=== PATIENT | male | born 1930 | race Caucasian/White ===

== ENCOUNTER 2017-12-04 09:45 | Inpatient (IN) | payer MEDICARE ==
[2017-12-04] VITALS (13 sets, daily range): BP systolic 158–207; BP diastolic 64–88; PULSE 46–77; RESP 16–20; TEMP 97.3–97.8; O2SAT 95–100
[~2017-12-04] VITALS: Ht 172.7 cm; Wt 60.1 kg
[~2017-12-04 09:45] MED LIST: AMLO5TAB96 PO; ASPI81 PO; IMDU30TA PO; LANTUSP SQ; LEVO50TA4 PO; PROT40TA PO; ROSU20 PO; TOPR50TA PO
[2017-12-04 11:45] LABS: AUTOMATED NEUTROPHIL # 4.8 TH/MM3 (1.8-7.7); BASOPHIL # 0.1 TH/MM3 (0-0.2); EOSINOPHIL # 0.3 TH/MM3 (0-0.4); HEMATOCRIT 46.1 % (39.0-51.0); HEMOGLOBIN 15.1 GM/DL (13.0-17.0); LYMPH % 19.4 % (9.0-44.0); LYMPHOCYTE # 1.3 TH/MM3 (1.0-4.8); MEAN CELL VOLUME 82.2 FL (80.0-100.0); MEAN CORPUSCULAR HEMOGLOBIN 26.8 PG (27.0-34.0); MEAN CORPUSCULAR HGB CONC 32.7 % (32.0-36.0); MEAN PLATELET VOLUME 8.8 FL (7.0-11.0); MONO % 5.3 % (0.0-8.0); MONOCYTE # 0.4 TH/MM3 (0-0.9); NEUT % 69.3 % (16.0-70.0); PLATELET COUNT 157 TH/MM3 (150-450); RED BLOOD COUNT 5.61 MIL/MM3 (4.50-5.90); RED CELL DISTRIBUTION WIDTH 15.3 % (11.6-17.2); WHITE BLOOD COUNT 6.9 TH/MM3 (4.0-11.0)
--- NOTE | 2017-12-04 11:46 | PD ---
HPI Chief Complaint: Neuro Symptoms/ Deficits Time Seen by Provider: 10:38 Travel History International Travel<30 days: No Contact w/Intl Traveler<30days: No Traveled to known affect area: No History of Present Illness HPI Patient presents to the emergency department complaining of trouble with "my feet in my legs and cannot control my bowel and bladder times 2 weeks." He denies trauma, back pain, chest pain, shortness of breath, fever, chills, nausea , vomiting, or abdominal pain. PFSH Past Medical History Autoimmune Disease: No Heart Rhythm Problems: No Cancer: No Cardiac Catheterization: Yes (STENTS) Cardiovascular Problems: Yes High Cholesterol: Yes Chemotherapy: No Chest Pain: Yes Congestive Heart Failure: No Diabetes: Yes Patient Takes Glucophage: No Diminished Hearing: No Endocrine: Yes GERD: Yes Genitourinary: Yes (bilateral renal stent) Hiatal Hernia: Yes Hypertension: Yes Immune Disorder: No Musculoskeletal: No Neurologic: No Psychiatric: No Reproductive: No Respiratory: No Immunizations Current: Yes Myocardial Infarction: Yes Radiation Therapy: No Sickle Cell Disease: No Thyroid Disease: Yes Ulcer: No Past Surgical History Abdominal Surgery: Yes (HERNIA) Cardiac Surgery: Yes ( left carotid 2006) Coronary Artery Bypass Graft: Yes Coronary Stent: Yes Ear Surgery: No Endocrine Surgery: No Eye Surgery: Yes (cataract bilateral) Genitourinary Surgery: Yes (VASECTOMY;KIDNEY STENTS) Oral Surgery: No Thoracic Surgery: No Tonsillectomy: Yes Other Surgery: Yes Family History Family Myocardial Infarction: Yes Social History Alcohol Use: No Tobacco Use: No Substance Use: No Allergies-Medications (Allergen,Severity, Reaction): Coded Allergies: No Known Allergies (Unverified Allergy, Unknown, 12/04/17) Reported Meds & Prescriptions Reported Meds & Active Scripts Active Reported Lantus Inj (Insulin Glargine) 1,000 Unit/10 Ml Vial 4 Units SQ HS Lisinopril 40 Mg Tab 40 Mg PO DAILY Amlodipine (Amlodipine Besylate) 10 Mg Tab 10 Mg PO DAILY Isosorbide Mononitrate ER (Isosorbide Mononitrate) 30 Mg Fco 30 Mg PO DAILY Folic Acid 0.8 Mg Tab 800 Mcg PO DAILY Crestor (Rosuvastatin Calcium) 20 Mg Tab 20 Mg PO DAILY Aspirin 81 Mg Chew 81 Mg CHEW DAILY Pantoprazole (Pantoprazole Sodium) 40 Mg Tab 40 Mg PO DAILY Metoprolol Tartrate 50 Mg Tab 50 Mg PO DAILY Glimepiride 4 Mg Tab 4 Mg PO DAILY Take with breakfast or first main meal Glimepiride 1 Mg Tab 1 Mg PO DAILY Take with breakfast or first main meal Levothyroxine (Levothyroxine Sodium) 75 Mcg Tab 75 Mcg PO DAILY Review of Systems Except as stated in HPI: all other systems reviewed are Neg Physical Exam Narrative GENERAL: No acute distress. SKIN: Focused skin assessment warm/dry. HEAD: Atraumatic. Normocephalic. EYES: Pupils equal and round. No scleral icterus. No injection or drainage. ENT: No nasal bleeding or discharge. Mucous membranes pink and moist. NECK: Trachea midline. No JVD. No focal C-spine tenderness. CARDIOVASCULAR: Regular rate and rhythm. No murmur appreciated. RESPIRATORY: No accessory muscle use. Clear to auscultation. Breath sounds equal bilaterally. GASTROINTESTINAL: Abdomen soft, non-tender, nondistended. Hepatic and splenic margins not palpable. Rectal: Normal rectal tone, brown stool MUSCULOSKELETAL: No obvious deformities. No clubbing. No cyanosis. No edema. No focal T or L-spine tenderness. NEUROLOGICAL: Awake and alert. No obvious cranial nerve deficits. Right lower extremity weakness (4 out of 5), normal speech. PSYCHIATRIC: Appropriate mood and affect; insight and judgment normal. Data Data Last Documented VS Vital Signs Date Time Temp Pulse Resp B/P (MAP) Pulse Ox O2 Delivery O2 Flow Rate FiO2 12/04/17 14:04 56 16 196/86 (122) 98 Room Air 12/04/17 10:28 97.5 Orders Orders Complete Blood Count With Diff (12/04/17 10:42) Comprehensive Metabolic Panel (12/04/17 10:42) Prothrombin Time / Inr (Pt) (12/04/17 10:42) Act Partial Throm Time (Ptt) (12/04/17 10:42) Ua Includes Microscopic (12/04/17 10:42) Mri C Spine W/O Contrast (12/04/17 11:46) Mri T Spine W/O Contrast (12/04/17 11:46) Mri L Spine W/O Contrast (12/04/17 11:46) Metoprolol Succinate Er (Toprol Xl) (12/04/17 12:00) Hydralazine Inj (Apresoline Inj) (12/04/17 12:45) Amlodipine (Norvasc) (12/04/17 13:00) Magnesium (Mg) (12/04/17 14:09) Electrocardiogram (12/04/17 14:09) Insulin Human Regular Inj (Novolin R Inj (12/04/17 14:15) Dextrose 50% In Kari (Vial) Inj (D50w (Vi (12/04/17 14:15) Albuterol Concentrated Neb (Albuterol Co (12/04/17 14:15) Admit Order (Ed Use Only) (12/04/17 14:22) Labs Laboratory Tests Test 12/04/17 11:15 12/04/17 11:25 White Blood Count 6.9 TH/MM3 Red Blood Count 5.61 MIL/MM3 Hemoglobin 15.1 GM/DL Hematocrit 46.1 % Mean Corpuscular Volume 82.2 FL Mean Corpuscular Hemoglobin 26.8 PG Mean Corpuscular Hemoglobin Concent 32.7 % Red Cell Distribution Width 15.3 % Platelet Count 157 TH/MM3 Mean Platelet Volume 8.8 FL Neutrophils (%) (Auto) 69.3 % Lymphocytes (%) (Auto) 19.4 % Monocytes (%) (Auto) 5.3 % Eosinophils (%) (Auto) 5.0 % Basophils (%) (Auto) 1.0 % Neutrophils # (Auto) 4.8 TH/MM3 Lymphocytes # (Auto) 1.3 TH/MM3 Monocytes # (Auto) 0.4 TH/MM3 Eosinophils # (Auto) 0.3 TH/MM3 Basophils # (Auto) 0.1 TH/MM3 CBC Comment DIFF FINAL Differential Comment Prothrombin Time 10.2 SEC Prothromb Time International Ratio 1.0 RATIO Activated Partial Thromboplast Time 30.8 SEC Blood Urea Nitrogen 28 MG/DL Creatinine 2.42 MG/DL Random Glucose 152 MG/DL Total Protein 8.0 GM/DL Albumin 3.6 GM/DL Calcium Level 9.6 MG/DL Alkaline Phosphatase 94 U/L Aspartate Amino Transf (AST/SGOT) 25 U/L Alanine Aminotransferase (ALT/SGPT) 25 U/L Total Bilirubin 0.4 MG/DL Sodium Level 138 MEQ/L Potassium Level 6.0 MEQ/L Chloride Level 107 MEQ/L Carbon Dioxide Level 24.8 MEQ/L Anion Gap 6 MEQ/L Estimat Glomerular Filtration Rate 25 ML/MIN Magnesium Level 2.1 MG/DL Urine Color Straw Urine Turbidity CLEAR Urine pH 7.0 Urine Specific [place] 1.011 Urine Protein >=500 mg/dL Urine Glucose (UA) 50 mg/dL Urine Ketones NEG mg/dL Urine Occult Blood NEG Urine Nitrite NEG Urine Bilirubin NEG Urine Urobilinogen LESS THAN 2 mg/dL Urine Leukocyte Esterase NEG Urine RBC 1 /hpf Urine WBC 1 /hpf Urine Bacteria RARE /hpf Urine Mucus FEW /lpf MDM Medical Decision Making Medical Screen Exam Complete: Yes Emergency Medical Condition: Yes Interpretation(s) Labs: Normal CBC, elevated BUN/creatinine/glucose/potassium; UA rare bacteria ECG: Sinus brook, rate 56, RBBB (similar to prior EKG) Last Impressions Thoracic Spine MRI 12/04/17 1146 Signed Impressions: CONCLUSION: 1. No acute bony abnormality is seen. The thoracic vertebral bodies are normal in height and normally aligned. 2. Mild disc changes in the mid thoracic spine without stenosis. Lumbar Spine MRI 12/04/17 114 Signed Impressions: CONCLUSION: 1. Mild disc bulge at the L4-L5 level. 2. Mild disc bulge and osteophytic ridging at the L5-S1 level. These changes d o abut the left S1 nerve root at the lateral recess level. 3. Neural foraminal narrowing on the right at the L4-L5 level and bilaterally at the L5-S1 level being worse on the left. 4. Facet hypertrophy seen throughout. Cervical Spine MRI 12/04/17 114 Signed Impressions: CONCLUSION: 1. Multilevel degenerative spondylosis with significant abnormalities at C3/4, C4/5, C5/6 and C6/7. 2. No abnormal signal identified within the cervical cord. 3. Individual levels are dictated in detail above. Differential Diagnosis Cauda equina, spinal fracture/dislocation, UTI, Narrative Course Patient presents to the emergency department complaining of inability to control his bowel and bladder times 2 weeks as well as weakness in his bilateral lower extremities. Patient placed on satellite project site monitor, IV access obtained, labs sent. MRI ordered. 1250: Patient given dose of amlodipine 10 mg p.o. for hypertension. 1414: Patient back from MRI. EKG ordered for hyperkalemia as well as 10 mg albuterol neb and amp of D50 and 10 units regular insulin. Diagnosis Primary Impression: Renal failure Qualified Codes: N17.9 - Acute kidney failure, unspecified; N18.9 - Chronic kidney disease, unspecified Additional Impression: Hyperkalemia Admitting Information Admitting Physician Requests: Admit Condition: Stable Mamta Aranda MD Dec 04, 2017 11:46
[2017-12-04] MEDS ORDERED: GLIM4TAB PO (11:49)
[2017-12-04] MEDS ORDERED: FOLI800T PO (11:49)
[2017-12-04] MEDS ORDERED: LEVO75TA3 PO (11:49)
[2017-12-04] MEDS ORDERED: LANTUS2P SQ (11:49)
[2017-12-04] MEDS ORDERED: PANT40TA3 PO (11:49)
[2017-12-04] MEDS ORDERED: LISI40TA PO (11:49)
[2017-12-04] MEDS ORDERED: ROSU20 PO (11:49)
[2017-12-04] MEDS ORDERED: ASPI-516 CHEW (11:49)
[2017-12-04] MEDS ORDERED: AMLO10TA2 PO (11:49)
[2017-12-04] MEDS ORDERED: METO50TA PO (11:49)
[2017-12-04] MEDS ORDERED: GLIM1TAB PO (11:49)
[2017-12-04] MEDS ORDERED: ISOS30TA3 PO (11:49)
[2017-12-04 11:51] LABS: BACTERIA, URINE RARE /hpf; BILIRUBIN, URINE NEG (NEG); BLOOD, URINE NEG (NEG); GLUCOSE,URINE 50 mg/dL (NEG); KETONE, URINE NEG (NEG); MUCUS URINE FEW /lpf (OCC); NITRITE,URINE NEG (NEG); URINE COLOR Straw (YELLW/STRAW); URINE LEUKOCYTE ESTERASE NEG (NEG)
[2017-12-04 11:58] LABS: PROTHROMBIN TIME - PATIENT 10.2 SEC (9.8-11.6)
[2017-12-04] MEDS ORDERED: METOPROLOL SUCCINATE 50 MG EXTENDED RELEASE TAB PO ONE (12:00)
[2017-12-04 12:04] LABS: ALBUMIN 3.6 GM/DL (3.4-5.0); ALT (GPT) 25 U/L (12-78); AST (GOT) 25 U/L (15-37); BICARBONATE 24.8 MEQ/L (21.0-32.0); BLOOD UREA NITROGEN 28 MG/DL (7-18); CALCIUM 9.6 MG/DL (8.5-10.1); CHLORIDE 107 MEQ/L (98-107); CREATININE 2.42 MG/DL (0.60-1.30); GLOMERULAR FILTRATION RATE 25 ML/MIN (>89); GLUCOSE,RANDOM 152 MG/DL (74-106); SODIUM (NA) 138 MEQ/L (136-145)
[2017-12-04 12:06] LABS: ALKALINE PHOSPHATASE 94 U/L (45-117); TOTAL BILIRUBIN ADULT 0.4 MG/DL (0.2-1.0)
[2017-12-04] MEDS ORDERED: hydrALAZINE HCL 20 MG/ML VIAL IV PUSH ONE (12:45)
--- NOTE | 2017-12-04 14:14 | RADRPT ---
EXAM DATE: 12/04/2017 1:58 PM EDT AGE/SEX: 87 years / Male INDICATIONS: Weakness. CLINICAL DATA: This is the patient's initial encounter. Patient reports that signs and symptoms have been present for 1 day and indicates a pain score of 0/10. MEDICAL/SURGICAL HISTORY: Hypertension. Diabetes mellitus type II. CABG. Coronary artery sten t. COMPARISON: No prior exams available for comparison. TECHNIQUE: Multiplanar, multisequence MRI examination of the cervical spine was performed without co ntrast. FINDINGS: Sagittal T1 and T2-weighted imaging demonstrates mild straightening of the normal cervical curve. The re are desiccated, degenerated discs throughout the cervical spine. No abnormal marrow signal seen wi thin the vertebral bodies. No abnormal signal is seen within the cord. The cerebellar tonsils are in their appropriate location. Axial imaging: C2-C3: The thecal sac has a normal configuration. There is no evidence of disc herniation or spinal canal stenosis. The neural foramina are patent bilaterally. There is moderate facet arthritis on th e left. C3-C4: There is a desiccated, degenerated disc with a broad-based disc bulge and osteophytic ridging . This effaces the ventral thecal sac. There is facet arthritis bilaterally with degenerative facet h ypertrophy. These changes combine and result in moderate bilateral foraminal narrowing. The residual thecal space is narrowed but adequate. C4-C5: There is a desiccated, degenerated disc. There is minimal disc bulge. There is osteophytic ri dging from the vertebral endplates. There is mild facet arthritis bilaterally. There is uncovertebral osteophyte encroaching upon the base of the foramina and the lateral recess bilaterally. This is mor e significant on the right than the left. C5-C6: There is a desiccated, degenerated disc. There is broad-based disc bulge and diffuse osteophy tic ridging. This effaces the ventral thecal sac and abuts the ventral aspect of the cord. There is m ild flattening of the ventral aspect of the cord. There is facet arthritis bilaterally. There is mode rate bony foraminal narrowing bilaterally. C6-C7: There is a desiccated, degenerated disc. There is broad-based disc bulge and osteophytic ridg ing. This effaces the ventral thecal sac and abuts the ventral aspect of the cord. There is encroachm ent of disc bulge and uncovertebral osteophyte on the lateral recess and foraminal on the left. The f oramina on the right is adequate. C7-T1: No epidural impressions seen. CONCLUSION: 1. Multilevel degenerative spondylosis with significant abnormalities at C3/4, C4/5, C5/6 and C6/7. 2. No abnormal signal identified within the cervical cord. 3. Individual levels are dictated in detail above. Electronically signed by: Fidencio Gray MD 12/04/2017 2:13 PM EDT
[2017-12-04] MEDS ORDERED: RESP: ALBUTEROL CONC 2.5 MG/0.5 ML NEB INH ONE (14:15)
[2017-12-04] MEDS ORDERED: INSULIN HUMAN REGULAR 1,000 UNITS/10 ML VIAL IV PUSH ONE (14:15)
[2017-12-04] MEDS ORDERED: DEXTROSE 50% IN WATER 50 ML VIAL(D50) IV PUSH ONE (14:15)
--- NOTE | 2017-12-04 14:16 | RADRPT ---
EXAM DATE: 12/04/2017 1:59 PM EDT AGE/SEX: 87 years / Male INDICATIONS: Weakness. CLINICAL DATA: This is the patient's initial encounter. Patient reports that signs and symptoms have been present for 1 day and indicates a pain score of 0/10. MEDICAL/SURGICAL HISTORY: Diabetes mellitus type II. Hypertension. CABG. Coronary artery sten t. COMPARISON: No prior exams available for comparison. TECHNIQUE: Multiplanar, multisequence MRI of the thoracic spine was performed. FINDINGS: Vertebrae: The thoracic vertebral bodies demonstrate normal signal and are normal in height. There i s prominent concavity to the superior and to lesser degree inferior aspect of L1 without edema. Alignment: Normal. Cord: Normal position and configuration. T1-T2: The thecal sac has a normal diameter. No evidence of disc bulge or protrusion. T2-T3: The thecal sac has a normal diameter. No evidence of disc bulge or protrusion. T3-T4: The thecal sac has a normal diameter. No evidence of disc bulge or protrusion. T4-T5: The thecal sac has a normal diameter. No evidence of disc bulge or protrusion. T5-T6: The thecal sac has a normal diameter. No evidence of disc bulge or protrusion. T6-T7: There is a minimal central disc protrusion without significant stenosis. T7-T8: There is a minimal right paracentral disc protrusion without significant stenosis. T8-T9: There is a mild left paracentral disc protrusion without significant stenosis. T9-T10: The thecal sac has a normal diameter. No evidence of disc bulge or protrusion. T10-T11: The thecal sac has a normal diameter. No evidence of disc bulge or protrusion. T11-T12: The thecal sac has a normal diameter. No evidence of disc bulge or protrusion. T12-L1: The thecal sac has a normal diameter. No evidence of disc bulge or protrusion. CONCLUSION: 1. No acute bony abnormality is seen. The thoracic vertebral bodies are normal in height and normall y aligned. 2. Mild disc changes in the mid thoracic spine without stenosis. Electronically signed by: Lupillo Yeh MD 12/04/2017 2:15 PM EDT
--- NOTE | 2017-12-04 14:31 | RADRPT ---
EXAM DATE: 12/04/2017 1:58 PM EDT AGE/SEX: 87 years / Male INDICATIONS: Weakness. CLINICAL DATA: This is the patient's initial encounter. Patient reports that signs and symptoms have been present for 2 days and indicates a pain score of 0/10. MEDICAL/SURGICAL HISTORY: Hypertension. Diabetes mellitus type II. CABG. Coronary artery sten t. COMPARISON: No prior exams available for comparison. TECHNIQUE: Multiplanar, multisequence MRI of the lumbar spine was performed without contrast. Patie nt was scanned in a sitting position; neutral, flexion, and extension scans were performed in the sa gittal plane. FINDINGS: Vertebra: There is some concavity to the superior aspect of L1 and to a lesser degree the inferior a spect of L1. Overall, the L1 vertebral body demonstrates normal height. No acute edema is seen. This is thought to be secondary to chronic change. The remaining lumbar vertebral bodies are normal in hei ght and signal. Conus: Normal level and configuration. T12-L1: The thecal sac has a normal diameter. No evidence of disc bulge or protrusion. The neural foramina are patent bilaterally. L1-L2: The disc demonstrates decreased signal. The thecal sac has a normal diameter. No evidence o f disc bulge or protrusion. The neural foramina are patent bilaterally. There is mild facet hypertro phy. L2-L3: The thecal sac has a normal diameter. No evidence of disc bulge or protrusion. The neural foramina are patent bilaterally. There is mild facet hypertrophy. L3-L4: The disc demonstrates decreased signal. There is slight bulging of the disc without signific ant stenosis. There is mild facet hypertrophy. The neural foramina are patent bilaterally. L4-L5: The disc demonstrates decreased signal and mild decrease height. There is mild diffuse disc bulge. There is moderate facet and ligament flavum hypertrophy. These changes cause mild narrowing of the thecal sac. The continues be CSF around the nerve roots. There is narrowing of the neural forami na on the right. The left neural foramina are grossly patent. L5-S1: The disc demonstrates decreased height and decreased signal. There is mild bulging. There is posterior osteophytic ridging. The disc bulge and osteophytic ridging do abut the left S1 nerve root at the lateral recess level. Significant narrowing of the thecal sac is not seen. There is moderate facet hypertrophy. There is narrowing of the neural foramina bilaterally being worse on the left. CONCLUSION: 1. Mild disc bulge at the L4-L5 level. 2. Mild disc bulge and osteophytic ridging at the L5-S1 level. These changes do abut the left S1 ner ve root at the lateral recess level. 3. Neural foraminal narrowing on the right at the L4-L5 level and bilaterally at the L5-S1 level cody ng worse on the left. 4. Facet hypertrophy seen throughout. Electronically signed by: Lupillo Yeh MD 12/04/2017 2:30 PM EDT
[2017-12-04] MEDS ORDERED: ACETAMINOPHEN 325 MG TAB PO PRN (14:45)
[2017-12-04] MEDS ORDERED: MAGNESIUM HYDROXIDE SUSP 30 ML CUP PO PRN (14:45)
[2017-12-04] MEDS ORDERED: NALOXONE HCL 0.4 MG/ML AMP IV PUSH PRN (14:45)
[2017-12-04] MEDS ORDERED: ONDANSETRON ODT 4 MG TAB PO PRN (14:45)
[2017-12-04] MEDS ORDERED: BISACODYL 10 MG SUPP RECTAL PRN (14:45)
[2017-12-04] MEDS ORDERED: SENNOSIDES 8.6 MG TAB PO PRN (14:45)
[2017-12-04] MEDS ORDERED: LACTULOSE SYRUP 20 GM/30 ML CUP PO PRN (14:45)
[2017-12-04] MEDS ORDERED: SODIUM CHLORIDE 0.9% FLUSH 10 ML FLUSH IV FLUSH PRN (14:45)
[2017-12-04] MEDS: SODIUM CHLOR 0.9% 1000 ML INJ 1,000 ML IV SCH ×2 (15:35→21:44)
[2017-12-04] MEDS: HEPARIN SODIUM - SQ 10,000 UNITS/ML VIAL SQ SCH (15:35)
--- NOTE | 2017-12-04 16:04 | PD.CONS ---
(Joseph Arce) [facility] Service Neurosurgery Consult Requested By Dr Navarro Reason for Consult Lower extremity weakness Primary Care Physician Nadeem Cross, DO History of Present Illness The patient reports that he started to fall approximately two weeks ago and is now having difficulty with ambulation. He reports that prior to the falls he was able to ambulate using a walker without any difficulty. Now he reports that he doesn't seem able to get his feet to do what he wants when he is ambulating. The patient does report bowel and bladder difficulty but upon asking further it is difficulty to obtain a clear picture of his difficulty. At one point he says yes then he will say "not really." He reports that he does have urinary incontinence but does endorse that he had it prior to the fall for a while. He does endorse constipation occasionally. As to incontinence of bowel he reports that there are times when he feels he needs to have a bowel movement and doesn' t have one. Then there are other times that he will be incontinent of stool. The patient does seem to have some confusion and states that he is "babbling" because he is not able to express what he wants to. He has no headache or dizziness and he denied any pain, numbness or tingling to the extremities. He did say he has a right drop foot for which he wears and ASO brace. The patient is noted to have tremors to the upper extremities at rest. (Joseph Arce) Review of Systems CONSTITUTIONAL: Negative. INTEGUMENTARY: Some abrasions to the extremities. HEENT: Occasionally will wear earing aids. NECK: Negative. RESPIRATORY: Negative. CARDIOVASCULAR: Negative. GASTROINTESTINAL: Constipation, incontinence of bowel. GENITOURINARY: Urinary incontinence, decreased renal function. MUSCULOSKELETAL: Difficulty walking, right drop foot. HAEMATOLOGIC/LYMPHATIC: None. PSYCHIATRIC: None. NEUROLOGICAL: "Babbling." Incontinence of urine and stool. Difficulty walking. Tremors to the arms. (Joseph Arce) Past Family Social History Allergies: Coded Allergies: No Known Allergies (Unverified Allergy, Unknown, 12/04/17) Past Medical History Myocardial infarction Hypertension Diabetes mellitus Glaucoma Decreased renal function Inguinal hernia Intermittent use of hearing aids Gastroesophageal reflux disease Hypothyroidism Hyperlipidemia Past Surgical History Coronary artery bypass graft x4 Cardiac catherisation w/stenting Herniorrhaphy Bilateral renal stents Left carotid endarterectomy Bilateral cataract excision Tonsillectomy Vasectomy Reported Medications Lantus Inj (Insulin Glargine) 1,000 Unit/10 Ml Vial 4 Units SQ HS Lisinopril 40 Mg Tab 40 Mg PO DAILY Amlodipine (Amlodipine Besylate) 10 Mg Tab 10 Mg PO DAILY Isosorbide Mononitrate ER (Isosorbide Mononitrate) 30 Mg Fco 30 Mg PO DAILY Folic Acid 0.8 Mg Tab 800 Mcg PO DAILY Crestor (Rosuvastatin Calcium) 20 Mg Tab 20 Mg PO DAILY Aspirin 81 Mg Chew 81 Mg CHEW DAILY Pantoprazole (Pantoprazole Sodium) 40 Mg Tab 40 Mg PO DAILY Metoprolol Tartrate 50 Mg Tab 50 Mg PO DAILY Glimepiride 4 Mg Tab 4 Mg PO DAILY Take with breakfast or first main meal Glimepiride 1 Mg Tab 1 Mg PO DAILY Take with breakfast or first main meal Levothyroxine (Levothyroxine Sodium) 75 Mcg Tab 75 Mcg PO DAILY Family History Myocardial infarction Social History Denies any alcohol, tobacco or illicit drug use. (Joseph Arce) Physical Exam Vital Signs 12/02/17 12/02/17 12/03/17 12/03/17 12/04/17 12/04/17 06:00 18:00 06:00 18:00 06:00 18:00 Output Total 125 ml Balance -125 ml Output Urine Total 125 ml # Voids 1 Vital Signs Date Time Temp Pulse Resp B/P (MAP) Pulse Ox O2 Delivery O2 Flow Rate FiO2 12/04/17 14:04 56 16 196/86 (122) 98 Room Air 12/04/17 12:55 46 202/88 (126) 12/04/17 10:28 56 18 99 Room Air 12/04/17 10:28 97.5 63 16 195/88 (123) 100 Room Air 12/04/17 10:00 97.5 63 20 207/86 (126) 100 Physical Exam GENERAL: Well developed male who appears his stated age. SKIN: Warm & dry, scattered lower extremity abrasions healing w/o complication. HEENT: Normocephalic, atraumatic. PERRLA 3 mm, brisk, EOMI. TMs pearly kidd, no external ear canal, no otorrhea or haemotypanum bilaterally. Nares moist & pink w/o rhinorrhea bilaterally. MMM & pink, airway patent, tongue midline to protrusion. NECK: Midline cervical spine NTTP. Neck supple. No JVD. Trachea midline. RESPIRATORY: CTAB w/o W/R/R, equal excursion, non-laboured, on RA. Well healed midline sternotomy incision. CARDIOVASCULAR: S1S2 w/RRR w/o M/G/R, radial & pedal pulses 2+ bilaterally, no pedal edema. Monitor is sinus rhythm w/o any ectopy noted. GASTROINTESTINAL: Abdomen soft, non-tender, no palpable masses or organomegaly, bowel sounds present to all quadrants. GENITOURINARY: Normal male genitalia. MUSCULOSKELETAL: PERLA spontaneously & purposefully. Extremities NTTP. Some deformities noted to the interphalangeal joints of both hands. Tremors noted to both hands at rest. Tremors noted to lower extremities when he lifts them off the bed. Thoracolumbar spine NTTP. PSYCHIATRIC: Normal affect. Readily interacts & smiles. NEUROLOGICAL: AAOx3. Speech clear, hesitant at times, slow to respond, some expressive aphasia. Follows simple commands w/o difficulty. CN II through XII appear grossly intact. Motor strength: LUE: 4 to 4+/5 to hand intrinsics, o/w 5/5 to all major flexion & extension muscle groups to include wrist flexors & extensors. RUE: 4 to 4+/5 to hand intrinsics, 5/5 to wrist flexors & extensors, o/w 4+/ 5 to all major flexion & extension muscle groups. LLE: 4+/5 to extensor hallucis longus, o/w 5/5 to all major flexion & extension muscle groups. RLE: 0/5 to extensor hallucis longus & gastrocnemius, 3 to 3+/5 to tibialis anterior, 5/5 to iliopsoas, quadriceps & hamstring. Tremors noted to both hands at rest. Tremors noted to lower extremities when he lifts them off the bed. Laboratory Laboratory Tests Test 12/04/17 11:15 12/04/17 11:25 White Blood Count 6.9 Red Blood Count 5.61 Hemoglobin 15.1 Hematocrit 46.1 Mean Corpuscular Volume 82.2 Mean Corpuscular Hemoglobin 26.8 Mean Corpuscular Hemoglobin Concent 32.7 Red Cell Distribution Width 15.3 Platelet Count 157 Mean Platelet Volume 8.8 Neutrophils (%) (Auto) 69.3 Lymphocytes (%) (Auto) 19.4 Monocytes (%) (Auto) 5.3 Eosinophils (%) (Auto) 5.0 Basophils (%) (Auto) 1.0 Neutrophils # (Auto) 4.8 Lymphocytes # (Auto) 1.3 Monocytes # (Auto) 0.4 Eosinophils # (Auto) 0.3 Basophils # (Auto) 0.1 CBC Comment DIFF FINAL Differential Comment Prothrombin Time 10.2 Prothromb Time International Ratio 1.0 Activated Partial Thromboplast Time 30.8 Blood Urea Nitrogen 28 Creatinine 2.42 Random Glucose 152 Total Protein 8.0 Albumin 3.6 Calcium Level 9.6 Alkaline Phosphatase 94 Aspartate Amino Transf (AST/SGOT) 25 Alanine Aminotransferase (ALT/SGPT) 25 Total Bilirubin 0.4 Sodium Level 138 Potassium Level 6.0 Chloride Level 107 Carbon Dioxide Level 24.8 Anion Gap 6 Estimat Glomerular Filtration Rate 25 Magnesium Level 2.1 Urine Color Straw Urine Turbidity CLEAR Urine pH 7.0 Urine Specific [place] 1.011 Urine Protein >=500 Urine Glucose (UA) 50 Urine Ketones NEG Urine Occult Blood NEG Urine Nitrite NEG Urine Bilirubin NEG Urine Urobilinogen LESS THAN 2 Urine Leukocyte Esterase NEG Urine RBC 1 Urine WBC 1 Urine Bacteria RARE Urine Mucus FEW (Joseph Arce) Result Diagram: 12/04/17 1115 12/04/17 1115 Imaging Recent Impressions Thoracic Spine MRI 12/04/17 1146 Signed Impressions: CONCLUSION: 1. No acute bony abnormality is seen. The thoracic vertebral bodies are normal in height and normally aligned. 2. Mild disc changes in the mid thoracic spine without stenosis. Lumbar Spine MRI 12/04/17 1146 Signed Impressions: CONCLUSION: 1. Mild disc bulge at the L4-L5 level. 2. Mild disc bulge and osteophytic ridging at the L5-S1 level. These changes d o abut the left S1 nerve root at the lateral recess level. 3. Neural foraminal narrowing on the right at the L4-L5 level and bilaterally at the L5-S1 level being worse on the left. 4. Facet hypertrophy seen throughout. Cervical Spine MRI 12/04/17 1146 Signed Impressions: CONCLUSION: 1. Multilevel degenerative spondylosis with significant abnormalities at C3/4, C4/5, C5/6 and C6/7. 2. No abnormal signal identified within the cervical cord. 3. Individual levels are dictated in detail above. (Joseph Arce) Assessment and Plan Assessment and Plan Impression: Distal RLE weakness Difficulty ambulating Right drop foot, chronic Possible cauda equina syndrome Expressive aphasia Reviewed labs for today. INR 1.0 and aPTT 30.8. Hyperkalemia. Poor renal function. MRI cervical spine demonstrated multilevel degenerative spondylosis, significant from C3-4 to C6-7; no abnormal cervical cord signal. MRI thoracic spine demonstrated mild disc changes mid thoracic spine w/o stenosis. MRI lumbar spine demonstrated mild disc bulge at L4-5 level; mild disc bulge & osteophytic ridging at L5-S1 level abutting the left S1 nerve root at the lateral recess level; neural foraminal narrowing of right L4-L5 level and bilaterally at the L5-S1 L>R; facet hypertrophy throughout. Plan: Primary management per Hospitalist. Neuro checks. Mobilise patient w/assistance. Physical Therapy eval & tx. Consider MRI brain. (Joseph Arce) Attending Statement The exam, history, and the medical decision-making described in the above note were completed with the assistance of the mid-level provider. I reviewed and agree with the findings presented. I attest that I had a [id number] encounter with the patient on the same day, and personally performed and documented my assessment and findings in the medical record. Patient's history reviewed. Neurologic exam with moderate upper and lower extremity weakness, chronic right foot drop. MRI imaging of the entire spine reveals mostly moderate degenerative changes. Mild to moderate cervical mild lumbar canal stenosis. No evidence of myelopathy or cauda equina syndrome on basis of imaging study or exam. Probable fatigue related to metabolic abnormalities, acute kidney injury, hyperkalemia. Physical therapy Mobilize out of bed as tolerated No neurosurgical intervention anticipated (Luis Magdaleno MD) Joseph Arce Dec 04, 2017 16:04 Luis Magdaleno MD Dec 06, 2017 21:22
--- NOTE | 2017-12-04 16:24 | PD.CONS ---
HPI Service Nephrology Consult Requested By Heather VIEIRA Reason for Consult Acute kidney injury with history of chronic kidney disease Primary Care Physician Nadeem Cross, DO History of Present Illness Patient is a 87 year old gentlemen with a past medical history of chronic kidney disease, hypertension, hypothyroidism, hyperlipidemia, hx of bilateral renal stents, and CAD with stent placement. Presented to the emergency with increasing weakness and not able to walk independently anymore which started about 2 weeks ago and has progressed. Numerous falls. He also reports incontinence of urine and stool which is also new. He denies any shortness of breath, chest pain, or abdominal pain. He reports some loose stools but no nausea. Nephrology is consulted for acute kidney injury with a creatinine of 2.42 and potassium level of 6.0. Hyperkalemia was treated with D50, insulin, and albuterol neb. Has past medical history of chronic kidney disease with a creatinine noted in 08/25/14 of 1.49. Also has significant proteinuria. (Marycarmen Zepeda) Review of Systems Constitutional: COMPLAINS OF: Fatigue Respiratory: DENIES: Sputum production, Shortness of breath Cardiovascular: DENIES: Chest pain, Palpitations Gastrointestinal: COMPLAINS OF: Diarrhea, DENIES: Abdominal pain, Constipation Musculoskeletal: COMPLAINS OF: Muscle aches Psychiatric: COMPLAINS OF: Anxiety (Marycarmen Zepeda) Past Family Social History Allergies: Coded Allergies: No Known Allergies (Unverified Allergy, Unknown, 12/04/17) Past Medical History 1. Chronic kidney disease 2. Hypertension 3. Hypothyroidism 4. Hyperlipidemia 5. Hx of bilateral renal stents 6. CAD with stent placement Past Surgical History 1. Hernia repair 2. Left carotid artery 3. CABG 4. Stent placement 5. Cataract 6. Ureteral stents 7. Vasectomy Active Ordered Medications Current Medications Medications (Trade) Dose Ordered Sig/Rubio Route Start Time Stop Time Status Last Admin Sodium Chloride 1,000 ml @ 100 mls/hr Q10H IV 12/04/17 15:00 12/04/17 15:35 (NS Flush) 2 ml UNSCH PRN IV FLUSH 12/04/17 14:45 (NS Flush) 2 ml BID IV FLUSH 12/04/17 21:00 (Tylenol) 650 mg Q4H PRN PO 12/04/17 14:45 (Zofran Odt) 4 mg Q6H PRN PO 12/04/17 14:45 (Heparin Inj) 5,000 units Q12H SQ 12/04/17 16:00 12/04/17 15:35 (Narcan Inj) 0.4 mg UNSCH PRN IV PUSH 12/04/17 14:45 (Natali-Colace) 1 tab BID PO 12/04/17 21:00 (Milk Of Magnesia Liq) 30 ml Q12H PRN PO 12/04/17 14:45 (Senokot) 17.2 mg Q12H PRN PO 12/04/17 14:45 (Dulcolax Supp) 10 mg DAILY PRN RECTAL 12/04/17 14:45 (Lactulose Liq) 30 ml DAILY PRN PO 12/04/17 14:45 (Norvasc) 10 mg DAILY PO 12/05/17 09:00 (Aspirin Chew) 81 mg DAILY CHEW 12/05/17 09:00 (Folate) 1 mg DAILY PO 12/05/17 09:00 (Amaryl) 1 mg DAILY PO 12/05/17 09:00 (Amaryl) 4 mg DAILY PO 12/05/17 09:00 (Imdur) 30 mg DAILY PO 12/05/17 09:00 (Synthroid) 75 mcg DAILY@0600 PO 12/05/17 06:00 (Lopressor) 50 mg DAILY PO 12/05/17 09:00 (Protonix) 40 mg DAILY PO 12/05/17 09:00 (Levemir Inj) 4 units HS SQ 12/04/17 21:00 (Lipitor) 40 mg DAILY PO 12/05/17 09:00 Family History Family history of heart disease Social History Quit smoking smoking over 40 years ago as well as ETOH Lives alone (Marycarmen Zepeda) Physical Exam Vital Signs Vital Signs Date Time Temp Pulse Resp B/P (MAP) Pulse Ox O2 Delivery O2 Flow Rate FiO2 12/04/17 15:47 77 18 160/70 (100) 100 Room Air 12/04/17 14:04 56 16 196/86 (122) 98 Room Air 12/04/17 12:55 46 202/88 (126) 12/04/17 10:28 56 18 99 Room Air 12/04/17 10:28 97.5 63 16 195/88 (123) 100 Room Air 12/04/17 10:00 97.5 63 20 207/86 (126) 100 Physical Exam GENERAL: Alert and oriented, forgetful SKIN: Warm and dry. HEAD: Normocephalic. EYES: No scleral icterus. No injection or drainage. NECK: Supple, trachea midline. No JVD or lymphadenopathy. CARDIOVASCULAR: Regular rate and rhythm without murmurs, gallops, or rubs. RESPIRATORY: Breath sounds equal bilaterally. No accessory muscle use. GASTROINTESTINAL: Abdomen soft, non-tender, nondistended. MUSCULOSKELETAL: No cyanosis, or edema. BACK: Nontender without obvious deformity. No CVA tenderness. Laboratory Laboratory Tests Test 12/04/17 11:15 12/04/17 11:25 White Blood Count 6.9 Red Blood Count 5.61 Hemoglobin 15.1 Hematocrit 46.1 Mean Corpuscular Volume 82.2 Mean Corpuscular Hemoglobin 26.8 Mean Corpuscular Hemoglobin Concent 32.7 Red Cell Distribution Width 15.3 Platelet Count 157 Mean Platelet Volume 8.8 Neutrophils (%) (Auto) 69.3 Lymphocytes (%) (Auto) 19.4 Monocytes (%) (Auto) 5.3 Eosinophils (%) (Auto) 5.0 Basophils (%) (Auto) 1.0 Neutrophils # (Auto) 4.8 Lymphocytes # (Auto) 1.3 Monocytes # (Auto) 0.4 Eosinophils # (Auto) 0.3 Basophils # (Auto) 0.1 CBC Comment DIFF FINAL Differential Comment Prothrombin Time 10.2 Prothromb Time International Ratio 1.0 Activated Partial Thromboplast Time 30.8 Blood Urea Nitrogen 28 Creatinine 2.42 Random Glucose 152 Total Protein 8.0 Albumin 3.6 Calcium Level 9.6 Alkaline Phosphatase 94 Aspartate Amino Transf (AST/SGOT) 25 Alanine Aminotransferase (ALT/SGPT) 25 Total Bilirubin 0.4 Sodium Level 138 Potassium Level 6.0 Chloride Level 107 Carbon Dioxide Level 24.8 Anion Gap 6 Estimat Glomerular Filtration Rate 25 Magnesium Level 2.1 Urine Color Straw Urine Turbidity CLEAR Urine pH 7.0 Urine Specific [place] 1.011 Urine Protein >=500 Urine Glucose (UA) 50 Urine Ketones NEG Urine Occult Blood NEG Urine Nitrite NEG Urine Bilirubin NEG Urine Urobilinogen LESS THAN 2 Urine Leukocyte Esterase NEG Urine RBC 1 Urine WBC 1 Urine Bacteria RARE Urine Mucus FEW (Marycarmen Zepeda) Result Diagram: 12/04/17 1115 12/04/17 1115 Imaging Last Impressions Thoracic Spine MRI 12/04/17 1146 Signed Impressions: CONCLUSION: 1. No acute bony abnormality is seen. The thoracic vertebral bodies are normal in height and normally aligned. 2. Mild disc changes in the mid thoracic spine without stenosis. Lumbar Spine MRI 12/04/17 1146 Signed Impressions: CONCLUSION: 1. Mild disc bulge at the L4-L5 level. 2. Mild disc bulge and osteophytic ridging at the L5-S1 level. These changes d o abut the left S1 nerve root at the lateral recess level. 3. Neural foraminal narrowing on the right at the L4-L5 level and bilaterally at the L5-S1 level being worse on the left. 4. Facet hypertrophy seen throughout. Cervical Spine MRI 12/04/17 1146 Signed Impressions: CONCLUSION: 1. Multilevel degenerative spondylosis with significant abnormalities at C3/4, C4/5, C5/6 and C6/7. 2. No abnormal signal identified within the cervical cord. 3. Individual levels are dictated in detail above. (Marycarmen Zepeda) Assessment and Plan Problem List: (1) Acute kidney injury ICD Codes: N17.9 - Acute kidney failure, unspecified Plan: Acute kidney injury with a creatinine of 2.42 and potassium level of 6.0. Hyperkalemia was treated with D50, insulin, and albuterol neb. Acute kidney injury possibly prerenal from poor intake and loose stools. History of chronic kidney disease with a creatinine noted in 08/25/14 of 1.49. Most likely chronic kidney disease from Hypertension vs renovascular disease vs diabetes Plan Continue IVF's Renal US Urine sodium, osmolarity, and creatinine Continue to hold lisinopril Avoid nephrotoxins including NSAIDS, IV contrast, and aminoglycoside Will monitor urinary output and BMP Labs in AM (2) Hyperkalemia ICD Codes: E87.5 - Hyperkalemia Status: Acute Plan: Treated with D50, insulin, and albuterol Neb Recheck is ordered Continue to hold lisinopril (3) Hypertension ICD Codes: I10 - Essential (primary) hypertension Plan: Amlodipine and metoprolol continued and PRN available Will monitor (4) Diabetes ICD Codes: E11.9 - Type 2 diabetes mellitus without complications Status: Chronic Plan: Maintain blood sugars between 140 mg/dl to 180mg/dl (Marycarmen Zepeda) Problem List: (1) Acute kidney injury ICD Codes: N17.9 - Acute kidney failure, unspecified Plan: Acute kidney injury with a creatinine of 2.42 and potassium level of 6.0. Hyperkalemia was treated with D50, insulin, and albuterol neb. Acute kidney injury possibly prerenal from poor intake and loose stools. History of chronic kidney disease with a creatinine noted in 08/25/14 of 1.49. Most likely chronic kidney disease from Hypertension vs renovascular disease vs diabetes Plan Continue IVF's Renal US Urine sodium, osmolarity, and creatinine Continue to hold lisinopril Avoid nephrotoxins including NSAIDS, IV contrast, and aminoglycoside Will monitor urinary output and BMP Labs in AM. Patient seen and examined, agree with above. Patient most likely has chronic kidney disease, develop DAVID, due to pre renal. Continue IVF. (2) Hyperkalemia ICD Codes: E87.5 - Hyperkalemia Status: Acute Plan: Treated with D50, insulin, and albuterol Neb Recheck is ordered Continue to hold lisinopril (3) Hypertension ICD Codes: I10 - Essential (primary) hypertension Plan: Amlodipine and metoprolol continued and PRN available Will monitor (4) Diabetes ICD Codes: E11.9 - Type 2 diabetes mellitus without complications Status: Chronic Plan: Maintain blood sugars between 140 mg/dl to 180mg/dl (Aranza Crawford MD) Marycarmen Zepeda Dec 04, 2017 16:24 Aranza Crawford MD Dec 05, 2017 21:41
--- NOTE | 2017-12-04 20:10 | RADRPT ---
EXAM DATE: 12/04/2017 7:14 PM EDT AGE/SEX: 87 years / Male INDICATIONS: Tumor. CLINICAL DATA: This is the patient's initial encounter. Patient reports that signs and symptoms have been present for 2 weeks and indicates a pain score of 7/10. MEDICAL/SURGICAL HISTORY: Hypertension. Diabetes mellitus type II. CABG. Carotid stent. COMPARISON: No prior exams available for comparison. TECHNIQUE: Multiplanar, multisequence examination of the brain was performed without contrast. FINDINGS: There is marked cortical atrophy and severe chronic white matter ischemic changes with with ventricul omegaly. There is no recent infarct on the diffusion-weighted images. No mass effect or shift. No julio lar abnormality. CONCLUSION: 1. No acute findings. No recent infarct. Chronic white matter ischemic changes with atrophy. Electronically signed by: Wing Moise MD 12/04/2017 8:09 PM EDT
[2017-12-04] MEDS: DOCUSATE SODIUM 50 MG/SENNA 8.6 MG TAB PO SCH (21:00)
[2017-12-04] MEDS ORDERED: INSULIN GLARGINE 1,000 UNITS/10 ML VIAL SQ SCH (21:00)
[2017-12-04] MEDS: INSULIN DETEMIR 100 UNITS/ML VIAL SQ SCH (21:43)
[2017-12-04] MEDS: SODIUM CHLORIDE 0.9% FLUSH 10 ML FLUSH IV FLUSH SCH (21:43)
[2017-12-05] VITALS (10 sets, daily range): BP systolic 151–169; BP diastolic 66–73; PULSE 49–88; RESP 16–18; TEMP 97.7–98.6; O2SAT 93–98
[2017-12-05] MEDS: HEPARIN SODIUM - SQ 10,000 UNITS/ML VIAL SQ SCH ×2 (05:41→16:28)
[2017-12-05] MEDS: LEVOTHYROXINE SODIUM 75 MCG TAB PO SCH (05:41)
[2017-12-05 06:36] LABS: AUTOMATED NEUTROPHIL # 3.8 TH/MM3 (1.8-7.7); BASOPHIL # 0.1 TH/MM3 (0-0.2); BASOPHIL % 1.1 % (0.0-2.0); EOSINOPHIL # 0.6 TH/MM3 (0-0.4); EOSINOPHIL % 8.8 % (0.0-4.0); HEMATOCRIT 41.8 % (39.0-51.0); HEMOGLOBIN 13.4 GM/DL (13.0-17.0); LYMPH % 25.1 % (9.0-44.0); LYMPHOCYTE # 1.7 TH/MM3 (1.0-4.8); MEAN CELL VOLUME 83.3 FL (80.0-100.0); MEAN CORPUSCULAR HEMOGLOBIN 26.7 PG (27.0-34.0); MEAN CORPUSCULAR HGB CONC 32.1 % (32.0-36.0); MEAN PLATELET VOLUME 9.6 FL (7.0-11.0); MONO % 7.2 % (0.0-8.0); MONOCYTE # 0.5 TH/MM3 (0-0.9); NEUT % 57.8 % (16.0-70.0); PLATELET COUNT 132 TH/MM3 (150-450); RED BLOOD COUNT 5.02 MIL/MM3 (4.50-5.90); RED CELL DISTRIBUTION WIDTH 15.5 % (11.6-17.2); WHITE BLOOD COUNT 6.6 TH/MM3 (4.0-11.0)
[2017-12-05 07:15] LABS: ALBUMIN 2.8 GM/DL (3.4-5.0); ALKALINE PHOSPHATASE 77 U/L (45-117); ALT (GPT) 17 U/L (12-78); AST (GOT) 24 U/L (15-37); BICARBONATE 18.7 MEQ/L (21.0-32.0); BLOOD UREA NITROGEN 31 MG/DL (7-18); CALCIUM 8.4 MG/DL (8.5-10.1); CHLORIDE 113 MEQ/L (98-107); CREATININE 2.49 MG/DL (0.60-1.30); GLOMERULAR FILTRATION RATE 25 ML/MIN (>89); GLUCOSE,RANDOM 80 MG/DL (74-106); MAGNESIUM 1.9 MG/DL (1.5-2.5); SODIUM (NA) 142 MEQ/L (136-145); TOTAL BILIRUBIN ADULT 0.2 MG/DL (0.2-1.0); TOTAL PROTEIN 6.7 GM/DL (6.4-8.2)
[2017-12-05] MEDS: GLIMEPIRIDE 1 MG TAB PO SCH (08:24)
[2017-12-05] MEDS: ISOSORBIDE MONONITRATE 30 MG CR TAB (IMDUR) PO SCH (08:24)
[2017-12-05] MEDS: GLIMEPIRIDE 4 MG TAB PO SCH (08:24)
[2017-12-05] MEDS: ATORVASTATIN 40 MG TAB PO SCH (08:25)
[2017-12-05] MEDS: DOCUSATE SODIUM 50 MG/SENNA 8.6 MG TAB PO SCH ×2 (08:25→21:00)
[2017-12-05] MEDS: ASPIRIN 81 MG CHEW TAB CHEW SCH (08:25)
[2017-12-05] MEDS: FOLIC ACID 1 MG TAB PO SCH (08:25)
[2017-12-05] MEDS: PANTOPRAZOLE SOD 40 MG DELAYED RELEASE TAB PO SCH (08:25)
[2017-12-05] MEDS: METOPROLOL TARTRATE 50 MG TAB PO SCH (08:25)
[2017-12-05] MEDS: SODIUM CHLORIDE 0.9% FLUSH 10 ML FLUSH IV FLUSH SCH ×2 (08:26→21:31)
[2017-12-05] MEDS ORDERED: NON-FORMULARY DRUG (Rosuvastatin (Crestor) 20 MG) PO SCH (09:00)
[2017-12-05 09:09] LABS: CREATININE, RANDOM URINE 33.9 MG/DL
--- NOTE | 2017-12-05 10:11 | HHI.HP ---
History of Present Illness Primary Care Physician Nadeem Cross, DO Admission Diagnosis renal failure, hyperkalemia, weakness Diagnoses: History of Present Illness Patient is a 87 year old gentlemen with a past medical history of chronic kidney disease, hypertension, hypothyroidism, hyperlipidemia, hx of bilateral renal stents, and CAD with stent placement. Presented to the emergency with increasing weakness and not able to walk independently anymore which started about 2 weeks ago and has progressed. Numerous falls. He also reports incontinence of urine and stool which is also new. Review of Systems Except as stated in HPI: all other systems reviewed are Neg Past Family Social History Allergies: Coded Allergies: No Known Allergies (Unverified Allergy, Unknown, 12/04/17) Past Medical History 1. Chronic kidney disease 2. Hypertension 3. Hypothyroidism 4. Hyperlipidemia 5. Hx of bilateral renal stents 6. CAD with stent placement Past Surgical History 1. Hernia repair 2. Left carotid artery 3. CABG 4. Stent placement 5. Cataract 6. Ureteral stents 7. Vasectomy Reported Medications Lantus Inj (Insulin Glargine) 1,000 Unit/10 Ml Vial 4 Units SQ HS Lisinopril 40 Mg Tab 40 Mg PO DAILY Amlodipine (Amlodipine Besylate) 10 Mg Tab 10 Mg PO DAILY Isosorbide Mononitrate ER (Isosorbide Mononitrate) 30 Mg Fco 30 Mg PO DAILY Folic Acid 0.8 Mg Tab 800 Mcg PO DAILY Crestor (Rosuvastatin Calcium) 20 Mg Tab 20 Mg PO DAILY Aspirin 81 Mg Chew 81 Mg CHEW DAILY Pantoprazole (Pantoprazole Sodium) 40 Mg Tab 40 Mg PO DAILY Metoprolol Tartrate 50 Mg Tab 50 Mg PO DAILY Glimepiride 4 Mg Tab 4 Mg PO DAILY Take with breakfast or first main meal Glimepiride 1 Mg Tab 1 Mg PO DAILY Take with breakfast or first main meal Levothyroxine (Levothyroxine Sodium) 75 Mcg Tab 75 Mcg PO DAILY Active Ordered Medications Current Medications Medications (Trade) Dose Ordered Sig/Rubio Route Start Time Stop Time Status Last Admin Sodium Chloride 1,000 ml @ 100 mls/hr Q10H IV 12/04/17 15:00 12/04/17 21:44 (NS Flush) 2 ml UNSCH PRN IV FLUSH 12/04/17 14:45 (NS Flush) 2 ml BID IV FLUSH 12/04/17 21:00 12/04/17 21:43 (Tylenol) 650 mg Q4H PRN PO 12/04/17 14:45 (Zofran Odt) 4 mg Q6H PRN PO 12/04/17 14:45 (Heparin Inj) 5,000 units Q12H SQ 12/04/17 16:00 12/05/17 05:41 (Narcan Inj) 0.4 mg UNSCH PRN IV PUSH 12/04/17 14:45 (Natali-Colace) 1 tab BID PO 12/04/17 21:00 (Milk Of Magnesia Liq) 30 ml Q12H PRN PO 12/04/17 14:45 (Senokot) 17.2 mg Q12H PRN PO 12/04/17 14:45 (Dulcolax Supp) 10 mg DAILY PRN RECTAL 12/04/17 14:45 (Lactulose Liq) 30 ml DAILY PRN PO 12/04/17 14:45 (Norvasc) 10 mg DAILY PO 12/05/17 09:00 12/05/17 08:24 (Aspirin Chew) 81 mg DAILY CHEW 12/05/17 09:00 12/05/17 08:25 (Folate) 1 mg DAILY PO 12/05/17 09:00 12/05/17 08:25 (Amaryl) 1 mg DAILY PO 12/05/17 09:00 12/05/17 08:24 (Amaryl) 4 mg DAILY PO 12/05/17 09:00 12/05/17 08:24 (Imdur) 30 mg DAILY PO 12/05/17 09:00 12/05/17 08:24 (Synthroid) 75 mcg DAILY@0600 PO 12/05/17 06:00 12/05/17 05:41 (Lopressor) 50 mg DAILY PO 12/05/17 09:00 12/05/17 08:25 (Protonix) 40 mg DAILY PO 12/05/17 09:00 12/05/17 08:25 (Levemir Inj) 4 units HS SQ 12/04/17 21:00 12/04/17 21:43 (Lipitor) 40 mg DAILY PO 12/05/17 09:00 12/05/17 08:25 Social History Denies ETOH, Tobacco, substance abuse Physical Exam Vital Signs Vital Signs Date Time Temp Pulse Resp B/P (MAP) Pulse Ox O2 Delivery O2 Flow Rate FiO2 12/05/17 08:00 52 12/05/17 04:00 49 12/05/17 03:51 97.7 59 16 158/70 (99) 96 12/05/17 00:36 88 12/04/17 23:30 158/64 (95) 12/04/17 23:21 97.6 59 16 173/79 (110) 96 12/04/17 21:59 166/64 (98) 12/04/17 20:34 63 12/04/17 19:45 97.8 71 18 193/87 (122) 95 12/04/17 18:46 175/75 (108) 12/04/17 17:26 97.3 59 18 185/74 (111) 99 12/04/17 16:53 72 16 160/70 (100) 98 21 12/04/17 15:47 77 18 160/70 (100) 100 Room Air 12/04/17 14:04 56 16 196/86 (122) 98 Room Air 12/04/17 12:55 46 202/88 (126) 12/04/17 10:28 56 18 99 Room Air 12/04/17 10:28 97.5 63 16 195/88 (123) 100 Room Air 12/04/17 10:00 97.5 63 20 207/86 (126) 100 Physical Exam GENERAL: This is a well-nourished, well-developed patient, in no apparent distress. SKIN: . Cool and dry. HEAD: Atraumatic. Normocephalic. . EYES: Pupils equal round and reactive. No injection or drainage. ENT: Nose without bleeding, purulent drainage or septal hematoma. Throat without erythema, Airway patent. NECK: Trachea midline. No JVD or lymphadenopathy CARDIOVASCULAR: Regular rate and rhythm without murmurs, gallops, or rubs. RESPIRATORY: Clear to auscultation. Breath sounds equal bilaterally. No wheezes , rales, or rhonchi. GASTROINTESTINAL: Abdomen soft, non-tender, nondistended. MUSCULOSKELETAL: Extremities without clubbing, cyanosis, or edema. NEUROLOGICAL: Awake and alert. PERLA LE weakness R>l, Right Motor and sensory grossly within normal limits. Five out of 5 muscle strength in all muscle groups. Speech clear some delay follows commands Laboratory Laboratory Tests Test 12/04/17 11:15 12/04/17 11:25 12/04/17 16:00 12/05/17 05:15 White Blood Count 6.9 6.6 Red Blood Count 5.61 5.02 Hemoglobin 15.1 13.4 Hematocrit 46.1 41.8 Mean Corpuscular Volume 82.2 83.3 Mean Corpuscular Hemoglobin 26.8 26.7 Mean Corpuscular Hemoglobin Concent 32.7 32.1 Red Cell Distribution Width 15.3 15.5 Platelet Count 157 132 Mean Platelet Volume 8.8 9.6 Neutrophils (%) (Auto) 69.3 57.8 Lymphocytes (%) (Auto) 19.4 25.1 Monocytes (%) (Auto) 5.3 7.2 Eosinophils (%) (Auto) 5.0 8.8 Basophils (%) (Auto) 1.0 1.1 Neutrophils # (Auto) 4.8 3.8 Lymphocytes # (Auto) 1.3 1.7 Monocytes # (Auto) 0.4 0.5 Eosinophils # (Auto) 0.3 0.6 Basophils # (Auto) 0.1 0.1 CBC Comment DIFF FINAL DIFF FINAL Differential Comment Prothrombin Time 10.2 Prothromb Time International Ratio 1.0 Activated Partial Thromboplast Time 30.8 Blood Urea Nitrogen 28 31 Creatinine 2.42 2.49 Random Glucose 152 80 Total Protein 8.0 6.7 Albumin 3.6 2.8 Calcium Level 9.6 8.4 Alkaline Phosphatase 94 77 Aspartate Amino Transf (AST/SGOT) 25 24 Alanine Aminotransferase (ALT/SGPT) 25 17 Total Bilirubin 0.4 0.2 Sodium Level 138 142 Potassium Level 6.0 4.5 5.2 Chloride Level 107 113 Carbon Dioxide Level 24.8 18.7 Anion Gap 6 10 Estimat Glomerular Filtration Rate 25 25 Magnesium Level 2.1 1.9 Urine Color Straw Urine Turbidity CLEAR Urine pH 7.0 Urine Specific [place] 1.011 Urine Protein >=500 Urine Glucose (UA) 50 Urine Ketones NEG Urine Occult Blood NEG Urine Nitrite NEG Urine Bilirubin NEG Urine Urobilinogen LESS THAN 2 Urine Leukocyte Esterase NEG Urine RBC 1 Urine WBC 1 Urine Bacteria RARE Urine Mucus FEW Phosphorus Level 4.0 Test 12/05/17 08:29 Urine Random Creatinine 33.9 Urine Random Sodium 128 Result Diagram: 12/05/17 0515 12/05/17 0515 Imaging Last 72 hours Impressions Thoracic Spine MRI 12/04/17 1146 Signed Impressions: CONCLUSION: 1. No acute bony abnormality is seen. The thoracic vertebral bodies are normal in height and normally aligned. 2. Mild disc changes in the mid thoracic spine without stenosis. Lumbar Spine MRI 12/04/17 1146 Signed Impressions: CONCLUSION: 1. Mild disc bulge at the L4-L5 level. 2. Mild disc bulge and osteophytic ridging at the L5-S1 level. These changes d o abut the left S1 nerve root at the lateral recess level. 3. Neural foraminal narrowing on the right at the L4-L5 level and bilaterally at the L5-S1 level being worse on the left. 4. Facet hypertrophy seen throughout. Cervical Spine MRI 12/04/17 1146 Signed Impressions: CONCLUSION: 1. Multilevel degenerative spondylosis with significant abnormalities at C3/4, C4/5, C5/6 and C6/7. 2. No abnormal signal identified within the cervical cord. 3. Individual levels are dictated in detail above. Brain MRI 12/04/17 0000 Signed Impressions: CONCLUSION: 1. No acute findings. No recent infarct. Chronic white matter ischemic changes with atrophy. Caprini VTE Risk Assessment Caprini VTE Risk Assessment: Mod/High Risk (score >= 2) Caprini Risk Assessment Model Point Value = 1 Point Value = 2 Point Value = 3 Point Value = 5 Age 41-60 Minor surgery BMI > 25 kg/m2 Swollen legs Varicose veins or History of unexplained or recurrent spontaneous Oral contraceptives or hormone replacement Sepsis (< 1 month) Serious lung disease, including pneumonia (< 1 month) Abnormal pulmonary function Acute myocardial infarction Congestive heart failure (< 1 month) History of inflammatory bowel disease Medical patient at bed rest Age 61-74 Arthroscopic surgery Major open surgery (> 45 min) Laparoscopic surgery (> 45 min) Malignancy Confined to bed (> 72 hours) Immobilizing plaster cast Central venous access Age >= 75 History of VTE Family history of VTE Factor V Leiden Prothrombin [id number] Lupus anticoagulant Anticardiolipin antibodies Elevated serum homocysteine Heparin-induced thrombocytopenia Other congenital or acquired thrombophilia Stroke (< 1 month) Elective arthroplasty Hip, pelvis, or leg fracture Acute spinal cord injury (< 1 month) Prophylaxis Regimen Total Risk Factor Score Risk Level Prophylaxis Regimen 0-1 Low Early ambulation 2 Moderate Order ONE of the following: *Sequential Compression Device (SCD) *Heparin 5000 units SQ BID 3-4 Higher Order ONE of the following medications: *Heparin 5000 units SQ TID *Enoxaparin/Lovenox 40 mg SQ daily (WT < 150 kg, CrCl > 30 mL/min) *Enoxaparin/Lovenox 30 mg SQ daily (WT < 150 kg, CrCl > 10-29 mL/min) *Enoxaparin/Lovenox 30 mg SQ BID (WT < 150 kg, CrCl > 30 mL/min) AND/OR *Sequential Compression Device (SCD) 5 or more Highest Order ONE of the following medications: *Heparin 5000 units SQ TID (Preferred with Epidurals) *Enoxaparin/Lovenox 40 mg SQ daily (WT < 150 kg, CrCl > 30 mL/min) *Enoxaparin/Lovenox 30 mg SQ daily (WT < 150 kg, CrCl > 10-29 mL/min) *Enoxaparin/Lovenox 30 mg SQ BID (WT < 150 kg, CrCl > 30 mL/min) AND *Sequential Compression Device (SCD) Assessment and Plan Problem List: (1) Weakness of both lower extremities ICD Codes: R29.898 - Other symptoms and signs involving the musculoskeletal system Plan: Patient complain of Bowel control Imaging show, MRI cervical spine demonstrated multilevel degenerative spondylosis, significant from C3-4 to C6-7; no abnormal cervical cord signal. MRI thoracic spine demonstrated mild disc changes mid thoracic spine w/o stenosis. MRI lumbar spine demonstrated mild disc bulge at L4-5 level; mild disc bulge & osteophytic ridging at L5-S1 level abutting the left S1 nerve root at the lateral recess level; neural foraminal narrowing of right L4-L5 level and bilaterally at the L5-S1 L>R; facet hypertrophy throughout. NS consult, Will consult neurology (2) Acute kidney injury ICD Codes: N17.9 - Acute kidney failure, unspecified Plan: IVF, renal consult. work up pending. (3) Hypertension ICD Codes: I10 - Essential (primary) hypertension Plan: Lisinopril held /t renal function and hyperkalemia BP running high will add Cardura, will monitor, (4) Diabetes ICD Codes: E11.9 - Type 2 diabetes mellitus without complications Plan: Cont home medication, Carla Navarro Dec 05, 2017 10:11
[2017-12-05] MEDS: SODIUM CHLOR 0.9% 1000 ML INJ 1,000 ML IV SCH ×2 (11:03→21:30)
[2017-12-05] MEDS: DOXAZOSIN MESYLATE 1 MG TAB PO SCH (11:39)
--- NOTE | 2017-12-05 12:00 | RADRPT ---
EXAM DATE: 12/05/2017 11:10 AM EDT AGE/SEX: 87 years / Male INDICATIONS: Increased BUN/Creatinine. CLINICAL DATA: This is the patient's initial encounter. Patient reports that signs and symptoms have been present for 2 days and indicates a pain score of 0/10. MEDICAL/SURGICAL HISTORY: Hypercholesterolemia. Diabetes. Myocardial infarction. Hypertension. Blood transfusion. Tonsillectomy. CABG. Carotid endarterectomy. Bilateral cataract extraction. C ardiac catheterization with stents. Bilateral renal stent. Vasectomy. Nephrectomy. COMPARISON: [facility] [place], KIDNEY/RENAL/BLADDER, 06/28/2011. . MEASUREMENTS: Right Kidney:__9.1 x 4.4 x 5.1 cm Left Kidney:__10.5 x 5.1 x 5.8 cm FINDINGS: Right Kidney: There continues to be cortical thinning of the renal parenchyma. There is no hydronephr osis. No significant change compared to the prior examination. Left Kidney: There continues to be cortical thinning of the renal parenchyma. There is no evidence of hydronephrosis. No significant change compared to the prior study. Bladder: Within normal limits given the degree of distension. CONCLUSION: 1. Stable bilateral cortical thinning of both kidneys. No evidence of hydronephrosis. These findings suggest chronic medical renal disease. 2. Stable examination. Electronically signed by: Emile Su MD 12/05/2017 11:59 AM EDT
--- NOTE | 2017-12-05 15:31 | HHI.NPPN ---
Subjective General Problems: Anemia Renal Failure: Chronic, Acute, Stage III History of Present Illness Patient is a 87 year old gentlemen with a past medical history of chronic kidney disease, hypertension, hypothyroidism, hyperlipidemia, hx of bilateral renal stents, and CAD with stent placement. Presented to the emergency with increasing weakness and not able to walk independently anymore which started about 2 weeks ago and has progressed. Numerous falls. He also reports incontinence of urine and stool which is also new. He denies any shortness of breath, chest pain, or abdominal pain. He reports some loose stools but no nausea. Nephrology is consulted for acute kidney injury with a creatinine of 2.42 and potassium level of 6.0. Hyperkalemia was treated with D50, insulin, and albuterol neb. Has past medical history of chronic kidney disease with a creatinine noted in 08/25/14 of 1.49. Also has significant proteinuria. Additional Remarks Seen in AM. Resting comfortably without complaints. No shortness of breath or swelling. (Marycarmen Zepeda) Review of Systems Respiratory Respiratory Remarks denies SOB (Marycarmen Zepeda) Cardiovascular Cardiac Remarks Denies CP (Marycarmen Zepeda) Gastrointestinal GI Remarks Denies abdominal pain (Marycarmen Zepeda) Objective Data Data Vital Signs Date Time Temp Pulse Resp B/P (MAP) Pulse Ox O2 Delivery O2 Flow Rate FiO2 12/05/17 12:05 98.4 52 18 151/66 (94) 98 12/05/17 12:00 57 12/05/17 08:00 52 12/05/17 04:00 49 12/05/17 03:51 97.7 59 16 158/70 (99) 96 12/05/17 00:36 88 12/04/17 23:30 158/64 (95) 12/04/17 23:21 97.6 59 16 173/79 (110) 96 12/04/17 21:59 166/64 (98) 12/04/17 20:34 63 12/04/17 19:45 97.8 71 18 193/87 (122) 95 12/04/17 18:46 175/75 (108) 12/04/17 17:26 97.3 59 18 185/74 (111) 99 12/04/17 16:53 72 16 160/70 (100) 98 21 12/04/17 15:47 77 18 160/70 (100) 100 Room Air (Marycarmen Zepeda) -: 12/05/17 0515 12/05/17 0515 Imaging Last Impressions Renal Ultrasound 12/05/17 0000 Signed Impressions: CONCLUSION: 1. Stable bilateral cortical thinning of both kidneys. No evidence of hydronep hrosis. These findings suggest chronic medical renal disease. 2. Stable examination. Thoracic Spine MRI 12/04/17 1146 Signed Impressions: CONCLUSION: 1. No acute bony abnormality is seen. The thoracic vertebral bodies are normal in height and normally aligned. 2. Mild disc changes in the mid thoracic spine without stenosis. Lumbar Spine MRI 12/04/17 1146 Signed Impressions: CONCLUSION: 1. Mild disc bulge at the L4-L5 level. 2. Mild disc bulge and osteophytic ridging at the L5-S1 level. These changes d o abut the left S1 nerve root at the lateral recess level. 3. Neural foraminal narrowing on the right at the L4-L5 level and bilaterally at the L5-S1 level being worse on the left. 4. Facet hypertrophy seen throughout. Cervical Spine MRI 12/04/17 1146 Signed Impressions: CONCLUSION: 1. Multilevel degenerative spondylosis with significant abnormalities at C3/4, C4/5, C5/6 and C6/7. 2. No abnormal signal identified within the cervical cord. 3. Individual levels are dictated in detail above. Brain MRI 12/04/17 0000 Signed Impressions: CONCLUSION: 1. No acute findings. No recent infarct. Chronic white matter ischemic changes with atrophy. (Marycarmen Zepeda) Physical Exam General Appearance: No Acute Distress, Comfortable (Marycarmen Zepeda) Throat Throat Exam: Oral Mucosa [place] & Moist (Marycarmen Zepeda) Pulmonary Resp Exam: Breath Sounds Equal, No Distress (Marycarmen Zepeda) Cardiology CV Exam: Regular, Normal Sinus Rhythm (Marycarmen Zepeda) Gastrointestinal/Abdomen GI Exam: Soft, Non-Tender, Bowel Sounds Present (Marycarmen Zepeda) Genitourinary Exam: Clear Urine, Flank Non-Tender (Marycarmen Zepeda) Integumentary Skin Exam: Clear, Warm (Marycarmen Zepeda) Extremeties Extremities Exam: No Edema (Marycarmen Zepeda) Neurologic Neuro Exam: Alert, Awake, Oriented (Marycarmen Zepeda) Psychiatric Psych Exam: Appropriate Responses (Marycarmen Zepeda) Assessment/Plan Problem List: (1) Acute kidney injury ICD Codes: N17.9 - Acute kidney failure, unspecified Plan: Acute kidney injury with a creatinine of 2.42 and potassium level of 6.0 on day of consult. Acute kidney injury possible prerenal vs ATN. FENa of 6.6 % suggestive of ATN from intravascular volume depletion or medication side effect History of chronic kidney disease with a creatinine noted in 08/25/14 of 1.49. Most likely chronic kidney disease from Hypertension vs renovascular disease vs diabetes Renal US noted. Plan Continue IVF's HCO3 low will add sodium bicarbonate Continue to hold lisinopril Avoid nephrotoxins including NSAIDS, IV contrast, and aminoglycoside Will monitor urinary output and BMP Labs in AM (2) Hyperkalemia ICD Codes: E87.5 - Hyperkalemia Status: Acute Plan: Improved with Potassium at 5.2 Low potassium diet ordered Recheck in AM (3) Hypertension ICD Codes: I10 - Essential (primary) hypertension Plan: Amlodipine and metoprolol continued and PRN available Will monitor (4) Diabetes ICD Codes: E11.9 - Type 2 diabetes mellitus without complications Status: Chronic Plan: Maintain blood sugars between 140 mg/dl to 180mg/dl (Marycarmen Zepeda) Problem List: (1) Acute kidney injury ICD Codes: N17.9 - Acute kidney failure, unspecified Plan: Acute kidney injury with a creatinine of 2.42 and potassium level of 6.0 on day of consult. Acute kidney injury possible prerenal vs ATN. FENa of 6.6 % suggestive of ATN from intravascular volume depletion or medication side effect History of chronic kidney disease with a creatinine noted in 08/25/14 of 1.49. Most likely chronic kidney disease from Hypertension vs renovascular disease vs diabetes Renal US noted. Plan Continue IVF's HCO3 low will add sodium bicarbonate Continue to hold lisinopril Avoid nephrotoxins including NSAIDS, IV contrast, and aminoglycoside Will monitor urinary output and BMP Labs in AM. Patient seen and examined, agree with above. NaHco3 added, follow the urine out put and BMP. (2) Hyperkalemia ICD Codes: E87.5 - Hyperkalemia Status: Acute Plan: Improved with Potassium at 5.2 Low potassium diet ordered Recheck in AM (3) Hypertension ICD Codes: I10 - Essential (primary) hypertension Plan: Amlodipine and metoprolol continued and PRN available Will monitor (4) Diabetes ICD Codes: E11.9 - Type 2 diabetes mellitus without complications Status: Chronic Plan: Maintain blood sugars between 140 mg/dl to 180mg/dl (Aranza Crawford MD) Marycarmen Zepeda Dec 05, 2017 15:30 Aranza Crawford MD Dec 05, 2017 22:23
--- NOTE | 2017-12-05 15:59 | PD.CONS ---
History of Present Illness Service Neurology Consult Requested By Primary Care Physician Nadeem Cross DO History of Present Illness 87 year old gentlemen admitted for lower extremity weakness difficulty walking. States she has had a couple falls over the past 2-3 weeks. He uses a walker at baseline. In addition has chronic right foot weakness. Denies any spinal pain any paresthesias numbness or sensory loss. He lives alone. He had an MRI of the brain and imaging of his entire neural axis performed. No acute stroke noted. Denies any headache or trauma. Review of Systems As noted above and admission H&P Past Family Social History Allergies: Coded Allergies: No Known Allergies (Unverified Allergy, Unknown, 12/04/17) Past Medical History Chronic kidney disease, hypertension, hypothyroidism, dyslipidemia Past Surgical History CABG coronary disease with stents hernia repair cataract surgery vasectomy Family History Family history of heart disease Social History Quit smoking smoking over 40 years ago as well as ETOH Lives alone Review of Systems All other ROS: ROS reviewed as documented in chart Past Family Social History Allergies: Coded Allergies: No Known Allergies (Unverified Allergy, Unknown, 12/04/17) Active Ordered Medications Current Medications Medications (Trade) Dose Ordered Sig/Rubio Route Start Time Stop Time Status Last Admin Sodium Chloride 1,000 ml @ 100 mls/hr Q10H IV 12/04/17 15:00 12/05/17 11:03 (NS Flush) 2 ml UNSCH PRN IV FLUSH 12/04/17 14:45 (NS Flush) 2 ml BID IV FLUSH 12/04/17 21:00 12/04/17 21:43 (Tylenol) 650 mg Q4H PRN PO 12/04/17 14:45 (Zofran Odt) 4 mg Q6H PRN PO 12/04/17 14:45 (Heparin Inj) 5,000 units Q12H SQ 12/04/17 16:00 12/05/17 05:41 (Narcan Inj) 0.4 mg UNSCH PRN IV PUSH 12/04/17 14:45 (Natali-Colace) 1 tab BID PO 12/04/17 21:00 (Milk Of Magnesia Liq) 30 ml Q12H PRN PO 12/04/17 14:45 (Senokot) 17.2 mg Q12H PRN PO 12/04/17 14:45 (Dulcolax Supp) 10 mg DAILY PRN RECTAL 12/04/17 14:45 (Lactulose Liq) 30 ml DAILY PRN PO 12/04/17 14:45 (Norvasc) 10 mg DAILY PO 12/05/17 09:00 12/05/17 08:24 (Aspirin Chew) 81 mg DAILY CHEW 12/05/17 09:00 12/05/17 08:25 (Folate) 1 mg DAILY PO 12/05/17 09:00 12/05/17 08:25 (Amaryl) 1 mg DAILY PO 12/05/17 09:00 12/05/17 08:24 (Amaryl) 4 mg DAILY PO 12/05/17 09:00 12/05/17 08:24 (Imdur) 30 mg DAILY PO 12/05/17 09:00 12/05/17 08:24 (Synthroid) 75 mcg DAILY@0600 PO 12/05/17 06:00 12/05/17 05:41 (Lopressor) 50 mg DAILY PO 12/05/17 09:00 12/05/17 08:25 (Protonix) 40 mg DAILY PO 12/05/17 09:00 12/05/17 08:25 (Levemir Inj) 4 units HS SQ 12/04/17 21:00 12/04/17 21:43 (Lipitor) 40 mg DAILY PO 12/05/17 09:00 12/05/17 08:25 (Cardura) 1 mg DAILY PO 12/05/17 10:45 12/05/17 11:39 (Sodium Bicarbonate) 650 mg Q12HR PO 12/05/17 21:00 Exam I&O / VS Vital Signs Date Time Temp Pulse Resp B/P (MAP) Pulse Ox O2 Delivery O2 Flow Rate FiO2 12/05/17 12:05 98.4 52 18 151/66 (94) 98 12/05/17 12:00 57 12/05/17 08:00 52 12/05/17 04:00 49 12/05/17 03:51 97.7 59 16 158/70 (99) 96 12/05/17 00:36 88 12/04/17 23:30 158/64 (95) 12/04/17 23:21 97.6 59 16 173/79 (110) 96 12/04/17 21:59 166/64 (98) 12/04/17 20:34 63 12/04/17 19:45 97.8 71 18 193/87 (122) 95 12/04/17 18:46 175/75 (108) 12/04/17 17:26 97.3 59 18 185/74 (111) 99 12/04/17 16:53 72 16 160/70 (100) 98 21 General: Alert and Oriented Eye: EOMI Respiratory: Non-labored respirations, Symmetrical expansion Cardiology: Normal rate, No edema Neurologic: Alert, Oriented, Normal sensory, CN II-XII intact, Normal DTR's Psychiatric: Cooperative, Appropriate mood & affect, Normal judgement Exam Comments Pleasant 87-year-old gentleman awake alert oriented 2-3 fluent articulate no aphasia. Extraocular movements intact no facial asymmetry tongue midline. Able to raise all 4 extremity to gravity. Right dorsiflexion weakness strength 3 out of 5 states it is chronic. Reflexes 1-2+ in the upper extremities knee jerks 2++ ankle jerk 1+. Plantar flexor 1-2 beat clonus at the right ankle. Pinprick intact no sensory level elicited. Slightly increased tone in the lower limbs. Gait not assessed secondary fall risk. No dystaxia no neglect. 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 He has been using a walker for the past 5 years. Had more falls and felt dyscontrol over his lower limbs. He has mild lower extremity hyperreflexia which could suggest upper motor neuron lesion. MRI C-spine demonstrates some areas of stenosis C5-C6 region. On axial sections there is slight increased signal in that region. It is possible this could be related to mild chronic compressive myelopathy. In addition dehydration advanced a spinal arthritis could be contributing factors. Recommendations Neurosurgeon to eval PT Follow precautions Check a creatinine kinase TSH B12 ESR Follow exam (2) Cervical stenosis of spine ICD Codes: M48.02 - Spinal stenosis, cervical region Status: Chronic Plan: Neurosurgery following (3) Renal failure ICD Codes: N19 - Unspecified kidney failure Status: Acute Plan: Renal following (4) Diabetes ICD Codes: E11.9 - Type 2 diabetes mellitus without complications Status: Chronic Plan: Per medical Problem Qualifiers (1) Renal failure: Qualified Codes: N17.9 - Acute kidney failure, unspecified; N18.9 - Chronic kidney disease, unspecified Sly Mauricio MD Dec 05, 2017 15:59
--- NOTE | 2017-12-05 17:11 | EKG ---
Date Performed: 12/04/2017 Time Performed: 14:17:59 PTAGE: 87 years EKG: SINUS BRADYCARDIA MARKED RIGHT AXIS DEVIATION RIGHT BUNDLE BRANCH BLOCK ABNORMAL ECG PREVIOUS TRACING : 05/23/2014 18.56 Since the previous tracing, no significant change noted DOCTOR: Quin Ramos Interpretating Date/Time 12/05/2017 17:08:32
--- NOTE | 2017-12-05 17:28 | HHI.NSPN ---
(Joseph Arce) History Chief Complaint: Difficulty walking. (YazminJoseph) Interval History 12/04: The patient reports that he started to fall approximately two weeks ago and is now having difficulty with ambulation. He reports that prior to the falls he was able to ambulate using a walker without any difficulty. Now he reports that he doesn't seem able to get his feet to do what he wants when he is ambulating. The patient does report bowel and bladder difficulty but upon asking further it is difficulty to obtain a clear picture of his difficulty. At one point he says yes then he will say "not really." He reports that he does have urinary incontinence but does endorse that he had it prior to the fall for a while. He does endorse constipation occasionally. As to incontinence of bowel he reports that there are times when he feels he needs to have a bowel movement and doesn't have one. Then there are other times that he will be incontinent of stool. The patient does seem to have some confusion and states that he is "babbling" because he is not able to express what he wants to. He has no headache or dizziness and he denied any pain, numbness or tingling to the extremities. He did say he has a right drop foot for which he wears and ASO brace. The patient is noted to have tremors to the upper extremities at rest. 12/05: This afternoon the patient is sitting on the side of the bed. He denied any headache or dizziness. He also denied any pain, numbness or tingling to the extremities. He states he has difficulty with ambulating and that his right lower is really weak. He does say he hasn't been up ambulating yet since admission. Upon evaluation the patient continues to have hesitant speech. He has no sensory deficits and his motor exam is essentially unchanged. (Joseph Arce) Exam Results 12/03/17 12/03/17 12/04/17 12/04/17 12/05/17 12/05/17 06:00 18:00 06:00 18:00 06:00 18:00 Intake Total 0 ml Output Total 125 ml 150 ml Balance -125 ml -150 ml Intake Oral 0 ml Output Urine Total 125 ml 150 ml # Voids 1 # Bowel Movements 0 Vital Signs Date Time Temp Pulse Resp B/P (MAP) Pulse Ox O2 Delivery O2 Flow Rate FiO2 12/05/17 16:00 54 12/05/17 12:05 98.4 52 18 151/66 (94) 98 12/05/17 12:00 57 12/05/17 08:00 52 12/05/17 04:00 49 12/05/17 03:51 97.7 59 16 158/70 (99) 96 12/05/17 00:36 88 12/04/17 23:30 158/64 (95) 12/04/17 23:21 97.6 59 16 173/79 (110) 96 12/04/17 21:59 166/64 (98) 12/04/17 20:34 63 12/04/17 19:45 97.8 71 18 193/87 (122) 95 12/04/17 18:46 175/75 (108) 12/04/17 17:26 97.3 59 18 185/74 (111) 99 12/04/17 16:53 72 16 160/70 (100) 98 21 12/04/17 15:47 77 18 160/70 (100) 100 Room Air 12/04/17 14:04 56 16 196/86 (122) 98 Room Air 12/04/17 12:55 46 202/88 (126) 12/04/17 10:28 56 18 99 Room Air 12/04/17 10:28 97.5 63 16 195/88 (123) 100 Room Air 12/04/17 10:00 97.5 63 20 207/86 (126) 100 (Joseph Arce) Physical Examination GENERAL: Awake & alert, sitting on the edge of the bed. Affect essentially normal, readily interacts. No apparent distress. HEENT: Normocephalic, atraumatic. PERRLA 2 mm, brisk, EOMI. MMM & pink, airway patent, tongue midline to protrusion. MUSCULOSKELETAL: PERLA spontaneously & purposefully. Extremities NTTP. Some deformities noted to the interphalangeal joints of both hands. Tremors noted to both hands at rest. Tremors noted to lower extremities when he lifts them off the bed. Cervical & thoracolumbar spines NTTP. NEUROLOGICAL: AAOx3. Speech clear, hesitant at times, slow to respond, some expressive aphasia. Follows simple commands w/o difficulty. CN II through XII appear grossly intact. Motor strength: LUE: 4+/5 hand dispensing optician, o/w 5/5 to all major flexion & extension muscle groups. RUE: 4/5 hand dispensing optician, o/w 4+/5 to all major flexion & extension muscle groups. LLE: 4+/5 to extensor hallucis longus, o/w 5/5 to all major flexion & extension muscle groups. RLE: 0/5 to extensor hallucis longus & gastrocnemius, 2/5 to tibialis anterior, 5/5 to iliopsoas, quadriceps & hamstring. Tremors noted to both hands at rest. Tremors noted to lower extremities when he lifts them off the bed. (Joseph Arce) Lab, Micro, Other Results Recent Impressions Renal Ultrasound 12/05/17 0000 Signed Impressions: CONCLUSION: 1. Stable bilateral cortical thinning of both kidneys. No evidence of hydronep hrosis. These findings suggest chronic medical renal disease. 2. Stable examination. Thoracic Spine MRI 12/04/17 1146 Signed Impressions: CONCLUSION: 1. No acute bony abnormality is seen. The thoracic vertebral bodies are normal in height and normally aligned. 2. Mild disc changes in the mid thoracic spine without stenosis. Lumbar Spine MRI 12/04/17 1146 Signed Impressions: CONCLUSION: 1. Mild disc bulge at the L4-L5 level. 2. Mild disc bulge and osteophytic ridging at the L5-S1 level. These changes d o abut the left S1 nerve root at the lateral recess level. 3. Neural foraminal narrowing on the right at the L4-L5 level and bilaterally at the L5-S1 level being worse on the left. 4. Facet hypertrophy seen throughout. Cervical Spine MRI 12/04/17 1146 Signed Impressions: CONCLUSION: 1. Multilevel degenerative spondylosis with significant abnormalities at C3/4, C4/5, C5/6 and C6/7. 2. No abnormal signal identified within the cervical cord. 3. Individual levels are dictated in detail above. Brain MRI 12/04/17 0000 Signed Impressions: CONCLUSION: 1. No acute findings. No recent infarct. Chronic white matter ischemic changes with atrophy. Laboratory Tests Test 12/04/17 11:15 12/04/17 11:25 12/04/17 16:00 12/05/17 05:15 White Blood Count 6.9 TH/MM3 6.6 TH/MM3 Red Blood Count 5.61 MIL/MM3 5.02 MIL/MM3 Hemoglobin 15.1 GM/DL 13.4 GM/DL Hematocrit 46.1 % 41.8 % Mean Corpuscular Volume 82.2 FL 83.3 FL Mean Corpuscular Hemoglobin 26.8 PG 26.7 PG Mean Corpuscular Hemoglobin Concent 32.7 % 32.1 % Red Cell Distribution Width 15.3 % 15.5 % Platelet Count 157 TH/MM3 132 TH/MM3 Mean Platelet Volume 8.8 FL 9.6 FL Neutrophils (%) (Auto) 69.3 % 57.8 % Lymphocytes (%) (Auto) 19.4 % 25.1 % Monocytes (%) (Auto) 5.3 % 7.2 % Eosinophils (%) (Auto) 5.0 % 8.8 % Basophils (%) (Auto) 1.0 % 1.1 % Neutrophils # (Auto) 4.8 TH/MM3 3.8 TH/MM3 Lymphocytes # (Auto) 1.3 TH/MM3 1.7 TH/MM3 Monocytes # (Auto) 0.4 TH/MM3 0.5 TH/MM3 Eosinophils # (Auto) 0.3 TH/MM3 0.6 TH/MM3 Basophils # (Auto) 0.1 TH/MM3 0.1 TH/MM3 CBC Comment DIFF FINAL DIFF FINAL Differential Comment Prothrombin Time 10.2 SEC Prothromb Time International Ratio 1.0 RATIO Activated Partial Thromboplast Time 30.8 SEC Blood Urea Nitrogen 28 MG/DL 31 MG/DL Creatinine 2.42 MG/DL 2.49 MG/DL Random Glucose 152 MG/DL 80 MG/DL Total Protein 8.0 GM/DL 6.7 GM/DL Albumin 3.6 GM/DL 2.8 GM/DL Calcium Level 9.6 MG/DL 8.4 MG/DL Alkaline Phosphatase 94 U/L 77 U/L Aspartate Amino Transf (AST/SGOT) 25 U/L 24 U/L Alanine Aminotransferase (ALT/SGPT) 25 U/L 17 U/L Total Bilirubin 0.4 MG/DL 0.2 MG/DL Sodium Level 138 MEQ/L 142 MEQ/L Potassium Level 6.0 MEQ/L 4.5 MEQ/L 5.2 MEQ/L Chloride Level 107 MEQ/L 113 MEQ/L Carbon Dioxide Level 24.8 MEQ/L 18.7 MEQ/L Anion Gap 6 MEQ/L 10 MEQ/L Estimat Glomerular Filtration Rate 25 ML/MIN 25 ML/MIN Magnesium Level 2.1 MG/DL 1.9 MG/DL Urine Color Straw Urine Turbidity CLEAR Urine pH 7.0 Urine Specific [place] 1.011 Urine Protein >=500 mg/dL Urine Glucose (UA) 50 mg/dL Urine Ketones NEG mg/dL Urine Occult Blood NEG Urine Nitrite NEG Urine Bilirubin NEG Urine Urobilinogen LESS THAN 2 mg/dL Urine Leukocyte Esterase NEG Urine RBC 1 /hpf Urine WBC 1 /hpf Urine Bacteria RARE /hpf Urine Mucus FEW /lpf Phosphorus Level 4.0 MG/DL Test 12/05/17 08:29 Urine Osmolality 403 MOSM/KG Urine Random Creatinine 33.9 MG/DL Urine Random Sodium 128 MEQ/L (Joseph Arce) Medical Decision Making Impression and Plan Impression: Distal RLE weakness Difficulty ambulating Right drop foot, chronic Possible cauda equina syndrome Expressive aphasia Patient is doing well w/o any significant change in his exam. Past 24 hrs: Afebrile. Intermittent bradycardia. Intermittent hypertension. Reviewed labs for today. Thrombocytopenia. INR 1.0 and aPTT 30.8. Hyperkalemia. Poor renal function. Sodium 142. Hyperkalemia. Essentially stable renal function. MRI brain w/o any acute findings, chronic white matter ischemic changes w/atrophy noted. MRI cervical spine demonstrated multilevel degenerative spondylosis, significant from C3-4 to C6-7; no abnormal cervical cord signal. MRI thoracic spine demonstrated mild disc changes mid thoracic spine w/o stenosis. MRI lumbar spine demonstrated mild disc bulge at L4-5 level; mild disc bulge & osteophytic ridging at L5-S1 level abutting the left S1 nerve root at the lateral recess level; neural foraminal narrowing of right L4-L5 level and bilaterally at the L5-S1 L>R; facet hypertrophy throughout. Plan: Primary management per Hospitalist. Neuro checks. Mobilise patient w/assistance. Physical Therapy eval & tx. (Joseph Arce) Attending Statement The exam, history, and the medical decision-making described in the above note were completed with the assistance of the mid-level provider. I reviewed and agree with the findings presented. I attest that I had a [id number] encounter with the patient on the same day, and personally performed and documented my assessment and findings in the medical record. Patient's medical record reviewed. Examination reveals mostly mild weakness upper and lower extremities. MRI images reviewed. No evidence of significant cord compression, abnormal signal intensity within the cord or cauda equina compression. Probable metabolic etiology for generalized fatigue, myopathy. Possible MRI brain of he does not improve. (Luis Magdaleno MD) Joseph Arce Dec 05, 2017 17:28 Luis Magdaleno MD Dec 06, 2017 21:18
[2017-12-05] MEDS: SODIUM BICARBONATE 325 MG TAB PO SCH (21:30)
[2017-12-05] MEDS: INSULIN DETEMIR 100 UNITS/ML VIAL SQ SCH (21:31)
[2017-12-06] VITALS (12 sets, daily range): BP systolic 118–183; BP diastolic 56–84; PULSE 52–65; RESP 16–20; TEMP 97.2–97.9; O2SAT 96–99
[2017-12-06] MEDS: LEVOTHYROXINE SODIUM 75 MCG TAB PO SCH (06:00)
[2017-12-06] MEDS: SODIUM CHLOR 0.9% 1000 ML INJ 1,000 ML IV SCH ×2 (06:49→16:09)
[2017-12-06] MEDS: HEPARIN SODIUM - SQ 10,000 UNITS/ML VIAL SQ SCH ×2 (06:49→16:08)
[2017-12-06 07:17] LABS: AUTOMATED NEUTROPHIL # 2.9 TH/MM3 (1.8-7.7); BASOPHIL # 0.1 TH/MM3 (0-0.2); BASOPHIL % 1.1 % (0.0-2.0); EOSINOPHIL # 0.6 TH/MM3 (0-0.4); EOSINOPHIL % 11.6 % (0.0-4.0); HEMATOCRIT 39.3 % (39.0-51.0); HEMOGLOBIN 12.6 GM/DL (13.0-17.0); LYMPH % 24.6 % (9.0-44.0); LYMPHOCYTE # 1.3 TH/MM3 (1.0-4.8); MEAN CELL VOLUME 82.6 FL (80.0-100.0); MEAN CORPUSCULAR HEMOGLOBIN 26.6 PG (27.0-34.0); MEAN CORPUSCULAR HGB CONC 32.2 % (32.0-36.0); MONO % 7.1 % (0.0-8.0); MONOCYTE # 0.4 TH/MM3 (0-0.9); NEUT % 55.6 % (16.0-70.0); PLATELET COUNT 122 TH/MM3 (150-450); RED BLOOD COUNT 4.76 MIL/MM3 (4.50-5.90); RED CELL DISTRIBUTION WIDTH 15.5 % (11.6-17.2); WHITE BLOOD COUNT 5.2 TH/MM3 (4.0-11.0)
--- NOTE | 2017-12-06 07:24 | HHI.PR ---
Subjective Remarks Uneventful night, Denies CP, SOB Objective Vital Signs Date Time Temp Pulse Resp B/P (MAP) Pulse Ox O2 Delivery O2 Flow Rate FiO2 12/06/17 04:00 156/70 (98) 12/06/17 04:00 56 12/06/17 04:00 97.9 65 16 183/84 (117) 98 12/06/17 00:00 54 12/05/17 23:57 98.6 65 18 153/71 (98) 93 12/05/17 20:00 97.7 55 16 155/72 (99) 98 12/05/17 20:00 56 12/05/17 16:15 97.9 59 18 169/73 (105) 95 12/05/17 16:00 54 12/05/17 12:05 98.4 52 18 151/66 (94) 98 12/05/17 12:00 57 12/05/17 08:00 52 I/O 12/05/17 12/05/17 12/05/17 12/06/17 12/06/17 12/06/17 07:00 15:00 23:00 07:00 15:00 23:00 Intake Total 0 ml 1000 ml 720 ml 999 ml Output Total 150 ml 400 ml 300 ml Balance -150 ml 1000 ml 320 ml 699 ml Intake Oral 0 ml 720 ml IV Total 1000 ml 999 ml Output Urine Total 150 ml 400 ml 300 ml # Voids 2 # Bowel Movements 0 Result Diagram: 12/05/17 0515 12/05/17 0515 Imaging Last 72 hours Impressions Renal Ultrasound 12/05/17 0000 Signed Impressions: CONCLUSION: 1. Stable bilateral cortical thinning of both kidneys. No evidence of hydronep hrosis. These findings suggest chronic medical renal disease. 2. Stable examination. Thoracic Spine MRI 12/04/17 1146 Signed Impressions: CONCLUSION: 1. No acute bony abnormality is seen. The thoracic vertebral bodies are normal in height and normally aligned. 2. Mild disc changes in the mid thoracic spine without stenosis. Lumbar Spine MRI 12/04/17 1146 Signed Impressions: CONCLUSION: 1. Mild disc bulge at the L4-L5 level. 2. Mild disc bulge and osteophytic ridging at the L5-S1 level. These changes d o abut the left S1 nerve root at the lateral recess level. 3. Neural foraminal narrowing on the right at the L4-L5 level and bilaterally at the L5-S1 level being worse on the left. 4. Facet hypertrophy seen throughout. Cervical Spine MRI 12/04/17 1146 Signed Impressions: CONCLUSION: 1. Multilevel degenerative spondylosis with significant abnormalities at C3/4, C4/5, C5/6 and C6/7. 2. No abnormal signal identified within the cervical cord. 3. Individual levels are dictated in detail above. Brain MRI 12/04/17 0000 Signed Impressions: CONCLUSION: 1. No acute findings. No recent infarct. Chronic white matter ischemic changes with atrophy. Objective Remarks GENERAL: This is a well-nourished, well-developed patient, in no apparent distress. SKIN: . warm and dry. EYES: Pupils equal round and reactive. No injection or drainage. ENT-Airway patent. CARDIOVASCULAR: RRR without murmurs, gallops, or rubs. RESPIRATORY: Clear,Breath sounds equal bilaterally. No wheezes, rales, or rhonchi. GASTROINTESTINAL: Abdomen soft, nt, nondistended. MUSCULOSKELETAL: Extremities, cyanosis, or edema NEUROLOGICAL: Awake and alert. PERLA , RLE weakness Speech clear some delay follows commands Medications and IVs Current Medications Medications (Trade) Dose Ordered Sig/Rubio Route Start Time Stop Time Status Last Admin Sodium Chloride 1,000 ml @ 100 mls/hr Q10H IV 12/04/17 15:00 12/06/17 06:49 (NS Flush) 2 ml UNSCH PRN IV FLUSH 12/04/17 14:45 (NS Flush) 2 ml BID IV FLUSH 12/04/17 21:00 12/05/17 21:31 (Tylenol) 650 mg Q4H PRN PO 12/04/17 14:45 (Zofran Odt) 4 mg Q6H PRN PO 12/04/17 14:45 (Heparin Inj) 5,000 units Q12H SQ 12/04/17 16:00 12/06/17 06:49 (Narcan Inj) 0.4 mg UNSCH PRN IV PUSH 12/04/17 14:45 (Natali-Colace) 1 tab BID PO 12/04/17 21:00 (Milk Of Magnesia Liq) 30 ml Q12H PRN PO 12/04/17 14:45 (Senokot) 17.2 mg Q12H PRN PO 12/04/17 14:45 (Dulcolax Supp) 10 mg DAILY PRN RECTAL 12/04/17 14:45 (Lactulose Liq) 30 ml DAILY PRN PO 12/04/17 14:45 (Norvasc) 10 mg DAILY PO 12/05/17 09:00 12/05/17 08:24 (Aspirin Chew) 81 mg DAILY CHEW 12/05/17 09:00 12/05/17 08:25 (Folate) 1 mg DAILY PO 12/05/17 09:00 12/05/17 08:25 (Amaryl) 1 mg DAILY PO 12/05/17 09:00 12/05/17 08:24 (Amaryl) 4 mg DAILY PO 12/05/17 09:00 12/05/17 08:24 (Imdur) 30 mg DAILY PO 12/05/17 09:00 12/05/17 08:24 (Synthroid) 75 mcg DAILY@0600 PO 12/05/17 06:00 12/06/17 06:00 (Lopressor) 50 mg DAILY PO 12/05/17 09:00 12/05/17 08:25 (Protonix) 40 mg DAILY PO 12/05/17 09:00 12/05/17 08:25 (Levemir Inj) 4 units HS SQ 12/04/17 21:00 12/05/17 21:31 (Lipitor) 40 mg DAILY PO 12/05/17 09:00 12/05/17 08:25 (Cardura) 1 mg DAILY PO 12/05/17 10:45 12/05/17 11:39 (Sodium Bicarbonate) 650 mg Q12HR PO 12/05/17 21:00 12/05/17 21:30 Assessment and Plan Problem List: (1) Weakness of both lower extremities ICD Codes: R29.898 - Other symptoms and signs involving the musculoskeletal system Status: Chronic Plan: Patient complain of Bowel control Imaging show, MRI cervical spine demonstrated multilevel degenerative spondylosis, significant from C3-4 to C6-7; no abnormal cervical cord signal. MRI thoracic spine demonstrated mild disc changes mid thoracic spine w/o stenosis. MRI lumbar spine demonstrated mild disc bulge at L4-5 level; mild disc bulge & osteophytic ridging at L5-S1 level abutting the left S1 nerve root at the lateral recess level; neural foraminal narrowing of right L4-L5 level and bilaterally at the L5-S1 L>R; facet hypertrophy throughout. NS consult, Will consult neurology (2) Acute kidney injury ICD Codes: N17.9 - Acute kidney failure, unspecified Plan: IVF, renal consult. work up pending. (3) Hypertension ICD Codes: I10 - Essential (primary) hypertension Plan: Lisinopril held /t renal function and hyperkalemia BP running high will add Cardura, will monitor, (4) Diabetes ICD Codes: E11.9 - Type 2 diabetes mellitus without complications Status: Chronic Plan: Cont home medication, Assessment and Plan 12/06/17- No reported complaints throughout night. VSS afebrile, Seen by Neurology, workup in progress for B/L Le weakness. IVF continued, labs pending this am. Renal us completed finding suggest chronic medical renal disease, renal following. BP elevated, Meds adjusted yesterday will add PRN. PT/OT eval. this am. Referral to Carla Reid Dec 06, 2017 07:24
[2017-12-06 07:43] LABS: BICARBONATE 19.9 MEQ/L (21.0-32.0); BLOOD UREA NITROGEN 26 MG/DL (7-18); CALCIUM 8.1 MG/DL (8.5-10.1); CHLORIDE 115 MEQ/L (98-107); CREATININE 2.14 MG/DL (0.60-1.30); GLOMERULAR FILTRATION RATE 29 ML/MIN (>89); GLUCOSE,RANDOM 77 MG/DL (74-106); SODIUM (NA) 144 MEQ/L (136-145)
[2017-12-06] MEDS: PANTOPRAZOLE SOD 40 MG DELAYED RELEASE TAB PO SCH (08:03)
[2017-12-06] MEDS: DOXAZOSIN MESYLATE 1 MG TAB PO SCH (08:03)
[2017-12-06] MEDS: ATORVASTATIN 40 MG TAB PO SCH (08:03)
[2017-12-06] MEDS: METOPROLOL TARTRATE 50 MG TAB PO SCH (08:04)
[2017-12-06] MEDS: SODIUM BICARBONATE 325 MG TAB PO SCH ×2 (08:04→21:55)
[2017-12-06] MEDS: DOCUSATE SODIUM 50 MG/SENNA 8.6 MG TAB PO SCH ×2 (08:04→21:55)
[2017-12-06] MEDS: GLIMEPIRIDE 4 MG TAB PO SCH (08:04)
[2017-12-06] MEDS: ISOSORBIDE MONONITRATE 30 MG CR TAB (IMDUR) PO SCH (08:04)
[2017-12-06] MEDS: ASPIRIN 81 MG CHEW TAB CHEW SCH (08:04)
[2017-12-06] MEDS: FOLIC ACID 1 MG TAB PO SCH (08:04)
[2017-12-06] MEDS: GLIMEPIRIDE 1 MG TAB PO SCH (08:05)
[2017-12-06] MEDS: SODIUM CHLORIDE 0.9% FLUSH 10 ML FLUSH IV FLUSH SCH ×2 (08:07→21:00)
--- NOTE | 2017-12-06 09:22 | HHI.PR ---
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 He has been using a walker for the past 5 years. Had more falls and felt dyscontrol over his lower limbs. He has mild lower extremity hyperreflexia which could suggest upper motor neuron lesion. MRI C-spine demonstrates some areas of stenosis C5-C6 region. On axial sections there is slight increased signal in that region. It is possible this could be related to mild chronic compressive myelopathy. In addition dehydration advanced a spinal arthritis could be contributing factors. Chronic right lower semi-foot drop use of brace for Recommendations Neuro exam unchanged Neurosurgeon to eval PT Follow precautions Check a creatinine kinase TSH B12 ESR; slightly elevated TSH B12 CK normal May benefit from inpatient rehab Follow exam (2) Cervical stenosis of spine ICD Codes: M48.02 - Spinal stenosis, cervical region Status: Chronic Plan: Neurosurgery following (3) Renal failure ICD Codes: N19 - Unspecified kidney failure Status: Acute Plan: Renal following (4) Diabetes ICD Codes: E11.9 - Type 2 diabetes mellitus without complications Status: Chronic Plan: Per medical Subjective Subjective Comments No acute events reported No headache No chest pain No dyspnea Active Medications Current Medications Medications (Trade) Dose Ordered Sig/Rubio Route Start Time Stop Time Status Last Admin Sodium Chloride 1,000 ml @ 100 mls/hr Q10H IV 12/04/17 15:00 12/06/17 06:49 (NS Flush) 2 ml UNSCH PRN IV FLUSH 12/04/17 14:45 (NS Flush) 2 ml BID IV FLUSH 12/04/17 21:00 12/05/17 21:31 (Tylenol) 650 mg Q4H PRN PO 12/04/17 14:45 (Zofran Odt) 4 mg Q6H PRN PO 12/04/17 14:45 (Heparin Inj) 5,000 units Q12H SQ 12/04/17 16:00 12/06/17 06:49 (Narcan Inj) 0.4 mg UNSCH PRN IV PUSH 12/04/17 14:45 (Natali-Colace) 1 tab BID PO 12/04/17 21:00 12/06/17 08:04 (Milk Of Magnesia Liq) 30 ml Q12H PRN PO 12/04/17 14:45 (Senokot) 17.2 mg Q12H PRN PO 12/04/17 14:45 (Dulcolax Supp) 10 mg DAILY PRN RECTAL 12/04/17 14:45 (Lactulose Liq) 30 ml DAILY PRN PO 12/04/17 14:45 (Norvasc) 10 mg DAILY PO 12/05/17 09:00 12/06/17 08:02 (Aspirin Chew) 81 mg DAILY CHEW 12/05/17 09:00 12/06/17 08:04 (Folate) 1 mg DAILY PO 12/05/17 09:00 12/06/17 08:04 (Amaryl) 1 mg DAILY PO 12/05/17 09:00 12/06/17 08:05 (Amaryl) 4 mg DAILY PO 12/05/17 09:00 12/06/17 08:04 (Imdur) 30 mg DAILY PO 12/05/17 09:00 12/06/17 08:04 (Synthroid) 75 mcg DAILY@0600 PO 12/05/17 06:00 12/06/17 06:00 (Lopressor) 50 mg DAILY PO 12/05/17 09:00 12/06/17 08:04 (Protonix) 40 mg DAILY PO 12/05/17 09:00 12/06/17 08:03 (Levemir Inj) 4 units HS SQ 12/04/17 21:00 12/05/17 21:31 (Lipitor) 40 mg DAILY PO 12/05/17 09:00 12/06/17 08:03 (Cardura) 1 mg DAILY PO 12/05/17 10:45 12/06/17 08:03 (Sodium Bicarbonate) 650 mg Q12HR PO 12/05/17 21:00 12/06/17 08:04 Allergies Allergies Coded Allergies No Known Allergies (Unverified Allergy, Unknown, 12/04/17) Review of Systems All other ROS: ROS reviewed as documented in chart Exam I&O / VS Vital Signs Date Time Temp Pulse Resp B/P (MAP) Pulse Ox O2 Delivery O2 Flow Rate FiO2 12/06/17 04:00 156/70 (98) 12/06/17 04:00 56 12/06/17 04:00 97.9 65 16 183/84 (117) 98 12/06/17 00:00 54 12/05/17 23:57 98.6 65 18 153/71 (98) 93 12/05/17 20:00 97.7 55 16 155/72 (99) 98 12/05/17 20:00 56 12/05/17 16:15 97.9 59 18 169/73 (105) 95 12/05/17 16:00 54 12/05/17 12:05 98.4 52 18 151/66 (94) 98 12/05/17 12:00 57 General: Alert and Oriented Eye: EOMI Respiratory: Non-labored respirations, Symmetrical expansion Cardiology: Normal rate, No edema Neurologic: Alert, Oriented, Normal sensory, CN II-XII intact, Normal DTR's Psychiatric: Cooperative, Appropriate mood & affect, Normal judgement Exam Comments Pleasant 87-year-old gentleman awake alert oriented 2-3 fluent articulate no aphasia. Extraocular movements intact no facial asymmetry tongue midline. Able to raise all 4 extremity to gravity. Right dorsiflexion weakness strength 3 out of 5 states it is chronic. Reflexes 1-2+ in the upper extremities knee jerks 2++ ankle jerk 1+. Plantar flexor 1-2 beat clonus at the right ankle. Pinprick intact no sensory level elicited. Slightly increased tone in the lower limbs. Gait not assessed secondary fall risk. No dystaxia no neglect. Objective Micro and Labs Laboratory Tests Test 12/05/17 19:39 12/06/17 06:00 12/06/17 06:20 Erythrocyte Sedimentation Rate 29 Total Creatine Kinase 111 Vitamin B12 Level 601 Thyroid Stimulating Hormone 3rd Gen 5.590 White Blood Count 5.2 Red Blood Count 4.76 Hemoglobin 12.6 Hematocrit 39.3 Mean Corpuscular Volume 82.6 Mean Corpuscular Hemoglobin 26.6 Mean Corpuscular Hemoglobin Concent 32.2 Red Cell Distribution Width 15.5 Platelet Count 122 Mean Platelet Volume 9.0 Neutrophils (%) (Auto) 55.6 Lymphocytes (%) (Auto) 24.6 Monocytes (%) (Auto) 7.1 Eosinophils (%) (Auto) 11.6 Basophils (%) (Auto) 1.1 Neutrophils # (Auto) 2.9 Lymphocytes # (Auto) 1.3 Monocytes # (Auto) 0.4 Eosinophils # (Auto) 0.6 Basophils # (Auto) 0.1 CBC Comment DIFF FINAL Differential Comment Blood Urea Nitrogen 26 Creatinine 2.14 Random Glucose 77 Calcium Level 8.1 Sodium Level 144 Potassium Level 4.4 Chloride Level 115 Carbon Dioxide Level 19.9 Anion Gap 9 Estimat Glomerular Filtration Rate 29 Problem Qualifiers (1) Renal failure: Qualified Codes: N17.9 - Acute kidney failure, unspecified; N18.9 - Chronic kidney disease, unspecified Sly Mauricio MD Dec 06, 2017 09:22
--- NOTE | 2017-12-06 10:41 | HHI.NPPN ---
Subjective General Problems: Anemia Renal Failure: Chronic, Acute, Stage III History of Present Illness Patient is a 87 year old gentlemen with a past medical history of chronic kidney disease, hypertension, hypothyroidism, hyperlipidemia, hx of bilateral renal stents, and CAD with stent placement. Presented to the emergency with increasing weakness and not able to walk independently anymore which started about 2 weeks ago and has progressed. Numerous falls. He also reports incontinence of urine and stool which is also new. He denies any shortness of breath, chest pain, or abdominal pain. He reports some loose stools but no nausea. Nephrology is consulted for acute kidney injury with a creatinine of 2.42 and potassium level of 6.0. Hyperkalemia was treated with D50, insulin, and albuterol neb. Has past medical history of chronic kidney disease with a creatinine noted in 08/25/14 of 1.49. Also has significant proteinuria. Additional Remarks No shortness of breath or swelling. Creatinine is improving at 2.14 today. Patient reports he is not drinking very much fluid. (Marycarmen Zepeda) Review of Systems Respiratory Respiratory Remarks denies SOB (Marycarmen Zepeda) Cardiovascular Cardiac Remarks Denies CP (Marycarmen Zepeda) Gastrointestinal GI Remarks Denies abdominal pain (Marycarmen Zepeda) Objective Data Data Vital Signs Date Time Temp Pulse Resp B/P (MAP) Pulse Ox O2 Delivery O2 Flow Rate FiO2 12/06/17 08:15 97.3 60 20 162/70 (100) 98 12/06/17 08:00 52 12/06/17 04:00 156/70 (98) 12/06/17 04:00 56 12/06/17 04:00 97.9 65 16 183/84 (117) 98 12/06/17 00:00 54 12/05/17 23:57 98.6 65 18 153/71 (98) 93 12/05/17 20:00 97.7 55 16 155/72 (99) 98 12/05/17 20:00 56 12/05/17 16:15 97.9 59 18 169/73 (105) 95 12/05/17 16:00 54 12/05/17 12:05 98.4 52 18 151/66 (94) 98 12/05/17 12:00 57 (Marycarmen Zepeda) -: 12/06/17 0600 12/06/17 0620 Imaging Last Impressions Renal Ultrasound 12/05/17 0000 Signed Impressions: CONCLUSION: 1. Stable bilateral cortical thinning of both kidneys. No evidence of hydronep hrosis. These findings suggest chronic medical renal disease. 2. Stable examination. Thoracic Spine MRI 12/04/17 1146 Signed Impressions: CONCLUSION: 1. No acute bony abnormality is seen. The thoracic vertebral bodies are normal in height and normally aligned. 2. Mild disc changes in the mid thoracic spine without stenosis. Lumbar Spine MRI 12/04/17 1146 Signed Impressions: CONCLUSION: 1. Mild disc bulge at the L4-L5 level. 2. Mild disc bulge and osteophytic ridging at the L5-S1 level. These changes d o abut the left S1 nerve root at the lateral recess level. 3. Neural foraminal narrowing on the right at the L4-L5 level and bilaterally at the L5-S1 level being worse on the left. 4. Facet hypertrophy seen throughout. Cervical Spine MRI 12/04/17 1146 Signed Impressions: CONCLUSION: 1. Multilevel degenerative spondylosis with significant abnormalities at C3/4, C4/5, C5/6 and C6/7. 2. No abnormal signal identified within the cervical cord. 3. Individual levels are dictated in detail above. Brain MRI 12/04/17 0000 Signed Impressions: CONCLUSION: 1. No acute findings. No recent infarct. Chronic white matter ischemic changes with atrophy. (Marycarmen Zepeda) Physical Exam General Appearance: No Acute Distress, Comfortable (Marycarmen Zepeda) Throat Throat Exam: Oral Mucosa [place] & Moist (Marycarmen Zepeda) Pulmonary Resp Exam: Breath Sounds Equal, No Distress (Marycarmen Zepeda) Cardiology CV Exam: Regular, Normal Sinus Rhythm (Marycarmen Zepeda) Gastrointestinal/Abdomen GI Exam: Soft, Non-Tender, Bowel Sounds Present (Marycarmen Zepeda) Genitourinary Exam: Clear Urine, Flank Non-Tender (Marycarmen Zepeda) Integumentary Skin Exam: Clear, Warm (Marycarmen Zepeda) Extremeties Extremities Exam: No Edema (Marycarmen Zepeda) Neurologic Neuro Exam: Alert, Awake, Oriented (Marycarmen Zepeda) Psychiatric Psych Exam: Appropriate Responses (Marycarmen Zepeda) Assessment/Plan Problem List: (1) Acute kidney injury ICD Codes: N17.9 - Acute kidney failure, unspecified Plan: Acute kidney injury with a creatinine of 2.42 and potassium level of 6.0 on day of consult. Acute kidney injury possible prerenal vs ATN. FENa of 6.6 % suggestive of ATN from intravascular volume depletion or medication side effect History of chronic kidney disease with a creatinine noted in 08/25/14 of 1.49. Most likely chronic kidney disease from Hypertension vs renovascular disease vs diabetes Renal US noted. Plan Continue IVF's when taking oral fluids better recommend to discontinue HCO3 improving on sodium bicarbonate Continue to hold lisinopril Avoid nephrotoxins including NSAIDS, IV contrast, and aminoglycoside Will monitor urinary output and BMP Labs in AM. (2) Hyperkalemia ICD Codes: E87.5 - Hyperkalemia Status: Acute Plan: Improved with Potassium at 5.2 Low potassium diet ordered Recheck in AM (3) Hypertension ICD Codes: I10 - Essential (primary) hypertension Plan: On Amlodipine, metoprolol, and cardura Will increase cardura (4) Diabetes ICD Codes: E11.9 - Type 2 diabetes mellitus without complications Status: Chronic Plan: Maintain blood sugars between 140 mg/dl to 180mg/dl (Marycarmen Zepeda) Problem List: (1) Acute kidney injury ICD Codes: N17.9 - Acute kidney failure, unspecified Plan: Acute kidney injury with a creatinine of 2.42 and potassium level of 6.0 on day of consult. Acute kidney injury possible prerenal vs ATN. FENa of 6.6 % suggestive of ATN from intravascular volume depletion or medication side effect History of chronic kidney disease with a creatinine noted in 08/25/14 of 1.49. Most likely chronic kidney disease from Hypertension vs renovascular disease vs diabetes Renal US noted. Plan Continue IVF's when taking oral fluids better recommend to discontinue HCO3 improving on sodium bicarbonate Continue to hold lisinopril Avoid nephrotoxins including NSAIDS, IV contrast, and aminoglycoside Will monitor urinary output and BMP Labs in AM. Patient seen and examined, agree with above. Creatinine is better and K is normal. Lisinopril is on hold. (2) Hyperkalemia ICD Codes: E87.5 - Hyperkalemia Status: Acute Plan: Improved with Potassium at 5.2 Low potassium diet ordered Recheck in AM (3) Hypertension ICD Codes: I10 - Essential (primary) hypertension Plan: On Amlodipine, metoprolol, and cardura Will increase cardura (4) Diabetes ICD Codes: E11.9 - Type 2 diabetes mellitus without complications Status: Chronic Plan: Maintain blood sugars between 140 mg/dl to 180mg/dl (Aranza Crawford MD) Marycarmen Zepeda Dec 06, 2017 10:41 Aranza Crawford MD Dec 06, 2017 21:51
[2017-12-06] MEDS ORDERED: GLUCAGON 1 MG/ML VIAL OTHER PRN (19:15)
[2017-12-06] MEDS ORDERED: DEXTROSE 50% IN WATER 50 ML VIAL(D50) IV PUSH PRN (19:15)
[2017-12-06] MEDS: INSULIN DETEMIR 100 UNITS/ML VIAL SQ SCH (23:29)
[2017-12-06] MEDS: LOW DOSE INSULIN NOVOLOG SUPPLEMENTAL SCALE SQ SCH (23:29)
[2017-12-07] VITALS (7 sets, daily range): BP systolic 130–166; BP diastolic 68–78; PULSE 52–67; RESP 16–18; TEMP 97.3–97.5; O2SAT 95–97
[2017-12-07] MEDS: LEVOTHYROXINE SODIUM 75 MCG TAB PO SCH (06:28)
[2017-12-07] MEDS: SODIUM CHLOR 0.9% 1000 ML INJ 1,000 ML IV SCH (06:29)
[2017-12-07] MEDS: HEPARIN SODIUM - SQ 10,000 UNITS/ML VIAL SQ SCH (06:29)
[2017-12-07] MEDS: LOW DOSE INSULIN NOVOLOG SUPPLEMENTAL SCALE SQ SCH ×2 (08:00→12:42)
--- NOTE | 2017-12-07 08:01 | HHI.PR ---
Subjective Remarks Uneventful night, Denies CP, SOB Up with therapy yesterday Objective Vital Signs Date Time Temp Pulse Resp B/P (MAP) Pulse Ox O2 Delivery O2 Flow Rate FiO2 12/07/17 03:45 53 12/07/17 03:40 Room Air 12/07/17 03:40 97.4 52 16 166/78 (107) 97 12/07/17 00:00 166/74 (104) 12/06/17 23:43 59 12/06/17 23:15 97.2 58 16 171/79 (109) 96 12/06/17 23:15 Room Air 12/06/17 20:30 97.2 65 16 161/70 (100) 97 12/06/17 20:30 Room Air 12/06/17 19:46 60 12/06/17 16:10 97.9 58 20 123/60 (81) 98 12/06/17 16:00 60 12/06/17 12:10 97.7 54 20 118/56 (76) 99 12/06/17 12:00 52 12/06/17 08:15 97.3 60 20 162/70 (100) 98 12/06/17 08:00 52 I/O 12/06/17 12/06/17 12/06/17 12/07/17 12/07/17 12/07/17 07:00 15:00 23:00 07:00 15:00 23:00 Intake Total 999 ml 1720 ml 1699 ml Output Total 300 ml 500 ml 400 ml Balance 699 ml 1220 ml 1299 ml Intake Oral 720 ml 570 ml IV Total 999 ml 1000 ml 1129 ml Output Urine Total 300 ml 500 ml 400 ml # Voids 2 # Bowel Movements 0 Result Diagram: 12/06/17 0600 12/06/17 0620 Imaging Last 72 hours Impressions Renal Ultrasound 12/05/17 0000 Signed Impressions: CONCLUSION: 1. Stable bilateral cortical thinning of both kidneys. No evidence of hydronep hrosis. These findings suggest chronic medical renal disease. 2. Stable examination. Thoracic Spine MRI 12/04/17 1146 Signed Impressions: CONCLUSION: 1. No acute bony abnormality is seen. The thoracic vertebral bodies are normal in height and normally aligned. 2. Mild disc changes in the mid thoracic spine without stenosis. Lumbar Spine MRI 12/04/17 1146 Signed Impressions: CONCLUSION: 1. Mild disc bulge at the L4-L5 level. 2. Mild disc bulge and osteophytic ridging at the L5-S1 level. These changes d o abut the left S1 nerve root at the lateral recess level. 3. Neural foraminal narrowing on the right at the L4-L5 level and bilaterally at the L5-S1 level being worse on the left. 4. Facet hypertrophy seen throughout. Cervical Spine MRI 12/04/17 1146 Signed Impressions: CONCLUSION: 1. Multilevel degenerative spondylosis with significant abnormalities at C3/4, C4/5, C5/6 and C6/7. 2. No abnormal signal identified within the cervical cord. 3. Individual levels are dictated in detail above. Objective Remarks GENERAL: This is a well-nourished, well-developed patient, in no apparent distress. SKIN: . warm and dry. EYES: Pupils equal round and reactive. No injection or drainage. ENT-Airway patent. CARDIOVASCULAR: RRR without murmurs, gallops, or rubs. RESPIRATORY: Clear,Breath sounds equal bilaterally. No wheezes, rales, or rhonchi. GASTROINTESTINAL: Abdomen soft, nt, nondistended. MUSCULOSKELETAL: Extremities, cyanosis, or edema NEUROLOGICAL: Awake and alert. PERLA , RLE weakness Speech clear some delay follows commands Medications and IVs Current Medications Medications (Trade) Dose Ordered Sig/Rubio Route Start Time Stop Time Status Last Admin Sodium Chloride 1,000 ml @ 100 mls/hr Q10H IV 12/04/17 15:00 12/07/17 06:29 (NS Flush) 2 ml UNSCH PRN IV FLUSH 12/04/17 14:45 (NS Flush) 2 ml BID IV FLUSH 12/04/17 21:00 12/05/17 21:31 (Tylenol) 650 mg Q4H PRN PO 12/04/17 14:45 (Zofran Odt) 4 mg Q6H PRN PO 12/04/17 14:45 (Heparin Inj) 5,000 units Q12H SQ 12/04/17 16:00 12/07/17 06:29 (Narcan Inj) 0.4 mg UNSCH PRN IV PUSH 12/04/17 14:45 (Natali-Colace) 1 tab BID PO 12/04/17 21:00 12/06/17 21:55 (Milk Of Magnesia Liq) 30 ml Q12H PRN PO 12/04/17 14:45 (Senokot) 17.2 mg Q12H PRN PO 12/04/17 14:45 (Dulcolax Supp) 10 mg DAILY PRN RECTAL 12/04/17 14:45 (Lactulose Liq) 30 ml DAILY PRN PO 12/04/17 14:45 (Norvasc) 10 mg DAILY PO 12/05/17 09:00 12/06/17 08:02 (Aspirin Chew) 81 mg DAILY CHEW 12/05/17 09:00 12/06/17 08:04 (Folate) 1 mg DAILY PO 12/05/17 09:00 12/06/17 08:04 (Amaryl) 1 mg DAILY PO 12/05/17 09:00 12/06/17 08:05 (Amaryl) 4 mg DAILY PO 12/05/17 09:00 12/06/17 08:04 (Imdur) 30 mg DAILY PO 12/05/17 09:00 12/06/17 08:04 (Synthroid) 75 mcg DAILY@0600 PO 12/05/17 06:00 12/07/17 06:28 (Lopressor) 50 mg DAILY PO 12/05/17 09:00 12/06/17 08:04 (Protonix) 40 mg DAILY PO 12/05/17 09:00 12/06/17 08:03 (Levemir Inj) 4 units HS SQ 12/04/17 21:00 12/06/17 23:29 (Lipitor) 40 mg DAILY PO 12/05/17 09:00 12/06/17 08:03 (Sodium Bicarbonate) 650 mg Q12HR PO 12/05/17 21:00 12/06/17 21:55 (Cardura) 2 mg DAILY PO 12/07/17 09:00 (D50w (Vial) Inj) 50 ml UNSCH PRN IV PUSH 12/06/17 19:15 (Glucagon Inj) 1 mg UNSCH PRN OTHER 12/06/17 19:15 (NovoLOG SUPPLEMENTAL SCALE) 1 ACHS SLIDING SCALE SQ 12/06/17 21:00 12/06/17 23:29 Assessment and Plan Problem List: (1) Weakness of both lower extremities ICD Codes: R29.898 - Other symptoms and signs involving the musculoskeletal system Status: Chronic Plan: Patient complain of Bowel control Imaging show, MRI cervical spine demonstrated multilevel degenerative spondylosis, significant from C3-4 to C6-7; no abnormal cervical cord signal. MRI thoracic spine demonstrated mild disc changes mid thoracic spine w/o stenosis. MRI lumbar spine demonstrated mild disc bulge at L4-5 level; mild disc bulge & osteophytic ridging at L5-S1 level abutting the left S1 nerve root at the lateral recess level; neural foraminal narrowing of right L4-L5 level and bilaterally at the L5-S1 L>R; facet hypertrophy throughout. NS consult, Will consult neurology (2) Acute kidney injury ICD Codes: N17.9 - Acute kidney failure, unspecified Plan: IVF, renal consult. work up pending. (3) Hypertension ICD Codes: I10 - Essential (primary) hypertension Plan: Lisinopril held /t renal function and hyperkalemia BP running high will add Cardura, will monitor, (4) Diabetes ICD Codes: E11.9 - Type 2 diabetes mellitus without complications Status: Chronic Plan: Cont home medication, Assessment and Plan 12/06/17- No reported complaints throughout night. VSS afebrile, Seen by Neurology, workup in progress for B/L Le weakness. IVF continued, labs pending this am. Renal us completed finding suggest chronic medical renal disease, renal following. BP elevated, Meds adjusted yesterday will add PRN. PT/OT eval. this am. Referral to CIR 12/07/17- Uneventful night, VSS afebrile. Renal functions pending this am, IVF continue.Cardura increased by Renal, BP slight improvement, cont to monitor. Will need therapy rehab at [facility]. [facility] would like to Try Inpatient. CIR following. Likely DC to rehab in am if cleared by Consults. Carla Navarro Dec 07, 2017 08:01
[2017-12-07] MEDS: SODIUM CHLORIDE 0.9% FLUSH 10 ML FLUSH IV FLUSH SCH (09:00)
[2017-12-07] MEDS ORDERED: DOXAZOSIN MESYLATE 1 MG TAB PO SCH (09:00)
[2017-12-07] MEDS: METOPROLOL TARTRATE 50 MG TAB PO SCH (09:18)
[2017-12-07] MEDS: ISOSORBIDE MONONITRATE 30 MG CR TAB (IMDUR) PO SCH (09:18)
[2017-12-07] MEDS: GLIMEPIRIDE 1 MG TAB PO SCH (09:18)
[2017-12-07] MEDS: ATORVASTATIN 40 MG TAB PO SCH (09:18)
[2017-12-07] MEDS: PANTOPRAZOLE SOD 40 MG DELAYED RELEASE TAB PO SCH (09:19)
[2017-12-07] MEDS: SODIUM BICARBONATE 325 MG TAB PO SCH (09:20)
[2017-12-07] MEDS: DOCUSATE SODIUM 50 MG/SENNA 8.6 MG TAB PO SCH (09:20)
[2017-12-07] MEDS: ASPIRIN 81 MG CHEW TAB CHEW SCH (09:20)
[2017-12-07] MEDS: FOLIC ACID 1 MG TAB PO SCH (09:20)
[2017-12-07] MEDS: GLIMEPIRIDE 4 MG TAB PO SCH (09:21)
--- NOTE | 2017-12-07 09:53 | HHI.PR ---
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 He has been using a walker for the past 5 years. Had more falls and felt dyscontrol over his lower limbs. He has mild lower extremity hyperreflexia which could suggest upper motor neuron lesion. MRI C-spine demonstrates some areas of stenosis C5-C6 region. On axial sections there is slight increased signal in that region. It is possible this could be related to mild chronic compressive myelopathy. In addition dehydration advanced a spinal arthritis could be contributing factors. Chronic right lower semi-foot drop use of brace for Recommendations Neuro exam unchanged Neurosurgeon to marley brown; however, pt states he would decline surgery. wants to go to rehab cleared for rehab from neurology PT (2) Cervical stenosis of spine ICD Codes: M48.02 - Spinal stenosis, cervical region Status: Chronic Plan: Neurosurgery following (3) Renal failure ICD Codes: N19 - Unspecified kidney failure Status: Acute Plan: Renal following (4) Diabetes ICD Codes: E11.9 - Type 2 diabetes mellitus without complications Status: Chronic Plan: Per medical Subjective Subjective Comments No acute events reported No headache No chest pain No dyspnea Active Medications Current Medications Medications (Trade) Dose Ordered Sig/Rubio Route Start Time Stop Time Status Last Admin Sodium Chloride 1,000 ml @ 100 mls/hr Q10H IV 12/04/17 15:00 12/07/17 06:29 (NS Flush) 2 ml UNSCH PRN IV FLUSH 12/04/17 14:45 (NS Flush) 2 ml BID IV FLUSH 12/04/17 21:00 12/05/17 21:31 (Tylenol) 650 mg Q4H PRN PO 12/04/17 14:45 (Zofran Odt) 4 mg Q6H PRN PO 12/04/17 14:45 (Heparin Inj) 5,000 units Q12H SQ 12/04/17 16:00 12/07/17 06:29 (Narcan Inj) 0.4 mg UNSCH PRN IV PUSH 12/04/17 14:45 (Natali-Colace) 1 tab BID PO 12/04/17 21:00 12/07/17 09:20 (Milk Of Magnesia Liq) 30 ml Q12H PRN PO 12/04/17 14:45 (Senokot) 17.2 mg Q12H PRN PO 12/04/17 14:45 (Dulcolax Supp) 10 mg DAILY PRN RECTAL 12/04/17 14:45 (Lactulose Liq) 30 ml DAILY PRN PO 12/04/17 14:45 (Norvasc) 10 mg DAILY PO 12/05/17 09:00 12/07/17 09:20 (Aspirin Chew) 81 mg DAILY CHEW 12/05/17 09:00 12/07/17 09:20 (Folate) 1 mg DAILY PO 12/05/17 09:00 12/07/17 09:20 (Amaryl) 1 mg DAILY PO 12/05/17 09:00 12/07/17 09:18 (Amaryl) 4 mg DAILY PO 12/05/17 09:00 12/07/17 09:21 (Imdur) 30 mg DAILY PO 12/05/17 09:00 12/07/17 09:18 (Synthroid) 75 mcg DAILY@0600 PO 12/05/17 06:00 12/07/17 06:28 (Lopressor) 50 mg DAILY PO 12/05/17 09:00 12/07/17 09:18 (Protonix) 40 mg DAILY PO 12/05/17 09:00 12/07/17 09:19 (Levemir Inj) 4 units HS SQ 12/04/17 21:00 12/06/17 23:29 (Lipitor) 40 mg DAILY PO 12/05/17 09:00 12/07/17 09:18 (Sodium Bicarbonate) 650 mg Q12HR PO 12/05/17 21:00 12/07/17 09:20 (Cardura) 2 mg DAILY PO 12/07/17 09:00 12/07/17 09:19 (D50w (Vial) Inj) 50 ml UNSCH PRN IV PUSH 12/06/17 19:15 (Glucagon Inj) 1 mg UNSCH PRN OTHER 12/06/17 19:15 (NovoLOG SUPPLEMENTAL SCALE) 1 ACHS SLIDING SCALE SQ 12/06/17 21:00 12/06/17 23:29 Allergies Allergies Coded Allergies No Known Allergies (Unverified Allergy, Unknown, 12/04/17) Review of Systems All other ROS: ROS reviewed as documented in chart Exam I&O / VS Vital Signs Date Time Temp Pulse Resp B/P (MAP) Pulse Ox O2 Delivery O2 Flow Rate FiO2 12/07/17 03:45 53 12/07/17 03:40 Room Air 12/07/17 03:40 97.4 52 16 166/78 (107) 97 12/07/17 00:00 166/74 (104) 12/06/17 23:43 59 12/06/17 23:15 97.2 58 16 171/79 (109) 96 12/06/17 23:15 Room Air 12/06/17 20:30 97.2 65 16 161/70 (100) 97 12/06/17 20:30 Room Air 12/06/17 19:46 60 12/06/17 16:10 97.9 58 20 123/60 (81) 98 12/06/17 16:00 60 12/06/17 12:10 97.7 54 20 118/56 (76) 99 12/06/17 12:00 52 General: Alert and Oriented Eye: EOMI Respiratory: Non-labored respirations, Symmetrical expansion Cardiology: Normal rate, No edema Neurologic: Alert, Oriented, Normal sensory, CN II-XII intact, Normal DTR's Psychiatric: Cooperative, Appropriate mood & affect, Normal judgement Exam Comments Pleasant 87-year-old gentleman awake alert oriented 2-3 fluent articulate no aphasia. Extraocular movements intact no facial asymmetry tongue midline. Able to raise all 4 extremity to gravity. Right dorsiflexion weakness strength 3 out of 5 states it is chronic. Reflexes 1-2+ in the upper extremities knee jerks 2++ ankle jerk 1+. Plantar flexor 1-2 beat clonus at the right ankle. Pinprick intact no sensory level elicited. Slightly increased tone in the lower limbs. Gait not assessed secondary fall risk. No dystaxia no neglect. Problem Qualifiers (1) Renal failure: Qualified Codes: N17.9 - Acute kidney failure, unspecified; N18.9 - Chronic kidney disease, unspecified Sly Mauricio MD Dec 07, 2017 09:53
--- NOTE | 2017-12-07 11:15 | HHI.NPPN ---
Subjective General Problems: Anemia Renal Failure: Chronic, Acute, Stage III History of Present Illness Patient is a 87 year old gentlemen with a past medical history of chronic kidney disease, hypertension, hypothyroidism, hyperlipidemia, hx of bilateral renal stents, and CAD with stent placement. Presented to the emergency with increasing weakness and not able to walk independently anymore which started about 2 weeks ago and has progressed. Numerous falls. He also reports incontinence of urine and stool which is also new. He denies any shortness of breath, chest pain, or abdominal pain. He reports some loose stools but no nausea. Nephrology is consulted for acute kidney injury with a creatinine of 2.42 and potassium level of 6.0. Hyperkalemia was treated with D50, insulin, and albuterol neb. Has past medical history of chronic kidney disease with a creatinine noted in 08/25/14 of 1.49. Also has significant proteinuria. Additional Remarks No shortness of breath or swelling. BMP is pending for today. (Marycarmen Zepeda) Review of Systems Respiratory Respiratory Remarks denies SOB (Marycarmen Zepeda) Cardiovascular Cardiac Remarks Denies CP (Marycarmen Zepeda) Gastrointestinal GI Remarks Denies abdominal pain (Marycarmen Zepeda) Objective Data Data Vital Signs Date Time Temp Pulse Resp B/P (MAP) Pulse Ox O2 Delivery O2 Flow Rate FiO2 12/07/17 03:45 53 12/07/17 03:40 Room Air 12/07/17 03:40 97.4 52 16 166/78 (107) 97 12/07/17 00:00 166/74 (104) 12/06/17 23:43 59 12/06/17 23:15 97.2 58 16 171/79 (109) 96 12/06/17 23:15 Room Air 12/06/17 20:30 97.2 65 16 161/70 (100) 97 12/06/17 20:30 Room Air 12/06/17 19:46 60 12/06/17 16:10 97.9 58 20 123/60 (81) 98 12/06/17 16:00 60 12/06/17 12:10 97.7 54 20 118/56 (76) 99 12/06/17 12:00 52 (Marycarmen Zepeda) -: 12/06/17 0600 12/06/17 0620 Physical Exam General Appearance: No Acute Distress, Comfortable (Marycarmen Zepeda) Throat Throat Exam: Oral Mucosa Home & Moist (Marycarmen Zepeda) Pulmonary Resp Exam: Breath Sounds Equal, No Distress (Marycarmen Zepeda) Cardiology CV Exam: Regular, Normal Sinus Rhythm (Marycarmen Zepeda) Gastrointestinal/Abdomen GI Exam: Soft, Non-Tender, Bowel Sounds Present (Marycarmen Zepeda) Genitourinary Exam: Clear Urine, Flank Non-Tender (Marycarmen Zepeda) Integumentary Skin Exam: Clear, Warm (Marycarmen Zepeda) Extremeties Extremities Exam: No Edema (Marycarmen Zepeda) Neurologic Neuro Exam: Alert, Awake, Oriented (Marycarmen Zepeda) Psychiatric Psych Exam: Appropriate Responses (Marycarmen Zepeda) Assessment/Plan Problem List: (1) Acute kidney injury ICD Codes: N17.9 - Acute kidney failure, unspecified Plan: Acute kidney injury with a creatinine of 2.42 and potassium level of 6.0 on day of consult. Acute kidney injury possible prerenal vs ATN. FENa of 6.6 % suggestive of ATN from intravascular volume depletion or medication side effect History of chronic kidney disease with a creatinine noted in 08/25/14 of 1.49. Most likely chronic kidney disease from Hypertension vs renovascular disease vs diabetes Renal US noted. Plan IVF discontinued Continue sodium bicarbonate Continue to hold lisinopril Avoid nephrotoxins including NSAIDS, IV contrast, and aminoglycoside Will monitor urinary output and BMP BMP pending Cleared for discharge from a Nephrology standpoint if creatinine continues to improve. (2) Hyperkalemia ICD Codes: E87.5 - Hyperkalemia Status: Acute Plan: Labs pending (3) Hypertension ICD Codes: I10 - Essential (primary) hypertension Status: Chronic Plan: On Amlodipine, metoprolol, and cardura Hydralazine added (4) Diabetes ICD Codes: E11.9 - Type 2 diabetes mellitus without complications Status: Chronic Plan: Maintain blood sugars between 140 mg/dl to 180mg/dl (Marycarmen Zepeda) Problem List: (1) Acute kidney injury ICD Codes: N17.9 - Acute kidney failure, unspecified Plan: Acute kidney injury with a creatinine of 2.42 and potassium level of 6.0 on day of consult. Acute kidney injury possible prerenal vs ATN. FENa of 6.6 % suggestive of ATN from intravascular volume depletion or medication side effect History of chronic kidney disease with a creatinine noted in 08/25/14 of 1.49. Most likely chronic kidney disease from Hypertension vs renovascular disease vs diabetes Renal US noted. Plan IVF discontinued Continue sodium bicarbonate Continue to hold lisinopril Avoid nephrotoxins including NSAIDS, IV contrast, and aminoglycoside Will monitor urinary output and BMP BMP pending Cleared for discharge from a Nephrology standpoint if creatinine continues to improve. Patient seen and examined, agree with above. Creatinine is still elevated, he has chronic kidney disease, will need out patient follow up. (2) Hyperkalemia ICD Codes: E87.5 - Hyperkalemia Status: Acute Plan: Labs pending (3) Hypertension ICD Codes: I10 - Essential (primary) hypertension Status: Chronic Plan: On Amlodipine, metoprolol, and cardura Hydralazine added (4) Diabetes ICD Codes: E11.9 - Type 2 diabetes mellitus without complications Status: Chronic Plan: Maintain blood sugars between 140 mg/dl to 180mg/dl (Aranza Crawford MD) Marycarmen Zepeda Dec 07, 2017 11:15 Aranza Crawford MD Dec 07, 2017 18:21
--- NOTE | 2017-12-07 12:44 | HHI.NSPN ---
History Chief Complaint: Weakness to the legs. Interval History 12/04: The patient reports that he started to fall approximately two weeks ago and is now having difficulty with ambulation. He reports that prior to the falls he was able to ambulate using a walker without any difficulty. Now he reports that he doesn't seem able to get his feet to do what he wants when he is ambulating. The patient does report bowel and bladder difficulty but upon asking further it is difficulty to obtain a clear picture of his difficulty. At one point he says yes then he will say "not really." He reports that he does have urinary incontinence but does endorse that he had it prior to the fall for a while. He does endorse constipation occasionally. As to incontinence of bowel he reports that there are times when he feels he needs to have a bowel movement and doesn't have one. Then there are other times that he will be incontinent of stool. The patient does seem to have some confusion and states that he is "babbling" because he is not able to express what he wants to. He has no headache or dizziness and he denied any pain, numbness or tingling to the extremities. He did say he has a right drop foot for which he wears and ASO brace. The patient is noted to have tremors to the upper extremities at rest. 12/05: This afternoon the patient is sitting on the side of the bed. He denied any headache or dizziness. He also denied any pain, numbness or tingling to the extremities. He states he has difficulty with ambulating and that his right lower is really weak. He does say he hasn't been up ambulating yet since admission. Upon evaluation the patient continues to have hesitant speech. He has no sensory deficits and his motor exam is essentially unchanged. 12/07: When seen this afternoon the patient is awake and alert in bed watching TV. He had no complaints other than weakness to the lower extremities. There was no change in his neuro exam. Physical and Occupational Therapy recommend continued therapy at an inpatient facility. Exam Results 12/05/17 12/05/17 12/06/17 12/06/17 12/07/1721/18 06:00 18:00 06:00 18:00 06:00 18:00 Intake Total 0 ml 1000 ml 1719 ml 1000 ml 2419 ml Output Total 150 ml 700 ml 900 ml Balance -150 ml 1000 ml 1019 ml 1000 ml 1519 ml Intake Oral 0 ml 720 ml 1290 ml IV Total 1000 ml 999 ml 1000 ml 1129 ml Output Urine Total 150 ml 700 ml 900 ml # Voids 2 # Bowel Movements 0 0 Vital Signs Date Time Temp Pulse Resp B/P (MAP) Pulse Ox O2 Delivery O2 Flow Rate FiO2 12/07/17 08:45 Room Air 12/07/17 03:45 53 12/07/17 03:40 Room Air 12/07/17 03:40 97.4 52 16 166/78 (107) 97 12/07/17 00:00 166/74 (104) 12/06/17 23:43 59 12/06/17 23:15 97.2 58 16 171/79 (109) 96 12/06/17 23:15 Room Air 12/06/17 20:30 97.2 65 16 161/70 (100) 97 12/06/17 20:30 Room Air 12/06/17 19:46 60 12/06/17 16:10 97.9 58 20 123/60 (81) 98 12/06/17 16:00 60 12/06/17 12:10 97.7 54 20 118/56 (76) 99 12/06/17 12:00 52 12/06/17 08:15 97.3 60 20 162/70 (100) 98 12/06/17 08:00 52 12/06/17 04:00 156/70 (98) 12/06/17 04:00 56 12/06/17 04:00 97.9 65 16 183/84 (117) 98 12/06/17 00:00 54 12/05/17 23:57 98.6 65 18 153/71 (98) 93 12/05/17 20:00 97.7 55 16 155/72 (99) 98 12/05/17 20:00 56 12/05/17 16:15 97.9 59 18 169/73 (105) 95 12/05/17 16:00 54 12/05/17 12:05 98.4 52 18 151/66 (94) 98 12/05/17 12:00 57 12/05/17 08:00 52 12/05/17 04:00 49 12/05/17 03:51 97.7 59 16 158/70 (99) 96 12/05/17 00:36 88 12/04/17 23:30 158/64 (95) 12/04/17 23:21 97.6 59 16 173/79 (110) 96 12/04/17 21:59 166/64 (98) 12/04/17 20:34 63 12/04/17 19:45 97.8 71 18 193/87 (122) 95 12/04/17 18:46 175/75 (108) 12/04/17 17:26 97.3 59 18 185/74 (111) 99 12/04/17 16:53 72 16 160/70 (100) 98 21 12/04/17 15:47 77 18 160/70 (100) 100 Room Air 12/04/17 14:04 56 16 196/86 (122) 98 Room Air 12/04/17 12:55 46 202/88 (126) Physical Examination GENERAL: Awake & alert, sitting in bed watching TV. Affect normal, readily interacts. No apparent distress. HEENT: Normocephalic, atraumatic. PERRLA 2 mm, brisk, EOMI. MMM & pink, airway patent, tongue midline to protrusion. MUSCULOSKELETAL: PERLA spontaneously & purposefully. Extremities NTTP. Some deformities noted to the interphalangeal joints of both hands. Tremors noted to both hands at rest. Tremors noted to lower extremities when he lifts them off the bed. NEUROLOGICAL: AAOx3. Speech clear, hesitant at times, slow to respond, some expressive aphasia. Follows simple commands w/o difficulty. CN II through XII appear grossly intact. Motor strength: LUE: 4+/5 hand digital manager, o/w 5/5 to all major flexion & extension muscle groups. RUE: 4/5 hand digital manager, o/w 4+/5 to all major flexion & extension muscle groups. LLE: 4+/5 to extensor hallucis longus, o/w 5/5 to all major flexion & extension muscle groups. RLE: 0/5 to extensor hallucis longus & gastrocnemius, 2/5 to tibialis anterior, 5/5 to iliopsoas, quadriceps & hamstring. Tremors noted to both hands at rest. Tremors noted to lower extremities when he lifts them off the bed. Lab, Micro, Other Results Recent Impressions Renal Ultrasound 12/05/17 0000 Signed Impressions: CONCLUSION: 1. Stable bilateral cortical thinning of both kidneys. No evidence of hydronep hrosis. These findings suggest chronic medical renal disease. 2. Stable examination. Laboratory Tests Test 12/04/17 16:00 12/05/17 05:15 12/05/17 08:29 12/05/17 19:39 Potassium Level 4.5 MEQ/L 5.2 MEQ/L White Blood Count 6.6 TH/MM3 Red Blood Count 5.02 MIL/MM3 Hemoglobin 13.4 GM/DL Hematocrit 41.8 % Mean Corpuscular Volume 83.3 FL Mean Corpuscular Hemoglobin 26.7 PG Mean Corpuscular Hemoglobin Concent 32.1 % Red Cell Distribution Width 15.5 % Platelet Count 132 TH/MM3 Mean Platelet Volume 9.6 FL Neutrophils (%) (Auto) 57.8 % Lymphocytes (%) (Auto) 25.1 % Monocytes (%) (Auto) 7.2 % Eosinophils (%) (Auto) 8.8 % Basophils (%) (Auto) 1.1 % Neutrophils # (Auto) 3.8 TH/MM3 Lymphocytes # (Auto) 1.7 TH/MM3 Monocytes # (Auto) 0.5 TH/MM3 Eosinophils # (Auto) 0.6 TH/MM3 Basophils # (Auto) 0.1 TH/MM3 CBC Comment DIFF FINAL Differential Comment Blood Urea Nitrogen 31 MG/DL Creatinine 2.49 MG/DL Random Glucose 80 MG/DL Total Protein 6.7 GM/DL Albumin 2.8 GM/DL Calcium Level 8.4 MG/DL Phosphorus Level 4.0 MG/DL Magnesium Level 1.9 MG/DL Alkaline Phosphatase 77 U/L Aspartate Amino Transf (AST/SGOT) 24 U/L Alanine Aminotransferase (ALT/SGPT) 17 U/L Total Bilirubin 0.2 MG/DL Sodium Level 142 MEQ/L Chloride Level 113 MEQ/L Carbon Dioxide Level 18.7 MEQ/L Anion Gap 10 MEQ/L Estimat Glomerular Filtration Rate 25 ML/MIN Urine Osmolality 403 MOSM/KG Urine Random Creatinine 33.9 MG/DL Urine Random Sodium 128 MEQ/L Erythrocyte Sedimentation Rate 29 mm/hr Total Creatine Kinase 111 U/L Vitamin B12 Level 601 PG/ML Thyroid Stimulating Hormone 3rd Gen 5.590 uIU/ML Test 12/06/17 06:00 12/06/17 06:20 12/07/17 11:54 White Blood Count 5.2 TH/MM3 Red Blood Count 4.76 MIL/MM3 Hemoglobin 12.6 GM/DL Hematocrit 39.3 % Mean Corpuscular Volume 82.6 FL Mean Corpuscular Hemoglobin 26.6 PG Mean Corpuscular Hemoglobin Concent 32.2 % Red Cell Distribution Width 15.5 % Platelet Count 122 TH/MM3 Mean Platelet Volume 9.0 FL Neutrophils (%) (Auto) 55.6 % Lymphocytes (%) (Auto) 24.6 % Monocytes (%) (Auto) 7.1 % Eosinophils (%) (Auto) 11.6 % Basophils (%) (Auto) 1.1 % Neutrophils # (Auto) 2.9 TH/MM3 Lymphocytes # (Auto) 1.3 TH/MM3 Monocytes # (Auto) 0.4 TH/MM3 Eosinophils # (Auto) 0.6 TH/MM3 Basophils # (Auto) 0.1 TH/MM3 CBC Comment DIFF FINAL Differential Comment Blood Urea Nitrogen 26 MG/DL Creatinine 2.14 MG/DL Random Glucose 77 MG/DL Calcium Level 8.1 MG/DL Sodium Level 144 MEQ/L Potassium Level 4.4 MEQ/L Chloride Level 115 MEQ/L Carbon Dioxide Level 19.9 MEQ/L Anion Gap 9 MEQ/L Estimat Glomerular Filtration Rate 29 ML/MIN Hemoglobin A1c 7.0 % Medical Decision Making Impression and Plan Impression: Distal RLE weakness Difficulty ambulating Right drop foot, chronic Expressive aphasia Per Dr Magdaleno at 2128: "MRI images reviewed. No evidence of significant cord compression, abnormal signal intensity within the cord or cauda equina compression." Patient continues to do well w/o any significant change in his exam. Past 24 hrs: Afebrile. Intermittent bradycardia. Intermittent hypertension. Physical and Occupational Therapy recommend continued therapy at an inpatient facility. Labs pending for today. MRI brain w/o any acute findings, chronic white matter ischemic changes w/atrophy noted. MRI cervical spine demonstrated multilevel degenerative spondylosis, significant from C3-4 to C6-7; no abnormal cervical cord signal. MRI thoracic spine demonstrated mild disc changes mid thoracic spine w/o stenosis. MRI lumbar spine demonstrated mild disc bulge at L4-5 level; mild disc bulge & osteophytic ridging at L5-S1 level abutting the left S1 nerve root at the lateral recess level; neural foraminal narrowing of right L4-L5 level and bilaterally at the L5-S1 L>R; facet hypertrophy throughout. Plan: Primary management per Hospitalist. Neuro checks. Mobilise patient w/assistance. Physical Therapy eval & tx. No indication for Neurosurgery intervention. Will sign off. Patient is able to be discharged to [facility]. Joseph Arce Dec 07, 2017 12:44
[2017-12-07 12:50] LABS: BICARBONATE 19.9 MEQ/L (21.0-32.0); CREATININE 2.12 MG/DL (0.60-1.30)
[2017-12-07] MEDS ORDERED: hydrALAZINE HCL 25 MG TAB PO SCH (14:00)
== END 2017-12-07 15:51 | DRG 683 ==
LOC: NEPE 09:45 → NEDA 14:24 → N04B 17:02
PROVIDERS: ADMIT Family Medicine; ATTEND Family Medicine
DX: N17.9 Acute kidney failure, unspecified (principal); R47.01 Aphasia; I12.9 Hypertensive chronic kidney disease with stage 1 through stage 4 chronic kidney disease, or unspecified chronic kidney disease; N18.9 Chronic kidney disease, unspecified; E11.22 Type 2 diabetes mellitus with diabetic chronic kidney disease; Z79.4 Long term (current) use of insulin; E87.5 Hyperkalemia; R15.9 Full incontinence of feces; R29.898 Other symptoms and signs involving the musculoskeletal system; M47.9 Spondylosis, unspecified; M21.371 Foot drop, right foot; R32 Unspecified urinary incontinence; R26.2 Difficulty in walking, not elsewhere classified; Z91.81 History of falling; I25.10 Atherosclerotic heart disease of native coronary artery without angina pectoris; Z95.5 Presence of coronary angioplasty implant and graft; Z95.1 Presence of aortocoronary bypass graft; I25.2 Old myocardial infarction; E78.5 Hyperlipidemia, unspecified; E03.9 Hypothyroidism, unspecified; Z79.82 Long term (current) use of aspirin; K21.9 Gastro-esophageal reflux disease without esophagitis
CPT/HCPCS: 70551; 72141; 72146; 72148; 76775; 80048; 80053; 81001; 82550; 82570; 82607; 82948; 83036; 83735; 83935; 84100; 84132; 84300; 84443; 85025; 85610; 85652; 85730; 93005; 94664; J1644; J1815; J7030; J7611

== ENCOUNTER 2017-12-15 11:52 | Inpatient (IN) ==
[2017-12-17] MEDS ORDERED: Heparin Drip 25,000 UNIT/250 ML BAG IV.CONT PRN (00:01)
[2017-12-17] MEDS ORDERED: Heparin 10,000 UNITS/10 ML Vial (for IV use) IV.PUSH PRN ×2 (00:01)
[2017-12-17] MEDS ORDERED: Naloxone Inj 0.4 MG/ML Vial IV.PUSH PRN (00:01)
[2017-12-17] MEDS ORDERED: Bisacodyl 10 MG Supp RECTAL PRN (00:01)
[2017-12-17] MEDS ORDERED: Dextrose 50% in Water 50 ML Vial IV.PUSH PRN (00:01)
[2017-12-17 05:12] LABS: Carbon Dioxide 18.4 meq/L (21.0-32.0)
[2017-12-17] MEDS: hydrALAZINE 25 MG Tablet PO SCH ×3 (06:26→21:16)
[2017-12-17] MEDS: Levothyroxine 75 MCG Tablet PO SCH (06:27)
[2017-12-17] MEDS: Sodium Bicarbonate 8.4% Inj 50 MEQ in Sodium Chloride 0.45 % Inj 1,000 ML IV.CONT SCH ×2 (06:46→19:37)
[2017-12-17] MEDS: Metoprolol Tartrate 50 MG Tablet PO SCH ×2 (09:35→21:17)
[2017-12-17] MEDS: Isosorbide Mononitrate 30 MG ER 24HR Tablet (Imdur) PO SCH (09:35)
[2017-12-17] MEDS: Folic Acid 1 MG Tablet PO SCH (09:35)
[2017-12-17] MEDS: Senna/Docusate Sodium 8.6/50 MG Tablet PO SCH ×2 (09:35→21:16)
[2017-12-17] MEDS: Insulin NovoLOG Aspart Correctional Sugar Inj SQ SCH ×4 (09:43→20:45)
--- NOTE | 2017-12-17 11:40 | P.PN ---
Subjective Interval history: 87 year old gentlemen with a past medical history of chronic kidney disease, hypertension, hypothyroidism, hyperlipidemia, hx of bilateral renal stents, and CAD with stent placement. Patient was seen at [facility] for acute kidney injury and Chronic kidney disease. He was transferred to medical on 12/15 due to worsening renal and cardiac condition. Patient now with NRM, in mild resp. distress. Physical Exam Vital signs: Vital Signs 12/17/17 03:00 12/17/17 07:00 12/17/17 07:51 Temperature 97.2 F L 97.9 F Pulse Rate 69 83 Respiratory Rate 24 18 Blood Pressure 112/62 115/56 L Pulse Oximetry 97 97 12/17/17 08:00 12/17/17 11:00 Temperature 98.9 F Pulse Rate 76 Respiratory Rate 18 Blood Pressure 104/60 Pulse Oximetry 98 98 Intake & Output 12/16/17 12/17/17 12/17/17 18:59 06:59 18:59 Weight 64.5 kg Other: Date of Last Bowel Movement 12/14/17 - Constitutional moderate distress, chronically ill appearing - Routine HEENT Exam Head: Present: normocephalic ENT: Present: mucous membranes moist - Routine Neck Exam Present: supple, JVD - Routine Respiratory Exam Present: accessory muscle use, decreased breath sounds, rales, respiratory distress, rhonchi - Routine Cardiovascular Exam Present: S1, S2 - Routine Abdominal Exam Present: soft, normoactive bowel sounds, distended - Routine Extremities Exam Present: edema (mild) - Routine Skin Exam Present: intact - Routine Neurological Exam Present: alert, oriented X3 Results - Labs CBC & Chem 7: 12/16/17 13:28 12/17/17 04:05 Labs: Laboratory Results - last 24 hr 12/15/17 12/15/17 12/15/17 13:09 13:09 20:37 WBC 7.3 RBC 3.38 L Hgb 9.1 L Hct 27.5 L MCV 81.4 MCH 27.0 MCHC 33.2 RDW 16.7 Plt Count 101 L MPV 10.3 Neut % (Auto) Lymph % (Auto) Wells % (Auto) Eos % (Auto) Baso % (Auto) Neut # (Auto) Lymph # (Auto) Wells # (Auto) Eos # (Auto) Baso # (Auto) CBC Comment PT 10.7 INR 1.1 APTT 31.3 H 127.6 H* D Sodium Potassium Chloride Carbon Dioxide Anion Gap BUN Creatinine Estimated GFR POC Glucose Random Glucose Calcium Total Bilirubin AST ALT Alkaline Phosphatase Troponin I Total Protein Albumin 12/16/17 12/16/17 12/16/17 01:30 01:30 01:30 WBC RBC Hgb Hct MCV MCH MCHC RDW Plt Count MPV Neut % (Auto) Lymph % (Auto) Wells % (Auto) Eos % (Auto) Baso % (Auto) Neut # (Auto) Lymph # (Auto) Wells # (Auto) Eos # (Auto) Baso # (Auto) CBC Comment PT INR APTT 70.0 H D Sodium 141 Potassium 4.9 Chloride 113 H Carbon Dioxide 16.2 L Anion Gap 12 BUN 73 H Creatinine 3.41 H Estimated GFR 17 L POC Glucose Random Glucose 54 L Calcium 8.1 L Total Bilirubin 0.3 AST 40 H ALT 20 Alkaline Phosphatase 59 Troponin I 4.99 H* D Total Protein 5.9 L Albumin 2.6 L 12/16/17 12/16/17 12/16/17 08:02 08:02 12:55 WBC RBC Hgb Hct MCV MCH MCHC RDW Plt Count MPV Neut % (Auto) Lymph % (Auto) Wells % (Auto) Eos % (Auto) Baso % (Auto) Neut # (Auto) Lymph # (Auto) Wells # (Auto) Eos # (Auto) Baso # (Auto) CBC Comment PT INR APTT 105.3 H* D 71.4 H D Sodium Potassium Chloride Carbon Dioxide Anion Gap BUN Creatinine Estimated GFR POC Glucose Random Glucose Calcium Total Bilirubin AST ALT Alkaline Phosphatase Troponin I 3.94 H* D Total Protein Albumin 12/16/17 12/16/17 12/17/17 13:28 13:28 04:05 WBC 8.6 RBC 3.63 L Hgb 9.8 L Hct 30.5 L MCV 84.1 MCH 27.0 MCHC 32.2 RDW 17.3 H Plt Count 109 L MPV 10.3 Neut % (Auto) 88.8 H Lymph % (Auto) 4.2 L Wells % (Auto) 6.8 Eos % (Auto) 0.0 Baso % (Auto) 0.2 Neut # (Auto) 7.6 Lymph # (Auto) 0.4 L Wells # (Auto) 0.6 Eos # (Auto) 0.0 Baso # (Auto) 0.0 CBC Comment DIFF FINAL PT INR APTT Sodium 138 142 Potassium 5.8 H D 4.0 Chloride 110 H 109 H Carbon Dioxide 14.9 L 18.4 L Anion Gap 13 15 BUN 79 H 77 H Creatinine 3.72 H 3.60 H Estimated GFR 15 L 16 L POC Glucose Random Glucose 236 H D 37 L* Calcium 8.1 L 8.0 L Total Bilirubin 0.3 AST 44 H ALT 24 Alkaline Phosphatase 65 Troponin I 4.01 H* Total Protein 6.3 L Albumin 2.6 L 12/17/17 09:41 WBC RBC Hgb Hct MCV MCH MCHC RDW Plt Count MPV Neut % (Auto) Lymph % (Auto) Wells % (Auto) Eos % (Auto) Baso % (Auto) Neut # (Auto) Lymph # (Auto) Wells # (Auto) Eos # (Auto) Baso # (Auto) CBC Comment PT INR APTT Sodium Potassium Chloride Carbon Dioxide Anion Gap BUN Creatinine Estimated GFR POC Glucose 129 H Random Glucose Calcium Total Bilirubin AST ALT Alkaline Phosphatase Troponin I Total Protein Albumin Assessment and Plan - Plan (1) Ischemic cardiomyopathy ICD Codes: I25.5 - Ischemic cardiomyopathy (2) CAD (coronary artery disease) ICD Codes: I25.10 - Atherosclerotic heart disease of [place] coronary artery without angina pectoris (3) Diabetes mellitus type 2 with complications ICD Codes: E11.8 - Type 2 diabetes mellitus with unspecified complications (4) Hypertension ICD Codes: I10 - Essential (primary) hypertension Status: Chronic (5) Elevated troponin ICD Codes: R78.89 - Elevated troponin Status: Acute (6) Acute on chronic kidney failure ICD Codes: N17.9 - Acute kidney failure, unspecified; N18.9 - Chronic kidney disease, unspecified Plan: Patient has chronic kidney disease, stage 4. Now has Cardiac ischemia and develop DAVID. BP is on lower side. Urine out put is low. Has stable Creatinine and metabolic acidosis. On NaHco3. K is normalized. On Lasix infusion. Galo's catheter done. Creatinine is slightly better. Post Thoracentesis.
[2017-12-17] MEDS ORDERED: Furosemide Inj 100 MG in Sodium Chlor 0.9% Inj 90 ML IV.SIG SCH (12:00)
[2017-12-17] MEDS: Glimepiride 4 MG Tablet PO SCH (13:12)
[2017-12-17] MEDS: Glimepiride 1 MG Tablet PO SCH (13:12)
[2017-12-17] MEDS: Sod Chloride 0.9% Inj 1,000 ML IV.SIG SCH ×2 (13:16→16:44)
--- NOTE | 2017-12-17 14:25 | P.PNFP ---
Subjective Interval history: Now in the ICU under the care of the visual merchandising coordinator for acute heart failure with worsening acute on chronic kidney injury. Renal is following and GFR is low but stable overnight on a Lasix drip. Results - Labs Result diagrams: 12/16/17 13:28 12/17/17 04:05 Abnormal lab results 12/15/17 12/15/17 12/15/17 Range/Units 13:09 13:09 20:37 RBC 3.38 L (4.50-5.90) MIL/MM3 Hgb 9.1 L (13.0-17.0) GM/DL Hct 27.5 L (39.0-51.0) % RDW (11.6-17.2) % Plt Count 101 L (150-450) TH/MM3 Neut % (Auto) (16.0-70.0) % Lymph % (Auto) (9.0-44.0) % Lymph # (Auto) (1.0-4.8) TH/MM3 APTT 31.3 H 127.6 H* D (24.3-30.1) SEC Potassium (3.5-5.1) MEQ/L Chloride (98-107) MEQ/L Carbon Dioxide (21.0-32.0) MEQ/L BUN (7-18) MG/DL Creatinine (0.60-1.30) MG/DL Estimated GFR (>89) ML/MIN POC Glucose (68-110) mg/dl Random Glucose (74-106) MG/DL Calcium (8.5-10.1) MG/DL AST (15-37) U/L Troponin I (0.02-0.05) NG/ML Total Protein (6.4-8.2) GM/DL Albumin (3.4-5.0) GM/DL 12/16/17 12/16/17 12/16/17 Range/Units 01:30 01:30 01:30 RBC (4.50-5.90) MIL/MM3 Hgb (13.0-17.0) GM/DL Hct (39.0-51.0) % RDW (11.6-17.2) % Plt Count (150-450) TH/MM3 Neut % (Auto) (16.0-70.0) % Lymph % (Auto) (9.0-44.0) % Lymph # (Auto) (1.0-4.8) TH/MM3 APTT 70.0 H D (24.3-30.1) SEC Potassium (3.5-5.1) MEQ/L Chloride 113 H (98-107) MEQ/L Carbon Dioxide 16.2 L (21.0-32.0) MEQ/L BUN 73 H (7-18) MG/DL Creatinine 3.41 H (0.60-1.30) MG/DL Estimated GFR 17 L (>89) ML/MIN POC Glucose (68-110) mg/dl Random Glucose 54 L (74-106) MG/DL Calcium 8.1 L (8.5-10.1) MG/DL AST 40 H (15-37) U/L Troponin I 4.99 H* D (0.02-0.05) NG/ML Total Protein 5.9 L (6.4-8.2) GM/DL Albumin 2.6 L (3.4-5.0) GM/DL 12/16/17 12/16/17 12/16/17 Range/Units 08:02 08:02 12:55 RBC (4.50-5.90) MIL/MM3 Hgb (13.0-17.0) GM/DL Hct (39.0-51.0) % RDW (11.6-17.2) % Plt Count (150-450) TH/MM3 Neut % (Auto) (16.0-70.0) % Lymph % (Auto) (9.0-44.0) % Lymph # (Auto) (1.0-4.8) TH/MM3 APTT 105.3 H* D 71.4 H D (24.3-30.1) SEC Potassium (3.5-5.1) MEQ/L Chloride (98-107) MEQ/L Carbon Dioxide (21.0-32.0) MEQ/L BUN (7-18) MG/DL Creatinine (0.60-1.30) MG/DL Estimated GFR (>89) ML/MIN POC Glucose (68-110) mg/dl Random Glucose (74-106) MG/DL Calcium (8.5-10.1) MG/DL AST (15-37) U/L Troponin I 3.94 H* D (0.02-0.05) NG/ML Total Protein (6.4-8.2) GM/DL Albumin (3.4-5.0) GM/DL 12/16/17 12/16/17 12/17/17 Range/Units 13:28 13:28 04:05 RBC 3.63 L (4.50-5.90) MIL/MM3 Hgb 9.8 L (13.0-17.0) GM/DL Hct 30.5 L (39.0-51.0) % RDW 17.3 H (11.6-17.2) % Plt Count 109 L (150-450) TH/MM3 Neut % (Auto) 88.8 H (16.0-70.0) % Lymph % (Auto) 4.2 L (9.0-44.0) % Lymph # (Auto) 0.4 L (1.0-4.8) TH/MM3 APTT (24.3-30.1) SEC Potassium 5.8 H D (3.5-5.1) MEQ/L Chloride 110 H 109 H (98-107) MEQ/L Carbon Dioxide 14.9 L 18.4 L (21.0-32.0) MEQ/L BUN 79 H 77 H (7-18) MG/DL Creatinine 3.72 H 3.60 H (0.60-1.30) MG/DL Estimated GFR 15 L 16 L (>89) ML/MIN POC Glucose (68-110) mg/dl Random Glucose 236 H D 37 L* (74-106) MG/DL Calcium 8.1 L 8.0 L (8.5-10.1) MG/DL AST 44 H (15-37) U/L Troponin I 4.01 H* (0.02-0.05) NG/ML Total Protein 6.3 L (6.4-8.2) GM/DL Albumin 2.6 L (3.4-5.0) GM/DL 12/17/17 12/17/17 12/17/17 Range/Units 08:39 09:41 11:31 RBC (4.50-5.90) MIL/MM3 Hgb (13.0-17.0) GM/DL Hct (39.0-51.0) % RDW (11.6-17.2) % Plt Count (150-450) TH/MM3 Neut % (Auto) (16.0-70.0) % Lymph % (Auto) (9.0-44.0) % Lymph # (Auto) (1.0-4.8) TH/MM3 APTT 32.0 H (24.3-30.1) SEC Potassium (3.5-5.1) MEQ/L Chloride (98-107) MEQ/L Carbon Dioxide (21.0-32.0) MEQ/L BUN (7-18) MG/DL Creatinine (0.60-1.30) MG/DL Estimated GFR (>89) ML/MIN POC Glucose 129 H (68-110) mg/dl Random Glucose (74-106) MG/DL Calcium (8.5-10.1) MG/DL AST (15-37) U/L Troponin I 10.60 H* (0.02-0.05) NG/ML Total Protein (6.4-8.2) GM/DL Albumin (3.4-5.0) GM/DL 12/17/17 Range/Units 12:33 RBC (4.50-5.90) MIL/MM3 Hgb (13.0-17.0) GM/DL Hct (39.0-51.0) % RDW (11.6-17.2) % Plt Count (150-450) TH/MM3 Neut % (Auto) (16.0-70.0) % Lymph % (Auto) (9.0-44.0) % Lymph # (Auto) (1.0-4.8) TH/MM3 APTT (24.3-30.1) SEC Potassium (3.5-5.1) MEQ/L Chloride (98-107) MEQ/L Carbon Dioxide (21.0-32.0) MEQ/L BUN (7-18) MG/DL Creatinine (0.60-1.30) MG/DL Estimated GFR (>89) ML/MIN POC Glucose 132 H (68-110) mg/dl Random Glucose (74-106) MG/DL Calcium (8.5-10.1) MG/DL AST (15-37) U/L Troponin I (0.02-0.05) NG/ML Total Protein (6.4-8.2) GM/DL Albumin (3.4-5.0) GM/DL Short CBC 12/15/17 12/16/17 Range/Units 13:09 13:28 WBC 7.3 8.6 (4.0-11.0) TH/MM3 Hgb 9.1 L 9.8 L (13.0-17.0) GM/DL Hct 27.5 L 30.5 L (39.0-51.0) % Plt Count 101 L 109 L (150-450) TH/MM3 BMP 12/16/17 12/16/17 12/17/17 01:30 13:28 04:05 Sodium 141 138 142 Potassium 4.9 5.8 H D 4.0 Chloride 113 H 110 H 109 H Carbon Dioxide 16.2 L 14.9 L 18.4 L BUN 73 H 79 H 77 H Creatinine 3.41 H 3.72 H 3.60 H Calcium 8.1 L 8.1 L 8.0 L Cardiac Enzymes 12/16/17 12/16/17 12/16/17 Range/Units 01:30 08:02 13:28 Troponin I 4.99 H* D 3.94 H* D 4.01 H* (0.02-0.05) NG/ML 12/17/17 Range/Units 08:39 Troponin I 10.60 H* (0.02-0.05) NG/ML Liver Function 12/16/17 12/16/17 Range/Units 01:30 13:28 Total Bilirubin 0.3 0.3 (0.2-1.0) MG/DL AST 40 H 44 H (15-37) U/L ALT 20 24 (12-78) U/L Alkaline Phosphatase 59 65 (45-117) U/L Albumin 2.6 L 2.6 L (3.4-5.0) GM/DL Physical Exam Vital signs: Vital Signs 12/17/17 03:00 12/17/17 07:00 12/17/17 07:51 Temperature 97.2 F L 97.9 F Pulse Rate 69 83 Respiratory Rate 24 18 Blood Pressure 112/62 115/56 L Pulse Oximetry 97 97 12/17/17 08:00 12/17/17 11:00 Temperature 98.9 F Pulse Rate 76 Respiratory Rate 18 Blood Pressure 104/60 Pulse Oximetry 98 98 Intake & Output 06/12/17/17 12/17/17 18:59 06:59 18:59 Weight 64.5 kg Other: Date of Last Bowel Movement 12/14/17 - Constitutional mild distress - Routine HEENT Exam Head: Present: normocephalic Eye: Present: PERRL ENT: Present: mucous membranes moist - Routine Neck Exam Present: JVD - Routine Respiratory Exam Present: accessory muscle use, decreased breath sounds - Routine Cardiovascular Exam Present: RRR - Routine Abdominal Exam Present: soft, normoactive bowel sounds - Routine Extremities Exam Present: full ROM - Routine Skin Exam Present: intact - Routine Neurological Exam Present: alert, oriented X3 - Routine Psychiatric Exam Present: normal affect Assessment and Plan - Assessment (1) Acute kidney failure Code(s): N17.9 - Acute kidney failure, unspecified Status: Acute Plan: Cont IV Lasix and bicarb per Renal. (2) CHF exacerbation Code(s): I50.9 - Heart failure, unspecified Status: Acute Plan: F/U Cards and visual merchandising coordinator recommendations and support. (3) Systolic CHF, acute on chronic Code(s): I50.23 - Acute on chronic systolic (congestive) heart failure Status : Acute (4) Pleural effusion due to CHF (congestive heart failure) Code(s): I50.9 - Heart failure, unspecified Status: Acute Plan: Chest Tube per Human Resources Vice President. - Plan Prognosis is guarded but overall he is doing better today. 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
--- NOTE | 2017-12-17 14:33 | P.PNCA ---
Subjective Interval history: Did well overnight Much better clinically Breathing better Chest tube with about 1 liter out Urine output overnight well also (not charted yet) No chest pain Physical Exam Vital signs: Vital Signs 12/17/17 03:00 12/17/17 07:00 12/17/17 07:51 Temperature 97.2 F L 97.9 F Pulse Rate 69 83 Respiratory Rate 24 18 Blood Pressure 112/62 115/56 L Pulse Oximetry 97 97 12/17/17 08:00 12/17/17 11:00 Temperature 98.9 F Pulse Rate 76 Respiratory Rate 18 Blood Pressure 104/60 Pulse Oximetry 98 98 Intake & Output 12/16/17 12/17/17 12/17/17 18:59 06:59 18:59 Weight 64.5 kg Other: Date of Last Bowel Movement 12/14/17 Narrative: GENERAL: NAD, AAOx3 SKIN: Warm and dry. HEAD: Atraumatic. Normocephalic. EYES: Pupils equal and round. No scleral icterus. No injection or drainage. ENT: No nasal bleeding or discharge. Mucous membranes pink and moist. NECK: Trachea midline. No JVD. CARDIOVASCULAR: Regular rate and rhythm. RESPIRATORY: No accessory muscle use. Decreased bilaterally, right with rales. GASTROINTESTINAL: Abdomen soft, non-tender, nondistended. Hepatic and splenic margins not palpable. MUSCULOSKELETAL: Extremities without clubbing, cyanosis, or edema. No obvious deformities. NEUROLOGICAL: Awake and alert. No obvious cranial nerve deficits. Motor grossly within normal limits. Five out of 5 muscle strength in the arms and legs. Normal speech. PSYCHIATRIC: Appropriate mood and affect; insight and judgment normal. Assessment and Plan - Assessment (1) NSTEMI (non-ST elevated myocardial infarction) Code(s): I21.4 - Non-ST elevation (NSTEMI) myocardial infarction Status: Acute (2) CAD (coronary artery disease) Code(s): I25.10 - Atherosclerotic heart disease of [place] coronary artery without angina pectoris Status: Acute (3) Acute kidney failure Code(s): N17.9 - Acute kidney failure, unspecified Status: Acute (4) CHF exacerbation Code(s): I50.9 - Heart failure, unspecified Status: Acute (5) Systolic CHF, acute on chronic Code(s): I50.23 - Acute on chronic systolic (congestive) heart failure Status : Acute (6) Pleural effusion due to CHF (congestive heart failure) Code(s): I50.9 - Heart failure, unspecified Status: Acute - Plan 1) NSTEMI Probable type 2 Atypical chest pain Heparin drip stopped Unsure of value of elevated troponin to 10? 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 With everything that he's going through, he would like to be treated medically and not taken to the microbiology laboratory manager to evaluate his coronary anatomy Con't medical management If ischemic evaluation, high risk of hemodialysis 5) All questions from patient and family answered (3) Acute kidney failure Qualifiers: Acute renal failure type: unspecified Qualified Code(s): N17.9 - Acute kidney failure, unspecified (4) CHF exacerbation Qualifiers: Heart failure type: systolic Qualified Code(s): I50.23 - Acute on chronic systolic (congestive) heart failure
--- NOTE | 2017-12-17 15:47 | P.PNCC ---
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 During his hospitalization he had acute onset chest pain with elevated troponins, which is likely type II NSTEMI secondary to demand ischemia from volume overload and acute congestive heart failure exacerbation. He is 7 kg up from admission dry weight. In addition he has increasing oxygen requirement now requiring nonrebreather mask to maintain SPO2 greater than 90%. Additionally, chest x-ray demonstrates worsening bilateral effusions, worse on the left than the right. I discussed case extensively with Dr. Nagy: The patient has organ dysfunction including acute kidney injury which is worsening likely secondary to decreased renal perfusion pressure from rising CVP intravascular volume overload. The patient endorses acute dyspnea. Denies chest pain to me today. Remaining review of systems is negative. Patient is admitted to the CVICU for management of his worsening hypoxemia as well as volume overload and acute CHF exacerbation, systolic type. 12/17: On partial rebreather. States that his breathing appears to be improving since yesterday. Had left-sided pigtail catheter placed on 12/16 with drainage of about 1 L of serous fluid. On Lasix drip as well as bicarb drip. Objective Vital Signs / I&O: Vital Signs 12/17/17 03:00 12/17/17 07:00 12/17/17 07:51 Temperature 97.2 F L 97.9 F Pulse Rate 69 83 Respiratory Rate 24 18 Blood Pressure 112/62 115/56 L Pulse Oximetry 97 97 12/17/17 08:00 12/17/17 11:00 12/17/17 14:59 Temperature 98.9 F Pulse Rate 76 Respiratory Rate 18 Blood Pressure 104/60 Pulse Oximetry 98 98 94 L 12/17/17 15:00 Temperature 98.8 F Pulse Rate 80 Respiratory Rate 18 Blood Pressure 125/64 Pulse Oximetry 95 Intake & Output 12/16/17 12/17/17 12/17/17 18:59 06:59 18:59 Weight 64.5 kg Other: Date of Last Bowel Movement 12/14/17 12/15/17 Result Diagrams: 12/16/17 13:28 12/17/17 04:05 Other Results: Laboratory Results - last 24 hr 12/15/17 12/15/17 12/15/17 13:09 13:09 20:37 WBC 7.3 RBC 3.38 L Hgb 9.1 L Hct 27.5 L MCV 81.4 MCH 27.0 MCHC 33.2 RDW 16.7 Plt Count 101 L MPV 10.3 Neut % (Auto) Lymph % (Auto) [place] % (Auto) Eos % (Auto) Baso % (Auto) Neut # (Auto) Lymph # (Auto) [place] # (Auto) Eos # (Auto) Baso # (Auto) CBC Comment PT 10.7 INR 1.1 APTT 31.3 H 127.6 H* D Sodium Potassium Chloride Carbon Dioxide Anion Gap BUN Creatinine Estimated GFR POC Glucose Random Glucose Calcium Total Bilirubin AST ALT Alkaline Phosphatase Troponin I Total Protein Albumin 12/16/17 12/16/17 12/16/17 01:30 01:30 01:30 WBC RBC Hgb Hct MCV MCH MCHC RDW Plt Count MPV Neut % (Auto) Lymph % (Auto) [place] % (Auto) Eos % (Auto) Baso % (Auto) Neut # (Auto) Lymph # (Auto) [place] # (Auto) Eos # (Auto) Baso # (Auto) CBC Comment PT INR APTT 70.0 H D Sodium 141 Potassium 4.9 Chloride 113 H Carbon Dioxide 16.2 L Anion Gap 12 BUN 73 H Creatinine 3.41 H Estimated GFR 17 L POC Glucose Random Glucose 54 L Calcium 8.1 L Total Bilirubin 0.3 AST 40 H ALT 20 Alkaline Phosphatase 59 Troponin I 4.99 H* D Total Protein 5.9 L Albumin 2.6 L 12/16/17 12/16/17 12/16/17 08:02 08:02 12:55 WBC RBC Hgb Hct MCV MCH MCHC RDW Plt Count MPV Neut % (Auto) Lymph % (Auto) [place] % (Auto) Eos % (Auto) Baso % (Auto) Neut # (Auto) Lymph # (Auto) [place] # (Auto) Eos # (Auto) Baso # (Auto) CBC Comment PT INR APTT 105.3 H* D 71.4 H D Sodium Potassium Chloride Carbon Dioxide Anion Gap BUN Creatinine Estimated GFR POC Glucose Random Glucose Calcium Total Bilirubin AST ALT Alkaline Phosphatase Troponin I 3.94 H* D Total Protein Albumin 12/16/17 12/16/17 12/17/17 13:28 13:28 04:05 WBC 8.6 RBC 3.63 L Hgb 9.8 L Hct 30.5 L MCV 84.1 MCH 27.0 MCHC 32.2 RDW 17.3 H Plt Count 109 L MPV 10.3 Neut % (Auto) 88.8 H Lymph % (Auto) 4.2 L [place] % (Auto) 6.8 Eos % (Auto) 0.0 Baso % (Auto) 0.2 Neut # (Auto) 7.6 Lymph # (Auto) 0.4 L [place] # (Auto) 0.6 Eos # (Auto) 0.0 Baso # (Auto) 0.0 CBC Comment DIFF FINAL PT INR APTT Sodium 138 142 Potassium 5.8 H D 4.0 Chloride 110 H 109 H Carbon Dioxide 14.9 L 18.4 L Anion Gap 13 15 BUN 79 H 77 H Creatinine 3.72 H 3.60 H Estimated GFR 15 L 16 L POC Glucose Random Glucose 236 H D 37 L* Calcium 8.1 L 8.0 L Total Bilirubin 0.3 AST 44 H ALT 24 Alkaline Phosphatase 65 Troponin I 4.01 H* Total Protein 6.3 L Albumin 2.6 L 12/17/17 12/17/17 12/17/17 08:39 09:41 11:31 WBC RBC Hgb Hct MCV MCH MCHC RDW Plt Count MPV Neut % (Auto) Lymph % (Auto) [place] % (Auto) Eos % (Auto) Baso % (Auto) Neut # (Auto) Lymph # (Auto) [place] # (Auto) Eos # (Auto) Baso # (Auto) CBC Comment PT INR APTT 32.0 H Sodium Potassium Chloride Carbon Dioxide Anion Gap BUN Creatinine Estimated GFR POC Glucose 129 H Random Glucose Calcium Total Bilirubin AST ALT Alkaline Phosphatase Troponin I 10.60 H* Total Protein Albumin 12/17/17 12:33 WBC RBC Hgb Hct MCV MCH MCHC RDW Plt Count MPV Neut % (Auto) Lymph % (Auto) [place] % (Auto) Eos % (Auto) Baso % (Auto) Neut # (Auto) Lymph # (Auto) [place] # (Auto) Eos # (Auto) Baso # (Auto) CBC Comment PT INR APTT Sodium Potassium Chloride Carbon Dioxide Anion Gap BUN Creatinine Estimated GFR POC Glucose 132 H Random Glucose Calcium Total Bilirubin AST ALT Alkaline Phosphatase Troponin I Total Protein Albumin Objective Remarks: GENERAL: Elderly male, lying in bed on partial rebreather O2. HEENT: Normocephalic. Atraumatic. Pupils equal, round, reactive, conjugate. Mucous membranes are moist NECK: Trachea is midline. There is significant JVD above the level of the mandible. CHEST: Good air entry bilaterally, scattered rhonchi and crackles on the right. Left-sided pigtail catheter in place. No air leak. CARDIOVASCULAR: Normal rate, regular rhythm. Appears sinus by telemetry. ABDOMEN: Soft, nontender, nondistended. No guarding. MUSCULOSKELETAL: Pulses 2+. 2+ peripheral edema in the lower extremities. NEUROLOGICAL: AAO x3. Follows commands. Assessment and Plan - Assessment and Plan Plan: Assessment: 87-year-old male with ischemic cardiomyopathy and EF of 3035% who has had a 7 kg weight gain during this hospitalization and now presents with acute and worsening hypoxic respiratory failure and respiratory distress. His acute kidney injury is likely as a result of his CHF exacerbation and due to poor renal perfusion. I agree with increasing force diuresis in the form of Lasix drip and I will add metolazone as a second agent as well. Although his effusions are likely serous and will improve with diuresis, his impending hypoxic respiratory failure will certainly improve by drainage of these. The left is greater in volume than the right and we will start with a pigtail chest tube in the left side to aid in his respiratory status. I reconfirmed with the patient and his family that he wishes to be DNR/DNI, and I think this is appropriate given his age and other medical comorbidities. We will work towards aggressively improving his respiratory function, although I do not think that intubation mechanical ventilation will overall improve his life expectancy or quality of life. I have expressed my concern to the family that if we do not improve his renal function with forced diuresis and with improved cardiac functioning, we may be forced to decide whether or not renal replacement would be appropriate for this patient, and I am not sure that urgent dialysis or renal replacement therapy would benefit him in the long run in terms of overall length or quality of life. Active Problems: Acute Congestive Heart Failure Exacerbation, Systolic Type Acute hypoxic respiratory failure bilateral pleural effusion, left > right Acute Type II NSTEMI secondary to demand ischemia Acute kidney injury- severe and worsening, superimposed on top of stage IV CKD Plan: - s/p left sided pigtail chest tube - lasix drip 10mg/hr - s/p metolazone 5mg po once - mackey catheter - recheck bmp in AM. Bicarb gtt for metabolic acidosis. - aggressive electrolyte replacement - aggressive pulmonary toilet - discussed with Dr. Nagy, Rising troponin noted, no intervention planned.
[2017-12-17] MEDS: levoFLOXacin 500 MG Tablet PO SCH (16:50)
[2017-12-17] MEDS: Furosemide Inj 100 MG in Sodium Chlor 0.9% Inj 90 ML IV.CONT SCH ×2 (16:50→22:44)
[2017-12-17] MEDS ORDERED: Insulin Detemir Inj 1,000 UNIT/10 ML Vial SQ SCH (21:00)
[2017-12-18] MEDS: Sod Chloride 0.9% Inj 1,000 ML IV.SIG SCH (03:28)
[2017-12-18 03:52] LABS: Baso % (Auto) 0.2 % (0.0-2.0); Eos # (Auto) 0.1 th/mm3 (0.0-0.4); Eos % (Auto) 1.4 % (0.0-4.0); Hematocrit 27.2 % (39.0-51.0); Lymph # (Auto) 0.9 th/mm3 (1.0-4.8); Lymph % (Auto) 11.4 % (9.0-44.0); Mean Corpuscular HGB Conc 33.2 % (32.0-36.0); Mean Corpuscular Volume 81.3 fL (80.0-100.0); Mean Platelet Volume 10.1 fL (7.0-11.0); Mono # (Auto) 0.6 th/mm3 (0.0-0.9); Mono % (Auto) 7.6 % (0.0-8.0); Neut # (Auto) 6.3 th/mm3 (1.8-7.7); Neut % (Auto) 79.4 % (16.0-70.0); Platelet Count 117 th/mm3 (150-450); Red Blood Count 3.34 mil/mm3 (4.50-5.90); Red Cell Distribution Width 17.1 % (11.6-17.2)
[2017-12-18 04:34] LABS: Alanine Aminotransferase 31 U/L (12-78); Albumin 2.2 g/dL (3.4-5.0); Alkaline Phosphatase 57 U/L (45-117); Anion Gap 14 meq/L (5-15); Aspartate Aminotransferase 39 U/L (15-37); Blood Urea Nitrogen 78 mg/dL (7-18); Calcium 7.7 mg/dL (8.5-10.1); Carbon Dioxide 22.4 meq/L (21.0-32.0); Chloride 107 meq/L (98-107); Glomerular Filtration Rate 16 mL/min (>89); Potassium 3.6 meq/L (3.5-5.1); Sodium 143 meq/L (136-145); Total Protein 5.4 g/dL (6.4-8.2)
[2017-12-18 04:36] LABS: Glucose,Random 35 mg/dL (74-106)
[2017-12-18] MEDS: hydrALAZINE 25 MG Tablet PO SCH ×3 (06:00→21:00)
[2017-12-18] MEDS: Levothyroxine 75 MCG Tablet PO SCH (06:00)
[2017-12-18] MEDS: Sodium Bicarbonate 8.4% Inj 50 MEQ in Sodium Chloride 0.45 % Inj 1,000 ML IV.CONT SCH ×3 (08:02→23:04)
[2017-12-18] MEDS: Insulin NovoLOG Aspart Correctional Sugar Inj SQ SCH ×4 (08:55→21:01)
[2017-12-18] MEDS: Glimepiride 4 MG Tablet PO SCH (08:55)
[2017-12-18] MEDS: Glimepiride 1 MG Tablet PO SCH (08:55)
[2017-12-18] MEDS: Folic Acid 1 MG Tablet PO SCH (09:11)
[2017-12-18] MEDS: Senna/Docusate Sodium 8.6/50 MG Tablet PO SCH ×2 (09:11→21:00)
[2017-12-18] MEDS: Isosorbide Mononitrate 30 MG ER 24HR Tablet (Imdur) PO SCH (09:11)
[2017-12-18] MEDS: Metoprolol Tartrate 50 MG Tablet PO SCH ×2 (09:12→21:00)
[2017-12-18] MEDS: Furosemide Inj 100 MG in Sodium Chlor 0.9% Inj 90 ML IV.CONT SCH ×2 (09:15→20:10)
--- NOTE | 2017-12-18 10:45 | P.PNCC ---
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 During his hospitalization he had acute onset chest pain with elevated troponins, which is likely type II NSTEMI secondary to demand ischemia from volume overload and acute congestive heart failure exacerbation. He is 7 kg up from admission dry weight. In addition he has increasing oxygen requirement now requiring nonrebreather mask to maintain SPO2 greater than 90%. Additionally, chest x-ray demonstrates worsening bilateral effusions, worse on the left than the right. I discussed case extensively with Dr. Nagy: The patient has organ dysfunction including acute kidney injury which is worsening likely secondary to decreased renal perfusion pressure from rising CVP intravascular volume overload. The patient endorses acute dyspnea. Denies chest pain to me today. Remaining review of systems is negative. Patient is admitted to the CVICU for management of his worsening hypoxemia as well as volume overload and acute CHF exacerbation, systolic type. 12/17: On partial rebreather. States that his breathing appears to be improving since yesterday. Had left-sided pigtail catheter placed on 12/16 with drainage of about 1 L of serous fluid. On Lasix drip as well as bicarb drip. 12/18 Patient is on 6L oxygen, awake and alert on Lasix and bicarb drip. Afebrile. Objective Vital Signs / I&O: Vital Signs 12/17/17 11:00 12/17/17 14:59 12/17/17 15:00 Temperature 98.9 F 98.8 F Pulse Rate 76 80 Respiratory Rate 18 18 Blood Pressure 104/60 125/64 Pulse Oximetry 98 94 L 95 12/17/17 17:05 12/17/17 17:26 12/17/17 19:00 Temperature 99.5 F Pulse Rate 92 H 90 Respiratory Rate 20 24 Blood Pressure 120/66 Pulse Oximetry 94 L 92 L 12/17/17 22:01 12/17/17 23:00 12/17/17 23:15 Temperature 99.5 F Pulse Rate 66 66 Respiratory Rate 24 Blood Pressure 115/71 Pulse Oximetry 95 95 12/18/17 00:32 12/18/17 03:00 12/18/17 07:00 Temperature 98.5 F 98.7 F Pulse Rate 76 78 76 Respiratory Rate 14 24 18 Blood Pressure 107/53 L 128/57 L Pulse Oximetry 96 97 12/18/17 08:00 12/18/17 09:42 12/18/17 10:15 Temperature Pulse Rate 97 H Respiratory Rate 18 Blood Pressure Pulse Oximetry 97 94 L Intake & Output 12/17/17 12/18/17 12/18/17 18:59 06:59 18:59 Intake Total 800 / 800 1630 / 1630 1150 / 1150 Output Total 1350 / 1350 1810 / 1810 Balance -550 / -550 -180 / -180 1150 / 1150 Weight 65 kg Intake: IV 1150 / 1150 1150 / 1150 Lasix Inj 100 MG In NS Inj 90 100 / 100 100 / 100 ML @ 3 mls/hr IV.CONT .Q24H ANIT[facility] Rx#:[id number] Sodium Bicarbonate 8.4% Inj 50 1050 / 1050 1050 / 1050 MEQ In 1/2 Normal Saline Inj 1, 000 ML @ 84 mls/hr IV.CONT . [id number] [facility]IT[facility] Rx#:[id number] Oral 800 / 800 480 / 480 Output: Urine 1200 / 1200 Urine Amount (Catheter) 1750 / 1750 Indwelling Urethral Catheter 1750 / 1750 Chest Tube Drainage 150 / 150 60 / 60 Left Upper Pleural 150 / 150 60 / 60 Other: Date of Last Bowel Movement 12/15/17 12/15/17 Result Diagrams: 12/18/17 02:56 12/18/17 03:30 Objective Remarks: GENERAL: Elderly male, lying in bed on 6L oxygen HEENT: Normocephalic. Atraumatic. Pupils equal, round, reactive, conjugate. Mucous membranes are moist NECK: Trachea is midline. There is significant JVD above the level of the mandible. CHEST: Good air entry bilaterally, scattered rhonchi and crackles on the right. Left-sided pigtail catheter in place. No air leak. CARDIOVASCULAR: Normal rate, regular rhythm. Appears sinus by telemetry. ABDOMEN: Soft, nontender, nondistended. No guarding. MUSCULOSKELETAL: Pulses 2+. 2+ peripheral edema in the lower extremities. NEUROLOGICAL: AAO x3. Follows commands. Assessment and Plan - Assessment and Plan Plan: Active Problems: Acute Congestive Heart Failure Exacerbation, Systolic Type Acute hypoxic respiratory failure bilateral pleural effusion, left > right Acute Type II NSTEMI secondary to demand ischemia Acute kidney injury- severe and worsening, superimposed on top of stage IV CKD Plan by system Neuro: Awake and alert, void sedatives Pulm: Continue with oxygen keep sats >92% Bronchodilators, check CXR - s/p left sided pigtail chest tube - Lasix drip 10mg/hr CV: Monitor HR and BP keep MAP>65mmHg Cards is following- Dr. Nagy. No intervention planned. On ASA 81mg daily, Lipitor 40mg qhs, Hydralazine 12.5mg Q8, Lopressor 25mg Q12 : Monitor renal function, I/O's, avoid, nephrotoxins Renal is following- Dr. Crawford, On Lasix and bicarb drip. Cr: 3.60 GI: On PO diet ID Monitor for signs of infections ( Fever, WBC) On Levaquin monitor for signs of infections ( fever, WBC) Endo: SSI for glycemic control On Synthroid 75ncg daily Heme: Monitor CBC GI prophylaxis- On Protonix DVT prophylaxis with SCD, Heparin SQ Consult palliative care to asses with goals of care Level 3
[2017-12-18] MEDS ORDERED: Insulin NovoLOG Aspart Correctional Sugar Inj SQ SCH (12:00)
--- NOTE | 2017-12-18 12:06 | P.PNCA ---
Subjective Interval history: No events overnight Breathing is ok, stable No chest pain Good urine output overnight Physical Exam Vital signs: Vital Signs 12/17/17 14:59 12/17/17 15:00 12/17/17 17:05 Temperature 98.8 F Pulse Rate 80 92 H Respiratory Rate 18 20 Blood Pressure 125/64 Pulse Oximetry 94 L 95 12/17/17 17:26 12/17/17 19:00 12/17/17 22:01 Temperature 99.5 F Pulse Rate 90 Respiratory Rate 24 Blood Pressure 120/66 Pulse Oximetry 94 L 92 L 95 12/17/17 23:00 12/17/17 23:15 12/18/17 00:32 Temperature 99.5 F Pulse Rate 66 66 76 Respiratory Rate 24 14 Blood Pressure 115/71 Pulse Oximetry 95 12/18/17 03:00 12/18/17 07:00 12/18/17 08:00 Temperature 98.5 F 98.7 F Pulse Rate 78 76 Respiratory Rate 24 18 Blood Pressure 107/53 L 128/57 L Pulse Oximetry 96 97 97 12/18/17 09:42 12/18/17 10:15 12/18/17 11:00 Temperature 98.5 F Pulse Rate 97 H 83 Respiratory Rate 18 18 Blood Pressure 129/58 L Pulse Oximetry 94 L 93 L Intake & Output 12/17/17 12/18/17 12/18/17 18:59 06:59 18:59 Intake Total 800 / 800 1630 / 1630 1150 / 1150 Output Total 1350 / 1350 1810 / 1810 Balance -550 / -550 -180 / -180 1150 / 1150 Weight 65 kg Intake: IV 1150 / 1150 1150 / 1150 Lasix Inj 100 MG In NS Inj 90 100 / 100 100 / 100 ML @ 3 mls/hr IV.CONT .Q24H [facility] Rx#:[id number] Sodium Bicarbonate 8.4% Inj 50 1050 / 1050 1050 / 1050 MEQ In 1/2 Normal Saline Inj 1, 000 ML @ 84 mls/hr IV.CONT . [id number] [facility] Rx#:[id number] Oral 800 / 800 480 / 480 Output: Urine 1200 / 1200 Urine Amount (Catheter) 1750 / 1750 Indwelling Urethral Catheter 1750 / 1750 Chest Tube Drainage 150 / 150 60 / 60 Left Upper Pleural 150 / 150 60 / 60 Other: Date of Last Bowel Movement 12/15/17 12/15/17 Narrative: GENERAL: NAD, AAOx3 SKIN: Warm and dry. HEAD: Atraumatic. Normocephalic. EYES: Pupils equal and round. No scleral icterus. No injection or drainage. ENT: No nasal bleeding or discharge. Mucous membranes pink and moist. NECK: Trachea midline. No JVD. CARDIOVASCULAR: Regular rate and rhythm. RESPIRATORY: Decreased breath sounds bilaterally, mild rales on the left GASTROINTESTINAL: Abdomen soft, non-tender, nondistended. Hepatic and splenic margins not palpable. MUSCULOSKELETAL: Extremities without clubbing, cyanosis, or edema. No obvious deformities. NEUROLOGICAL: Awake and alert. No obvious cranial nerve deficits. Motor grossly within normal limits. Five out of 5 muscle strength in the arms and legs. Normal speech. PSYCHIATRIC: Appropriate mood and affect; insight and judgment normal. - Urinary Catheter Management Indwelling Urethral Catheter Cath placed during this visit: yes Insertion date: 12/16/17 Assessment and Plan - Assessment (1) NSTEMI (non-ST elevated myocardial infarction) Code(s): I21.4 - Non-ST elevation (NSTEMI) myocardial infarction Status: Acute (2) CAD (coronary artery disease) Code(s): I25.10 - Atherosclerotic heart disease of [place] coronary artery without angina pectoris Status: Acute (3) Acute kidney failure Code(s): N17.9 - Acute kidney failure, unspecified Status: Acute (4) CHF exacerbation Code(s): I50.9 - Heart failure, unspecified Status: Acute (5) Systolic CHF, acute on chronic Code(s): I50.23 - Acute on chronic systolic (congestive) heart failure Status : Acute (6) Pleural effusion due to CHF (congestive heart failure) Code(s): I50.9 - Heart failure, unspecified Status: Acute - Plan 1) NSTEMI Probable type 2 Atypical chest pain Heparin drip stopped Unsure of value of elevated troponin to 10? 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 With everything that he's going through, he would like to be treated medically and not taken to the cardiac catheterization technologist to evaluate his coronary anatomy Con't medical management If ischemic evaluation, high risk of hemodialysis 5) All questions from patient and family answered 6) Probable atelectasis Incentive spirometer at bedside with teaching (3) Acute kidney failure Qualifiers: Acute renal failure type: unspecified Qualified Code(s): N17.9 - Acute kidney failure, unspecified (4) CHF exacerbation Qualifiers: Heart failure type: systolic Qualified Code(s): I50.23 - Acute on chronic systolic (congestive) heart failure
--- NOTE | 2017-12-18 12:10 | XR ---
EXAM DATE: 12/18/2017 12:06 PM EDT AGE/SEX: 87 years / Male INDICATIONS: Short of breath. CLINICAL DATA: This is the patient's initial encounter. Patient reports that signs and symptoms have been present for 2 days and indicates a pain score of 0/10. MEDICAL/SURGICAL HISTORY: . Hypercholesterolemia. Diabetes. Myocardial infarction. Hypertension . . CABG. . Carotid endarterectomy. Cardiac catheterization with stents. COMPARISON: [facility] [place], CHEST SINGLE AP, 12/16/2017. . FINDINGS: A left chest pigtail thoracostomy tube is present in the left apex. There has been improvement in aer ation with decrease in confluence of hazy bilateral pleural parenchymal opacities. Cardiac contours a re satisfactory. Sternotomy wires again noted. CONCLUSION: Improving aeration Electronically signed by: Lupillo Xavier MD 12/18/2017 12:08 PM EDT
[2017-12-18] MEDS ORDERED: Dextrose 50% in Water 50 ML Vial IV.PUSH PRN ×2 (12:37→21:32)
[2017-12-18 12:54] LABS: Baso % (Auto) 0.3 % (0.0-2.0); Eos # (Auto) 0.1 th/mm3 (0.0-0.4); Eos % (Auto) 1.5 % (0.0-4.0); Hematocrit 25.2 % (39.0-51.0); Hemoglobin 8.6 gm/dL (13.0-17.0); Lymph # (Auto) 0.5 th/mm3 (1.0-4.8); Lymph % (Auto) 8.4 % (9.0-44.0); Mean Corpuscular Hemoglobin 27.3 pg (27.0-34.0); Mean Corpuscular Volume 80.3 fL (80.0-100.0); Mean Platelet Volume 9.5 fL (7.0-11.0); Mono # (Auto) 0.5 th/mm3 (0.0-0.9); Mono % (Auto) 7.1 % (0.0-8.0); Neut # (Auto) 5.3 th/mm3 (1.8-7.7); Neut % (Auto) 82.7 % (16.0-70.0); Platelet Count 108 th/mm3 (150-450); Red Blood Count 3.13 mil/mm3 (4.50-5.90); Red Cell Distribution Width 17.3 % (11.6-17.2); White Blood Count 6.4 th/mm3 (4.0-11.0)
[2017-12-18 13:46] LABS: Albumin 1.8 g/dL (3.4-5.0); Calcium 6.9 mg/dL (8.5-10.1); Carbon Dioxide 27.1 meq/L (21.0-32.0); Potassium 3.2 meq/L (3.5-5.1); Total Protein 4.7 g/dL (6.4-8.2)
--- NOTE | 2017-12-18 13:52 | P.PNNP ---
Subjective Interval history: Shortness of breath has improved. Creatinine is stable yesterday at 3.6 on lasix gtt labs pending for today. <Marycarmen Zepeda - Last Filed: 12/18/17 13:42> Physical Exam Vital signs: Vital Signs 12/17/17 14:59 12/17/17 15:00 12/17/17 17:05 Temperature 98.8 F Pulse Rate 80 92 H Respiratory Rate 18 20 Blood Pressure 125/64 Pulse Oximetry 94 L 95 12/17/17 17:26 12/17/17 19:00 12/17/17 22:01 Temperature 99.5 F Pulse Rate 90 Respiratory Rate 24 Blood Pressure 120/66 Pulse Oximetry 94 L 92 L 95 12/17/17 23:00 12/17/17 23:15 12/18/17 00:32 Temperature 99.5 F Pulse Rate 66 66 76 Respiratory Rate 24 14 Blood Pressure 115/71 Pulse Oximetry 95 12/18/17 03:00 12/18/17 07:00 12/18/17 08:00 Temperature 98.5 F 98.7 F Pulse Rate 78 76 Respiratory Rate 24 18 Blood Pressure 107/53 L 128/57 L Pulse Oximetry 96 97 97 12/18/17 09:42 12/18/17 10:15 12/18/17 11:00 Temperature 98.5 F Pulse Rate 97 H 83 Respiratory Rate 18 18 Blood Pressure 129/58 L Pulse Oximetry 94 L 93 L Intake & Output 12/17/17 12/18/17 12/18/17 18:59 06:59 18:59 Intake Total 800 / 800 1630 / 1630 1150 / 1150 Output Total 1350 / 1350 1810 / 1810 Balance -550 / -550 -180 / -180 1150 / 1150 Weight 65 kg Intake: IV 1150 / 1150 1150 / 1150 Lasix Inj 100 MG In NS Inj 90 100 / 100 100 / 100 ML @ 3 mls/hr IV.CONT .Q24H [facility] Rx#:[id number] Sodium Bicarbonate 8.4% Inj 50 1050 / 1050 1050 / 1050 MEQ In 1/2 Normal Saline Inj 1, 000 ML @ 84 mls/hr IV.CONT . [id number] [facility] Rx#:[id number] Oral 800 / 800 480 / 480 Output: Urine 1200 / 1200 Urine Amount (Catheter) 1750 / 1750 Indwelling Urethral Catheter 1749 Chest Tube Drainage 150 / 150 60 / 60 Left Upper Pleural 150 / 150 60 / 60 Other: Date of Last Bowel Movement 12/15/17 12/15/17 - Constitutional no acute distress - Routine HEENT Exam Head: Present: normocephalic ENT: Present: mucous membranes moist - Routine Neck Exam Present: supple. Absent: JVD - Routine Respiratory Exam Present: decreased breath sounds. Absent: rales, rhonchi - Routine Cardiovascular Exam Present: RRR - Routine Abdominal Exam Present: soft, normoactive bowel sounds - Routine Skin Exam Present: intact - Routine Neurological Exam Present: alert, oriented X3 - Detailed Neurological Exam: Coma Scale Eye Opening: Spontaneous - Routine Psychiatric Exam Present: normal affect, cooperative - Urinary Catheter Management Indwelling Urethral Catheter Cath placed during this visit: yes Urethral indwelling: Yes Reason for continuing: Hourly intake/output Insertion date: 12/16/17 <Marycarmen Zepeda - Last Filed: 12/18/17 13:42> Vital signs: Vital Signs 12/17/17 14:59 12/17/17 15:00 12/17/17 17:05 Temperature 98.8 F Pulse Rate 80 92 H Respiratory Rate 18 20 Blood Pressure 125/64 Pulse Oximetry 94 L 95 12/17/17 17:26 12/17/17 19:00 12/17/17 22:01 Temperature 99.5 F Pulse Rate 90 Respiratory Rate 24 Blood Pressure 120/66 Pulse Oximetry 94 L 92 L 95 12/17/17 23:00 12/17/17 23:15 12/18/17 00:32 Temperature 99.5 F Pulse Rate 66 66 76 Respiratory Rate 24 14 Blood Pressure 115/71 Pulse Oximetry 95 12/18/17 03:00 12/18/17 07:00 12/18/17 08:00 Temperature 98.5 F 98.7 F Pulse Rate 78 76 Respiratory Rate 24 18 Blood Pressure 107/53 L 128/57 L Pulse Oximetry 96 97 97 12/18/17 09:42 12/18/17 10:15 12/18/17 11:00 Temperature 98.5 F Pulse Rate 97 H 83 Respiratory Rate 18 18 Blood Pressure 129/58 L Pulse Oximetry 94 L 93 L Intake & Output 12/17/17 12/18/17 12/18/17 18:59 06:59 18:59 Intake Total 800 / 800 1630 / 1630 1150 / 1150 Output Total 1350 / 1350 1810 / 1810 Balance -550 / -550 -180 / -180 1150 / 1150 Weight 65 kg Intake: IV 1150 / 1150 1150 / 1150 Lasix Inj 100 MG In NS Inj 90 100 / 100 100 / 100 ML @ 3 mls/hr IV.CONT .Q24H [facility] Rx#:[id number] Sodium Bicarbonate 8.4% Inj 50 1050 / 1050 1050 / 1050 MEQ In 1/2 Normal Saline Inj 1, 000 ML @ 84 mls/hr IV.CONT . [id number] [facility] Rx#:[id number] Oral 800 / 800 480 / 480 Output: Urine 1200 / 1200 Urine Amount (Catheter) 1750 / 1750 Indwelling Urethral Catheter 1750 / 1750 Chest Tube Drainage 150 / 150 60 / 60 Left Upper Pleural 150 / 150 60 / 60 Other: Date of Last Bowel Movement 12/15/17 12/15/17 - Urinary Catheter Management Indwelling Urethral Catheter Cath placed during this visit: no <Shalini Crawford - Last Filed: 12/18/17 14:07> Assessment and Plan - Assessment (1) Acute kidney failure Code(s): N17.9 - Acute kidney failure, unspecified Status: Acute Qualifiers: Acute renal failure type: unspecified Qualified Code(s): N17.9 - Acute kidney failure, unspecified - Plan Acute kidney failure, unspecified; N18.9 - Chronic kidney disease, unspecified Plan: Patient has chronic kidney disease, stage 4. Now has Cardiac ischemia and develop DAVID. Creatinine stable at 3.6 yesterday labs are pending for today. Urine out put 1750ml/24 hours Continue lasix and bicarbonate gtt Avoid nephro toxins Will monitor urinary output and BMP Labs are pending for today <Marycarmen Zepeda - Last Filed: 12/18/17 13:42> - Assessment (1) Acute kidney failure Code(s): N17.9 - Acute kidney failure, unspecified Status: Acute Qualifiers: Acute renal failure type: unspecified Qualified Code(s): N17.9 - Acute kidney failure, unspecified - Attending Attestation Patient seen and examined,a gree with above. Creatinine is better, continue Lasix. <Shalini Crawford - Last Filed: 12/18/17 14:07>
[2017-12-18] MEDS ORDERED: Calcium Gluconate Inj 1 GM in Sodium Chlor 0.9% Inj 100 ML IV.SIG ONE (14:25)
--- NOTE | 2017-12-18 23:00 | P.PNFP ---
Subjective Interval history: feeling well breathing easier chest tube in place Results - Labs Result diagrams: 12/18/17 12:34 12/18/17 12:34 Abnormal lab results 12/18/17 12/18/17 12/18/17 Range/Units 02:56 03:30 12:06 RBC 3.34 L (4.50-5.90) mil/mm3 Hgb 9.0 L (13.0-17.0) gm/dL Hct 27.2 L (39.0-51.0) % RDW (11.6-17.2) % Plt Count 117 L (150-450) th/mm3 Neut % (Auto) 79.4 H (16.0-70.0) % Lymph % (Auto) (9.0-44.0) % Lymph # (Auto) 0.9 L (1.0-4.8) th/mm3 Potassium (3.5-5.1) meq/L BUN 78 H (7-18) mg/dL Creatinine 3.60 H (0.60-1.30) mg/dL Estimated GFR 16 L (>89) mL/min POC Glucose 320 H (68-110) mg/dl Random Glucose 35 L* (74-106) mg/dL Calcium 7.7 L (8.5-10.1) mg/dL Prot Corrected Calcium (8.5-10.1) mg/dL AST 39 H (15-37) U/L Total Protein 5.4 L (6.4-8.2) g/dL Albumin 2.2 L (3.4-5.0) g/dL 12/18/17 12/18/17 12/18/17 Range/Units 12:34 12:34 16:57 RBC 3.13 L (4.50-5.90) mil/mm3 Hgb 8.6 L (13.0-17.0) gm/dL Hct 25.2 L (39.0-51.0) % RDW 17.3 H (11.6-17.2) % Plt Count 108 L (150-450) th/mm3 Neut % (Auto) 82.7 H (16.0-70.0) % Lymph % (Auto) 8.4 L (9.0-44.0) % Lymph # (Auto) 0.5 L (1.0-4.8) th/mm3 Potassium 3.2 L (3.5-5.1) meq/L BUN 72 H (7-18) mg/dL Creatinine 3.10 H (0.60-1.30) mg/dL Estimated GFR 19 L (>89) mL/min POC Glucose 62 L (68-110) mg/dl Random Glucose 149 H D (74-106) mg/dL Calcium 6.9 L* D (8.5-10.1) mg/dL Prot Corrected Calcium 8.2 L (8.5-10.1) mg/dL AST (15-37) U/L Total Protein 4.7 L D (6.4-8.2) g/dL Albumin 1.8 L (3.4-5.0) g/dL 12/18/17 Range/Units 20:51 RBC (4.50-5.90) mil/mm3 Hgb (13.0-17.0) gm/dL Hct (39.0-51.0) % RDW (11.6-17.2) % Plt Count (150-450) th/mm3 Neut % (Auto) (16.0-70.0) % Lymph % (Auto) (9.0-44.0) % Lymph # (Auto) (1.0-4.8) th/mm3 Potassium (3.5-5.1) meq/L BUN (7-18) mg/dL Creatinine (0.60-1.30) mg/dL Estimated GFR (>89) mL/min POC Glucose 171 H (68-110) mg/dl Random Glucose (74-106) mg/dL Calcium (8.5-10.1) mg/dL Prot Corrected Calcium (8.5-10.1) mg/dL AST (15-37) U/L Total Protein (6.4-8.2) g/dL Albumin (3.4-5.0) g/dL Short CBC 18 12/18/17 Range/Units 02:56 12:34 WBC 8.0 6.4 (4.0-11.0) th/mm3 Hgb 9.0 L 8.6 L (13.0-17.0) gm/dL Hct 27.2 L 25.2 L (39.0-51.0) % Plt Count 117 L 108 L (150-450) th/mm3 BMP 12/18/17 12/18/17 03:30 12:34 Sodium 143 136 Potassium 3.6 3.2 L Chloride 107 98 D Carbon Dioxide 22.4 27.1 BUN 78 H 72 H Creatinine 3.60 H 3.10 H Calcium 7.7 L 6.9 L* D Liver Function 12/18/17 12/18/17 Range/Units 03:30 12:34 Total Bilirubin 0.4 0.2 (0.2-1.0) mg/dL AST 39 H 32 (15-37) U/L ALT 31 27 (12-78) U/L Alkaline Phosphatase 57 50 (45-117) U/L Albumin 2.2 L 1.8 L (3.4-5.0) g/dL - Imaging Impressions Chest X-Ray 12/18/17 10:43 CONCLUSION: Improving aeration Physical Exam Vital signs: Vital Signs 12/17/17 23:00 12/17/17 23:15 12/18/17 00:32 Temperature 99.5 F Pulse Rate 66 66 76 Respiratory Rate 24 14 Blood Pressure 115/71 Pulse Oximetry 95 12/18/17 03:00 12/18/17 07:00 12/18/17 08:00 Temperature 98.5 F 98.7 F Pulse Rate 78 76 Respiratory Rate 24 18 Blood Pressure 107/53 L 128/57 L Pulse Oximetry 96 97 97 12/18/17 09:42 12/18/17 10:15 12/18/17 11:00 Temperature 98.5 F Pulse Rate 97 H 83 Respiratory Rate 18 18 Blood Pressure 129/58 L Pulse Oximetry 94 L 93 L 12/18/17 15:00 12/18/17 16:59 12/18/17 17:01 Temperature 98.6 F Pulse Rate 76 78 Respiratory Rate 18 18 Blood Pressure 113/54 L Pulse Oximetry 97 97 12/18/17 19:00 12/18/17 21:54 Temperature 98.6 F Pulse Rate 84 Respiratory Rate 24 Blood Pressure 120/68 Pulse Oximetry 95 96 Intake & Output 12/18/17 12/18/17 12/19/17 06:59 18:59 06:59 Intake Total 1630 / 1630 1750 / 1750 100 / 100 Output Total 1810 / 1810 1600 / 1600 Balance -180 / -180 150 / 150 100 / 100 Weight 65 kg Intake: IV 1150 / 1150 1150 / 1150 100 / 100 Lasix Inj 100 MG In NS Inj 90 100 / 100 100 / 100 100 / 100 ML @ 3 mls/hr IV.CONT .Q24H [facility] Rx#:[id number] Sodium Bicarbonate 8.4% Inj 50 1050 / 1050 1050 / 1050 MEQ In 1/2 Normal Saline Inj 1, 000 ML @ 84 mls/hr IV.CONT . [id number] [facility] Rx#:[id number] Oral 480 / 480 600 / 600 Output: Urine Amount (Catheter) 1750 / 1750 1550 / 1550 Indwelling Urethral Catheter 1750 / 1750 1550 / 1550 Chest Tube Drainage 60 / 60 50 / 50 Left Upper Pleural 60 / 60 50 / 50 Other: Date of Last Bowel Movement 12/15/17 12/18/17 12/18/17 # Bowel Movements 1 - Urinary Catheter Management Indwelling Urethral Catheter Cath placed during this visit: yes Urethral indwelling: Yes Reason for continuing: Hourly intake/output Insertion date: 12/16/17 Assessment and Plan - Assessment (1) Acute kidney failure Code(s): N17.9 - Acute kidney failure, unspecified Status: Acute Plan: Cont IV Lasix and bicarb per Renal. (2) CHF exacerbation Code(s): I50.9 - Heart failure, unspecified Status: Acute Plan: F/U Cards and supervisor [employer] recommendations and support. (3) Systolic CHF, acute on chronic Code(s): I50.23 - Acute on chronic systolic (congestive) heart failure Status : Acute (4) Pleural effusion due to CHF (congestive heart failure) Code(s): I50.9 - Heart failure, unspecified Status: Acute Plan: Chest Tube per [employer]. - Plan Prognosis is guarded but overall he is doing better today. (1) Acute kidney failure Qualifiers: Acute renal failure type: unspecified Qualified Code(s): N17.9 - Acute kidney failure, unspecified (2) CHF exacerbation Qualifiers: Heart failure type: systolic Qualified Code(s): I50.23 - Acute on chronic systolic (congestive) heart failure
[2017-12-19] MEDS: Insulin NovoLOG Aspart Correctional Sugar Inj SQ SCH ×7 (01:32→23:43)
[2017-12-19 06:10] LABS: Baso % (Auto) 0.5 % (0.0-2.0); Eos # (Auto) 0.4 th/mm3 (0.0-0.4); Eos % (Auto) 5.3 % (0.0-4.0); Hemoglobin 9.6 gm/dL (13.0-17.0); Lymph # (Auto) 0.9 th/mm3 (1.0-4.8); Lymph % (Auto) 12.2 % (9.0-44.0); Mean Corpuscular Hemoglobin 26.9 pg (27.0-34.0); Mean Corpuscular Volume 81.3 fL (80.0-100.0); Mean Platelet Volume 10.2 fL (7.0-11.0); Mono # (Auto) 0.7 th/mm3 (0.0-0.9); Mono % (Auto) 9.6 % (0.0-8.0); Neut # (Auto) 5.5 th/mm3 (1.8-7.7); Neut % (Auto) 72.4 % (16.0-70.0); Platelet Count 128 th/mm3 (150-450); Red Blood Count 3.56 mil/mm3 (4.50-5.90); Red Cell Distribution Width 17.3 % (11.6-17.2); White Blood Count 7.6 th/mm3 (4.0-11.0)
[2017-12-19] MEDS: hydrALAZINE 25 MG Tablet PO SCH ×3 (06:16→23:09)
[2017-12-19] MEDS: Levothyroxine 75 MCG Tablet PO SCH (06:16)
[2017-12-19 06:24] LABS: Alanine Aminotransferase 30 U/L (12-78); Albumin 2.1 g/dL (3.4-5.0); Alkaline Phosphatase 55 U/L (45-117); Anion Gap 12 meq/L (5-15); Aspartate Aminotransferase 32 U/L (15-37); Blood Urea Nitrogen 79 mg/dL (7-18); Calcium 7.9 mg/dL (8.5-10.1); Carbon Dioxide 26.6 meq/L (21.0-32.0); Chloride 98 meq/L (98-107); Glomerular Filtration Rate 17 mL/min (>89); Glucose,Random 88 mg/dL (74-106); Potassium 3.6 meq/L (3.5-5.1); Sodium 137 meq/L (136-145); Total Protein 5.3 g/dL (6.4-8.2)
[2017-12-19] MEDS: Furosemide Inj 100 MG in Sodium Chlor 0.9% Inj 90 ML IV.CONT SCH ×2 (07:52→23:09)
--- NOTE | 2017-12-19 08:13 | P.PNFP ---
Subjective Interval history: No complaints Breathing well Denies CP, SOB Results - Labs Result diagrams: 12/19/17 05:20 12/19/17 05:20 Abnormal lab results 12/18/17 12/18/17 12/18/17 Range/Units 12:06 12:34 12:34 RBC 3.13 L (4.50-5.90) mil/mm3 Hgb 8.6 L (13.0-17.0) gm/dL Hct 25.2 L (39.0-51.0) % MCH (27.0-34.0) pg RDW 17.3 H (11.6-17.2) % Plt Count 108 L (150-450) th/mm3 Neut % (Auto) 82.7 H (16.0-70.0) % Lymph % (Auto) 8.4 L (9.0-44.0) % [place] % (Auto) (0.0-8.0) % Eos % (Auto) (0.0-4.0) % Lymph # (Auto) 0.5 L (1.0-4.8) th/mm3 Potassium 3.2 L (3.5-5.1) meq/L BUN 72 H (7-18) mg/dL Creatinine 3.10 H (0.60-1.30) mg/dL Estimated GFR 19 L (>89) mL/min POC Glucose 320 H (68-110) mg/dl Random Glucose 149 H D (74-106) mg/dL Calcium 6.9 L* D (8.5-10.1) mg/dL Prot Corrected Calcium 8.2 L (8.5-10.1) mg/dL Total Protein 4.7 L D (6.4-8.2) g/dL Albumin 1.8 L (3.4-5.0) g/dL 12/18/17 12/18/17 12/19/17 Range/Units 16:57 20:51 05:20 RBC 3.56 L (4.50-5.90) mil/mm3 Hgb 9.6 L (13.0-17.0) gm/dL Hct 29.0 L (39.0-51.0) % MCH 26.9 L (27.0-34.0) pg RDW 17.3 H (11.6-17.2) % Plt Count 128 L (150-450) th/mm3 Neut % (Auto) 72.4 H (16.0-70.0) % Lymph % (Auto) (9.0-44.0) % [place] % (Auto) 9.6 H (0.0-8.0) % Eos % (Auto) 5.3 H (0.0-4.0) % Lymph # (Auto) 0.9 L (1.0-4.8) th/mm3 Potassium (3.5-5.1) meq/L BUN (7-18) mg/dL Creatinine (0.60-1.30) mg/dL Estimated GFR (>89) mL/min POC Glucose 62 L 171 H (68-110) mg/dl Random Glucose (74-106) mg/dL Calcium (8.5-10.1) mg/dL Prot Corrected Calcium (8.5-10.1) mg/dL Total Protein (6.4-8.2) g/dL Albumin (3.4-5.0) g/dL 12/19/17 Range/Units 05:20 RBC (4.50-5.90) mil/mm3 Hgb (13.0-17.0) gm/dL Hct (39.0-51.0) % MCH (27.0-34.0) pg RDW (11.6-17.2) % Plt Count (150-450) th/mm3 Neut % (Auto) (16.0-70.0) % Lymph % (Auto) (9.0-44.0) % [place] % (Auto) (0.0-8.0) % Eos % (Auto) (0.0-4.0) % Lymph # (Auto) (1.0-4.8) th/mm3 Potassium (3.5-5.1) meq/L BUN 79 H (7-18) mg/dL Creatinine 3.43 H (0.60-1.30) mg/dL Estimated GFR 17 L (>89) mL/min POC Glucose (68-110) mg/dl Random Glucose (74-106) mg/dL Calcium 7.9 L D (8.5-10.1) mg/dL Prot Corrected Calcium (8.5-10.1) mg/dL Total Protein 5.3 L D (6.4-8.2) g/dL Albumin 2.1 L (3.4-5.0) g/dL Short CBC 12/18/17 12/19/17 Range/Units 12:34 05:20 WBC 6.4 7.6 (4.0-11.0) th/mm3 Hgb 8.6 L 9.6 L (13.0-17.0) gm/dL Hct 25.2 L 29.0 L (39.0-51.0) % Plt Count 108 L 128 L (150-450) th/mm3 BMP 12/18/17 12/19/17 12:34 05:20 Sodium 136 137 Potassium 3.2 L 3.6 Chloride 98 D 98 Carbon Dioxide 27.1 26.6 BUN 72 H 79 H Creatinine 3.10 H 3.43 H Calcium 6.9 L* D 7.9 L D Liver Function 12/18/17 12/19/17 Range/Units 12:34 05:20 Total Bilirubin 0.2 0.3 (0.2-1.0) mg/dL AST 32 32 (15-37) U/L ALT 27 30 (12-78) U/L Alkaline Phosphatase 50 55 (45-117) U/L Albumin 1.8 L 2.1 L (3.4-5.0) g/dL - Imaging Impressions Chest X-Ray 12/18/17 10:43 CONCLUSION: Improving aeration - Diagnostic results CT scan - chest: image reviewed Physical Exam Vital signs: Vital Signs 12/18/17 09:42 12/18/17 10:15 12/18/17 11:00 Temperature 98.5 F Pulse Rate 97 H 83 Respiratory Rate 18 18 Blood Pressure 129/58 L Pulse Oximetry 94 L 93 L 12/18/17 15:00 12/18/17 16:59 12/18/17 17:01 Temperature 98.6 F Pulse Rate 76 78 Respiratory Rate 18 18 Blood Pressure 113/54 L Pulse Oximetry 97 97 12/18/17 19:00 12/18/17 21:54 12/18/17 23:00 Temperature 98.6 F 98.6 F Pulse Rate 84 65 Respiratory Rate 24 24 Blood Pressure 120/68 114/55 L Pulse Oximetry 95 96 95 12/19/17 03:00 Temperature 98.0 F Pulse Rate 78 Respiratory Rate 24 Blood Pressure 119/65 Pulse Oximetry 95 Intake & Output 12/18/17 12/19/17 12/19/17 18:59 06:59 18:59 Intake Total 1750 / 1750 1490 / 1490 Output Total 1600 / 1600 2014 Balance 150 / 150 -525 / -525 Weight 62 kg Intake: IV 1150 / 1150 1250 / 1250 Lasix Inj 100 MG In NS Inj 90 100 / 100 200 / 200 ML @ 3 mls/hr IV.CONT .Q24H [facility] Rx#:[id number] Sodium Bicarbonate 8.4% Inj 50 1050 / 1050 1050 / 1050 MEQ In 1/2 Normal Saline Inj 1, 000 ML @ 84 mls/hr IV.CONT . [id number] [facility] Rx#:[id number] Oral 600 / 600 240 / 240 Output: Urine Amount (Catheter) 1550 / 1550 1999 Indwelling Urethral Catheter 1550 / 1550 1999 Chest Tube Drainage 50 / 50 15 / 15 Left Upper Pleural 50 / 50 15 / 15 Other: Date of Last Bowel Movement 12/18/17 12/18/17 # Bowel Movements 1 - Constitutional no acute distress, cooperative - Routine HEENT Exam Head: Present: normocephalic Eye: Present: PERRL ENT: Present: oropharynx clear - Routine Respiratory Exam Present: CTA bilaterally (Chest tube to left) - Routine Cardiovascular Exam Present: S1, S2 - Routine Abdominal Exam Present: soft, normoactive bowel sounds - Routine Skin Exam Present: intact - Routine Neurological Exam Present: alert, oriented X3 - Routine Psychiatric Exam Present: cooperative - Urinary Catheter Management Indwelling Urethral Catheter Cath placed during this visit: yes Urethral indwelling: Yes Reason for continuing: Hourly intake/output Insertion date: 12/16/17 Assessment and Plan - Assessment (1) Acute kidney failure Code(s): N17.9 - Acute kidney failure, unspecified Status: Acute Plan: Slight increase in creatinine 3.4 today, renal following (2) CHF exacerbation Code(s): I50.9 - Heart failure, unspecified Status: Acute Plan: F/U Cards and detention sergeant recommendations and support. (3) Systolic CHF, acute on chronic Code(s): I50.23 - Acute on chronic systolic (congestive) heart failure Status : Acute (4) Pleural effusion due to CHF (congestive heart failure) Code(s): I50.9 - Heart failure, unspecified Status: Acute Plan: Chest Tube in place - Plan Prognosis is guarded but overall he is doing better today . (1) Acute kidney failure Qualifiers: Acute renal failure type: unspecified Qualified Code(s): N17.9 - Acute kidney failure, unspecified (2) CHF exacerbation Qualifiers: Heart failure type: systolic Qualified Code(s): I50.23 - Acute on chronic systolic (congestive) heart failure
[2017-12-19] MEDS: Senna/Docusate Sodium 8.6/50 MG Tablet PO SCH ×2 (08:34→20:44)
[2017-12-19] MEDS: Isosorbide Mononitrate 30 MG ER 24HR Tablet (Imdur) PO SCH (08:35)
[2017-12-19] MEDS: Folic Acid 1 MG Tablet PO SCH (08:35)
[2017-12-19] MEDS: Metoprolol Tartrate 50 MG Tablet PO SCH ×2 (08:35→20:43)
--- NOTE | 2017-12-19 10:19 | P.PNCC ---
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 During his hospitalization he had acute onset chest pain with elevated troponins, which is likely type II NSTEMI secondary to demand ischemia from volume overload and acute congestive heart failure exacerbation. He is 7 kg up from admission dry weight. In addition he has increasing oxygen requirement now requiring nonrebreather mask to maintain SPO2 greater than 90%. Additionally, chest x-ray demonstrates worsening bilateral effusions, worse on the left than the right. I discussed case extensively with Dr. Nagy: The patient has organ dysfunction including acute kidney injury which is worsening likely secondary to decreased renal perfusion pressure from rising CVP intravascular volume overload. The patient endorses acute dyspnea. Denies chest pain to me today. Remaining review of systems is negative. Patient is admitted to the CVICU for management of his worsening hypoxemia as well as volume overload and acute CHF exacerbation, systolic type. 12/17: On partial rebreather. States that his breathing appears to be improving since yesterday. Had left-sided pigtail catheter placed on 12/16 with drainage of about 1 L of serous fluid. On Lasix drip as well as bicarb drip. 12/18 Patient is on 6L oxygen, awake and alert on Lasix and bicarb drip. Afebrile. 12/19 No events overnight on 4L oxygen remains on Lasix and Bicarb drip. Cr: 3.43 from 3.10 Objective Vital Signs / I&O: Vital Signs 12/18/17 10:15 12/18/17 11:00 12/18/17 15:00 Temperature 98.5 F 98.6 F Pulse Rate 83 76 Respiratory Rate 18 18 Blood Pressure 129/58 L 113/54 L Pulse Oximetry 94 L 93 L 97 12/18/17 16:59 12/18/17 17:01 12/18/17 19:00 Temperature 98.6 F Pulse Rate 78 84 Respiratory Rate 18 24 Blood Pressure 120/68 Pulse Oximetry 97 95 12/18/17 21:54 12/18/17 23:00 12/19/17 03:00 Temperature 98.6 F 98.0 F Pulse Rate 65 78 Respiratory Rate 24 24 Blood Pressure 114/55 L 119/65 Pulse Oximetry 96 95 95 12/19/17 08:27 Temperature Pulse Rate Respiratory Rate Blood Pressure Pulse Oximetry 97 Intake & Output 12/18/17 12/19/17 12/19/17 18:59 06:59 18:59 Intake Total 1750 / 1750 1490 / 1490 360 / 360 Output Total 1600 / 1600 2014 Balance 150 / 150 -525 / -525 360 / 360 Weight 62 kg Intake: IV 1150 / 1150 1250 / 1250 Lasix Inj 100 MG In NS Inj 90 100 / 100 200 / 200 ML @ 3 mls/hr IV.CONT .Q24H [facility] Rx#:[id number] Sodium Bicarbonate 8.4% Inj 50 1050 / 1050 1050 / 1050 MEQ In 1/2 Normal Saline Inj 1, 000 ML @ 84 mls/hr IV.CONT . [id number] [facility] Rx#:[id number] Oral 600 / 600 240 / 240 360 / 360 Output: Urine Amount (Catheter) 1550 / 1550 1999 Indwelling Urethral Catheter 1550 / 1550 1999 Chest Tube Drainage 50 / 50 15 / 15 Left Upper Pleural 50 / 50 15 / 15 Other: Date of Last Bowel Movement 12/18/17 12/18/17 # Bowel Movements 1 Result Diagrams: 12/19/17 13:47 12/19/17 13:47 Objective Remarks: GENERAL: Elderly male, lying in bed on 4L oxygen HEENT: Normocephalic. Atraumatic. Pupils equal, round, reactive, conjugate. Mucous membranes are moist NECK: Trachea is midline. There is significant JVD above the level of the mandible. CHEST: Good air entry bilaterally, scattered rhonchi and crackles on the right. Left-sided pigtail catheter in place. No air leak. CARDIOVASCULAR: Normal rate, regular rhythm. Appears sinus by telemetry. ABDOMEN: Soft, nontender, nondistended. No guarding. MUSCULOSKELETAL: Pulses 2+. 2+ peripheral edema in the lower extremities. NEUROLOGICAL: AAO x3. Follows commands. Assessment and Plan - Assessment and Plan Plan: Active Problems: Acute Congestive Heart Failure Exacerbation, Systolic Type Acute hypoxic respiratory failure bilateral pleural effusion, left > right Acute Type II NSTEMI secondary to demand ischemia Acute kidney injury- severe and worsening, superimposed on top of stage IV CKD Plan by system Neuro: Awake and alert, void sedatives Pulm: Continue with oxygen keep sats >92% Bronchodilators, - s/p left sided pigtail chest tube -On Lasix drip -CXR yesterday showed improved aeration CV: Monitor HR and BP keep MAP>65mmHg Cards is following- Dr. Nagy. No intervention planned. On ASA 81mg daily, Lipitor 40mg qhs, Hydralazine 12.5mg Q8, Lopressor 25mg Q12, Imdur 30mg daily : Monitor renal function, I/O's, avoid, nephrotoxins Renal is following- Dr. Crawford, On Lasix and bicarb drip. Cr: 3.43 today from 3.10 GI: On PO diet ID On Levaquin, Monitor for signs of infections ( Fever, WBC) Endo: SSI for glycemic control On Synthroid 75ncg daily Heme: Monitor CBC GI prophylaxis- On Protonix DVT prophylaxis with SCD, Heparin SQ Consult palliative care to asses with goals of care Will sign off and transfer care to [facility] Level 2
[2017-12-19] MEDS: Sodium Bicarbonate 8.4% Inj 50 MEQ in Sodium Chloride 0.45 % Inj 1,000 ML IV.CONT SCH ×2 (12:08→21:53)
[2017-12-19] MEDS: levoFLOXacin 500 MG Tablet PO SCH (13:47)
[2017-12-19 15:14] LABS: Baso % (Auto) 0.5 % (0.0-2.0); Eos # (Auto) 0.2 th/mm3 (0.0-0.4); Eos % (Auto) 3.7 % (0.0-4.0); Hematocrit 29.3 % (39.0-51.0); Hemoglobin 9.7 gm/dL (13.0-17.0); Lymph # (Auto) 0.5 th/mm3 (1.0-4.8); Lymph % (Auto) 8.4 % (9.0-44.0); Mean Corpuscular HGB Conc 33.1 % (32.0-36.0); Mean Corpuscular Hemoglobin 27.1 pg (27.0-34.0); Mono # (Auto) 0.6 th/mm3 (0.0-0.9); Mono % (Auto) 8.7 % (0.0-8.0); Neut # (Auto) 5.2 th/mm3 (1.8-7.7); Neut % (Auto) 78.7 % (16.0-70.0); Platelet Count 120 th/mm3 (150-450); Red Blood Count 3.58 mil/mm3 (4.50-5.90); Red Cell Distribution Width 17.2 % (11.6-17.2); White Blood Count 6.6 th/mm3 (4.0-11.0)
[2017-12-19 15:47] LABS: Calcium 7.6 mg/dL (8.5-10.1); Carbon Dioxide 26.8 meq/L (21.0-32.0); Potassium 3.7 meq/L (3.5-5.1)
--- NOTE | 2017-12-19 19:08 | P.PNCA ---
Subjective Interval history: No event overnight O2 down to 4L, looks comfortable Worked with PT today Physical Exam Vital signs: Vital Signs 12/18/17 21:54 12/18/17 23:00 12/19/17 03:00 Temperature 98.6 F 98.0 F Pulse Rate 65 78 Respiratory Rate 24 24 Blood Pressure 114/55 L 119/65 Pulse Oximetry 96 95 95 12/19/17 07:00 12/19/17 08:27 12/19/17 11:00 Temperature 98.5 F 97.2 F L Pulse Rate 79 70 Respiratory Rate 12 16 Blood Pressure 117/54 L 125/66 Pulse Oximetry 97 97 94 L 12/19/17 15:00 12/19/17 16:25 Temperature 98.5 F Pulse Rate 71 65 Respiratory Rate 12 18 Blood Pressure 112/60 Pulse Oximetry 96 Intake & Output 12/19/17 12/19/17 12/20/17 06:59 18:59 06:59 Intake Total 1490 / 1490 1960 / 1960 Output Total 2014 1450 / 1450 Balance -525 / -525 510 / 510 Weight 62 kg Intake: IV 1250 / 1250 1000 / 1000 Lasix Inj 100 MG In NS Inj 90 200 / 200 ML @ 3 mls/hr IV.CONT .Q24H [facility] Rx#:[id number] Sodium Bicarbonate 8.4% Inj 50 1050 / 1050 1000 / 1000 MEQ In 1/2 Normal Saline Inj 1, 000 ML @ 84 mls/hr IV.CONT . [id number] [facility] Rx#:[id number] Oral 240 / 240 960 / 960 Output: Urine Amount (Catheter) 1999 1450 / 1450 Indwelling Urethral Catheter 1999 1450 / 1450 Chest Tube Drainage Left Upper Pleural Other: Date of Last Bowel Movement 12/18/17 12/18/17 - Constitutional no acute distress - Routine HEENT Exam Head: Present: normocephalic, atraumatic Eye: Present: EOMI, PERRL ENT: Present: mucous membranes moist - Routine Neck Exam Present: supple. Absent: JVD - Routine Respiratory Exam Present: rales (Right base). Absent: respiratory distress, rhonchi - Routine Cardiovascular Exam Present: RRR, S1, S2 - Routine Abdominal Exam Present: soft, normoactive bowel sounds. Absent: tenderness - Routine Extremities Exam Absent: cyanosis, clubbing, edema - Routine Skin Exam Present: intact, dry. Absent: cyanosis, erythema - Routine Neurological Exam Present: alert, oriented X3, CN II-XII intact - Routine Psychiatric Exam Present: normal affect - Urinary Catheter Management Indwelling Urethral Catheter Cath placed during this visit: yes Urethral indwelling: Yes Reason for continuing: Other continuation reason Insertion date: 12/16/17 Assessment and Plan - Assessment (1) NSTEMI (non-ST elevated myocardial infarction) Code(s): I21.4 - Non-ST elevation (NSTEMI) myocardial infarction Status: Acute (2) CAD (coronary artery disease) Code(s): I25.10 - Atherosclerotic heart disease of [place] coronary artery without angina pectoris Status: Acute (3) Acute kidney failure Code(s): N17.9 - Acute kidney failure, unspecified Status: Acute (4) CHF exacerbation Code(s): I50.9 - Heart failure, unspecified Status: Acute (5) Systolic CHF, acute on chronic Code(s): I50.23 - Acute on chronic systolic (congestive) heart failure Status : Acute (6) Pleural effusion due to CHF (congestive heart failure) Code(s): I50.9 - Heart failure, unspecified Status: Acute - Plan 1) NSTEMI Probable type 2 Atypical chest pain Heparin drip stopped Unsure of value of elevated troponin to 10? 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 With everything that he's going through, he would like to be treated medically and not taken to the label pinker to evaluate his coronary anatomy Con't medical management If ischemic evaluation, high risk of hemodialysis 5) All questions from patient and family answered 6) Probable atelectasis Incentive spirometer at bedside with teaching 7) Left chest tube with 70cc over shift CXR tomorrow then possible discontinue (3) Acute kidney failure Qualifiers: Acute renal failure type: unspecified Qualified Code(s): N17.9 - Acute kidney failure, unspecified (4) CHF exacerbation Qualifiers: Heart failure type: systolic Qualified Code(s): I50.23 - Acute on chronic systolic (congestive) heart failure
--- NOTE | 2017-12-19 20:32 | P.PN ---
Subjective Interval history: Patient is feeling better, breathing improved. Physical Exam Vital signs: Vital Signs 12/18/17 21:54 12/18/17 23:00 12/19/17 03:00 Temperature 98.6 F 98.0 F Pulse Rate 65 78 Respiratory Rate 24 24 Blood Pressure 114/55 L 119/65 Pulse Oximetry 96 95 95 12/19/17 07:00 12/19/17 08:27 12/19/17 11:00 Temperature 98.5 F 97.2 F L Pulse Rate 79 70 Respiratory Rate 12 16 Blood Pressure 117/54 L 125/66 Pulse Oximetry 97 97 94 L 12/19/17 15:00 12/19/17 16:25 Temperature 98.5 F Pulse Rate 71 65 Respiratory Rate 12 18 Blood Pressure 112/60 Pulse Oximetry 96 Intake & Output 12/19/17 12/19/17 12/20/17 06:59 18:59 06:59 Intake Total 1490 / 1490 1960 / 1960 Output Total 2014 1450 / 1450 Balance -525 / -525 510 / 510 Weight 62 kg Intake: IV 1250 / 1250 1000 / 1000 Lasix Inj 100 MG In NS Inj 90 200 / 200 ML @ 3 mls/hr IV.CONT .Q24H [facility] Rx#:[id number] Sodium Bicarbonate 8.4% Inj 50 1050 / 1050 1000 / 1000 MEQ In 1/2 Normal Saline Inj 1, 000 ML @ 84 mls/hr IV.CONT . [id number] [facility] Rx#:[id number] Oral 240 / 240 960 / 960 Output: Urine Amount (Catheter) 1999 1450 / 1450 Indwelling Urethral Catheter 1999 1450 / 1450 Chest Tube Drainage Left Upper Pleural Other: Date of Last Bowel Movement 12/18/17 12/18/17 - Constitutional mild distress - Routine HEENT Exam Head: Present: normocephalic Eye: Present: EOMI, PERRL - Routine Neck Exam Present: supple, JVD - Routine Respiratory Exam Present: decreased breath sounds, rales, rhonchi, diminished air movement - Routine Cardiovascular Exam Present: S1, S2 - Routine Abdominal Exam Present: soft, normoactive bowel sounds, distended - Routine Extremities Exam Present: edema - Routine Neurological Exam Present: alert, oriented X3 - Detailed Neurological Exam: Coma Scale Verbal Response: Oriented - Urinary Catheter Management Indwelling Urethral Catheter Cath placed during this visit: yes Urethral indwelling: Yes Reason for continuing: Other continuation reason Insertion date: 12/16/17 Results - Labs CBC & Chem 7: 12/19/17 13:47 12/19/17 13:47 Laboratory Results - last 24 hr 12/18/17 12/19/17 12/19/17 20:51 03:10 05:20 WBC 7.6 RBC 3.56 L Hgb 9.6 L Hct 29.0 L MCV 81.3 MCH 26.9 L MCHC 33.0 RDW 17.3 H Plt Count 128 L MPV 10.2 Neut % (Auto) 72.4 H Lymph % (Auto) 12.2 [place] % (Auto) 9.6 H Eos % (Auto) 5.3 H Baso % (Auto) 0.5 Neut # (Auto) 5.5 Lymph # (Auto) 0.9 L [place] # (Auto) 0.7 Eos # (Auto) 0.4 Baso # (Auto) 0.0 WBC Differential . Differential Comment Auto diff final Sodium Potassium Chloride Carbon Dioxide Anion Gap BUN Creatinine Estimated GFR POC Glucose 171 H 70 Random Glucose Calcium Total Bilirubin AST ALT Alkaline Phosphatase Total Protein Albumin 12/19/17 12/19/17 12/19/17 05:20 08:32 11:13 WBC RBC Hgb Hct MCV MCH MCHC RDW Plt Count MPV Neut % (Auto) Lymph % (Auto) [place] % (Auto) Eos % (Auto) Baso % (Auto) Neut # (Auto) Lymph # (Auto) [place] # (Auto) Eos # (Auto) Baso # (Auto) WBC Differential Differential Comment Sodium 137 Potassium 3.6 Chloride 98 Carbon Dioxide 26.6 Anion Gap 12 BUN 79 H Creatinine 3.43 H Estimated GFR 17 L POC Glucose 158 H 346 H Random Glucose 88 Calcium 7.9 L D Total Bilirubin 0.3 AST 32 ALT 30 Alkaline Phosphatase 55 Total Protein 5.3 L D Albumin 2.1 L 12/19/17 12/19/17 12/19/17 13:47 13:47 15:08 WBC 6.6 RBC 3.58 L Hgb 9.7 L Hct 29.3 L MCV 82.0 MCH 27.1 MCHC 33.1 RDW 17.2 Plt Count 120 L MPV 11.0 Neut % (Auto) 78.7 H Lymph % (Auto) 8.4 L [place] % (Auto) 8.7 H Eos % (Auto) 3.7 Baso % (Auto) 0.5 Neut # (Auto) 5.2 Lymph # (Auto) 0.5 L [place] # (Auto) 0.6 Eos # (Auto) 0.2 Baso # (Auto) 0.0 WBC Differential . Differential Comment Auto diff final Sodium 138 Potassium 3.7 Chloride 98 Carbon Dioxide 26.8 Anion Gap 13 BUN 79 H Creatinine 3.51 H Estimated GFR 17 L POC Glucose 274 H Random Glucose 231 H D Calcium 7.6 L Total Bilirubin AST ALT Alkaline Phosphatase Total Protein Albumin Assessment and Plan - Assessment (1) Acute kidney failure Code(s): N17.9 - Acute kidney failure, unspecified Status: Acute - Plan (1) Ischemic cardiomyopathy ICD Codes: I25.5 - Ischemic cardiomyopathy (2) CAD (coronary artery disease) ICD Codes: I25.10 - Atherosclerotic heart disease of [place] coronary artery without angina pectoris (3) Diabetes mellitus type 2 with complications ICD Codes: E11.8 - Type 2 diabetes mellitus with unspecified complications (4) Hypertension ICD Codes: I10 - Essential (primary) hypertension Status: Chronic (5) Elevated troponin ICD Codes: R78.89 - Elevated troponin Status: Acute (6) Acute on chronic kidney failure ICD Codes: N17.9 - Acute kidney failure, unspecified; N18.9 - Chronic kidney disease, unspecified Plan: Patient has chronic kidney disease, stage 4. Now has Cardiac ischemia and develop DAVID. BP is on lower side. Urine out put is low. Has stable Creatinine and metabolic acidosis. K is normalized. On Lasix infusion. Galo's catheter done. Creatinine is now 3.4-3.5. D/C IVF and decrease Lasix gtt. Follow the urine out put and BMP. (1) Acute kidney failure Qualifiers: Acute renal failure type: unspecified Qualified Code(s): N17.9 - Acute kidney failure, unspecified
[2017-12-20 04:26] LABS: Alanine Aminotransferase 36 U/L (12-78); Albumin 1.9 g/dL (3.4-5.0); Alkaline Phosphatase 54 U/L (45-117); Anion Gap 14 meq/L (5-15); Aspartate Aminotransferase 38 U/L (15-37); Blood Urea Nitrogen 82 mg/dL (7-18); Calcium 8.1 mg/dL (8.5-10.1); Carbon Dioxide 26.7 meq/L (21.0-32.0); Chloride 97 meq/L (98-107); Glomerular Filtration Rate 16 mL/min (>89); Glucose,Random 77 mg/dL (74-106); Potassium 3.7 meq/L (3.5-5.1); Sodium 138 meq/L (136-145); Total Protein 5.1 g/dL (6.4-8.2)
[2017-12-20] MEDS: Insulin NovoLOG Aspart Correctional Sugar Inj SQ SCH ×5 (04:33→22:01)
--- NOTE | 2017-12-20 05:25 | XR ---
EXAM DATE: 12/20/2017 4:49 AM EDT AGE/SEX: 87 years / Male INDICATIONS: Follow up pleural effusion. CLINICAL DATA: This is the patient's subsequent encounter. Patient reports that signs and symptoms h ave been present for 3 days and indicates a pain score of 5/10. MEDICAL/SURGICAL HISTORY: None. None. COMPARISON: [facility] [place], CHEST 1V SINGLE AP, 12/18/2017. . FINDINGS: Left pigtail catheter remains projected at the left apex. No evidence of pneumothorax. There is persi stent partially consolidated of airspace opacities in the central and infrahilar lungs bilaterally, s imilar in severity and appearance to prior examination. There is also loss of delineation of the righ t costophrenic angle suggesting associated right pleural effusion. The left hemidiaphragm is well del ineated and there is no blunting of the left costophrenic angle. Prior median sternotomy and CABG. He art size is stable, moderately enlarged. CONCLUSION: Persistent hazy airspace opacities mid and lower lungs and probable associated right pleural effusion . Electronically signed by: Nacho Grider MD 12/20/2017 5:24 AM EDT
[2017-12-20] MEDS: Levothyroxine 75 MCG Tablet PO SCH (05:54)
[2017-12-20] MEDS: hydrALAZINE 25 MG Tablet PO SCH ×2 (05:54→13:38)
[2017-12-20] MEDS: Metoprolol Tartrate 50 MG Tablet PO SCH ×2 (09:09→21:41)
[2017-12-20] MEDS: Folic Acid 1 MG Tablet PO SCH (09:09)
[2017-12-20] MEDS: Isosorbide Mononitrate 30 MG ER 24HR Tablet (Imdur) PO SCH (09:10)
[2017-12-20] MEDS: Senna/Docusate Sodium 8.6/50 MG Tablet PO SCH ×2 (09:14→21:45)
--- NOTE | 2017-12-20 13:34 | P.PNCA ---
Subjective Interval history: Feeling better Oxygen down to 3L No chest pain Physical Exam Vital signs: Vital Signs 12/19/17 15:00 12/19/17 16:25 12/19/17 19:00 Temperature 98.5 F Pulse Rate 71 65 73 Respiratory Rate 12 18 Blood Pressure 112/60 Pulse Oximetry 96 12/19/17 19:21 12/19/17 21:14 12/19/17 23:30 Temperature 98.0 F 98.7 F Pulse Rate 76 64 Respiratory Rate 16 16 Blood Pressure 137/62 111/60 Pulse Oximetry 98 98 98 12/20/17 03:55 12/20/17 07:00 12/20/17 07:59 Temperature 98.6 F 98.5 F Pulse Rate 67 65 66 Respiratory Rate 16 16 18 Blood Pressure 108/57 L 108/53 L Pulse Oximetry 98 93 L 12/20/17 08:00 12/20/17 11:00 Temperature 98.4 F Pulse Rate 70 Respiratory Rate 18 Blood Pressure 124/65 Pulse Oximetry 96 Intake & Output 12/19/17 12/20/17 12/20/17 18:59 06:59 18:59 Intake Total 1960 / 1960 370 / 370 Output Total 1450 / 1450 1400 / 1400 Balance 510 / 510 -1030 / -1030 Intake: IV 1000 / 1000 130 / 130 Lasix Inj 100 MG In NS Inj 90 130 / 130 ML @ 3 mls/hr IV.CONT .Q24H [facility] Rx#:[id number] Sodium Bicarbonate 8.4% Inj 50 1000 / 1000 MEQ In 1/2 Normal Saline Inj 1, 000 ML @ 84 mls/hr IV.CONT . [id number] [facility] Rx#:[id number] Oral 960 / 960 240 / 240 Output: Urine Amount (Catheter) 1450 / 1450 1400 / 1400 Indwelling Urethral Catheter 1450 / 1450 1400 / 1400 Chest Tube Drainage 0 / 0 Left Upper Pleural 0 / 0 Other: Date of Last Bowel Movement 12/18/17 Weight On Admission 66.5 kg - Constitutional no acute distress - Routine HEENT Exam Head: Present: normocephalic, atraumatic Eye: Present: EOMI, PERRL ENT: Present: mucous membranes moist - Routine Neck Exam Present: supple. Absent: JVD, carotid bruit - Routine Respiratory Exam Present: CTA bilaterally, crackles (Right lower lobe). Absent: accessory muscle use - Routine Cardiovascular Exam Present: RRR, S1, S2 - Routine Abdominal Exam Present: soft, normoactive bowel sounds. Absent: tenderness, guarding - Routine Extremities Exam Absent: cyanosis, clubbing, edema - Routine Skin Exam Present: intact. Absent: cyanosis, erythema - Routine Neurological Exam Present: alert, oriented X3, CN II-XII intact - Routine Psychiatric Exam Present: normal affect - Urinary Catheter Management Indwelling Urethral Catheter Cath placed during this visit: yes Urethral indwelling: Yes Reason for continuing: Hourly intake/output Insertion date: 12/16/17 Assessment and Plan - Assessment (1) NSTEMI (non-ST elevated myocardial infarction) Code(s): I21.4 - Non-ST elevation (NSTEMI) myocardial infarction Status: Acute (2) CAD (coronary artery disease) Code(s): I25.10 - Atherosclerotic heart disease of [place] coronary artery without angina pectoris Status: Acute (3) Acute kidney failure Code(s): N17.9 - Acute kidney failure, unspecified Status: Acute (4) CHF exacerbation Code(s): I50.9 - Heart failure, unspecified Status: Acute (5) Systolic CHF, acute on chronic Code(s): I50.23 - Acute on chronic systolic (congestive) heart failure Status : Acute (6) Pleural effusion due to CHF (congestive heart failure) Code(s): I50.9 - Heart failure, unspecified Status: Acute - Plan 1) NSTEMI Probable type 2 Atypical chest pain Heparin drip stopped Unsure of value of elevated troponin to 10? 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 With everything that he's going through, he would like to be treated medically and not taken to the carpenter/labor to evaluate his coronary anatomy Con't medical management If ischemic evaluation, high risk of hemodialysis 5) All questions from patient and family answered 6) Probable atelectasis Incentive spirometer at bedside with teaching 7) Left chest tube with plan to remove today Will see how he does May need right thoracentesis, but has been diuresing well and weights/oxygen demand down (3) Acute kidney failure Qualifiers: Acute renal failure type: unspecified Qualified Code(s): N17.9 - Acute kidney failure, unspecified (4) CHF exacerbation Qualifiers: Heart failure type: systolic Qualified Code(s): I50.23 - Acute on chronic systolic (congestive) heart failure
--- NOTE | 2017-12-20 13:49 | P.PNFP ---
Subjective Interval history: Breathing better, States he is tired of lying in bed Denies Cp, SOB Results - Labs Result diagrams: 12/19/17 13:47 12/20/17 02:24 Abnormal lab results 12/19/17 12/19/17 12/19/17 Range/Units 13:47 13:47 15:08 RBC 3.58 L (4.50-5.90) mil/mm3 Hgb 9.7 L (13.0-17.0) gm/dL Hct 29.3 L (39.0-51.0) % Plt Count 120 L (150-450) th/mm3 Neut % (Auto) 78.7 H (16.0-70.0) % Lymph % (Auto) 8.4 L (9.0-44.0) % [place] % (Auto) 8.7 H (0.0-8.0) % Lymph # (Auto) 0.5 L (1.0-4.8) th/mm3 Chloride (98-107) meq/L BUN 79 H (7-18) mg/dL Creatinine 3.51 H (0.60-1.30) mg/dL Estimated GFR 17 L (>89) mL/min POC Glucose 274 H (68-110) mg/dl Random Glucose 231 H D (74-106) mg/dL Calcium 7.6 L (8.5-10.1) mg/dL AST (15-37) U/L Total Protein (6.4-8.2) g/dL Albumin (3.4-5.0) g/dL 12/19/17 12/19/17 12/20/17 Range/Units 20:37 23:15 02:24 RBC (4.50-5.90) mil/mm3 Hgb (13.0-17.0) gm/dL Hct (39.0-51.0) % Plt Count (150-450) th/mm3 Neut % (Auto) (16.0-70.0) % Lymph % (Auto) (9.0-44.0) % [place] % (Auto) (0.0-8.0) % Lymph # (Auto) (1.0-4.8) th/mm3 Chloride 97 L (98-107) meq/L BUN 82 H (7-18) mg/dL Creatinine 3.52 H (0.60-1.30) mg/dL Estimated GFR 16 L (>89) mL/min POC Glucose 356 H 123 H (68-110) mg/dl Random Glucose (74-106) mg/dL Calcium 8.1 L (8.5-10.1) mg/dL AST 38 H (15-37) U/L Total Protein 5.1 L (6.4-8.2) g/dL Albumin 1.9 L (3.4-5.0) g/dL 12/20/17 12/20/17 Range/Units 07:52 11:53 RBC (4.50-5.90) mil/mm3 Hgb (13.0-17.0) gm/dL Hct (39.0-51.0) % Plt Count (150-450) th/mm3 Neut % (Auto) (16.0-70.0) % Lymph % (Auto) (9.0-44.0) % [place] % (Auto) (0.0-8.0) % Lymph # (Auto) (1.0-4.8) th/mm3 Chloride (98-107) meq/L BUN (7-18) mg/dL Creatinine (0.60-1.30) mg/dL Estimated GFR (>89) mL/min POC Glucose 178 H 235 H (68-110) mg/dl Random Glucose (74-106) mg/dL Calcium (8.5-10.1) mg/dL AST (15-37) U/L Total Protein (6.4-8.2) g/dL Albumin (3.4-5.0) g/dL Short CBC 12/19/17 Range/Units 13:47 WBC 6.6 (4.0-11.0) th/mm3 Hgb 9.7 L (13.0-17.0) gm/dL Hct 29.3 L (39.0-51.0) % Plt Count 120 L (150-450) th/mm3 BMP 12/19/17 12/20/17 13:47 02:24 Sodium 138 138 Potassium 3.7 3.7 Chloride 98 97 L Carbon Dioxide 26.8 26.7 BUN 79 H 82 H Creatinine 3.51 H 3.52 H Calcium 7.6 L 8.1 L Liver Function 12/20/17 Range/Units 02:24 Total Bilirubin 0.3 (0.2-1.0) mg/dL AST 38 H (15-37) U/L ALT 36 (12-78) U/L Alkaline Phosphatase 54 (45-117) U/L Albumin 1.9 L (3.4-5.0) g/dL - Imaging Impressions Chest X-Ray 12/20/17 06:00 CONCLUSION: Persistent hazy airspace opacities mid and lower lungs and probable associated right pleural effusion. Physical Exam Vital signs: Vital Signs 12/19/17 15:00 12/19/17 16:25 12/19/17 19:00 Temperature 98.5 F Pulse Rate 71 65 73 Respiratory Rate 12 18 Blood Pressure 112/60 Pulse Oximetry 96 12/19/17 19:21 12/19/17 21:14 12/19/17 23:30 Temperature 98.0 F 98.7 F Pulse Rate 76 64 Respiratory Rate 16 16 Blood Pressure 137/62 111/60 Pulse Oximetry 98 98 98 12/20/17 03:55 12/20/17 07:00 12/20/17 07:59 Temperature 98.6 F 98.5 F Pulse Rate 67 65 66 Respiratory Rate 16 16 18 Blood Pressure 108/57 L 108/53 L Pulse Oximetry 98 93 L 12/20/17 08:00 12/20/17 11:00 Temperature 98.4 F Pulse Rate 70 Respiratory Rate 18 Blood Pressure 124/65 Pulse Oximetry 96 Intake & Output 12/19/17 12/20/17 12/20/17 18:59 06:59 18:59 Intake Total 1960 / 1960 370 / 370 Output Total 1450 / 1450 1400 / 1400 Balance 510 / 510 -1030 / -1030 Intake: IV 1000 / 1000 130 / 130 Lasix Inj 100 MG In NS Inj 90 130 / 130 ML @ 3 mls/hr IV.CONT .Q24H [facility] Rx#:[id number] Sodium Bicarbonate 8.4% Inj 50 1000 / 1000 MEQ In 1/2 Normal Saline Inj 1, 000 ML @ 84 mls/hr IV.CONT . [id number] [facility] Rx#:[id number] Oral 960 / 960 240 / 240 Output: Urine Amount (Catheter) 1450 / 1450 1400 / 1400 Indwelling Urethral Catheter 1450 / 1450 1400 / 1400 Chest Tube Drainage 0 / 0 Left Upper Pleural 0 / 0 Other: Date of Last Bowel Movement 12/18/17 Weight On Admission 66.5 kg - Constitutional no acute distress, cooperative - Routine HEENT Exam Eye: Present: PERRL - Routine Respiratory Exam Present: CTA bilaterally - Routine Cardiovascular Exam Present: S1, S2 - Routine Abdominal Exam Present: soft, normoactive bowel sounds - Routine Extremities Exam Present: edema (none ) - Routine Skin Exam Present: intact Comments: Left chest wall dressing - Routine Neurological Exam Present: alert, oriented X3 - Routine Psychiatric Exam Present: normal affect, cooperative - Urinary Catheter Management Indwelling Urethral Catheter Cath placed during this visit: yes Urethral indwelling: Yes Reason for continuing: Hourly intake/output Insertion date: 12/16/17 Assessment and Plan - Assessment (1) Acute kidney failure Code(s): N17.9 - Acute kidney failure, unspecified Status: Acute Plan: stage 4 CKD IV lasix IVF renal following (2) CHF exacerbation Code(s): I50.9 - Heart failure, unspecified Status: Acute Plan: F/U Cards and 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 (3) Systolic CHF, acute on chronic Code(s): I50.23 - Acute on chronic systolic (congestive) heart failure Status : Acute Plan: Iv diureses, cardiology following, (4) Pleural effusion due to CHF (congestive heart failure) Code(s): I50.9 - Heart failure, unspecified Status: Acute Plan: Chest Tube in place - Assessment and Plan 12/20/17- Feeling well, no Sob. Chest tube to Left, possible DC today. Cxr shows R pleural effusion. Cardiology following Denies Cp, Iv lasix, running. Creatinine 3.4 today, renal following. (1) Acute kidney failure Qualifiers: Acute renal failure type: unspecified Qualified Code(s): N17.9 - Acute kidney failure, unspecified (2) CHF exacerbation Qualifiers: Heart failure type: systolic Qualified Code(s): I50.23 - Acute on chronic systolic (congestive) heart failure
--- NOTE | 2017-12-20 15:41 | P.PN ---
Subjective Interval history: Patient is alert, breathing is better, not in distress. Physical Exam Vital signs: Vital Signs 12/19/17 16:25 12/19/17 19:00 12/19/17 19:21 Temperature 98.0 F Pulse Rate 65 73 76 Respiratory Rate 18 16 Blood Pressure 137/62 Pulse Oximetry 98 12/19/17 21:14 12/19/17 23:30 12/20/17 03:55 Temperature 98.7 F 98.6 F Pulse Rate 64 67 Respiratory Rate 16 16 Blood Pressure 111/60 108/57 L Pulse Oximetry 98 98 98 12/20/17 07:00 12/20/17 07:59 12/20/17 08:00 Temperature 98.5 F Pulse Rate 65 66 Respiratory Rate 16 18 Blood Pressure 108/53 L Pulse Oximetry 93 L 96 12/20/17 11:00 12/20/17 15:00 Temperature 98.4 F 98.6 F Pulse Rate 70 66 Respiratory Rate 18 18 Blood Pressure 124/65 126/60 Pulse Oximetry Intake & Output 12/19/17 12/20/17 12/20/17 18:59 06:59 18:59 Intake Total 1960 / 1960 370 / 370 Output Total 1450 / 1450 1400 / 1400 Balance 510 / 510 -1030 / -1030 Intake: IV 1000 / 1000 130 / 130 Lasix Inj 100 MG In NS Inj 90 130 / 130 ML @ 3 mls/hr IV.CONT .Q24H [facility] Rx#:[id number] Sodium Bicarbonate 8.4% Inj 50 1000 / 1000 MEQ In 1/2 Normal Saline Inj 1, 000 ML @ 84 mls/hr IV.CONT . [id number] [facility] Rx#:[id number] Oral 960 / 960 240 / 240 Output: Urine Amount (Catheter) 1450 / 1450 1400 / 1400 Indwelling Urethral Catheter 1450 / 1450 1400 / 1400 Chest Tube Drainage 0 / 0 Left Upper Pleural 0 / 0 Other: Date of Last Bowel Movement 12/18/17 Weight On Admission 66.5 kg - Constitutional mild distress - Routine HEENT Exam Head: Present: normocephalic - Routine Neck Exam Present: supple, full ROM, JVD - Routine Respiratory Exam Present: decreased breath sounds, rhonchi, wheezes, crackles - Routine Cardiovascular Exam Present: S1, S2, irregularly irregular - Routine Abdominal Exam Present: soft, normoactive bowel sounds, distended - Routine Extremities Exam Present: edema - Routine Neurological Exam Present: alert, oriented X3 - Detailed Neurological Exam: Coma Scale Eye Opening: Spontaneous Verbal Response: Oriented - Urinary Catheter Management Indwelling Urethral Catheter Cath placed during this visit: yes Urethral indwelling: Yes Reason for continuing: Hourly intake/output Insertion date: 12/16/17 Results - Labs CBC & Chem 7: 12/19/17 13:47 12/20/17 02:24 Laboratory Results - last 24 hr 12/19/17 12/19/17 12/19/17 13:47 20:37 23:15 Sodium 138 Potassium 3.7 Chloride 98 Carbon Dioxide 26.8 Anion Gap 13 BUN 79 H Creatinine 3.51 H Estimated GFR 17 L POC Glucose 356 H 123 H Random Glucose 231 H D Calcium 7.6 L Total Bilirubin AST ALT Alkaline Phosphatase Total Protein Albumin 12/20/17 12/20/17 12/20/17 02:24 07:52 11:53 Sodium 138 Potassium 3.7 Chloride 97 L Carbon Dioxide 26.7 Anion Gap 14 BUN 82 H Creatinine 3.52 H Estimated GFR 16 L POC Glucose 178 H 235 H Random Glucose 77 D Calcium 8.1 L Total Bilirubin 0.3 AST 38 H ALT 36 Alkaline Phosphatase 54 Total Protein 5.1 L Albumin 1.9 L - Imaging Impressions Chest X-Ray 12/20/17 06:00 CONCLUSION: Persistent hazy airspace opacities mid and lower lungs and probable associated right pleural effusion. Assessment and Plan - Assessment (1) Acute kidney failure Code(s): N17.9 - Acute kidney failure, unspecified Status: Acute - Plan (1) Ischemic cardiomyopathy ICD Codes: I25.5 - Ischemic cardiomyopathy (2) CAD (coronary artery disease) ICD Codes: I25.10 - Atherosclerotic heart disease of [place] coronary artery without angina pectoris (3) Diabetes mellitus type 2 with complications ICD Codes: E11.8 - Type 2 diabetes mellitus with unspecified complications (4) Hypertension ICD Codes: I10 - Essential (primary) hypertension Status: Chronic (5) Elevated troponin ICD Codes: R78.89 - Elevated troponin Status: Acute (6) Acute on chronic kidney failure ICD Codes: N17.9 - Acute kidney failure, unspecified; N18.9 - Chronic kidney disease, unspecified Plan: Patient has chronic kidney disease, stage 4. Now has Cardiac ischemia and develop DAVID. BP is on lower side. Urine out put is low. Has stable Creatinine and metabolic acidosis. K is normalized. On Lasix infusion. Galo's catheter done. Creatinine is stable at 3.4-3.5. D/C IVF and Lasix gtt. Lasix 40 mg IV BID. Follow the urine out put and BMP. (1) Acute kidney failure Qualifiers: Acute renal failure type: unspecified Qualified Code(s): N17.9 - Acute kidney failure, unspecified
[2017-12-21] MEDS: hydrALAZINE 25 MG Tablet PO SCH ×4 (00:30→21:14)
[2017-12-21 04:57] LABS: Albumin 1.9 g/dL (3.4-5.0); Anion Gap 14 meq/L (5-15); Aspartate Aminotransferase 47 U/L (15-37); Blood Urea Nitrogen 82 mg/dL (7-18); Calcium 8.6 mg/dL (8.5-10.1); Chloride 95 meq/L (98-107); Glomerular Filtration Rate 16 mL/min (>89); Glucose,Random 88 mg/dL (74-106); Potassium 3.4 meq/L (3.5-5.1); Sodium 138 meq/L (136-145)
[2017-12-21 04:59] LABS: Alanine Aminotransferase 41 U/L (12-78)
[2017-12-21 05:01] LABS: Alkaline Phosphatase 54 U/L (45-117); Total Protein 5.3 g/dL (6.4-8.2)
--- NOTE | 2017-12-21 06:02 | XR ---
EXAM DATE: 12/21/2017 5:15 AM EDT AGE/SEX: 87 years / Male INDICATIONS: Short of breath. CLINICAL DATA: This is the patient's subsequent encounter. Patient reports that signs and symptoms h ave been present for 1 week and indicates a pain score of 0/10. MEDICAL/SURGICAL HISTORY: None. CABG. COMPARISON: [facility], CHEST 1V SINGLE AP, 12/20/2017. . FINDINGS: Interval removal of left chest catheter. No residual pneumothorax. Improved infiltrates in the left l ower lung. Persistent hazy infiltrates in the right central and lower lung, slightly improved. Both h emidiaphragms remain delineated. Heart is normal size. CONCLUSION: No evidence of pneumothorax status post removal right chest catheter. Improving left lower lung infil trates and persistent right lower lung infiltrates. Electronically signed by: Nacho Grider MD 12/21/2017 6:01 AM EDT
[2017-12-21] MEDS: Insulin NovoLOG Aspart Correctional Sugar Inj SQ SCH ×6 (07:22→22:04)
[2017-12-21] MEDS: Levothyroxine 75 MCG Tablet PO SCH (07:25)
[2017-12-21] MEDS: Isosorbide Mononitrate 30 MG ER 24HR Tablet (Imdur) PO SCH (08:39)
[2017-12-21] MEDS: Folic Acid 1 MG Tablet PO SCH (08:39)
[2017-12-21] MEDS: Senna/Docusate Sodium 8.6/50 MG Tablet PO SCH ×2 (08:39→21:14)
[2017-12-21] MEDS: Metoprolol Tartrate 50 MG Tablet PO SCH ×2 (08:40→21:14)
--- NOTE | 2017-12-21 09:00 | P.PNFP ---
Subjective Interval history: Feels good, Breathing well IVF, lasix drip DC Chest Tube Dc Results - Labs Result diagrams: 12/19/17 13:47 12/21/17 03:20 Abnormal lab results 12/20/17 12/20/17 12/20/17 Range/Units 11:53 15:40 21:50 Potassium (3.5-5.1) meq/L Chloride (98-107) meq/L BUN (7-18) mg/dL Creatinine (0.60-1.30) mg/dL Estimated GFR (>89) mL/min POC Glucose 235 H 141 H 293 H (68-110) mg/dl AST (15-37) U/L Total Protein (6.4-8.2) g/dL Albumin (3.4-5.0) g/dL 12/21/17 12/21/17 12/21/17 Range/Units 00:25 03:20 04:00 Potassium 3.4 L (3.5-5.1) meq/L Chloride 95 L (98-107) meq/L BUN 82 H (7-18) mg/dL Creatinine 3.70 H (0.60-1.30) mg/dL Estimated GFR 16 L (>89) mL/min POC Glucose 152 H 153 H (68-110) mg/dl AST 47 H (15-37) U/L Total Protein 5.3 L (6.4-8.2) g/dL Albumin 1.9 L (3.4-5.0) g/dL 12/21/17 Range/Units 07:54 Potassium (3.5-5.1) meq/L Chloride (98-107) meq/L BUN (7-18) mg/dL Creatinine (0.60-1.30) mg/dL Estimated GFR (>89) mL/min POC Glucose 125 H (68-110) mg/dl AST (15-37) U/L Total Protein (6.4-8.2) g/dL Albumin (3.4-5.0) g/dL BMP 12/21/17 03:20 Sodium 138 Potassium 3.4 L Chloride 95 L Carbon Dioxide 29.0 BUN 82 H Creatinine 3.70 H Calcium 8.6 Liver Function 12/21/17 Range/Units 03:20 Total Bilirubin 0.3 (0.2-1.0) mg/dL AST 47 H (15-37) U/L ALT 41 (12-78) U/L Alkaline Phosphatase 54 (45-117) U/L Albumin 1.9 L (3.4-5.0) g/dL - Imaging Impressions Chest X-Ray 12/21/17 05:00 CONCLUSION: No evidence of pneumothorax status post removal right chest catheter. Improving left lower lung infiltrates and persistent right lower lung infiltrates. Physical Exam Vital signs: Vital Signs 12/20/17 11:00 12/20/17 15:00 12/20/17 16:12 Temperature 98.4 F 98.6 F Pulse Rate 70 66 72 Respiratory Rate 18 18 18 Blood Pressure 124/65 126/60 Pulse Oximetry 12/20/17 19:00 12/20/17 20:00 12/20/17 21:08 Temperature 98.4 F Pulse Rate 78 Respiratory Rate 16 Blood Pressure 131/51 L Pulse Oximetry 97 94 L 96 12/20/17 23:00 12/20/17 23:36 12/21/17 03:00 Temperature 98.6 F 98.6 F Pulse Rate 60 60 50 L Respiratory Rate 16 12 16 Blood Pressure 110/54 L 113/51 L Pulse Oximetry 93 L 93 L 12/21/17 07:00 12/21/17 08:00 12/21/17 08:10 Temperature 97.5 F L Pulse Rate 62 61 Respiratory Rate 18 15 Blood Pressure 108/58 L Pulse Oximetry 91 L 97 97 12/21/17 08:16 12/21/17 08:42 Temperature 97.5 F L Pulse Rate 62 69 Respiratory Rate 18 Blood Pressure 108/58 L 151/65 H Pulse Oximetry 97 Intake & Output 12/20/17 12/21/17 12/21/17 18:59 06:59 18:59 Intake Total 1100 / 1100 240 / 240 Output Total 1300 / 1300 1375 / 1375 Balance -200 / -200 -1135 / -1135 Weight 64 kg Intake: IV Lasix Inj 100 MG In NS Inj 90 ML @ 3 mls/hr IV.CONT .Q24H [facility] Rx#:[id number] Oral 1100 / 1100 240 / 240 Output: Urine Amount (Catheter) 1300 / 1300 1375 / 1375 Indwelling Urethral Catheter 1300 / 1300 1375 / 1375 Other: Date of Last Bowel Movement 12/18/17 12/18/17 - Constitutional no acute distress - Routine HEENT Exam Head: Present: normocephalic Eye: Present: PERRL - Routine Neck Exam Present: supple - Routine Respiratory Exam Present: CTA bilaterally - Routine Cardiovascular Exam Present: RRR, S1, S2 - Routine Abdominal Exam Present: soft, normoactive bowel sounds - Routine Extremities Exam Present: edema (without) - Routine Skin Exam Present: intact - Routine Neurological Exam Present: alert, oriented X3 - Routine Psychiatric Exam Present: normal affect, cooperative - Urinary Catheter Management Indwelling Urethral Catheter Cath placed during this visit: yes Urethral indwelling: Yes Reason for continuing: Hourly intake/output Insertion date: 12/16/17 Assessment and Plan - Assessment (1) Acute kidney failure Code(s): N17.9 - Acute kidney failure, unspecified Status: Acute Plan: stage 4 CKD IV lasix IVF, DC renal following (2) CHF exacerbation Code(s): I50.9 - Heart failure, unspecified Status: Acute Plan: F/U Cards and can runner recommendations and support. (3) Systolic CHF, acute on chronic Code(s): I50.23 - Acute on chronic systolic (congestive) heart failure Status : Acute Plan: Cont cardiac medications, Follow Rec's (4) Pleural effusion due to CHF (congestive heart failure) Code(s): I50.9 - Heart failure, unspecified Status: Acute Plan: Chest tube DC, breathing better No evidence of pneumothorax persistent right lower lung infiltrates. - Assessment and Plan Transfer to medical floor, Pt activity (1) Acute kidney failure Qualifiers: Acute renal failure type: unspecified Qualified Code(s): N17.9 - Acute kidney failure, unspecified (2) CHF exacerbation Qualifiers: Heart failure type: systolic Qualified Code(s): I50.23 - Acute on chronic systolic (congestive) heart failure
[2017-12-21] MEDS: levoFLOXacin 500 MG Tablet PO SCH (14:02)
--- NOTE | 2017-12-21 15:49 | P.CONPAL ---
Consult Service: Palliative Care Requesting Physician: Nicolasa Fisher Reason for Consult: a. To assist with evaluation and management of symptoms including: Dyspnea, chest pain b. To assist medical decision maker(s) with: better understanding of current medical conditions; weighing benefits/burdens of medical treatment options; making medical treatment decisions. Primary Care Provider: Unknown History of Present Illness History of Present Illness: This is a very pleasant 87-year-old male who was initially admitted to [facility] December 04, 2017 with a complaint of progressive weakness particularly affecting lower extremities and bowel and bladder. He had suffered frequent falls when he had previously been able to ambulate with a walker without any difficulty. He stated his feet would not follow his brains directions. He was having some intermittent stool incontinence as well as some chronic urinary incontinence. He had chronic right foot drop for which he wore an ASO brace. Imaging workup was completed with MRI imaging of cervical, thoracic and lumbar spine. Cervical spine showed multilevel degenerative spondylosis significant from 3-4-6-7 with no abnormal cervical cord signal. Thoracic spine demonstrated mild disc changes in the midthoracic spine without stenosis in the lumbar spine imaging demonstrated mild disc bulge at L4-5 with mild disc bulge and osteophytic ridging at L5-S1 abutting the left S1 nerve root at the lateral recess level, neural foraminal narrowing of right L4-L5 level and bilaterally at the L5-S1 left greater than right with facet hypertrophy throughout. He was seen by neurosurgery and felt to possibly have cauda equina syndrome and was subsequently discharged to [facility] for physical therapy. He was also seen by nephrology due to acute on chronic renal insufficiency. During rehab he started noticing pain across to his shoulder blades, similar to his previous angina, which occurred with activity, sharp, intermittent duration , resolving with rest, and an EKG showed sinus rhythm with a right bundle branch block and slightly more prominent ST-T-wave depressions anterolaterally compared to his previous one. Troponin was drawn and found to be elevated at 5.12 and cardiology was subsequently consulted. He was transferred back to [facility] secondary to [place]. Patient does have a past medical history of coronary artery disease and is status post coronary artery bypass grafting in 2007 with HAYWOOD to LAD, SVG to OM and RCA. He subsequently underwent cardiac catheterization in 2010 showing a left main 99%, proximal LAD 100%, left circumflex 80%, proximal RCA 100%, SVG to OM 100%, HAYWOOD to LAD patent, SVG to RCA patent. He underwent PCI of the left main and the left circumflex with a Xience drug-eluting stent (3.5 x 12) which was increased to 4.0. He has followed with Dr. Tony since that time for chronic medical therapy. 2D echocardiogram done 12/16/2017 showed severely reduced estimated ejection fraction in the range of 30-35% with global left ventricular dysfunction, akinetic mid anterior wall motion, moderate mitral valve regurgitation, mild tricuspid valve regurgitation estimated mild pulmonary hypertension 40-50 mmHg and bilateral moderate pleural effusions. The insurance verification representative service was consulted 12/16 and a left-sided pigtail chest tube catheter was placed with increase in Lasix drip and aggressive electrolyte replacement. Heparin was discontinued as NSTEMI was felt to be type II and not type I, to decrease bleeding risk with the impending chest tube procedures. Left chest tube was discontinued 12/20 after draining a total of 1205 mL. At this evaluation patient is sitting up in a chair with no complaint of dyspnea, however decrease in oxygen saturation is noted during conversation. At rest he is saturating in the high 90 percentile and during conversation saturation drops into the 92/93% range on 4 L nasal cannula. He is not visibly dyspneic during conversation. He has not yet been up walking and has not been able to evaluate his dyspnea during activity. The nurse states that he was short of breath during the transfer from bed to recliner but has been able to sit up in the recliner for a few hours. . Function/Cognitive Trajectory: He was initially admitted with progressive lower extremity weakness and inability to walk independently. He states that he had difficulty participating in [facility], calling it "torture" due to the rigorous activity. Physical therapy at [facility] had evaluated him and found him a minimum to moderate assistance with poor balance and Occupational Therapy also engaged him at a minimum to maximal assist for ADLs depending on the task. His extended hospitalization has likely increased his weakness and it is his plan to go to the [facility] and rehab for short-term physical therapy prior to returning to his home. While he lives alone, he states that his son lives in [facility] and is available to provide him some assistance if needed. 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 He states that he is amenable to considering hospice services once he returns home for the benefit of additional medical oversight and the availability of the care center as he does not wish to return to the hospital for recurrent illness. This will be revisited after he has had time to consider that option to see if he would like an information only consultation with hospice during his admission to evaluate their services and see if it were an option he wished to pursue after he completed rehab. . Review of Systems Constitutional: Reports fatigue, Reports lack of energy, Reports weakness, Denies anorexia, Denies body ache(s), Denies chills, Denies daytime sleepiness, Denies excessive sweating, Denies fever(s), Denies headache(s), Denies increased appetite, Denies malaise, Denies night sweats, Denies weight gain, Denies weight loss, Denies other Eyes: Denies blind spots, Denies blurry vision, Denies bulging eyes, Denies change in vision, Denies double vision, Denies discharge, Denies dry eyes, Denies floaters, Denies irritation, Denies itchy eyes, Denies loss of vision, Denies pain, Denies requires corrective lenses, Denies sensitivity to light, Denies other Ears, Nose, Mouth, and Throat: Denies abnormal hearing, Denies bleeding gums, Denies bad breath, Denies change in voice, Denies dental pain, Denies difficulty swallowing, Denies dizziness, Denies dry mouth, Denies ear discharge , Denies ear pain, Denies facial pain, Denies headache(s), Denies hearing loss, Denies hoarseness, Denies lip swelling, Denies nosebleed, Denies mouth lesions, Denies mouth pain, Denies nasal congestion, Denies nasal discharge, Denies nasal obstruction, Denies nasal trauma, Denies neck lump, Denies neck pain, Denies nose pain, Denies pain with swallowing, Denies poor balance, Denies post nasal drip, Denies ringing in the ears, Denies sinus pain, Denies sinus pressure , Denies sore throat, Denies throat swelling, Denies tongue swelling, Denies other Cardiovascular: Reports chest pain, Reports shortness of breath with activity, Denies chest pain at rest, Denies chest pain with activity, Denies excessive sweating, Denies fainting, Denies fast heart rate, Denies foot swelling, Denies generalized swelling, Denies irregular heart rhythm, Denies leg pain with activity, Denies leg sores, Denies leg swelling, Denies lightheadedness, Denies radiating jaw, neck or arm pain, Denies rapid, pounding, or irregular heartbeat , Denies shortness of breath, Denies shortness of breath when lying down, Denies shortness of breath causing sudden awakening, Denies slow heart rate, Denies other Respiratory: Reports shortness of breath, Denies change in phlegm color, Denies chest congestion, Denies cough, Denies coughing up blood, Denies excessive phlegm production, Denies pain on inspiration, Denies pain with cough, Denies shortness of breath with activity, Denies snoring, Denies stridor, Denies wheezing, Denies other Gastrointestinal: Reports incontinent of stools, Denies abdominal pain, Denies belching, Denies black, tarry stools, Denies bloating, Denies bright, red blood in stools, Denies change in bowel habits, Denies constant urge to pass stool, Denies change in stools, Denies coffee ground vomit, Denies constipation, Denies cramping, Denies difficulty swallowing, Denies excessive passing of gas, Denies feeling full early, Denies heartburn, Denies loose stools, Denies nausea , Denies pain with swallowing, Denies vomiting, Denies vomiting blood, Denies other Genitourinary: Reports urinary incontinence, Denies blood in semen, Denies blood in urine, Denies decreased urination, Denies difficulty urinating, Denies difficulty with ejaculations, Denies erectile dysfunction, Denies genital lesions, Denies genital pain, Denies painful urination, Denies side pain, Denies frequent nighttime urination, Denies painful ejaculations, Denies penile discharge, Denies scrotal swelling, Denies testicle lump, Denies testicle pain, Denies urinary frequency, Denies urinary hesitancy, Denies urinary urgency, Denies other Musculoskeletal: Reports muscle weakness, Denies abnormal walking, Denies back pain, Denies body aches, Denies decreased muscle mass, Denies deformity, Denies joint pain, Denies joint swelling, Denies limited joint movement, Denies loss of height, Denies muscle cramps, Denies neck pain, Denies numbness, Denies radiating pain into limb, Denies stiffness, Denies tingling, Denies other Skin/Breast: Denies acne, Denies bleeding lesions, Denies boil, Denies breast swelling, Denies breast skin changes, Denies breast pain, Denies breast lump, Denies change in breast shape, Denies change in hair, Denies change in skin color, Denies changing lesions, Denies dry skin, Denies excessive hair growth, Denies hair loss, Denies itching, Denies lesions, Denies nail changes, Denies new lesions, Denies nipple discharge, Denies non-healing lesions, Denies redness , Denies sensitivity to light, Denies rash, Denies skin pain, Denies skin ulcer , Denies sores, Denies stretch duran, Denies unusual bruising, Denies wounds, Denies yellowing of the skin, Denies other Neurologic: Denies abnormal hearing, Denies abnormal movements, Denies abnormal speech, Denies abnormal walking, Denies behavioral changes, Denies burning sensations, Denies confusion, Denies dizziness, Denies fainting, Denies frequent falls, Denies headache(s), Denies lack of coordination, Denies localized weakness, Denies loss of vision, Denies memory loss, Denies numbness, Denies other visual disturbances, Denies radiating pain, Denies restless legs, Denies convulsions, Denies seizure-like activity, Denies sensory deficit, Denies tingling, Denies tingling/numbness/burning sensations, Denies tremor(s), Denies unsteadiness, Denies weakness, Denies other Psychiatric: Denies abnormal sleep pattern, Denies anxiety, Denies behavioral changes, Denies change in appetite, Denies change in sex drive, Denies confusion , Denies depression, Denies difficulty concentrating, Denies hearing things others do not hear, Denies hopelessness, Denies irritability, Denies lack of enjoyment, Denies memory loss, Denies mood swings, Denies panic attacks, Denies paranoia, Denies seeing things others do not see, Denies sensing things others do not sense, Denies tactile hallucinations, Denies thoughts of hurting/killing others, Denies thoughts of hurting/killing yourself, Denies other Endocrine: Denies cold intolerance, Denies excessive sweating, Denies flushing, Denies heat intolerance, Denies increased hunger, Denies increased thirst, Denies increased urination, Denies rapid, pounding, or irregular heartbeat, Denies other Hematologic/Lymphatic: Denies easy bleeding, Denies easy bruising, Denies enlarged lymph nodes, Denies other Allergic/Immunologic: Denies GI upset with certain foods, Denies hives, Denies itchy eyes, Denies lip swelling, Denies seasonal runny nose, Denies throat swelling, Denies tongue swelling, Denies wheezing, Denies other PMFSH - Medical History Medical History: Medical History (Last Updated 12/21/17 @ 16:48 by ISHA Salgado) Diabetes mellitus (Acute) Hyperlipidemia (Acute) Hypothyroidism (Acute) Hypertension (Acute) Chronic kidney disease (Acute) Cataract Coronary artery disease Coronary artery disease involving coronary bypass graft Normal colonoscopy - Surgical History Surgical History: Surgical History (Last Updated 12/21/17 @ 16:48 by ISHA Salgado) H/O cardiac catheterization H/O hernia repair H/O vasectomy History of ureter stent - Family History Family History: Family History (Last Updated 12/21/17 @ 16:49 by ISHA Salgado) Father Natural with unknown cause Mother Natural with unknown cause - Tobacco History Second Hand Smoke Exposure: No Tobacco Use In Past 30 Days: No Smoking Status: Never smoker - Alcohol History How Often Do You Have a Drink Containing Alcohol: Never - Substance Use History Substance History: No History of Abuse - Travel History History of Recent Travel: No Recent Travel in the [place] Within the Last 8 Weeks: No Recent Travel Out of the Country Within the Last 8 Weeks: No Medications and Allergies Active Medications: Active Medications Al Hydroxide/Mg Hydroxide (Milk Of Magnsusan Liq) 30 ml PO Q12H PRN PRN Reason: MILD CONSTIPATION Aspirin (Aspirin Chew) 81 mg CHEW DAILY [facility] Last Admin: 12/21/17 08:39 Dose: 81 mg Atorvastatin Calcium (Lipitor) 40 mg PO DAILY [facility] Last Admin: 12/21/17 08:40 Dose: 40 mg Bisacodyl (Dulcolax Supp) 10 mg RECTAL DAILY PRN PRN Reason: SEVERE CONSITIPATION Dextrose (D50w Vial) 50 ml IV.PUSH UNSCH PRN PRN Reason: PER HYPOGLYCEMIA PROTOCOL Folic Acid (Folic Acid) 1 mg PO DAILY [facility] Last Admin: 12/21/17 08:39 Dose: 1 mg Furosemide (Lasix Inj) 40 mg IV.PUSH BID@0900,1800 [facility] Last Admin: 12/21/17 10:34 Dose: 40 mg Glucagon (Glucagon Inj) 1 mg OTHER PRN PRN PRN Reason: for Hypoglycemia Protocol Heparin Sodium (Porcine) (Heparin Inj) 2,500 units IV.PUSH UNSCH PRN PRN Reason: aPTT 25-39 Heparin Sodium (Porcine) (Heparin Inj) 5,000 units IV.PUSH UNSCH PRN PRN Reason: aPTT < 25 Hydralazine HCl (Apresoline) 12.5 mg PO Q8HR [facility] Last Admin: 12/21/17 13:59 Dose: Not Given Heparin Sodium/Dextrose (Heparin/D5w 25,000 U/250 Ml) 25,000 unit in 250 mls @ 0 mls/hr IV.CONT TITRATE PRN; Protocol PRN Reason: Per Protocol Insulin Aspart (Novolog Insulin Suppl Scale Inj) 0 unit SQ Q4HR [facility]; Protocol Last Admin: 12/21/17 12:31 Dose: 5 unit Ipratropium [place] (Atrovent Neb) 0.5 mg NEB Q8HR NEB [facility] Last Admin: 12/21/17 08:09 Dose: 0.5 mg Isosorbide Mononitrate (Imdur) 30 mg PO DAILY [facility] Last Admin: 12/21/17 08:39 Dose: 30 mg Lactulose (Lactulose Liq) 30 ml PO DAILY PRN PRN Reason: SEVERE CONSITIPATION Levofloxacin (Levaquin) 500 mg PO Q48H [facility] Last Admin: 12/21/17 14:02 Dose: 500 mg Levothyroxine Sodium (Synthroid) 75 mcg PO DAILY@0600 [facility] Last Admin: 12/21/17 07:25 Dose: 75 mcg Metoclopramide HCl (Reglan Inj) 5 mg IV.PUSH Q6H PRN PRN Reason: NAUSEA OR VOMITING Metoprolol Tartrate (Lopressor) 25 mg PO BID [facility] Last Admin: 12/21/17 08:40 Dose: 25 mg Miscellaneous (Pill Splitter) 1 each OTHER UNSCH PRN PRN Reason: SEE LABEL COMMENTS Naloxone HCl (Narcan Inj) 0.4 mg IV.PUSH UNSCH PRN PRN Reason: SEE LABEL COMMENTS Nitroglycerin (Nitrostat Sl) 0.4 mg SL Q5M PRN PRN Reason: CHEST PAIN Pantoprazole Sodium (Protonix) 40 mg PO DAILY [facility] Last Admin: 12/21/17 08:40 Dose: 40 mg Senna/Docusate Sodium (Natali-Colace) 1 tab PO BID [facility] Last Admin: 12/21/17 08:39 Dose: 1 tab Sennosides (Senokot) 17.2 mg PO Q12H PRN PRN Reason: MODERATE CONSTIPATION Sodium Chloride (Ns Flush) 2 ml IV.FLUSH UNSCH PRN PRN Reason: FLUSH AFTER USING IV ACCESS Sodium Chloride (Ns Flush) 2 ml IV.FLUSH BID [facility] Last Admin: 12/21/17 08:39 Dose: 2 ml Allergies Allergy/AdvReac Type Severity Reaction Status Date / Time No Known Allergies Allergy Unverified 12/17/17 10:01 Home Medications Medication Instructions Recorded Confirmed Type amlodipine [Norvasc] 10 mg PO DAILY 12/16/17 12/16/17 History aspirin 81 mg PO DAILY 12/16/17 12/16/17 History atorvastatin 40 mg PO DAILY 12/16/17 12/16/17 History doxazosin [Cardura] 2 mg PO DAILY 12/16/17 12/16/17 History folic acid 0.8 mg PO DAILY 12/16/17 12/16/17 History glimepiride [Amaryl] 1 mg PO DAILY 12/16/17 12/16/17 History glimepiride [Amaryl] 4 mg PO DAILY 12/16/17 12/16/17 History heparin (porcine) 5,000 unit SUB-Q Q12H 12/16/17 12/16/17 History hydralazine 12.5 mg PO Q8HR 12/16/17 12/16/17 History insulin asp prt-insulin aspart 1 sliding scale dose SUB-Q UD 12/16/17 12/16/17 History insulin detemir U-100 [Levemir 4 unit SUB-Q HS 12/16/17 12/16/17 History U-100 Insulin] insulin glargine [Lantus U-100 4 unit SUB-Q HS 12/16/17 12/16/17 History Insulin] ipratropium-albuterol 3 ml INHALATION Q8H 12/16/17 12/16/17 History isosorbide mononitrate 30 mg PO DAILY 12/16/17 12/16/17 History levofloxacin [Levaquin] 500 mg PO EVERY OTHER DAY 12/16/17 12/16/17 History levothyroxine [Synthroid] 75 mcg PO DAILY 12/16/17 12/16/17 History lisinopril 40 mg PO DAILY 12/16/17 12/16/17 History metoprolol tartrate 50 mg PO DAILY 12/16/17 12/16/17 History nitroglycerin [Nitrostat] 0.4 mg SUBLINGUAL Q5M PRN 12/16/17 12/16/17 History pantoprazole 40 mg PO DAILY 12/16/17 12/16/17 History rosuvastatin 20 mg PO DAILY 12/16/17 12/16/17 History sennosides-docusate sodium 1 tab PO BID 12/16/17 12/16/17 History sodium bicarbonate 650 mg PO Q12HR 12/16/17 12/16/17 History Advance Directives Living Will: Yes (Completed but not available at this time) Healthcare Surrogate: No Power of Financial Supervisor: No Documented care wishes: Patient states he has a living will at home. Today's verbally stated goals: Patient states he does not want to be resuscitated, received CPR or be intubated. . Family/friends goals: No family at bedside at this time. Patient states that he has discussed his wishes with all 3 of his children. . Ethical and Legal Issues: None noted. . Physical Exam Vital Signs: Vital Signs - 24 hr 12/20/17 16:12 12/20/17 19:00 12/20/17 20:00 Temperature 98.4 F Pulse Rate 72 78 Respiratory Rate 18 16 Blood Pressure 131/51 L Pulse Oximetry 97 94 L 12/20/17 21:08 12/20/17 23:00 12/20/17 23:36 Temperature 98.6 F Pulse Rate 60 60 Respiratory Rate 16 12 Blood Pressure 110/54 L Pulse Oximetry 96 93 L 12/21/17 03:00 12/21/17 07:00 12/21/17 08:00 Temperature 98.6 F 97.5 F L Pulse Rate 50 L 62 Respiratory Rate 16 18 Blood Pressure 113/51 L 108/58 L Pulse Oximetry 93 L 91 L 97 12/21/17 08:10 12/21/17 08:16 12/21/17 08:42 Temperature 97.5 F L Pulse Rate 61 62 69 Respiratory Rate 15 18 Blood Pressure 108/58 L 151/65 H Pulse Oximetry 97 97 12/21/17 11:00 12/21/17 15:00 Temperature 98.0 F 97.9 F Pulse Rate 66 65 Respiratory Rate 18 18 Blood Pressure 121/51 L 122/59 L Pulse Oximetry 98 98 I&O: Intake & Output 12/19/17 12/20/17 12/21/17 12/22/17 06:59 06:59 06:59 06:59 Intake Total 3240 / 3240 2330 / 2330 1118 / 1118 240 / 240 Output Total 3615 / 3615 2850 / 2850 1300 / 1300 1375 / 1375 Balance -375 / -375 -520 / -520 -182 / -182 -1135 / -1135 Weight 136 lb 10.986 oz 141 lb 1.533 oz Physical Exam: CONSTITUTIONAL/GENERAL: This is an adequately nourished patient, in no apparent distress. TUBES/LINES/DRAINS: SKIN: No jaundice, rashes, or lesions. Ecchymoses on upper extremities. No wounds seen anteriorly. Skin temperature appropriate. Not diaphoretic. HEAD: Atraumatic. Normocephalic. EYES: Pupils equal and round and reactive. Extraocular motions intact. No scleral icterus. No injection or drainage. Fundi not examined. ENT: Hearing grossly normal. Nose without bleeding or purulent drainage. Throat without visible erythema, exudates, masses, or lesions. NECK: Trachea midline. Supple, nontender. No palpable thyroid enlargement or nodularity. CARDIOVASCULAR: Regular rate and rhythm without gallopsor rubs. 2/6 systolic ejection murmur. No JVD. Peripheral pulses symmetric. RESPIRATORY/CHEST: Symmetric, unlabored respirations. Coarse breath sounds with inspiratory wheezes. GASTROINTESTINAL: Abdomen soft, non-tender, nondistended. No hepato-splenomegaly , or palpable masses. No guarding. Bowel sounds present. GENITOURINARY: Without palpable bladder distension. Galo catheter in place. MUSCULOSKELETAL: Extremities without clubbing, cyanosis, or edema. No joint tenderness or effusion noted. No calf tenderness. No mottling or clubbing. LYMPHATICS: No palpable cervical or supraclavicular adenopathy. NEUROLOGICAL: Awake and alert. Motor and sensory grossly within normal limits. Follows commands. Cognitively sharp. Moves all extremities. PSYCHIATRIC: No obvious anxiety/depression. no apparent hallucinations or other psychotic thought process. . Diagnostic Tests Laboratory: Laboratory Results - last 72 hr 12/18/17 12/18/17 12/19/17 16:57 20:51 03:10 WBC RBC Hgb Hct MCV MCH MCHC RDW Plt Count MPV Neut % (Auto) Lymph % (Auto) [place] % (Auto) Eos % (Auto) Baso % (Auto) Neut # (Auto) Lymph # (Auto) [place] # (Auto) Eos # (Auto) Baso # (Auto) WBC Differential Differential Comment Sodium Potassium Chloride Carbon Dioxide Anion Gap BUN Creatinine Estimated GFR POC Glucose 62 L 171 H 70 Random Glucose Calcium Total Bilirubin AST ALT Alkaline Phosphatase Total Protein Albumin 12/19/17 12/19/17 12/19/17 05:20 05:20 08:32 WBC 7.6 RBC 3.56 L Hgb 9.6 L Hct 29.0 L MCV 81.3 MCH 26.9 L MCHC 33.0 RDW 17.3 H Plt Count 128 L MPV 10.2 Neut % (Auto) 72.4 H Lymph % (Auto) 12.2 [place] % (Auto) 9.6 H Eos % (Auto) 5.3 H Baso % (Auto) 0.5 Neut # (Auto) 5.5 Lymph # (Auto) 0.9 L [place] # (Auto) 0.7 Eos # (Auto) 0.4 Baso # (Auto) 0.0 WBC Differential . Differential Comment Auto diff final Sodium 137 Potassium 3.6 Chloride 98 Carbon Dioxide 26.6 Anion Gap 12 BUN 79 H Creatinine 3.43 H Estimated GFR 17 L POC Glucose 158 H Random Glucose 88 Calcium 7.9 L D Total Bilirubin 0.3 AST 32 ALT 30 Alkaline Phosphatase 55 Total Protein 5.3 L D Albumin 2.1 L 12/19/17 12/19/17 12/19/17 11:13 13:47 13:47 WBC 6.6 RBC 3.58 L Hgb 9.7 L Hct 29.3 L MCV 82.0 MCH 27.1 MCHC 33.1 RDW 17.2 Plt Count 120 L MPV 11.0 Neut % (Auto) 78.7 H Lymph % (Auto) 8.4 L [place] % (Auto) 8.7 H Eos % (Auto) 3.7 Baso % (Auto) 0.5 Neut # (Auto) 5.2 Lymph # (Auto) 0.5 L [place] # (Auto) 0.6 Eos # (Auto) 0.2 Baso # (Auto) 0.0 WBC Differential . Differential Comment Auto diff final Sodium 138 Potassium 3.7 Chloride 98 Carbon Dioxide 26.8 Anion Gap 13 BUN 79 H Creatinine 3.51 H Estimated GFR 17 L POC Glucose 346 H Random Glucose 231 H D Calcium 7.6 L Total Bilirubin AST ALT Alkaline Phosphatase Total Protein Albumin 12/19/17 12/19/17 12/19/17 15:08 20:37 23:15 WBC RBC Hgb Hct MCV MCH MCHC RDW Plt Count MPV Neut % (Auto) Lymph % (Auto) [place] % (Auto) Eos % (Auto) Baso % (Auto) Neut # (Auto) Lymph # (Auto) [place] # (Auto) Eos # (Auto) Baso # (Auto) WBC Differential Differential Comment Sodium Potassium Chloride Carbon Dioxide Anion Gap BUN Creatinine Estimated GFR POC Glucose 274 H 356 H 123 H Random Glucose Calcium Total Bilirubin AST ALT Alkaline Phosphatase Total Protein Albumin 12/20/17 12/20/17 12/20/17 02:24 07:52 11:53 WBC RBC Hgb Hct MCV MCH MCHC RDW Plt Count MPV Neut % (Auto) Lymph % (Auto) [place] % (Auto) Eos % (Auto) Baso % (Auto) Neut # (Auto) Lymph # (Auto) [place] # (Auto) Eos # (Auto) Baso # (Auto) WBC Differential Differential Comment Sodium 138 Potassium 3.7 Chloride 97 L Carbon Dioxide 26.7 Anion Gap 14 BUN 82 H Creatinine 3.52 H Estimated GFR 16 L POC Glucose 178 H 235 H Random Glucose 77 D Calcium 8.1 L Total Bilirubin 0.3 AST 38 H ALT 36 Alkaline Phosphatase 54 Total Protein 5.1 L Albumin 1.9 L 12/20/17 12/20/17 12/21/17 15:40 21:50 00:25 WBC RBC Hgb Hct MCV MCH MCHC RDW Plt Count MPV Neut % (Auto) Lymph % (Auto) [place] % (Auto) Eos % (Auto) Baso % (Auto) Neut # (Auto) Lymph # (Auto) [place] # (Auto) Eos # (Auto) Baso # (Auto) WBC Differential Differential Comment Sodium Potassium Chloride Carbon Dioxide Anion Gap BUN Creatinine Estimated GFR POC Glucose 141 H 293 H 152 H Random Glucose Calcium Total Bilirubin AST ALT Alkaline Phosphatase Total Protein Albumin 12/21/17 12/21/17 12/21/17 03:20 04:00 07:54 WBC RBC Hgb Hct MCV MCH MCHC RDW Plt Count MPV Neut % (Auto) Lymph % (Auto) [place] % (Auto) Eos % (Auto) Baso % (Auto) Neut # (Auto) Lymph # (Auto) [place] # (Auto) Eos # (Auto) Baso # (Auto) WBC Differential Differential Comment Sodium 138 Potassium 3.4 L Chloride 95 L Carbon Dioxide 29.0 Anion Gap 14 BUN 82 H Creatinine 3.70 H Estimated GFR 16 L POC Glucose 153 H 125 H Random Glucose 88 Calcium 8.6 Total Bilirubin 0.3 AST 47 H ALT 41 Alkaline Phosphatase 54 Total Protein 5.3 L Albumin 1.9 L 12/21/17 12:14 WBC RBC Hgb Hct MCV MCH MCHC RDW Plt Count MPV Neut % (Auto) Lymph % (Auto) [place] % (Auto) Eos % (Auto) Baso % (Auto) Neut # (Auto) Lymph # (Auto) [place] # (Auto) Eos # (Auto) Baso # (Auto) WBC Differential Differential Comment Sodium Potassium Chloride Carbon Dioxide Anion Gap BUN Creatinine Estimated GFR POC Glucose 289 H Random Glucose Calcium Total Bilirubin AST ALT Alkaline Phosphatase Total Protein Albumin Result Diagrams: 12/19/17 13:47 12/21/17 03:20 Imaging: Chest X-Ray 12/21/17 05:00 CONCLUSION: No evidence of pneumothorax status post removal right chest catheter. Improving left lower lung infiltrates and persistent right lower lung infiltrates. Procedures: 12/16: Left pigtail chest tube insertion. . Patient/Family Conference Present at Family Conference: Spoke with patient at bedside. No family available at this time. Will plan family meeting at next visit. Family Conference Location: Bedside (Reviewed goals of care, advanced directives and care options with patient as well as below listed items. Will allow patient time to process prior to scheduling family meeting.) Issues Discussed: * Palliative care role, purpose, approach * Additional medical, psychosocial, and spiritual history * Patients general health, functional status, and cognitive changes in the months leading up to the current hospitalization * Patient/family understanding of the current medical problems * Patient/family understanding of prognosis * Patients goals of care as best understood from advance directives and/or conversations and/or values * Current medical treatment options and benefits/burdens of those options * Likely scenarios comparing ongoing aggressive care with a transition to comfort measures only * Questions answered to the best of my ability * Palliative care contact information provided Assessment and Plan - Disease Oriented Problem List (1) CAD (coronary artery disease) (2) Chronic kidney disease (3) Diabetes mellitus (4) Hyperlipidemia (5) Hypertension (6) Hypothyroidism (7) NSTEMI (non-ST elevated myocardial infarction) (8) Pleural effusion due to CHF (congestive heart failure) (9) Systolic CHF, acute on chronic (10) CHF exacerbation - Symptom Scale (1) Dyspnea 0-10 Scale: 4 (At rest) (2) Chest pain 0-10 Scale: 1 Pertinent Non-Medical Issues: Psychosocial: He was born in [facility] and moved to [place] when he was 11. He completed school in this area and then attended [employer]. He was in the [employer] during the [place] conflict but remained stateside. 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 He was to his for 67 years prior to her passing 1 year ago. 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 Legal: States he has a living will at home and that his children are aware he wants to be a DO NOT RESUSCITATE. He declined to complete a healthcare surrogate as he wishes for all 3 of his children to be joint decision-makers in case of his incapacitation, which is consistent with [place] statutes. Ethical issues impacting care: None noted. . Important Contacts: Son: Chase Velasquez Daughter: Obdulia Velasquez Prognosis: His prognosis is guarded. He is of advanced age with multiple comorbidities. He has coronary artery disease, reduced ejection systolic congestive heart failure with EF 30-35%. He developed anginal symptoms during rehabilitation causing a type II NSTEMI secondary to fluid overload, due to his congestive heart failure and pleural effusion. Complicating this is progressive, chronic renal insufficiency, raising the question of possible cardiorenal syndrome which does present a poor prognostic picture. While his plan at this time is to continue rehabilitation at the [facility], his comorbidities may place limitations on how much he will be able to accomplish. It is not certain at this time that he will be able to regain the strength to return home independently. Given his compendium of heart issues, he is at risk for continued complications, decline and rehospitalizations. As it is the patient' s wish to remain home and not suffer recurrent hospitalizations which damaged his quality of life, he would be appropriate for hospice were his goals consistent. . Code Status: No Code DNR Plan: PLAN: Legal decision maker: At this time patient is capacitated to make his own decisions. Should he become incapacitated it is his wish that all 3 of his children serve as joint healthcare decision makers. As this is consistent with the directives of the [place] statutes for hierarchy of decision-makers, patient has declined to complete a healthcare surrogate at this time as he feels it would be redundant. Goals: Comfort oriented. CODE STATUS: DO NOT RESUSCITATE SYMPTOMS: * Dyspnea: Patient is seen to become slightly hypoxic at rest with conversation on 4 L nasal cannula. Chest tube was discontinued yesterday and chest x-ray shows no pneumothorax. He continues to receive furosemide 40 mg IV twice daily and has received 1 dose of metolazone which appears to be improving his fluid overload at this time. His weight on admission was 146 pounds and currently is 141 pounds. At this time he remains fairly sedentary but as mobilization occurs he is at risk for continued dyspnea. * Chest pain: His chest pain occurred due to demand during exercise and he was positive for NSTEMI. Given his long history of coronary artery disease he is at risk for recurrence. Medications have been optimized to include beta-césar , Imdur, hydralazine, aspirin, Lipitor and PRN nitro. He is not a candidate for cardiac catheterization at this time due to his renal insufficiency and medical management has been recommended. SUMMARY This is an 87-year-old male admitted with progressive weakness favoring chronic compressive myelopathy, as cauda equina syndrome was not felt to be likely, who failed his first course of rehab due to NSTEMI type II secondary to demand from fluid overload, decreased cardiac reserves and congestive heart failure. While he would like to undergo a second course of rehabilitation, it is not certain that he will be able to tolerate that level of activity due to poor cardiac function. His plan is to discharge to the [facility] for a less intensive form of rehab then [facility], however wishes to be a DO NOT RESUSCITATE CODE STATUS. The benefits of hospice care post rehab have been discussed with the patient and he is considering that. Once he has had time to process that information and discussed with his family and information consult will be re-addressed. He remains at risk for continued complications and decline in would be hospice appropriate given his significant cardiac and near end-stage renal disease if goals were appropriate. Palliative care will continue to follow the patient during hospital course as condition evolves, to assist patient/decision-maker with understanding of their medical conditions, weighing benefits/burdens of treatment options, for clarification of goals of treatment. Additionally will assist with any symptoms of palliative concern. . Appreciation Thank you for the opportunity to participate in the care of Samm Velasquez JR. Attestation Attestation: To help prompt me to consider important information that might be impacting today's encounter and assessment, information from prior notes written by myself or my colleagues may have been "brought forward" into today's note. My signature on this note, however, is an attestation that I personally performed the exam, history, and/or decision-making noted today, and, unless otherwise indicated, the interactions with patient, family, and staff as well as the review of records all occurred today. I also attest that the listed assessment and stated plan reflect my best clinical judgment today based on the combination of historical information, prior notes, and today's exam/ interactions. When time spent is documented, it refers only to time spent today by the signer, or if indicated, combined time spent today by collaborating physician/nurse practitioner. .To help prompt me to consider important information that might be impacting today's encounter and assessment, information from prior notes written by myself or my colleagues may have been "brought forward" into today's note. My signature on this note, however, is an attestation that I personally performed the exam, history, and/or decision-making noted today, and, unless otherwise indicated, the interactions with patient, family, and staff as well as the review of records all occurred today. I also attest that the listed assessment and stated plan reflect my best clinical judgment today based on the combination of historical information, prior notes, and today's exam/ interactions. When time spent is documented, it refers only to time spent today by the signer, or if indicated, combined time spent today by collaborating physician/nurse practitioner. .
--- NOTE | 2017-12-21 18:14 | P.PNCA ---
Subjective Interval history: No events overnight Oxygen demand down Standing with PT Chest tube out yesterday Physical Exam Vital signs: Vital Signs 12/20/17 19:00 12/20/17 20:00 12/20/17 21:08 Temperature 98.4 F Pulse Rate 78 Respiratory Rate 16 Blood Pressure 131/51 L Pulse Oximetry 97 94 L 96 12/20/17 23:00 12/20/17 23:36 12/21/17 03:00 Temperature 98.6 F 98.6 F Pulse Rate 60 60 50 L Respiratory Rate 16 12 16 Blood Pressure 110/54 L 113/51 L Pulse Oximetry 93 L 93 L 12/21/17 07:00 12/21/17 08:00 12/21/17 08:10 Temperature 97.5 F L Pulse Rate 62 61 Respiratory Rate 18 15 Blood Pressure 108/58 L Pulse Oximetry 91 L 97 97 12/21/17 08:16 12/21/17 08:42 12/21/17 11:00 Temperature 97.5 F L 98.0 F Pulse Rate 62 69 66 Respiratory Rate 18 18 Blood Pressure 108/58 L 151/65 H 121/51 L Pulse Oximetry 97 98 12/21/17 15:00 12/21/17 17:03 Temperature 97.9 F Pulse Rate 65 62 Respiratory Rate 18 20 Blood Pressure 122/59 L Pulse Oximetry 98 Intake & Output 12/20/17 12/21/17 12/21/17 18:59 06:59 18:59 Intake Total 1100 / 1100 490 / 490 Output Total 1300 / 1300 2675 / 2675 Balance -200 / -200 -2185 / -2185 Weight 64 kg Intake: IV Lasix Inj 100 MG In NS Inj 90 ML @ 3 mls/hr IV.CONT .Q24H [facility] Rx#:[id number] Oral 1100 / 1100 240 / 240 Other 250 / 250 Output: Urine Amount (Catheter) 1300 / 1300 2675 / 2675 Indwelling Urethral Catheter 1300 / 1300 2675 / 2675 Other: Other Intake Source Saline Solution Date of Last Bowel Movement 12/18/17 12/18/17 - Constitutional no acute distress - Routine HEENT Exam Head: Present: normocephalic, atraumatic Eye: Present: EOMI, PERRL ENT: Present: mucous membranes moist - Routine Neck Exam Present: supple. Absent: JVD - Routine Respiratory Exam Present: decreased breath sounds (Right with mild decreased, left relatively clear), CTA bilaterally. Absent: accessory muscle use - Routine Cardiovascular Exam Present: RRR, S1, S2. Absent: murmur - Routine Abdominal Exam Present: soft, normoactive bowel sounds. Absent: tenderness, guarding - Routine Extremities Exam Absent: cyanosis, clubbing, edema - Routine Skin Exam Present: intact, dry. Absent: cyanosis, erythema - Routine Neurological Exam Present: alert, oriented X3, CN II-XII intact - Urinary Catheter Management Indwelling Urethral Catheter Cath placed during this visit: yes Urethral indwelling: Yes Reason for continuing: Hourly intake/output Insertion date: 12/16/17 Assessment and Plan - Assessment (1) NSTEMI (non-ST elevated myocardial infarction) Code(s): I21.4 - Non-ST elevation (NSTEMI) myocardial infarction Status: Acute (2) CAD (coronary artery disease) Code(s): I25.10 - Atherosclerotic heart disease of [place] coronary artery without angina pectoris Status: Acute (3) Acute kidney failure Code(s): N17.9 - Acute kidney failure, unspecified Status: Acute (4) CHF exacerbation Code(s): I50.9 - Heart failure, unspecified Status: Acute (5) Systolic CHF, acute on chronic Code(s): I50.23 - Acute on chronic systolic (congestive) heart failure Status : Acute (6) Pleural effusion due to CHF (congestive heart failure) Code(s): I50.9 - Heart failure, unspecified Status: Acute - Plan 1) NSTEMI Probable type 2 Atypical chest pain Heparin drip stopped Unsure of value of elevated troponin to 10? 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 With everything that he's going through, he would like to be treated medically and not taken to the laborer/grade check to evaluate his coronary anatomy Con't medical management If ischemic evaluation, high risk of hemodialysis 5) All questions from patient and family answered 6) Probable atelectasis Incentive spirometer at bedside with teaching 7) Left chest tube with plan to remove today Will see how he does May need right thoracentesis, but has been diuresing well and weights/oxygen demand down 8) Agree with palliative care consult (3) Acute kidney failure Qualifiers: Acute renal failure type: unspecified Qualified Code(s): N17.9 - Acute kidney failure, unspecified (4) CHF exacerbation Qualifiers: Heart failure type: systolic Qualified Code(s): I50.23 - Acute on chronic systolic (congestive) heart failure
[2017-12-21 21:21] LABS: Alanine Aminotransferase 59 U/L (12-78); Albumin 2.2 g/dL (3.4-5.0); Alkaline Phosphatase 64 U/L (45-117); Anion Gap 12 meq/L (5-15); Aspartate Aminotransferase 70 U/L (15-37); Blood Urea Nitrogen 82 mg/dL (7-18); Calcium 8.9 mg/dL (8.5-10.1); Carbon Dioxide 31.4 meq/L (21.0-32.0); Chloride 94 meq/L (98-107); Glomerular Filtration Rate 15 mL/min (>89); Glucose,Random 172 mg/dL (74-106); Potassium 4.2 meq/L (3.5-5.1); Sodium 137 meq/L (136-145); Total Protein 6.1 g/dL (6.4-8.2)
[2017-12-21 21:23] LABS: Troponin I 1.13 ng/mL (0.02-0.05)
--- NOTE | 2017-12-21 21:45 | XR ---
EXAM DATE: 12/21/2017 9:37 PM EDT AGE/SEX: 87 years / Male INDICATIONS: Short of breath. CLINICAL DATA: This is the patient's subsequent encounter. Patient reports that signs and symptoms h ave been present for 4 - 6 days and indicates a pain score of 5/10. MEDICAL/SURGICAL HISTORY: Cardiovascular disease. CABG. COMPARISON: C, CHEST 1V SINGLE AP, 12/21/2017. . FINDINGS: Diffuse hazy pleural-parenchymal opacity persists, slightly worse on the right than the left. Cardiac contours are grossly unchanged. CONCLUSION: Persistent bilateral pleural-parenchymal opacities. Electronically signed by: Lupillo Xavier MD 12/21/2017 9:43 PM EDT
--- NOTE | 2017-12-21 22:17 | P.PN ---
Subjective Interval history: Patient seen late afternoon, breathing is better, not in distress. Physical Exam Vital signs: Vital Signs 12/20/17 23:00 12/20/17 23:36 12/21/17 03:00 Temperature 98.6 F 98.6 F Pulse Rate 60 60 50 L Respiratory Rate 16 12 16 Blood Pressure 110/54 L 113/51 L Pulse Oximetry 93 L 93 L 12/21/17 07:00 12/21/17 08:00 12/21/17 08:10 Temperature 97.5 F L Pulse Rate 62 61 Respiratory Rate 18 15 Blood Pressure 108/58 L Pulse Oximetry 91 L 97 97 12/21/17 08:16 12/21/17 08:42 12/21/17 11:00 Temperature 97.5 F L 98.0 F Pulse Rate 62 69 66 Respiratory Rate 18 18 Blood Pressure 108/58 L 151/65 H 121/51 L Pulse Oximetry 97 98 12/21/17 15:00 12/21/17 17:03 12/21/17 18:30 Temperature 97.9 F 97.9 F Pulse Rate 65 62 58 L Respiratory Rate 18 20 16 Blood Pressure 122/59 L 125/60 Pulse Oximetry 98 12/21/17 19:00 Temperature 98.2 F Pulse Rate 59 L Respiratory Rate 14 Blood Pressure 140/64 Pulse Oximetry Intake & Output 12/21/17 12/21/17 12/22/17 06:59 18:59 06:59 Intake Total 490 / 490 Output Total 2675 / 2675 Balance -2185 / -2185 Weight 64 kg Intake: IV Lasix Inj 100 MG In NS Inj 90 ML @ 3 mls/hr IV.CONT .Q24H [facility] Rx#:[id number] Oral 240 / 240 Other 250 / 250 Output: Urine Amount (Catheter) 2675 / 2675 Indwelling Urethral Catheter 2675 / 2675 Other: Other Intake Source Saline Solution Date of Last Bowel Movement 12/18/17 12/18/17 - Constitutional no acute distress - Routine HEENT Exam Head: Present: normocephalic - Routine Neck Exam Present: supple, JVD - Routine Respiratory Exam Present: decreased breath sounds, wheezes, crackles, distant breath sounds, diminished air movement - Routine Cardiovascular Exam Present: S1, S2, irregular rhythm - Routine Abdominal Exam Present: soft, normoactive bowel sounds, distended - Routine Extremities Exam Present: edema - Routine Neurological Exam Present: alert, oriented X3 - Detailed Neurological Exam: Coma Scale Verbal Response: Oriented - Urinary Catheter Management Indwelling Urethral Catheter Cath placed during this visit: yes Urethral indwelling: Yes Reason for continuing: Hourly intake/output Insertion date: 12/16/17 Results - Labs CBC & Chem 7: 12/19/17 13:47 12/21/17 19:25 Laboratory Results - last 24 hr 12/21/17 12/21/17 12/21/17 00:25 03:20 04:00 Sodium 138 Potassium 3.4 L Chloride 95 L Carbon Dioxide 29.0 Anion Gap 14 BUN 82 H Creatinine 3.70 H Estimated GFR 16 L POC Glucose 152 H 153 H Random Glucose 88 Calcium 8.6 Total Bilirubin 0.3 AST 47 H ALT 41 Alkaline Phosphatase 54 Troponin I Total Protein 5.3 L Albumin 1.9 L 12/21/17 12/21/17 12/21/17 07:54 12:14 16:51 Sodium Potassium Chloride Carbon Dioxide Anion Gap BUN Creatinine Estimated GFR POC Glucose 125 H 289 H 219 H Random Glucose Calcium Total Bilirubin AST ALT Alkaline Phosphatase Troponin I Total Protein Albumin 12/21/17 12/21/17 12/21/17 19:00 19:25 21:12 Sodium 137 Potassium 4.2 D Chloride 94 L Carbon Dioxide 31.4 Anion Gap 12 BUN 82 H Creatinine 3.87 H Estimated GFR 15 L POC Glucose 210 H 144 H Random Glucose 172 H Calcium 8.9 Total Bilirubin 0.3 AST 70 H ALT 59 Alkaline Phosphatase 64 Troponin I 1.13 H* Total Protein 6.1 L D Albumin 2.2 L - Imaging Impressions Chest X-Ray 12/21/17 00:00 CONCLUSION: Persistent bilateral pleural-parenchymal opacities. Chest X-Ray 12/21/17 05:00 CONCLUSION: No evidence of pneumothorax status post removal right chest catheter. Improving left lower lung infiltrates and persistent right lower lung infiltrates. Assessment and Plan - Assessment (1) Acute kidney failure Code(s): N17.9 - Acute kidney failure, unspecified Status: Acute - Plan (1) Ischemic cardiomyopathy ICD Codes: I25.5 - Ischemic cardiomyopathy (2) CAD (coronary artery disease) ICD Codes: I25.10 - Atherosclerotic heart disease of [place] coronary artery without angina pectoris (3) Diabetes mellitus type 2 with complications ICD Codes: E11.8 - Type 2 diabetes mellitus with unspecified complications (4) Hypertension ICD Codes: I10 - Essential (primary) hypertension Status: Chronic (5) Elevated troponin ICD Codes: R78.89 - Elevated troponin Status: Acute (6) Acute on chronic kidney failure ICD Codes: N17.9 - Acute kidney failure, unspecified; N18.9 - Chronic kidney disease, unspecified Plan: Patient has chronic kidney disease, stage 4. Now has Cardiac ischemia and develop DAVID. BP is on lower side. Urine out put is low. Has stable Creatinine and metabolic acidosis. K is normalized. On Lasix infusion. Galo's catheter done. Creatinine increase slightly to 3.7, K is normal. Continue Lasix 40 mg IV BID. Follow the urine out put and BMP. (1) Acute kidney failure Qualifiers: Acute renal failure type: unspecified Qualified Code(s): N17.9 - Acute kidney failure, unspecified
[2017-12-21] MEDS: Sod Chloride 0.9% Inj 1,000 ML IV.CONT SCH (23:17)
--- NOTE | 2017-12-21 23:57 | P.PNADD ---
Addendum to Inpatient Note Reason for Addendum: Additional Documentation Addendum SHELBY called at 20: 004 seizure-like activity, and blood pressure of 70/40. Subjective: Upon entering the room patient is being helped out of his chair and getting to bed. Patient is awake and responsive throughout this event. Blood pressure on the monitor when the patient lays down is 78/48. The patient states that he remembers shaking a lot in his chair and he remembers when he was in the room. He does not think he blacked out any time. He is making jokes bedside and seems very jovial. He states he does not feel dizzy or short of breath. Patient with low ejection fraction CHF and CAD, recently placed on Lasix. Objective: Pulse ox 100%, heart rate 100, respiratory rate 20, BP 140/80 ( improved very quickly after lying down in bed) Cardiac: Regular rate and rhythm Lungs: Auscultated anteriorly, breath sounds auscultated equal bilaterally Neuromuscular: Patient is able to move all extremities equally. All cranial nerves appear to be intact. Assessment/plan. Likely vasovagal hypotension versus diuretic induced hypertension versus other Continue to follow vital signs, continue continuous pulse ox Start IV fluids normal saline at 45 mL's per hour Follow-up chest x-ray, BMP, troponin, EKG
[2017-12-22] MEDS: Insulin NovoLOG Aspart Correctional Sugar Inj SQ SCH ×6 (01:01→20:44)
--- NOTE | 2017-12-22 04:54 | ECG ---
Date Performed: 12/21/2017 Time Performed: 19:15:40 PTAGE: 87 years EKG: Sinus arrhythmia. Right axis deviation Right bundle branch block Nonspecific ST and T wave abnormalities Abnormal ECG Compared to prior electrocardiogram, Rate has slowed and STT wave changes are less marked. DOCTOR: Fahad Tony Interpretating Date/Time 12/22/2017 04:53:35
[2017-12-22 05:05] LABS: Anion Gap 11 meq/L (5-15); Aspartate Aminotransferase 49 U/L (15-37); Blood Urea Nitrogen 76 mg/dL (7-18); Carbon Dioxide 30.5 meq/L (21.0-32.0); Chloride 96 meq/L (98-107); Glomerular Filtration Rate 17 mL/min (>89); Glucose,Random 72 mg/dL (74-106); Potassium 3.6 meq/L (3.5-5.1); Sodium 137 meq/L (136-145)
[2017-12-22 05:10] LABS: Alanine Aminotransferase 45 U/L (12-78); Alkaline Phosphatase 54 U/L (45-117); Total Protein 5.3 g/dL (6.4-8.2)
[2017-12-22] MEDS: Levothyroxine 75 MCG Tablet PO SCH (06:25)
[2017-12-22] MEDS: hydrALAZINE 25 MG Tablet PO SCH ×3 (06:25→23:19)
[2017-12-22] MEDS: Folic Acid 1 MG Tablet PO SCH (08:40)
[2017-12-22] MEDS: Metoprolol Tartrate 50 MG Tablet PO SCH ×2 (08:40→20:44)
[2017-12-22] MEDS: Isosorbide Mononitrate 30 MG ER 24HR Tablet (Imdur) PO SCH (08:40)
[2017-12-22] MEDS: Senna/Docusate Sodium 8.6/50 MG Tablet PO SCH ×2 (08:41→20:44)
--- NOTE | 2017-12-22 10:43 | P.PNFP ---
Subjective Interval history: chest tube removed feeling well Results - Labs Result diagrams: 12/19/17 13:47 12/22/17 03:59 Abnormal lab results 12/21/17 12/21/17 12/21/17 Range/Units 12:14 16:51 19:00 Chloride (98-107) meq/L BUN (7-18) mg/dL Creatinine (0.60-1.30) mg/dL Estimated GFR (>89) mL/min POC Glucose 289 H 219 H 210 H (68-110) mg/dl Random Glucose (74-106) mg/dL Calcium (8.5-10.1) mg/dL AST (15-37) U/L Troponin I (0.02-0.05) ng/mL Total Protein (6.4-8.2) g/dL Albumin (3.4-5.0) g/dL 12/21/17 12/21/17 12/22/17 Range/Units 19:25 21:12 00:52 Chloride 94 L (98-107) meq/L BUN 82 H (7-18) mg/dL Creatinine 3.87 H (0.60-1.30) mg/dL Estimated GFR 15 L (>89) mL/min POC Glucose 144 H 260 H (68-110) mg/dl Random Glucose 172 H (74-106) mg/dL Calcium (8.5-10.1) mg/dL AST 70 H (15-37) U/L Troponin I 1.13 H* (0.02-0.05) ng/mL Total Protein 6.1 L D (6.4-8.2) g/dL Albumin 2.2 L (3.4-5.0) g/dL 12/22/17 12/22/17 Range/Units 03:59 08:39 Chloride 96 L (98-107) meq/L BUN 76 H (7-18) mg/dL Creatinine 3.49 H (0.60-1.30) mg/dL Estimated GFR 17 L (>89) mL/min POC Glucose 125 H (68-110) mg/dl Random Glucose 72 L D (74-106) mg/dL Calcium 8.0 L D (8.5-10.1) mg/dL AST 49 H (15-37) U/L Troponin I (0.02-0.05) ng/mL Total Protein 5.3 L D (6.4-8.2) g/dL Albumin 2.0 L (3.4-5.0) g/dL BMP 12/21/17 12/22/17 19:25 03:59 Sodium 137 137 Potassium 4.2 D 3.6 Chloride 94 L 96 L Carbon Dioxide 31.4 30.5 BUN 82 H 76 H Creatinine 3.87 H 3.49 H Calcium 8.9 8.0 L D Cardiac Enzymes 12/21/17 Range/Units 19:25 Troponin I 1.13 H* (0.02-0.05) ng/mL Liver Function 12/21/17 12/22/17 Range/Units 19:25 03:59 Total Bilirubin 0.3 0.3 (0.2-1.0) mg/dL AST 70 H 49 H (15-37) U/L ALT 59 45 (12-78) U/L Alkaline Phosphatase 64 54 (45-117) U/L Albumin 2.2 L 2.0 L (3.4-5.0) g/dL - Imaging Impressions Chest X-Ray 12/21/17 00:00 CONCLUSION: Persistent bilateral pleural-parenchymal opacities. Physical Exam Vital signs: Vital Signs 12/21/17 11:00 12/21/17 15:00 12/21/17 17:03 Temperature 98.0 F 97.9 F Pulse Rate 66 65 62 Respiratory Rate 18 18 20 Blood Pressure 121/51 L 122/59 L Pulse Oximetry 98 98 12/21/17 18:30 12/21/17 19:00 12/21/17 19:05 Temperature 97.9 F 98.2 F Pulse Rate 58 L 59 L Respiratory Rate 16 14 Blood Pressure 125/60 140/64 Pulse Oximetry 99 12/21/17 20:00 12/21/17 21:00 12/21/17 22:00 Temperature Pulse Rate 58 L 58 L 58 L Respiratory Rate Blood Pressure Pulse Oximetry 100 12/21/17 23:00 12/21/17 23:37 12/22/17 00:00 Temperature 98.7 F Pulse Rate 58 L 57 L 56 L Respiratory Rate 14 16 Blood Pressure 113/57 L Pulse Oximetry 12/22/17 01:00 12/22/17 02:00 12/22/17 03:00 Temperature 98.7 F Pulse Rate 62 62 63 Respiratory Rate 14 Blood Pressure 122/59 L Pulse Oximetry 12/22/17 04:00 12/22/17 04:35 12/22/17 05:41 Temperature Pulse Rate 56 L 63 58 L Respiratory Rate Blood Pressure Pulse Oximetry 12/22/17 07:00 12/22/17 08:00 12/22/17 08:21 Temperature 97.9 F Pulse Rate 63 63 61 Respiratory Rate 18 18 Blood Pressure 118/56 L Pulse Oximetry 96 96 12/22/17 09:00 12/22/17 10:00 Temperature Pulse Rate 60 59 L Respiratory Rate Blood Pressure Pulse Oximetry Intake & Output 12/21/17 12/22/17 12/22/17 18:59 06:59 18:59 Intake Total 490 / 490 360 / 360 Output Total 2675 / 2675 1250 / 1250 Balance -2185 / -2185 -890 / -890 Intake: Oral 240 / 240 360 / 360 Other 250 / 250 Output: Urine Amount (Catheter) 2675 / 2675 1250 / 1250 Indwelling Urethral Catheter 2675 / 2675 1250 / 1250 Other: Other Intake Source Saline Solution Date of Last Bowel Movement 12/18/17 12/21/17 - Constitutional no acute distress - Routine HEENT Exam Head: Present: normocephalic, atraumatic Eye: Present: EOMI, PERRL ENT: Present: mucous membranes moist - Routine Respiratory Exam Present: decreased breath sounds, diminished air movement - Urinary Catheter Management Indwelling Urethral Catheter Cath placed during this visit: yes Urethral indwelling: Yes Reason for continuing: Chronic Urinary Retention Insertion date: 12/16/17 Assessment and Plan - Assessment (1) Acute kidney failure Code(s): N17.9 - Acute kidney failure, unspecified Status: Acute Plan: stage 4 CKD IV lasix IVF, DC renal following (2) CHF exacerbation Code(s): I50.9 - Heart failure, unspecified Status: Acute Plan: F/U Cards and business continuity management director recommendations and support. (3) Systolic CHF, acute on chronic Code(s): I50.23 - Acute on chronic systolic (congestive) heart failure Status : Acute Plan: Cont cardiac medications, Follow Rec's (4) Pleural effusion due to CHF (congestive heart failure) Code(s): I50.9 - Heart failure, unspecified Status: Acute Plan: Chest tube DC, breathing better No evidence of pneumothorax persistent right lower lung infiltrates. - Assessment and Plan Transfer to medical floor, Pt activity Discharge Planning: pt wishes to go to a rehab facillity he declines pallative care he desires [facility] (1) Acute kidney failure Qualifiers: Acute renal failure type: unspecified Qualified Code(s): N17.9 - Acute kidney failure, unspecified (2) CHF exacerbation Qualifiers: Heart failure type: systolic Qualified Code(s): I50.23 - Acute on chronic systolic (congestive) heart failure
--- NOTE | 2017-12-22 12:20 | P.PNCA ---
Subjective Interval history: No events overnight Diuresed 3L yesterday Up to chair, breathing better Physical Exam Vital signs: Vital Signs 12/21/17 15:00 12/21/17 17:03 12/21/17 18:30 Temperature 97.9 F 97.9 F Pulse Rate 65 62 58 L Respiratory Rate 18 20 16 Blood Pressure 122/59 L 125/60 Pulse Oximetry 98 12/21/17 19:00 12/21/17 19:05 12/21/17 20:00 Temperature 98.2 F Pulse Rate 59 L 58 L Respiratory Rate 14 Blood Pressure 140/64 Pulse Oximetry 99 100 12/21/17 21:00 12/21/17 22:00 12/21/17 23:00 Temperature 98.7 F Pulse Rate 58 L 58 L 58 L Respiratory Rate 14 Blood Pressure 113/57 L Pulse Oximetry 12/21/17 23:37 12/22/17 00:00 12/22/17 01:00 Temperature Pulse Rate 57 L 56 L 62 Respiratory Rate 16 Blood Pressure Pulse Oximetry 12/22/17 02:00 12/22/17 03:00 12/22/17 04:00 Temperature 98.7 F Pulse Rate 62 63 56 L Respiratory Rate 14 Blood Pressure 122/59 L Pulse Oximetry 12/22/17 04:35 12/22/17 05:41 12/22/17 07:00 Temperature 97.9 F Pulse Rate 63 58 L 63 Respiratory Rate 18 Blood Pressure 118/56 L Pulse Oximetry 96 12/22/17 08:00 12/22/17 08:21 12/22/17 09:00 Temperature Pulse Rate 63 61 60 Respiratory Rate 18 Blood Pressure Pulse Oximetry 96 12/22/17 10:00 12/22/17 11:00 12/22/17 12:00 Temperature 97.7 F Pulse Rate 59 L 69 61 Respiratory Rate 18 Blood Pressure 122/58 L Pulse Oximetry 99 Intake & Output 12/21/17 12/22/17 12/22/17 18:59 06:59 18:59 Intake Total 490 / 490 360 / 360 Output Total 2675 / 2675 1250 / 1250 Balance -2185 / -2185 -890 / -890 Intake: Oral 240 / 240 360 / 360 Other 250 / 250 Output: Urine Amount (Catheter) 5 / 2675 1250 / 1250 Indwelling Urethral Catheter 2675 / 2675 1250 / 1250 Other: Other Intake Source Saline Solution Date of Last Bowel Movement 12/18/17 12/21/17 12/22/17 Narrative: GENERAL: NAD, AAOx3 SKIN: Warm and dry. HEAD: Atraumatic. Normocephalic. EYES: Pupils equal and round. No scleral icterus. No injection or drainage. ENT: No nasal bleeding or discharge. Mucous membranes pink and moist. NECK: Trachea midline. No JVD. CARDIOVASCULAR: Regular rate and rhythm. RESPIRATORY: No accessory muscle use. Right lung clear, left minimal crackles at base GASTROINTESTINAL: Abdomen soft, non-tender, nondistended. Hepatic and splenic margins not palpable. MUSCULOSKELETAL: Extremities without clubbing, cyanosis, or edema. No obvious deformities. NEUROLOGICAL: Awake and alert. No obvious cranial nerve deficits. Motor grossly within normal limits. Five out of 5 muscle strength in the arms and legs. Normal speech. PSYCHIATRIC: Appropriate mood and affect; insight and judgment normal. - Urinary Catheter Management Indwelling Urethral Catheter Cath placed during this visit: yes Urethral indwelling: Yes Reason for continuing: Chronic Urinary Retention Insertion date: 12/16/17 Assessment and Plan - Assessment (1) NSTEMI (non-ST elevated myocardial infarction) Code(s): I21.4 - Non-ST elevation (NSTEMI) myocardial infarction Status: Acute (2) CAD (coronary artery disease) Code(s): I25.10 - Atherosclerotic heart disease of [place] coronary artery without angina pectoris Status: Acute (3) Acute kidney failure Code(s): N17.9 - Acute kidney failure, unspecified Status: Acute (4) CHF exacerbation Code(s): I50.9 - Heart failure, unspecified Status: Acute (5) Systolic CHF, acute on chronic Code(s): I50.23 - Acute on chronic systolic (congestive) heart failure Status : Acute (6) Pleural effusion due to CHF (congestive heart failure) Code(s): I50.9 - Heart failure, unspecified Status: Acute - Plan 1) NSTEMI Probable type 2 Atypical chest pain Heparin drip stopped Unsure of value of elevated troponin to 10? 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 With everything that he's going through, he would like to be treated medically and not taken to the cardiac catheterization technologist to evaluate his coronary anatomy Con't medical management If ischemic evaluation, high risk of hemodialysis 5) All questions from patient and family answered 6) Probable atelectasis Incentive spirometer at bedside with teaching 7) Left chest tube with plan to remove today Will see how he does May need right thoracentesis, but has been diuresing well and weights/oxygen demand down 8) Agree with palliative care consult 9) Possible discharge tomorrow if stable overnight Questions or concerns over the weekend, Dr. Pickering will be available PRN (3) Acute kidney failure Qualifiers: Acute renal failure type: unspecified Qualified Code(s): N17.9 - Acute kidney failure, unspecified (4) CHF exacerbation Qualifiers: Heart failure type: systolic Qualified Code(s): I50.23 - Acute on chronic systolic (congestive) heart failure
--- NOTE | 2017-12-22 13:10 | P.PNNP ---
Subjective Interval history: Patient is alert, sitting on the chair, no SOB, now on room air. Physical Exam Vital signs: Vital Signs 12/21/17 15:00 12/21/17 17:03 12/21/17 18:30 Temperature 97.9 F 97.9 F Pulse Rate 65 62 58 L Respiratory Rate 18 20 16 Blood Pressure 122/59 L 125/60 Pulse Oximetry 98 12/21/17 19:00 12/21/17 19:05 12/21/17 20:00 Temperature 98.2 F Pulse Rate 59 L 58 L Respiratory Rate 14 Blood Pressure 140/64 Pulse Oximetry 99 100 12/21/17 21:00 12/21/17 22:00 12/21/17 23:00 Temperature 98.7 F Pulse Rate 58 L 58 L 58 L Respiratory Rate 14 Blood Pressure 113/57 L Pulse Oximetry 12/21/17 23:37 12/22/17 00:00 12/22/17 01:00 Temperature Pulse Rate 57 L 56 L 62 Respiratory Rate 16 Blood Pressure Pulse Oximetry 12/22/17 02:00 12/22/17 03:00 12/22/17 04:00 Temperature 98.7 F Pulse Rate 62 63 56 L Respiratory Rate 14 Blood Pressure 122/59 L Pulse Oximetry 12/22/17 04:35 12/22/17 05:41 12/22/17 07:00 Temperature 97.9 F Pulse Rate 63 58 L 63 Respiratory Rate 18 Blood Pressure 118/56 L Pulse Oximetry 96 12/22/17 08:00 12/22/17 08:21 12/22/17 09:00 Temperature Pulse Rate 63 61 60 Respiratory Rate 18 Blood Pressure Pulse Oximetry 96 12/22/17 10:00 12/22/17 11:00 12/22/17 12:00 Temperature 97.7 F Pulse Rate 59 L 69 61 Respiratory Rate 18 Blood Pressure 122/58 L Pulse Oximetry 99 Intake & Output 12/21/17 12/22/17 12/22/17 18:59 06:59 18:59 Intake Total 490 / 490 360 / 360 Output Total 2675 / 2675 1250 / 1250 Balance -2185 / -2185 -890 / -890 Intake: Oral 240 / 240 360 / 360 Other 250 / 250 Output: Urine Amount (Catheter) 5 / 2675 1250 / 1250 Indwelling Urethral Catheter 2675 / 2675 1250 / 1250 Other: Other Intake Source Saline Solution Date of Last Bowel Movement 12/18/17 12/21/17 12/22/17 Narrative: GENERAL: NAD, AAOx3 SKIN: Warm and dry. HEAD: Atraumatic. Normocephalic. EYES: Pupils equal and round. No scleral icterus. No injection or drainage. ENT: No nasal bleeding or discharge. Mucous membranes pink and moist. NECK: Trachea midline. No JVD. CARDIOVASCULAR: Regular rate and rhythm. RESPIRATORY: No accessory muscle use. Right lung clear, left minimal crackles at base GASTROINTESTINAL: Abdomen soft, non-tender, nondistended. Hepatic and splenic margins not palpable. MUSCULOSKELETAL: Extremities without clubbing, cyanosis, or edema. No obvious deformities. NEUROLOGICAL: Awake and alert. No obvious cranial nerve deficits. Motor grossly within normal limits. Five out of 5 muscle strength in the arms and legs. Normal speech. PSYCHIATRIC: Appropriate mood and affect; insight and judgment normal. - Constitutional no acute distress - Routine HEENT Exam Head: Present: normocephalic - Routine Neck Exam Present: supple - Routine Respiratory Exam Present: decreased breath sounds, rhonchi, diminished air movement - Routine Cardiovascular Exam Present: S1, S2, irregular rhythm - Routine Abdominal Exam Present: soft, normoactive bowel sounds, distended - Routine Extremities Exam Present: edema (mild) - Routine Neurological Exam Present: alert, oriented X3 - Detailed Neurological Exam: Coma Scale Verbal Response: Oriented - Urinary Catheter Management Indwelling Urethral Catheter Cath placed during this visit: yes Urethral indwelling: Yes Reason for continuing: Chronic Urinary Retention Insertion date: 12/16/17 Assessment and Plan - Assessment (1) Acute kidney failure Code(s): N17.9 - Acute kidney failure, unspecified Status: Acute Qualifiers: Acute renal failure type: unspecified Qualified Code(s): N17.9 - Acute kidney failure, unspecified - Plan Acute kidney failure, unspecified; N18.9 - Chronic kidney disease, unspecified Plan: Patient has chronic kidney disease, stage 4. Now has Cardiac ischemia and develop DAVID. Creatinine is slightly better, now 3.4. Urine out put 1750ml/24 hours Continue lasix and bicarbonate gtt Avoid nephro toxins Will monitor urinary output and BMP Started on gentle IVF, at 42 ml/hr. D/C Lasix, follow the urine out put. Watch for fluid overload.
[2017-12-22] MEDS: Sod Chloride 0.9% Inj 1,000 ML IV.CONT SCH (20:45)
[2017-12-23] MEDS: hydrALAZINE 25 MG Tablet PO SCH ×3 (05:51→23:06)
[2017-12-23] MEDS: Levothyroxine 75 MCG Tablet PO SCH (05:51)
[2017-12-23 06:37] LABS: Alanine Aminotransferase 43 U/L (12-78); Anion Gap 12 meq/L (5-15); Aspartate Aminotransferase 51 U/L (15-37); Blood Urea Nitrogen 73 mg/dL (7-18); Calcium 8.3 mg/dL (8.5-10.1); Carbon Dioxide 28.5 meq/L (21.0-32.0); Chloride 97 meq/L (98-107); Glomerular Filtration Rate 18 mL/min (>89); Glucose,Random 119 mg/dL (74-106); Potassium 3.7 meq/L (3.5-5.1); Sodium 137 meq/L (136-145)
[2017-12-23 06:40] LABS: Alkaline Phosphatase 55 U/L (45-117); Total Protein 5.3 g/dL (6.4-8.2)
[2017-12-23] MEDS: Insulin NovoLOG Aspart Correctional Sugar Inj SQ SCH ×4 (08:11→20:21)
[2017-12-23] MEDS: Senna/Docusate Sodium 8.6/50 MG Tablet PO SCH ×2 (08:42→20:21)
[2017-12-23] MEDS: Folic Acid 1 MG Tablet PO SCH (08:45)
[2017-12-23] MEDS: Isosorbide Mononitrate 30 MG ER 24HR Tablet (Imdur) PO SCH (08:45)
[2017-12-23] MEDS: Metoprolol Tartrate 50 MG Tablet PO SCH ×2 (08:48→20:21)
--- NOTE | 2017-12-23 10:53 | P.PNFP ---
Subjective Interval history: well no new co telemetry stable Results - Labs Result diagrams: 12/19/17 13:47 12/23/17 05:45 Abnormal lab results 12/22/17 12/22/17 12/22/17 Range/Units 11:57 16:24 20:21 Chloride (98-107) meq/L BUN (7-18) mg/dL Creatinine (0.60-1.30) mg/dL Estimated GFR (>89) mL/min POC Glucose 212 H 216 H 194 H (68-110) mg/dl Random Glucose (74-106) mg/dL Calcium (8.5-10.1) mg/dL AST (15-37) U/L Total Protein (6.4-8.2) g/dL Albumin (3.4-5.0) g/dL 12/23/17 12/23/17 Range/Units 05:45 07:33 Chloride 97 L (98-107) meq/L BUN 73 H (7-18) mg/dL Creatinine 3.23 H (0.60-1.30) mg/dL Estimated GFR 18 L (>89) mL/min POC Glucose 126 H (68-110) mg/dl Random Glucose 119 H (74-106) mg/dL Calcium 8.3 L (8.5-10.1) mg/dL AST 51 H (15-37) U/L Total Protein 5.3 L (6.4-8.2) g/dL Albumin 2.0 L (3.4-5.0) g/dL BMP 12/23/17 05:45 Sodium 137 Potassium 3.7 Chloride 97 L Carbon Dioxide 28.5 BUN 73 H Creatinine 3.23 H Calcium 8.3 L Liver Function 12/23/17 Range/Units 05:45 Total Bilirubin 0.3 (0.2-1.0) mg/dL AST 51 H (15-37) U/L ALT 43 (12-78) U/L Alkaline Phosphatase 55 (45-117) U/L Albumin 2.0 L (3.4-5.0) g/dL Physical Exam Vital signs: Vital Signs 12/22/17 11:00 12/22/17 12:00 12/22/17 13:00 Temperature 97.7 F Pulse Rate 69 61 59 L Respiratory Rate 18 Blood Pressure 122/58 L Pulse Oximetry 99 12/22/17 14:00 12/22/17 15:00 12/22/17 15:14 Temperature 97.8 F Pulse Rate 64 62 Respiratory Rate 16 Blood Pressure 137/62 Pulse Oximetry 95 95 12/22/17 16:00 12/22/17 16:27 12/22/17 17:26 Temperature Pulse Rate 63 60 72 Respiratory Rate Blood Pressure Pulse Oximetry 12/22/17 19:15 12/22/17 20:00 12/22/17 21:00 Temperature 97.9 F Pulse Rate 67 63 60 Respiratory Rate 18 Blood Pressure 132/60 Pulse Oximetry 94 L 12/22/17 22:08 12/22/17 23:00 12/22/17 23:21 Temperature Pulse Rate 56 L 62 60 Respiratory Rate 16 Blood Pressure Pulse Oximetry 12/22/17 23:23 12/22/17 23:59 12/23/17 00:03 Temperature 98.0 F Pulse Rate 60 61 Respiratory Rate 18 Blood Pressure 126/60 Pulse Oximetry 92 L 92 L 12/23/17 01:13 12/23/17 02:45 12/23/17 03:36 Temperature Pulse Rate 61 60 65 Respiratory Rate Blood Pressure Pulse Oximetry 12/23/17 03:50 12/23/17 04:40 12/23/17 05:00 Temperature 98.8 F Pulse Rate 67 65 67 Respiratory Rate 19 Blood Pressure 132/63 Pulse Oximetry 92 L 12/23/17 06:10 12/23/17 07:00 12/23/17 08:00 Temperature 98.8 F Pulse Rate 66 68 68 Respiratory Rate 18 Blood Pressure 135/62 Pulse Oximetry 94 L 12/23/17 09:00 12/23/17 10:00 Temperature Pulse Rate 56 L 60 Respiratory Rate Blood Pressure Pulse Oximetry Intake & Output 12/22/17 12/23/17 12/23/17 18:59 06:59 18:59 Intake Total 900 / 900 480 / 480 1000 / 1000 Output Total 1150 / 1150 900 / 900 Balance -250 / -250 -420 / -420 1000 / 1000 Weight 65 kg Intake: IV 420 / 420 1000 / 1000 NS Inj 1,000 ML @ 42 mls/hr IV. 420 / 420 1000 / 1000 CONT .[id number] [facility] Rx#:[id number] Oral 480 / 480 480 / 480 Output: Urine 1150 / 1150 900 / 900 Other: Date of Last Bowel Movement 12/22/17 # Bowel Movements 1 - Constitutional no acute distress - Routine HEENT Exam Head: Present: normocephalic, atraumatic Eye: Present: EOMI, PERRL - Routine Respiratory Exam Present: decreased breath sounds, CTA bilaterally - Routine Cardiovascular Exam Present: RRR - Routine Abdominal Exam Present: soft, normoactive bowel sounds - Urinary Catheter Management Indwelling Urethral Catheter Cath placed during this visit: yes Urethral indwelling: Yes Reason for continuing: Chronic Urinary Retention Insertion date: 12/16/17 Assessment and Plan - Assessment (1) Acute kidney failure Code(s): N17.9 - Acute kidney failure, unspecified Status: Acute Plan: stage 4 CKD IV lasix IVF, DC renal following (2) CHF exacerbation Code(s): I50.9 - Heart failure, unspecified Status: Acute Plan: F/U Cards and speech therapist recommendations and support. (3) Systolic CHF, acute on chronic Code(s): I50.23 - Acute on chronic systolic (congestive) heart failure Status : Acute Plan: Cont cardiac medications, Follow Rec's (4) Pleural effusion due to CHF (congestive heart failure) Code(s): I50.9 - Heart failure, unspecified Status: Acute Plan: Chest tube DC, breathing better No evidence of pneumothorax persistent right lower lung infiltrates. - Assessment and Plan Transfer to medical floor, Pt activity Discussed Condition With: discussed placement with patient and daughter will definately benefit from a telemetry unit rehab as he is very deconditinoned and has lengthy cardiac history inclluding cabg [place] CHF pleural effusion will refer to [facility] rehab on tele Discharge Planning: pt wishes to go to a rehab facillity he declines pallative care he desires [facility] (1) Acute kidney failure Qualifiers: Acute renal failure type: unspecified Qualified Code(s): N17.9 - Acute kidney failure, unspecified (2) CHF exacerbation Qualifiers: Heart failure type: systolic Qualified Code(s): I50.23 - Acute on chronic systolic (congestive) heart failure
[2017-12-23 12:07] LABS: Baso # (Auto) 0.1 th/mm3 (0.0-0.2); Baso % (Auto) 0.9 % (0.0-2.0); Eos # (Auto) 0.5 th/mm3 (0.0-0.4); Eos % (Auto) 6.3 % (0.0-4.0); Hematocrit 32.3 % (39.0-51.0); Hemoglobin 10.7 gm/dL (13.0-17.0); Lymph # (Auto) 0.9 th/mm3 (1.0-4.8); Lymph % (Auto) 11.1 % (9.0-44.0); Mean Corpuscular Hemoglobin 26.7 pg (27.0-34.0); Mean Platelet Volume 9.1 fL (7.0-11.0); Mono # (Auto) 0.8 th/mm3 (0.0-0.9); Mono % (Auto) 9.5 % (0.0-8.0); Neut # (Auto) 5.8 th/mm3 (1.8-7.7); Neut % (Auto) 72.2 % (16.0-70.0); Platelet Count 170 th/mm3 (150-450); Red Blood Count 3.99 mil/mm3 (4.50-5.90); Red Cell Distribution Width 17.2 % (11.6-17.2)
[2017-12-23 12:23] LABS: Calcium 8.4 mg/dL (8.5-10.1); Carbon Dioxide 29.7 meq/L (21.0-32.0)
[2017-12-23] MEDS: levoFLOXacin 500 MG Tablet PO SCH (13:25)
--- NOTE | 2017-12-23 16:56 | P.PNNP ---
Subjective Interval history: NO acute issues, reports feeling well and no dyspnea Physical Exam Vital signs: Vital Signs 12/22/17 17:26 12/22/17 19:15 12/22/17 20:00 Temperature 97.9 F Pulse Rate 72 67 63 Respiratory Rate 18 Blood Pressure 132/60 Pulse Oximetry 94 L 12/22/17 21:00 12/22/17 22:08 12/22/17 23:00 Temperature Pulse Rate 60 56 L 62 Respiratory Rate Blood Pressure Pulse Oximetry 12/22/17 23:21 12/22/17 23:23 12/22/17 23:59 Temperature 98.0 F Pulse Rate 60 60 Respiratory Rate 16 18 Blood Pressure 126/60 Pulse Oximetry 92 L 92 L 12/23/17 00:03 12/23/17 01:13 12/23/17 02:45 Temperature Pulse Rate 61 61 60 Respiratory Rate Blood Pressure Pulse Oximetry 12/23/17 03:36 12/23/17 03:50 12/23/17 04:40 Temperature 98.8 F Pulse Rate 65 67 65 Respiratory Rate 19 Blood Pressure 132/63 Pulse Oximetry 92 L 12/23/17 05:00 12/23/17 06:10 12/23/17 07:00 Temperature 98.8 F Pulse Rate 67 66 68 Respiratory Rate 18 Blood Pressure 135/62 Pulse Oximetry 94 L 12/23/17 08:00 12/23/17 09:00 12/23/17 10:00 Temperature Pulse Rate 68 56 L 60 Respiratory Rate Blood Pressure Pulse Oximetry 12/23/17 11:00 12/23/17 12:00 12/23/17 13:00 Temperature 98.0 F Pulse Rate 55 L 63 67 Respiratory Rate 18 Blood Pressure 132/63 Pulse Oximetry 96 12/23/17 14:00 12/23/17 15:00 12/23/17 16:00 Temperature 98.2 F Pulse Rate 58 L 68 67 Respiratory Rate 18 Blood Pressure 113/58 L Pulse Oximetry 98 Intake & Output 12/22/17 12/23/17 12/23/17 18:59 06:59 18:59 Intake Total 900 / 900 480 / 480 1000 / 1000 Output Total 1150 / 1150 900 / 900 Balance -250 / -250 -420 / -420 1000 / 1000 Weight 65 kg Intake: IV 420 / 420 1000 / 1000 NS Inj 1,000 ML @ 42 mls/hr IV. 420 / 420 1000 / 1000 CONT .[id number] [facility] Rx#:[id number] Oral 480 / 480 480 / 480 Output: Urine 1150 / 1150 900 / 900 Other: Date of Last Bowel Movement 12/22/17 # Bowel Movements 1 - Constitutional no acute distress - Routine HEENT Exam Head: Present: normocephalic - Routine Neck Exam Present: supple - Routine Respiratory Exam Present: diminished air movement - Routine Cardiovascular Exam Present: RRR - Routine Abdominal Exam Present: soft - Routine Skin Exam Present: intact - Routine Neurological Exam Present: alert - Detailed Neurological Exam: Coma Scale Eye Opening: Spontaneous - Routine Psychiatric Exam Present: normal affect - Urinary Catheter Management Indwelling Urethral Catheter Cath placed during this visit: yes Urethral indwelling: Yes Reason for continuing: Chronic Urinary Retention Insertion date: 12/16/17 Assessment and Plan - Assessment (1) Acute kidney failure Code(s): N17.9 - Acute kidney failure, unspecified Status: Acute Qualifiers: Acute renal failure type: unspecified Qualified Code(s): N17.9 - Acute kidney failure, unspecified - Plan Acute kidney failure, unspecified; N18.9 - Chronic kidney disease, unspecified Plan: Patient has chronic kidney disease, stage 4. Now has Cardiac ischemia and develop DAVID. Creatinine is stable: 3.23 -> 3.4 today Urine out put 2L/ 24 hours Now is off lasix and on IVFs at 42cc/hour. Continue to monitor and encourage PO intake, with plan to D/C IVFs when tolerating adequate PO intake Avoid nephro toxins
[2017-12-23] MEDS: Sod Chloride 0.9% Inj 1,000 ML IV.CONT SCH (19:31)
[2017-12-23 21:06] LABS: Hematocrit 28.2 % (39.0-51.0); Hemoglobin 9.3 gm/dL (13.0-17.0); Mean Corpuscular HGB Conc 32.9 % (32.0-36.0); Mean Corpuscular Hemoglobin 26.6 pg (27.0-34.0); Mean Corpuscular Volume 80.7 fL (80.0-100.0); Mean Platelet Volume 9.4 fL (7.0-11.0); Platelet Count 144 th/mm3 (150-450); Red Cell Distribution Width 16.9 % (11.6-17.2); White Blood Count 7.8 th/mm3 (4.0-11.0)
[2017-12-23 21:30] LABS: Anion Gap 10 meq/L (5-15); Aspartate Aminotransferase 63 U/L (15-37); Blood Urea Nitrogen 72 mg/dL (7-18); Calcium 7.8 mg/dL (8.5-10.1); Carbon Dioxide 26.7 meq/L (21.0-32.0); Chloride 99 meq/L (98-107); Glomerular Filtration Rate 18 mL/min (>89); Glucose,Random 291 mg/dL (74-106); Magnesium 1.5 mg/dL (1.5-2.5); Sodium 136 meq/L (136-145)
[2017-12-23 21:33] LABS: Alanine Aminotransferase 48 U/L (12-78); Alkaline Phosphatase 61 U/L (45-117); Phosphorus 2.2 mg/dL (2.5-4.9); Total Protein 5.1 g/dL (6.4-8.2)
[2017-12-24] MEDS: hydrALAZINE 25 MG Tablet PO SCH ×3 (06:33→22:30)
[2017-12-24] MEDS: Levothyroxine 75 MCG Tablet PO SCH (06:33)
[2017-12-24] MEDS: Senna/Docusate Sodium 8.6/50 MG Tablet PO SCH ×2 (08:21→20:39)
[2017-12-24] MEDS: Folic Acid 1 MG Tablet PO SCH (08:21)
[2017-12-24] MEDS: Metoprolol Tartrate 50 MG Tablet PO SCH ×2 (08:21→20:36)
[2017-12-24] MEDS: Isosorbide Mononitrate 30 MG ER 24HR Tablet (Imdur) PO SCH (08:22)
[2017-12-24] MEDS: Insulin NovoLOG Aspart Correctional Sugar Inj SQ SCH ×4 (08:26→20:37)
--- NOTE | 2017-12-24 11:10 | P.PNFP ---
Subjective Interval history: good night feeling well no ew co breathing easy Results - Labs Result diagrams: 12/23/17 20:30 12/23/17 20:30 Abnormal lab results 12/23/17 12/23/17 12/23/17 Range/Units 11:53 11:53 19:58 RBC 3.99 L (4.50-5.90) mil/mm3 Hgb 10.7 L (13.0-17.0) gm/dL Hct 32.3 L (39.0-51.0) % MCH 26.7 L (27.0-34.0) pg Plt Count (150-450) th/mm3 Neut % (Auto) 72.2 H (16.0-70.0) % [place] % (Auto) 9.5 H (0.0-8.0) % Eos % (Auto) 6.3 H (0.0-4.0) % Lymph # (Auto) 0.9 L (1.0-4.8) th/mm3 Eos # (Auto) 0.5 H (0.0-0.4) th/mm3 Chloride 96 L (98-107) meq/L BUN 71 H (7-18) mg/dL Creatinine 3.34 H (0.60-1.30) mg/dL Estimated GFR 17 L (>89) mL/min POC Glucose 289 H (68-110) mg/dl Random Glucose 197 H (74-106) mg/dL Calcium 8.4 L (8.5-10.1) mg/dL Phosphorus (2.5-4.9) mg/dL AST (15-37) U/L Total Protein (6.4-8.2) g/dL Albumin (3.4-5.0) g/dL 12/23/17 12/23/17 12/24/17 Range/Units 20:30 20:30 07:35 RBC 3.50 L (4.50-5.90) mil/mm3 Hgb 9.3 L (13.0-17.0) gm/dL Hct 28.2 L (39.0-51.0) % MCH 26.6 L (27.0-34.0) pg Plt Count 144 L (150-450) th/mm3 Neut % (Auto) (16.0-70.0) % [place] % (Auto) (0.0-8.0) % Eos % (Auto) (0.0-4.0) % Lymph # (Auto) (1.0-4.8) th/mm3 Eos # (Auto) (0.0-0.4) th/mm3 Chloride (98-107) meq/L BUN 72 H (7-18) mg/dL Creatinine 3.24 H (0.60-1.30) mg/dL Estimated GFR 18 L (>89) mL/min POC Glucose 126 H (68-110) mg/dl Random Glucose 291 H (74-106) mg/dL Calcium 7.8 L (8.5-10.1) mg/dL Phosphorus 2.2 L (2.5-4.9) mg/dL AST 63 H (15-37) U/L Total Protein 5.1 L (6.4-8.2) g/dL Albumin 2.0 L (3.4-5.0) g/dL Short CBC 12/23/17 12/23/17 Range/Units 11:53 20:30 WBC 8.0 7.8 (4.0-11.0) th/mm3 Hgb 10.7 L 9.3 L (13.0-17.0) gm/dL Hct 32.3 L 28.2 L (39.0-51.0) % Plt Count 170 D 144 L (150-450) th/mm3 BMP 12/23/17 12/23/17 11:53 20:30 Sodium 136 136 Potassium 4.0 4.0 Chloride 96 L 99 Carbon Dioxide 29.7 26.7 BUN 71 H 72 H Creatinine 3.34 H 3.24 H Calcium 8.4 L 7.8 L Liver Function 12/23/17 Range/Units 20:30 Total Bilirubin 0.2 (0.2-1.0) mg/dL AST 63 H (15-37) U/L ALT 48 (12-78) U/L Alkaline Phosphatase 61 (45-117) U/L Albumin 2.0 L (3.4-5.0) g/dL Physical Exam Vital signs: Vital Signs 12/23/17 12:00 12/23/17 13:00 12/23/17 14:00 Temperature Pulse Rate 63 67 58 L Respiratory Rate Blood Pressure Pulse Oximetry 12/23/17 15:00 12/23/17 16:00 12/23/17 17:00 Temperature 98.2 F Pulse Rate 68 67 68 Respiratory Rate 18 Blood Pressure 113/58 L Pulse Oximetry 98 12/23/17 18:00 12/23/17 19:00 12/23/17 19:30 Temperature 97.9 F Pulse Rate 67 69 70 Respiratory Rate 20 Blood Pressure 130/60 Pulse Oximetry 93 L 12/23/17 20:11 12/23/17 20:58 12/23/17 21:26 Temperature Pulse Rate 68 61 58 L Respiratory Rate 18 Blood Pressure Pulse Oximetry 95 12/23/17 22:34 12/23/17 23:00 12/23/17 23:25 Temperature 98.0 F Pulse Rate 65 59 L 61 Respiratory Rate 19 Blood Pressure 112/56 L Pulse Oximetry 94 L 12/24/17 00:03 12/24/17 01:11 12/24/17 02:23 Temperature Pulse Rate 60 64 68 Respiratory Rate Blood Pressure Pulse Oximetry 12/24/17 03:00 12/24/17 04:00 12/24/17 05:35 Temperature 97.8 F Pulse Rate 70 76 75 Respiratory Rate 20 Blood Pressure 135/62 Pulse Oximetry 92 L 12/24/17 06:05 12/24/17 07:00 12/24/17 08:00 Temperature 98.4 F Pulse Rate 64 69 72 Respiratory Rate 18 Blood Pressure 120/56 L Pulse Oximetry 90 L 12/24/17 08:25 12/24/17 09:00 12/24/17 10:00 Temperature Pulse Rate 68 62 59 L Respiratory Rate 17 Blood Pressure Pulse Oximetry 93 L Intake & Output 12/23/17 12/24/17 12/24/17 18:59 06:59 18:59 Intake Total 1720 / 1720 360 / 360 Output Total 650 / 650 900 / 900 Balance 1070 / 1070 -540 / -540 Weight 65 kg Intake: IV 1000 / 1000 NS Inj 1,000 ML @ 42 mls/hr IV. 1000 / 1000 CONT .[id number] [facility] Rx#:[id number] Oral 720 / 720 360 / 360 Output: Urine Amount (Catheter) 650 / 650 900 / 900 Indwelling Urethral Catheter 650 / 650 900 / 900 - Constitutional no acute distress - Routine HEENT Exam Head: Present: normocephalic, atraumatic Eye: Present: EOMI, PERRL ENT: Present: mucous membranes moist - Routine Neck Exam Present: supple - Routine Respiratory Exam Present: decreased breath sounds, CTA bilaterally - Routine Cardiovascular Exam Present: RRR - Routine Abdominal Exam Present: soft, normoactive bowel sounds - Routine Neurological Exam Present: alert, oriented X3 - Routine Psychiatric Exam Present: normal affect - Urinary Catheter Management Indwelling Urethral Catheter Cath placed during this visit: yes Urethral indwelling: Yes Reason for continuing: Hourly intake/output Insertion date: 12/16/17 Assessment and Plan - Assessment (1) Acute kidney failure Code(s): N17.9 - Acute kidney failure, unspecified Status: Acute Plan: stage 4 CKD IV lasix IVF, DC renal following (2) CHF exacerbation Code(s): I50.9 - Heart failure, unspecified Status: Acute Plan: F/U Cards and relay engineer recommendations and support. (3) Systolic CHF, acute on chronic Code(s): I50.23 - Acute on chronic systolic (congestive) heart failure Status : Acute Plan: Cont cardiac medications, Follow Rec's (4) Pleural effusion due to CHF (congestive heart failure) Code(s): I50.9 - Heart failure, unspecified Status: Acute Plan: Chest tube DC, breathing better No evidence of pneumothorax persistent right lower lung infiltrates. - Assessment and Plan Transfer to medical floor, Pt activity Discharge Planning: pt wishes to go to a rehab facillity he declines pallative care he desires [facility] discussed at length with patient and family will attempt to place in a telemetry unit for rehab at [facility] (1) Acute kidney failure Qualifiers: Acute renal failure type: unspecified Qualified Code(s): N17.9 - Acute kidney failure, unspecified (2) CHF exacerbation Qualifiers: Heart failure type: systolic Qualified Code(s): I50.23 - Acute on chronic systolic (congestive) heart failure
--- NOTE | 2017-12-24 12:12 | P.PNNP ---
Subjective Interval history: no acute issues Physical Exam Vital signs: Vital Signs 12/23/17 13:00 12/23/17 14:00 12/23/17 15:00 Temperature 98.2 F Pulse Rate 67 58 L 68 Respiratory Rate 18 Blood Pressure 113/58 L Pulse Oximetry 98 12/23/17 16:00 12/23/17 17:00 12/23/17 18:00 Temperature Pulse Rate 67 68 67 Respiratory Rate Blood Pressure Pulse Oximetry 12/23/17 19:00 12/23/17 19:30 12/23/17 20:11 Temperature 97.9 F Pulse Rate 69 70 68 Respiratory Rate 20 18 Blood Pressure 130/60 Pulse Oximetry 93 L 95 12/23/17 20:58 12/23/17 21:26 12/23/17 22:34 Temperature Pulse Rate 61 58 L 65 Respiratory Rate Blood Pressure Pulse Oximetry 12/23/17 23:00 12/23/17 23:25 12/24/17 00:03 Temperature 98.0 F Pulse Rate 59 L 61 60 Respiratory Rate 19 Blood Pressure 112/56 L Pulse Oximetry 94 L 12/24/17 01:11 12/24/17 02:23 12/24/17 03:00 Temperature 97.8 F Pulse Rate 64 68 70 Respiratory Rate 20 Blood Pressure 135/62 Pulse Oximetry 92 L 12/24/17 04:00 12/24/17 05:35 12/24/17 06:05 Temperature Pulse Rate 76 75 64 Respiratory Rate Blood Pressure Pulse Oximetry 12/24/17 07:00 12/24/17 08:00 12/24/17 08:25 Temperature 98.4 F Pulse Rate 69 72 68 Respiratory Rate 18 17 Blood Pressure 120/56 L Pulse Oximetry 90 L 93 L 12/24/17 09:00 12/24/17 10:00 12/24/17 11:00 Temperature 97.4 F L Pulse Rate 62 59 L 63 Respiratory Rate 18 Blood Pressure 157/66 H Pulse Oximetry 95 Intake & Output 12/23/17 12/24/17 12/24/17 18:59 06:59 18:59 Intake Total 1720 / 1720 360 / 360 Output Total 650 / 650 900 / 900 Balance 1070 / 1070 -540 / -540 Weight 65 kg Intake: IV 1000 / 1000 NS Inj 1,000 ML @ 42 mls/hr IV. 1000 / 1000 CONT .[id number] [facility] Rx#:[id number] Oral 720 / 720 360 / 360 Output: Urine Amount (Catheter) 650 / 650 900 / 900 Indwelling Urethral Catheter 650 / 650 900 / 900 - Constitutional no acute distress - Routine HEENT Exam Head: Present: normocephalic Eye: Present: EOMI - Routine Neck Exam Present: supple - Routine Respiratory Exam Present: accessory muscle use - Routine Cardiovascular Exam Present: RRR - Routine Abdominal Exam Present: soft - Routine Skin Exam Present: intact - Routine Neurological Exam Present: alert - Routine Psychiatric Exam Present: normal affect - Urinary Catheter Management Indwelling Urethral Catheter Cath placed during this visit: yes Urethral indwelling: Yes Reason for continuing: Hourly intake/output Insertion date: 12/16/17 Assessment and Plan - Assessment (1) Acute kidney failure Code(s): N17.9 - Acute kidney failure, unspecified Status: Acute Qualifiers: Acute renal failure type: unspecified Qualified Code(s): N17.9 - Acute kidney failure, unspecified - Plan Acute kidney failure, unspecified; N18.9 - Chronic kidney disease, unspecified Plan: Patient has chronic kidney disease, stage 4. Now has Cardiac ischemia and developed DAVID. Creatinine is stable: 3.23 -> 3.4-> 3.2 today Urine out put 1.5L / 24 hours Now is off lasix Tolerting PO intake - will D/C IVFs Possible D/C to [facility] rehab soon Avoid nephro toxins
[2017-12-24 16:15] LABS: Hematocrit 29.3 % (39.0-51.0); Hemoglobin 9.6 gm/dL (13.0-17.0); Mean Corpuscular HGB Conc 32.8 % (32.0-36.0); Mean Corpuscular Hemoglobin 26.4 pg (27.0-34.0); Mean Corpuscular Volume 80.4 fL (80.0-100.0); Platelet Count 162 th/mm3 (150-450); Red Blood Count 3.65 mil/mm3 (4.50-5.90); White Blood Count 7.7 th/mm3 (4.0-11.0)
[2017-12-24 16:44] LABS: Anion Gap 10 meq/L (5-15); Aspartate Aminotransferase 42 U/L (15-37); Blood Urea Nitrogen 61 mg/dL (7-18); Calcium 7.7 mg/dL (8.5-10.1); Carbon Dioxide 25.8 meq/L (21.0-32.0); Chloride 101 meq/L (98-107); Glomerular Filtration Rate 20 mL/min (>89); Glucose,Random 206 mg/dL (74-106); Sodium 137 meq/L (136-145)
[2017-12-24 16:55] LABS: Alanine Aminotransferase 41 U/L (12-78); Alkaline Phosphatase 57 U/L (45-117); Total Protein 5.1 g/dL (6.4-8.2)
[2017-12-25] MEDS: hydrALAZINE 25 MG Tablet PO SCH ×3 (08:09→21:43)
[2017-12-25] MEDS: Levothyroxine 75 MCG Tablet PO SCH (08:17)
[2017-12-25] MEDS: Isosorbide Mononitrate 30 MG ER 24HR Tablet (Imdur) PO SCH (08:18)
[2017-12-25] MEDS: Folic Acid 1 MG Tablet PO SCH (08:18)
[2017-12-25] MEDS: Metoprolol Tartrate 50 MG Tablet PO SCH ×2 (08:18→21:40)
[2017-12-25] MEDS: Insulin NovoLOG Aspart Correctional Sugar Inj SQ SCH ×4 (08:20→21:41)
[2017-12-25] MEDS: Senna/Docusate Sodium 8.6/50 MG Tablet PO SCH ×2 (08:35→21:43)
[2017-12-25] MEDS: levoFLOXacin 500 MG Tablet PO SCH (13:34)
--- NOTE | 2017-12-25 18:46 | P.PNCA ---
Subjective Interval history: No significant events over the weekend Patient feels well Off oxygen Working with PT Physical Exam Vital signs: Vital Signs 12/24/17 19:00 12/24/17 20:00 12/24/17 21:00 Temperature 98.4 F Pulse Rate 68 64 66 Respiratory Rate 16 Blood Pressure 130/62 Pulse Oximetry 96 12/24/17 22:00 12/24/17 23:00 12/25/17 00:00 Temperature 98.5 F Pulse Rate 62 64 60 Respiratory Rate 16 Blood Pressure 121/60 Pulse Oximetry 96 12/25/17 01:00 12/25/17 02:00 12/25/17 03:00 Temperature 98.8 F Pulse Rate 54 L 60 69 Respiratory Rate 16 Blood Pressure 128/60 Pulse Oximetry 96 12/25/17 04:00 12/25/17 05:00 12/25/17 06:00 Temperature Pulse Rate 72 68 65 Respiratory Rate Blood Pressure Pulse Oximetry 12/25/17 07:00 12/25/17 08:00 12/25/17 08:51 Temperature 98.2 F Pulse Rate 74 68 74 Respiratory Rate 18 18 Blood Pressure 148/66 H Pulse Oximetry 93 L 94 L 12/25/17 09:00 12/25/17 10:00 12/25/17 10:59 Temperature 98.0 F Pulse Rate 67 60 61 Respiratory Rate 18 Blood Pressure 140/65 Pulse Oximetry 98 12/25/17 11:49 12/25/17 13:00 12/25/17 14:00 Temperature Pulse Rate 61 62 57 L Respiratory Rate Blood Pressure Pulse Oximetry 12/25/17 14:47 12/25/17 16:00 12/25/17 16:31 Temperature 98.4 F Pulse Rate 64 59 L 59 L Respiratory Rate 18 18 Blood Pressure 118/57 L Pulse Oximetry 98 12/25/17 16:53 12/25/17 17:34 Temperature Pulse Rate 64 63 Respiratory Rate Blood Pressure Pulse Oximetry Intake & Output 12/24/17 12/25/17 12/25/17 18:59 06:59 18:59 Intake Total 850 / 850 240 / 240 600 / 600 Output Total 650 / 650 400 / 400 560 / 560 Balance 200 / 200 -160 / -160 40 / 40 Weight 65 kg Intake: Oral 850 / 850 240 / 240 600 / 600 Output: Urine 650 / 650 400 / 400 Urine Amount (Catheter) 560 / 560 Indwelling Urethral Catheter 560 / 560 Other: Date of Last Bowel Movement 12/25/17 # Bowel Movements 0 Narrative: GENERAL: NAD, AAOx3 SKIN: Warm and dry. HEAD: Atraumatic. Normocephalic. EYES: Pupils equal and round. No scleral icterus. No injection or drainage. ENT: No nasal bleeding or discharge. Mucous membranes pink and moist. NECK: Trachea midline. No JVD. CARDIOVASCULAR: Regular rate and rhythm. RESPIRATORY: No accessory muscle use. CTA bilaterally GASTROINTESTINAL: Abdomen soft, non-tender, nondistended. Hepatic and splenic margins not palpable. MUSCULOSKELETAL: Extremities without clubbing, cyanosis, or edema. No obvious deformities. NEUROLOGICAL: Awake and alert. No obvious cranial nerve deficits. Motor grossly within normal limits. Five out of 5 muscle strength in the arms and legs. Normal speech. PSYCHIATRIC: Appropriate mood and affect; insight and judgment normal. - Urinary Catheter Management Indwelling Urethral Catheter Cath placed during this visit: yes, but has since been removed by the nurse Urethral indwelling: Yes Reason for continuing: Decision to DC catheter Insertion date: 12/16/17 Removal date: 12/25/17 Removal time: 17:41 Assessment and Plan - Assessment (1) NSTEMI (non-ST elevated myocardial infarction) Code(s): I21.4 - Non-ST elevation (NSTEMI) myocardial infarction Status: Acute (2) CAD (coronary artery disease) Code(s): I25.10 - Atherosclerotic heart disease of [place] coronary artery without angina pectoris Status: Acute (3) Acute kidney failure Code(s): N17.9 - Acute kidney failure, unspecified Status: Acute (4) CHF exacerbation Code(s): I50.9 - Heart failure, unspecified Status: Acute (5) Systolic CHF, acute on chronic Code(s): I50.23 - Acute on chronic systolic (congestive) heart failure Status : Acute (6) Pleural effusion due to CHF (congestive heart failure) Code(s): I50.9 - Heart failure, unspecified Status: Acute - Plan 1) NSTEMI Probable type 2 Atypical chest pain Heparin drip stopped Unsure of value of elevated troponin to 10? 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 With everything that he's going through, he would like to be treated medically and not taken to the research laboratory specialist to evaluate his coronary anatomy Con't medical management If ischemic evaluation, high risk of hemodialysis 5) All questions from patient and family answered 6) Probable atelectasis Incentive spirometer at bedside with teaching 7) Con't to work with PT, eventual rehab 8) No further cardiovascular work up Cardiovascularly stable for discharge to rehab (3) Acute kidney failure Qualifiers: Acute renal failure type: unspecified Qualified Code(s): N17.9 - Acute kidney failure, unspecified (4) CHF exacerbation Qualifiers: Heart failure type: systolic Qualified Code(s): I50.23 - Acute on chronic systolic (congestive) heart failure
--- NOTE | 2017-12-25 20:30 | P.PNFP ---
Subjective Interval history: pt awaits placement ohopefully he will be able o attend rehab on telemetry at [facility] [place] Results - Labs Result diagrams: 12/24/17 16:00 12/24/17 16:00 Abnormal lab results 12/25/17 12/25/17 12/25/17 Range/Units 08:17 11:15 16:29 POC Glucose 157 H 291 H 204 H (68-110) mg/dl Physical Exam Vital signs: Vital Signs 12/24/17 21:00 12/24/17 22:00 12/24/17 23:00 Temperature 98.5 F Pulse Rate 66 62 64 Respiratory Rate 16 Blood Pressure 121/60 Pulse Oximetry 96 12/25/17 00:00 12/25/17 01:00 12/25/17 02:00 Temperature Pulse Rate 60 54 L 60 Respiratory Rate Blood Pressure Pulse Oximetry 12/25/17 03:00 12/25/17 04:00 12/25/17 05:00 Temperature 98.8 F Pulse Rate 69 72 68 Respiratory Rate 16 Blood Pressure 128/60 Pulse Oximetry 96 12/25/17 06:00 12/25/17 07:00 12/25/17 08:00 Temperature 98.2 F Pulse Rate 65 74 68 Respiratory Rate 18 Blood Pressure 148/66 H Pulse Oximetry 93 L 12/25/17 08:51 12/25/17 09:00 12/25/17 10:00 Temperature Pulse Rate 74 67 60 Respiratory Rate 18 Blood Pressure Pulse Oximetry 94 L 12/25/17 10:59 12/25/17 11:49 12/25/17 13:00 Temperature 98.0 F Pulse Rate 61 61 62 Respiratory Rate 18 Blood Pressure 140/65 Pulse Oximetry 98 12/25/17 14:00 12/25/17 14:47 12/25/17 16:00 Temperature 98.4 F Pulse Rate 57 L 64 59 L Respiratory Rate 18 Blood Pressure 118/57 L Pulse Oximetry 98 12/25/17 16:31 12/25/17 16:53 12/25/17 17:34 Temperature Pulse Rate 59 L 64 63 Respiratory Rate 18 Blood Pressure Pulse Oximetry Intake & Output 12/25/17 12/25/17 12/26/17 06:59 18:59 06:59 Intake Total 240 / 240 600 / 600 Output Total 400 / 400 560 / 560 Balance -160 / -160 40 / 40 Weight 65 kg Intake: Oral 240 / 240 600 / 600 Output: Urine 400 / 400 Urine Amount (Catheter) 560 / 560 Indwelling Urethral Catheter 560 / 560 Other: Date of Last Bowel Movement 12/25/17 # Bowel Movements 0 - Constitutional no acute distress - Routine HEENT Exam Head: Present: normocephalic, atraumatic Eye: Present: EOMI, PERRL ENT: Present: mucous membranes moist - Routine Neck Exam Present: supple - Routine Respiratory Exam Present: decreased breath sounds - Routine Cardiovascular Exam Present: RRR - Routine Abdominal Exam Present: soft, normoactive bowel sounds - Routine Extremities Exam Present: full ROM - Urinary Catheter Management Indwelling Urethral Catheter Cath placed during this visit: yes, but has since been removed by the nurse Urethral indwelling: Yes Reason for continuing: Decision to DC catheter Insertion date: 12/16/17 Removal date: 12/25/17 Removal time: 17:41 Assessment and Plan - Assessment (1) Acute kidney failure Code(s): N17.9 - Acute kidney failure, unspecified Status: Acute Plan: stage 4 CKD IV lasix IVF, DC renal following (2) CHF exacerbation Code(s): I50.9 - Heart failure, unspecified Status: Acute Plan: F/U Cards and middle school history teacher recommendations and support. (3) Systolic CHF, acute on chronic Code(s): I50.23 - Acute on chronic systolic (congestive) heart failure Status : Acute Plan: Cont cardiac medications, Follow Rec's (4) Pleural effusion due to CHF (congestive heart failure) Code(s): I50.9 - Heart failure, unspecified Status: Acute Plan: Chest tube DC, breathing better No evidence of pneumothorax persistent right lower lung infiltrates. - Assessment and Plan Transfer to medical floor, Pt activity 12/25 await dc to [facility]hab [facility] Discharge Planning: pt wishes to go to a rehab facillity he declines pallative care he desires [facility] discussed at length with patient and family will attempt to place in a telemetry unit for rehab at [facility] [place] (1) Acute kidney failure Qualifiers: Acute renal failure type: unspecified Qualified Code(s): N17.9 - Acute kidney failure, unspecified (2) CHF exacerbation Qualifiers: Heart failure type: systolic Qualified Code(s): I50.23 - Acute on chronic systolic (congestive) heart failure
--- NOTE | 2017-12-25 21:08 | P.PNNP ---
Subjective Interval history: Patient is alert, no SOB, feeling better. Physical Exam Vital signs: Vital Signs 12/24/17 22:00 12/24/17 23:00 12/25/17 00:00 Temperature 98.5 F Pulse Rate 62 64 60 Respiratory Rate 16 Blood Pressure 121/60 Pulse Oximetry 96 12/25/17 01:00 12/25/17 02:00 12/25/17 03:00 Temperature 98.8 F Pulse Rate 54 L 60 69 Respiratory Rate 16 Blood Pressure 128/60 Pulse Oximetry 96 12/25/17 04:00 12/25/17 05:00 12/25/17 06:00 Temperature Pulse Rate 72 68 65 Respiratory Rate Blood Pressure Pulse Oximetry 12/25/17 07:00 12/25/17 08:00 12/25/17 08:51 Temperature 98.2 F Pulse Rate 74 68 74 Respiratory Rate 18 18 Blood Pressure 148/66 H Pulse Oximetry 93 L 94 L 12/25/17 09:00 12/25/17 10:00 12/25/17 10:59 Temperature 98.0 F Pulse Rate 67 60 61 Respiratory Rate 18 Blood Pressure 140/65 Pulse Oximetry 98 12/25/17 11:49 12/25/17 13:00 12/25/17 14:00 Temperature Pulse Rate 61 62 57 L Respiratory Rate Blood Pressure Pulse Oximetry 12/25/17 14:47 12/25/17 16:00 12/25/17 16:31 Temperature 98.4 F Pulse Rate 64 59 L 59 L Respiratory Rate 18 18 Blood Pressure 118/57 L Pulse Oximetry 98 12/25/17 16:53 12/25/17 17:34 Temperature Pulse Rate 64 63 Respiratory Rate Blood Pressure Pulse Oximetry Intake & Output 12/25/17 12/25/17 12/26/17 06:59 18:59 06:59 Intake Total 240 / 240 600 / 600 Output Total 400 / 400 560 / 560 Balance -160 / -160 40 / 40 Weight 65 kg Intake: Oral 240 / 240 600 / 600 Output: Urine 400 / 400 Urine Amount (Catheter) 560 / 560 Indwelling Urethral Catheter 560 / 560 Other: Date of Last Bowel Movement 12/25/17 # Bowel Movements 0 - Constitutional no acute distress - Routine HEENT Exam Head: Present: normocephalic - Routine Neck Exam Present: supple - Routine Cardiovascular Exam Present: RRR, S1, S2 - Routine Abdominal Exam Present: soft, normoactive bowel sounds - Routine Neurological Exam Present: alert, oriented X3 - Urinary Catheter Management Indwelling Urethral Catheter Cath placed during this visit: yes, but has since been removed by the nurse Urethral indwelling: Yes Reason for continuing: Decision to DC catheter Insertion date: 12/16/17 Removal date: 12/25/17 Removal time: 17:41 Assessment and Plan - Assessment (1) Acute kidney failure Code(s): N17.9 - Acute kidney failure, unspecified Status: Acute Qualifiers: Acute renal failure type: unspecified Qualified Code(s): N17.9 - Acute kidney failure, unspecified - Plan Acute kidney failure, unspecified; N18.9 - Chronic kidney disease, unspecified Plan: Patient has chronic kidney disease, stage 4. Now has Cardiac ischemia and developed DAVID. Creatinine continue to improve. Urine out put 1.5L / 24 hours Now is off lasix Tolerating PO intake - Possible D/C to [facility] rehab soon Avoid nephro toxins. Follow the urine out put and BMP.
[2017-12-26] MEDS: hydrALAZINE 25 MG Tablet PO SCH ×2 (06:09→14:00)
[2017-12-26] MEDS: Levothyroxine 75 MCG Tablet PO SCH (06:09)
[2017-12-26] MEDS: Insulin NovoLOG Aspart Correctional Sugar Inj SQ SCH ×3 (08:49→16:54)
[2017-12-26] MEDS: Folic Acid 1 MG Tablet PO SCH (08:49)
[2017-12-26] MEDS: Metoprolol Tartrate 50 MG Tablet PO SCH (08:49)
[2017-12-26] MEDS: Isosorbide Mononitrate 30 MG ER 24HR Tablet (Imdur) PO SCH (08:49)
[2017-12-26] MEDS: Senna/Docusate Sodium 8.6/50 MG Tablet PO SCH (08:50)
--- NOTE | 2017-12-26 11:57 | P.PNFP ---
Subjective Interval history: pt unable to urinate since folley removed Results - Labs Result diagrams: 12/24/17 16:00 12/24/17 16:00 Abnormal lab results 12/25/17 12/25/17 12/26/17 Range/Units 16:29 21:16 08:19 POC Glucose 204 H 186 H 147 H (68-110) mg/dl 12/26/17 Range/Units 11:43 POC Glucose 169 H (68-110) mg/dl Physical Exam Vital signs: Vital Signs 12/25/17 13:00 12/25/17 14:00 12/25/17 14:47 Temperature 98.4 F Pulse Rate 62 57 L 64 Respiratory Rate 18 Blood Pressure 118/57 L Pulse Oximetry 98 12/25/17 16:00 12/25/17 16:31 12/25/17 16:53 Temperature Pulse Rate 59 L 59 L 64 Respiratory Rate 18 Blood Pressure Pulse Oximetry 12/25/17 17:34 12/25/17 19:00 12/25/17 20:00 Temperature 98.5 F Pulse Rate 63 62 63 Respiratory Rate 16 Blood Pressure 148/67 H Pulse Oximetry 95 12/25/17 21:00 12/25/17 22:00 12/25/17 23:00 Temperature 98.4 F Pulse Rate 62 62 62 Respiratory Rate 16 Blood Pressure 140/64 Pulse Oximetry 95 12/26/17 00:00 12/26/17 01:00 12/26/17 02:00 Temperature Pulse Rate 58 L 59 L 58 L Respiratory Rate Blood Pressure Pulse Oximetry 12/26/17 03:00 12/26/17 04:00 12/26/17 05:00 Temperature 99.1 F Pulse Rate 59 L 57 L 66 Respiratory Rate 16 Blood Pressure 113/57 L Pulse Oximetry 93 L 12/26/17 06:00 12/26/17 07:00 12/26/17 08:00 Temperature 98.7 F Pulse Rate 69 63 62 Respiratory Rate 16 Blood Pressure 159/71 H Pulse Oximetry 97 12/26/17 08:27 12/26/17 09:00 12/26/17 10:00 Temperature Pulse Rate 76 55 L 58 L Respiratory Rate 16 Blood Pressure Pulse Oximetry 94 L 12/26/17 11:00 Temperature 97.7 F Pulse Rate 55 L Respiratory Rate 14 Blood Pressure 148/65 H Pulse Oximetry 96 Intake & Output 12/25/17 12/26/17 12/26/17 18:59 06:59 18:59 Intake Total 600 / 600 240 / 240 Output Total 560 / 560 700 / 700 Balance 40 / 40 -460 / -460 Weight 65 kg Intake: Oral 600 / 600 240 / 240 Output: Urine 700 / 700 Urine Amount (Catheter) 560 / 560 Indwelling Urethral Catheter 560 / 560 Other: Date of Last Bowel Movement 12/25/17 # Bowel Movements 0 - Constitutional no acute distress - Routine HEENT Exam Head: Present: normocephalic, atraumatic Eye: Present: EOMI, PERRL ENT: Present: mucous membranes moist - Routine Neck Exam Present: supple - Routine Respiratory Exam Present: CTA bilaterally - Routine Cardiovascular Exam Present: RRR - Routine Abdominal Exam Present: soft, normoactive bowel sounds - Routine Exam Comments: unable to urinate since folley removed - Routine Neurological Exam Present: alert, oriented X3 - Urinary Catheter Management Indwelling Urethral Catheter Cath placed during this visit: yes, but has since been removed by the nurse Urethral indwelling: No Reason for continuing: Not indwelling catheter Insertion date: 12/16/17 Removal date: 12/25/17 Removal time: 17:40 Assessment and Plan - Assessment (1) Acute kidney failure Code(s): N17.9 - Acute kidney failure, unspecified Status: Acute Plan: stage 4 CKD IV lasix IVF, DC renal following (2) CHF exacerbation Code(s): I50.9 - Heart failure, unspecified Status: Acute Plan: F/U Cards and naphthalene operator recommendations and support. (3) Systolic CHF, acute on chronic Code(s): I50.23 - Acute on chronic systolic (congestive) heart failure Status : Acute Plan: Cont cardiac medications, Follow Rec's (4) Pleural effusion due to CHF (congestive heart failure) Code(s): I50.9 - Heart failure, unspecified Status: Acute Plan: Chest tube DC, breathing better No evidence of pneumothorax persistent right lower lung infiltrates. - Assessment and Plan Transfer to medical floor, Pt activity 12/25 await dc to rehab [facility] 12/26 await clearence to transfer to [facility] has been unable to urinate will add flomax 0.8mg bp is up a parul and this may also help with bp control Discharge Planning: pt wishes to go to a rehab facillity he declines pallative care he desires [facility] discussed at length with patient and family will attempt to place in a telemetry unit for rehab at [facility] (1) Acute kidney failure Qualifiers: Acute renal failure type: unspecified Qualified Code(s): N17.9 - Acute kidney failure, unspecified (2) CHF exacerbation Qualifiers: Heart failure type: systolic Qualified Code(s): I50.23 - Acute on chronic systolic (congestive) heart failure
[2017-12-26] MEDS ORDERED: Sod Chloride 0.9% Inj 1,000 ML IV.SIG SCH (13:15)
--- NOTE | 2017-12-26 13:54 | P.PNCA ---
Subjective Interval history: No events overnight Waiting for rehab Physical Exam Vital signs: Vital Signs 12/25/17 14:00 12/25/17 14:47 12/25/17 16:00 Temperature 98.4 F Pulse Rate 57 L 64 59 L Respiratory Rate 18 Blood Pressure 118/57 L Pulse Oximetry 98 12/25/17 16:31 12/25/17 16:53 12/25/17 17:34 Temperature Pulse Rate 59 L 64 63 Respiratory Rate 18 Blood Pressure Pulse Oximetry 12/25/17 19:00 12/25/17 20:00 12/25/17 21:00 Temperature 98.5 F Pulse Rate 62 63 62 Respiratory Rate 16 Blood Pressure 148/67 H Pulse Oximetry 95 12/25/17 22:00 12/25/17 23:00 12/26/17 00:00 Temperature 98.4 F Pulse Rate 62 62 58 L Respiratory Rate 16 Blood Pressure 140/64 Pulse Oximetry 95 12/26/17 01:00 12/26/17 02:00 12/26/17 03:00 Temperature 99.1 F Pulse Rate 59 L 58 L 59 L Respiratory Rate 16 Blood Pressure 113/57 L Pulse Oximetry 93 L 12/26/17 04:00 12/26/17 05:00 12/26/17 06:00 Temperature Pulse Rate 57 L 66 69 Respiratory Rate Blood Pressure Pulse Oximetry 12/26/17 07:00 12/26/17 08:00 12/26/17 08:27 Temperature 98.7 F Pulse Rate 63 62 76 Respiratory Rate 16 16 Blood Pressure 159/71 H Pulse Oximetry 97 94 L 12/26/17 09:00 12/26/17 10:00 12/26/17 11:00 Temperature 97.7 F Pulse Rate 55 L 58 L 55 L Respiratory Rate 14 Blood Pressure 148/65 H Pulse Oximetry 96 12/26/17 12:00 12/26/17 12:04 12/26/17 12:05 Temperature Pulse Rate 59 L Respiratory Rate Blood Pressure 82/40 L 80/41 L Pulse Oximetry 12/26/17 12:08 12/26/17 12:18 12/26/17 13:00 Temperature Pulse Rate 56 L Respiratory Rate Blood Pressure 75/40 L 123/58 L Pulse Oximetry Intake & Output 12/25/17 12/26/17 12/26/17 18:59 06:59 18:59 Intake Total 600 / 600 240 / 240 Output Total 560 / 560 700 / 700 Balance 40 / 40 -460 / -460 Weight 65 kg Intake: Oral 600 / 600 240 / 240 Output: Urine 700 / 700 Urine Amount (Catheter) 560 / 560 Indwelling Urethral Catheter 560 / 560 Other: Date of Last Bowel Movement 12/25/17 # Bowel Movements 0 Narrative: GENERAL: NAD, AAOx3 SKIN: Warm and dry. HEAD: Atraumatic. Normocephalic. EYES: Pupils equal and round. No scleral icterus. No injection or drainage. ENT: No nasal bleeding or discharge. Mucous membranes pink and moist. NECK: Trachea midline. No JVD. CARDIOVASCULAR: Regular rate and rhythm. RESPIRATORY: No accessory muscle use. CTA bilaterally GASTROINTESTINAL: Abdomen soft, non-tender, nondistended. Hepatic and splenic margins not palpable. MUSCULOSKELETAL: Extremities without clubbing, cyanosis, or edema. No obvious deformities. NEUROLOGICAL: Awake and alert. No obvious cranial nerve deficits. Motor grossly within normal limits. Five out of 5 muscle strength in the arms and legs. Normal speech. PSYCHIATRIC: Appropriate mood and affect; insight and judgment normal. - Urinary Catheter Management Indwelling Urethral Catheter Cath placed during this visit: yes, but has since been removed by the nurse Urethral indwelling: No Reason for continuing: Not indwelling catheter Insertion date: 12/16/17 Removal date: 12/25/17 Removal time: 17:40 Assessment and Plan - Assessment (1) NSTEMI (non-ST elevated myocardial infarction) Code(s): I21.4 - Non-ST elevation (NSTEMI) myocardial infarction Status: Acute (2) CAD (coronary artery disease) Code(s): I25.10 - Atherosclerotic heart disease of [place] coronary artery without angina pectoris Status: Acute (3) Acute kidney failure Code(s): N17.9 - Acute kidney failure, unspecified Status: Acute (4) CHF exacerbation Code(s): I50.9 - Heart failure, unspecified Status: Acute (5) Systolic CHF, acute on chronic Code(s): I50.23 - Acute on chronic systolic (congestive) heart failure Status : Acute (6) Pleural effusion due to CHF (congestive heart failure) Code(s): I50.9 - Heart failure, unspecified Status: Acute - Plan 1) NSTEMI Probable type 2 Atypical chest pain Heparin drip stopped Unsure of value of elevated troponin to 10? 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 With everything that he's going through, he would like to be treated medically and not taken to the microbiological laboratory technician to evaluate his coronary anatomy Con't medical management If ischemic evaluation, high risk of hemodialysis 5) All questions from patient and family answered 6) Probable atelectasis Incentive spirometer at bedside with teaching 7) Con't to work with PT, eventual rehab 8) No further cardiovascular work up Cardiovascularly stable for discharge to rehab (3) Acute kidney failure Qualifiers: Acute renal failure type: unspecified Qualified Code(s): N17.9 - Acute kidney failure, unspecified (4) CHF exacerbation Qualifiers: Heart failure type: systolic Qualified Code(s): I50.23 - Acute on chronic systolic (congestive) heart failure
[2017-12-26] MEDS ORDERED: Sodium Chlor 0.9% Inj 250 ML IV.SIG ONE (14:00)
--- NOTE | 2017-12-26 14:18 | P.DS ---
Date of admission: 12/15/17 11:52 Primary care physician: UNKNOWN Brief History from admission: pt was [facility] with ambulatory difficulties s/p fall he did well but developed back pain with an irregular ekg he was transferred to acute care and seen by his game engineer dr Tony he was found to have an nstemi and a left pleural effusion a thoracotomy tube was placed he gradually improved the tube was removed and he will transfer to [facility] for further rehab on telemetry DS: Diagnosis - Discharge Diagnosis (1) Acute kidney failure Status: Acute (2) CHF exacerbation Status: Acute (3) Systolic CHF, acute on chronic Status: Acute (4) Pleural effusion due to CHF (congestive heart failure) Status: Acute (5) NSTEMI (non-ST elevated myocardial infarction) Status: Acute (6) CAD (coronary artery disease) Status: Acute DS: Summary Hospital Course: pt had nstemi chf and pleural effusion treated with thoracotomy tube and transfered to rehab in stable condition - Time Spent with Patient Total time spent providing and/or coordinating discharge services: Greater than 30 minutes Exam Vital signs: Vital Signs 12/25/17 14:47 12/25/17 16:00 12/25/17 16:31 Temperature 98.4 F Pulse Rate 64 59 L 59 L Respiratory Rate 18 18 Blood Pressure 118/57 L Pulse Oximetry 98 12/25/17 16:53 12/25/17 17:34 12/25/17 19:00 Temperature Pulse Rate 64 63 62 Respiratory Rate Blood Pressure Pulse Oximetry 12/25/17 20:00 12/25/17 21:00 12/25/17 22:00 Temperature 98.5 F Pulse Rate 63 62 62 Respiratory Rate 16 Blood Pressure 148/67 H Pulse Oximetry 95 12/25/17 23:00 12/26/17 00:00 12/26/17 01:00 Temperature 98.4 F Pulse Rate 62 58 L 59 L Respiratory Rate 16 Blood Pressure 140/64 Pulse Oximetry 95 12/26/17 02:00 12/26/17 03:00 12/26/17 04:00 Temperature 99.1 F Pulse Rate 58 L 59 L 57 L Respiratory Rate 16 Blood Pressure 113/57 L Pulse Oximetry 93 L 12/26/17 05:00 12/26/17 06:00 12/26/17 07:00 Temperature 98.7 F Pulse Rate 66 69 63 Respiratory Rate 16 Blood Pressure 159/71 H Pulse Oximetry 97 12/26/17 08:00 12/26/17 08:27 12/26/17 09:00 Temperature Pulse Rate 62 76 55 L Respiratory Rate 16 Blood Pressure Pulse Oximetry 94 L 12/26/17 10:00 12/26/17 11:00 12/26/17 12:00 Temperature 97.7 F Pulse Rate 58 L 55 L 59 L Respiratory Rate 14 Blood Pressure 148/65 H Pulse Oximetry 96 12/26/17 12:04 12/26/17 12:05 12/26/17 12:08 Temperature Pulse Rate Respiratory Rate Blood Pressure 82/40 L 80/41 L 75/40 L Pulse Oximetry 12/26/17 12:18 12/26/17 13:00 Temperature Pulse Rate 56 L Respiratory Rate Blood Pressure 123/58 L Pulse Oximetry Intake & Output 12/25/17 12/26/17 12/26/17 18:59 06:59 18:59 Intake Total 600 / 600 240 / 240 Output Total 560 / 560 700 / 700 Balance 40 / 40 -460 / -460 Weight 65 kg Intake: Oral 600 / 600 240 / 240 Output: Urine 700 / 700 Urine Amount (Catheter) 560 / 560 Indwelling Urethral Catheter 560 / 560 Other: Date of Last Bowel Movement 12/25/17 # Bowel Movements 0 - Constitutional no acute distress - Routine HEENT Exam Head: Present: normocephalic, atraumatic Eye: Present: EOMI, PERRL ENT: Present: mucous membranes moist - Routine Neck Exam Present: supple - Routine Respiratory Exam Present: decreased breath sounds, CTA bilaterally - Routine Cardiovascular Exam Present: RRR - Routine Abdominal Exam Present: soft, normoactive bowel sounds - Routine Neurological Exam Present: alert, oriented X3 Results Procedures completed during hospitalization: thoracotomy tube Labs on day of discharge: Labs from last 24 hours 12/26/17 12/26/17 12/25/17 11:43 08:19 21:16 POC Glucose 169 H 147 H 186 H 12/25/17 16:29 POC Glucose 204 H - Impressions ITS Impressions Chest X-Ray 12/21/17 05:00 CONCLUSION: No evidence of pneumothorax status post removal right chest catheter. Improving left lower lung infiltrates and persistent right lower lung infiltrates. Discharge Plan - Discharge Disposition Patient Disposition: [facility] Rehab Inpatient - Discharge Condition Condition: Good - Discharge Order Discharge Orders: Discharge Order (Routine); Ordered 12/26/17 Ordered By: Nadeem Cross Cardiology Clear for Discharge (Routine); Ordered 12/26/17 Ordered By: Nadeem Cross - Discharge Details Anticipated Discharge Date: 12/19/17 Discharge Comment: may discharge to in hosp when clear by cardiologuy - Physicians Team Primary Care Provider: UNKNOWN, Attending Provider: Nadeem Cross Other Providers: Marcus Nagy DO ; Shalini Crawford MD - Rxs /Orders / Referrals /Forms Prescriptions: New atorvastatin 40 mg Tablet 40 mg PO DAILY RF: 0 folic acid 1 mg Tablet 1 mg PO DAILY RF: 0 hydralazine 25 mg Tablet 12.5 mg PO Q8HR RF: 0 ipratropium bromide 0.02 % Solution 0.5 mg NEB Q8HR NEB RF: 0 isosorbide mononitrate 30 mg Tablet Extended Release 24 Hr 30 mg PO DAILY RF: 0 levothyroxine [Synthroid] 75 mcg Tablet 75 mcg PO DAILY@0600 RF: 0 metoprolol tartrate 50 mg Tablet 25 mg PO BID RF: 0 nitroglycerin [Nitrostat] 0.4 mg Tablet, Sublingual 0.4 mg Sublingual Q5M PRN (Reason: Chest Pain) RF: 0 pantoprazole 40 mg Tablet,Delayed Release (Dr/Ec) 40 mg PO DAILY RF: 0 sennosides [Senna Lax] 8.6 mg Tablet 17.2 mg PO Q12H PRN (Reason: MODERATE CONSTIPATION) RF: 0 Continue amlodipine [Norvasc] 10 mg Tablet 10 mg PO DAILY aspirin 81 mg Tablet,Chewable 81 mg PO DAILY doxazosin [Cardura] 2 mg Tablet 2 mg PO DAILY glimepiride [Amaryl] 4 mg Tablet 4 mg PO DAILY heparin (porcine) 5,000 unit/mL Syringe 5,000 unit SUB-Q Q12H ipratropium-albuterol 0.5 mg-3 mg(2.5 mg base)/3 mL Solution For Nebulization 3 ml INHALATION Q8H sodium bicarbonate 650 mg Tablet 650 mg PO Q12HR Discontinued atorvastatin 40 mg Tablet 40 mg PO DAILY folic acid 0.8 mg Capsule 0.8 mg PO DAILY glimepiride [Amaryl] 1 mg Tablet 1 mg PO DAILY hydralazine 25 mg Tablet 12.5 mg PO Q8HR insulin asp prt-insulin aspart 100 unit/mL (70-30) Solution 1 sliding scale dose SUB-Q UD insulin detemir U-100 [Levemir U-100 Insulin] 100 unit/mL Solution 4 unit SUB-Q HS insulin glargine [Lantus U-100 Insulin] 100 unit/mL Solution 4 unit Sub-Q HS isosorbide mononitrate 30 mg Tablet Extended Release 24 Hr 30 mg PO DAILY levofloxacin [Levaquin] 500 mg Tablet 500 mg PO EVERY OTHER DAY levothyroxine [Synthroid] 75 mcg Tablet 75 mcg PO DAILY lisinopril 40 mg Tablet 40 mg PO DAILY metoprolol tartrate tablet 50 mg PO DAILY nitroglycerin [Nitrostat] 0.4 mg Tablet, Sublingual 0.4 mg SUBLINGUAL Q5M PRN (Reason: Chest Pain) pantoprazole 40 mg Tablet,Delayed Release (Dr/Ec) 40 mg PO DAILY rosuvastatin 20 mg Tablet 20 mg PO DAILY sennosides-docusate sodium 8.6-50 mg Tablet 1 tab PO BID Referrals: UNKNOWN, [Primary Care Provider] - See Instructions - Discharge Instructions Additional Instructions: discharge to [facility] INPATIENT REHAB - Post Discharge Care Plan Care Plan Goals: DISCHARGE TO INPATIENT REHAB
--- NOTE | 2017-12-26 15:15 | P.PNNP ---
Subjective Interval history: Patient seen in AM, has difficulty in passing the urine, no SOB. Physical Exam Vital signs: Vital Signs 12/25/17 16:00 12/25/17 16:31 12/25/17 16:53 Temperature Pulse Rate 59 L 59 L 64 Respiratory Rate 18 Blood Pressure Pulse Oximetry 12/25/17 17:34 12/25/17 19:00 12/25/17 20:00 Temperature 98.5 F Pulse Rate 63 62 63 Respiratory Rate 16 Blood Pressure 148/67 H Pulse Oximetry 95 12/25/17 21:00 12/25/17 22:00 12/25/17 23:00 Temperature 98.4 F Pulse Rate 62 62 62 Respiratory Rate 16 Blood Pressure 140/64 Pulse Oximetry 95 12/26/17 00:00 12/26/17 01:00 12/26/17 02:00 Temperature Pulse Rate 58 L 59 L 58 L Respiratory Rate Blood Pressure Pulse Oximetry 12/26/17 03:00 12/26/17 04:00 12/26/17 05:00 Temperature 99.1 F Pulse Rate 59 L 57 L 66 Respiratory Rate 16 Blood Pressure 113/57 L Pulse Oximetry 93 L 12/26/17 06:00 12/26/17 07:00 12/26/17 08:00 Temperature 98.7 F Pulse Rate 69 63 62 Respiratory Rate 16 Blood Pressure 159/71 H Pulse Oximetry 97 12/26/17 08:27 12/26/17 09:00 12/26/17 10:00 Temperature Pulse Rate 76 55 L 58 L Respiratory Rate 16 Blood Pressure Pulse Oximetry 94 L 12/26/17 11:00 12/26/17 12:00 12/26/17 12:04 Temperature 97.7 F Pulse Rate 55 L 59 L Respiratory Rate 14 Blood Pressure 148/65 H 82/40 L Pulse Oximetry 96 12/26/17 12:05 12/26/17 12:08 12/26/17 12:18 Temperature Pulse Rate Respiratory Rate Blood Pressure 80/41 L 75/40 L 123/58 L Pulse Oximetry 12/26/17 13:00 12/26/17 14:00 Temperature Pulse Rate 56 L 63 Respiratory Rate Blood Pressure Pulse Oximetry Intake & Output 12/25/17 12/26/17 12/26/17 18:59 06:59 18:59 Intake Total 600 / 600 240 / 240 250 / 250 Output Total 560 / 560 700 / 700 Balance 40 / 40 -460 / -460 250 / 250 Weight 65 kg Intake: IV 250 / 250 NS Inj 250 ML @ Wide Open IV. 250 / 250 SIG ONCE ONE Rx#:[id number] Oral 600 / 600 240 / 240 Output: Urine 700 / 700 Urine Amount (Catheter) 560 / 560 Indwelling Urethral Catheter 560 / 560 Other: Date of Last Bowel Movement 12/25/17 # Bowel Movements 0 - Constitutional no acute distress - Routine HEENT Exam Head: Present: normocephalic ENT: Present: mucous membranes moist - Routine Neck Exam Present: supple - Routine Respiratory Exam Present: decreased breath sounds, CTA bilaterally, rhonchi - Routine Cardiovascular Exam Present: S1, S2 - Routine Abdominal Exam Present: soft, normoactive bowel sounds, distended - Routine Extremities Exam Present: edema - Routine Neurological Exam Present: alert, oriented X3 - Detailed Neurological Exam: Coma Scale Verbal Response: Oriented - Urinary Catheter Management Indwelling Urethral Catheter Cath placed during this visit: yes, but has since been removed by the nurse Urethral indwelling: No Reason for continuing: Not indwelling catheter Insertion date: 12/16/17 Removal date: 12/25/17 Removal time: 17:40 Assessment and Plan - Assessment (1) Acute kidney failure Code(s): N17.9 - Acute kidney failure, unspecified Status: Acute Qualifiers: Acute renal failure type: unspecified Qualified Code(s): N17.9 - Acute kidney failure, unspecified - Plan Acute kidney failure, unspecified; N18.9 - Chronic kidney disease, unspecified Plan: Patient has chronic kidney disease, stage 4. Now has Cardiac ischemia and developed DAVID. No new BMP today. Galo's was removed, not able to pass urine. Started on Flomax, has straight cath done over night. To get Bladder scan. If able to pass urine, possible discharge to SNF. Now is off lasix Tolerating PO intake - Possible D/C to [facility] rehab soon Avoid nephro toxins. Follow the urine out put and BMP.
== END 2017-12-26 20:18 ==
LOC: HCPC 11:52 → HCVI 12-16 17:20 → HCPC 12-21 18:06
PROVIDERS: ADMIT Family Medicine; ATTEND Family Medicine